=== PATIENT | female | born 1970 | race Two or more races ===

== ENCOUNTER 2024-10-16 11:49 | Outpatient (REF) | payer MEDICAID, SELFPAY ==
--- NOTE | ~2024-10-16 | XR_ITS ---
EXAMINATION: XR FOOT, LEFT CLINICAL INFORMATION: toe swelling and pain r/o osteomyelitis COMPARISON: None available. TECHNIQUE: AP, lateral, and oblique views of the left foot. FINDINGS: No acute cortical disruption or malalignment in the phalanges of the toes. The metatarsals are intact. The tarsal bones are intact. Small spur, calcaneus plantar surface. No gross joint effusion. No subcutaneous emphysema. No lytic or blastic lesions. No metallic or radiopaque foreign body. XR/XR foot LT min 3V IMPRESSION: No acute fracture or dislocation. No subcutaneous emphysema, toes of the left foot.. Electronically signed by: Isacc Landeros MD 10/16/2024 12:53 PM EDT
== END 2024-10-16 11:50 | disposition home or self-care (01) ==
LOC: HO.HHCX 11:49
PROVIDERS: Visit Provider Nurse Practitioner
DX: M79.675 Pain in left toe(s) (principal)
CPT/HCPCS: 73630

== ENCOUNTER → 2024-10-16 11:50 | Outpatient (BNV) | payer MEDICAID, SELFPAY | PROVIDERS: Visit Provider Radiology Diagnostic Radiology | DX: M79.675 Pain in left toe(s) (principal); R22.42 Localized swelling, mass and lump, left lower limb | CPT/HCPCS: 73630 ==

== ENCOUNTER 2024-10-21 08:40 | Outpatient (REF) | payer MEDICAID, SELFPAY ==
--- OUTSIDE RECORDS SUMMARY | 2024-10-21 08:58 | XMS_ITS | Clinical Summary ---
Author Organization [employer] Address [address] [place] [address] 7[address] [place] [address] Care Team Providers Care Lining Maker Hand Name Role Phone Gemma Osuna NP Primary Care Provider [phone] Allergies Active Allergy Reactions Criticality Noted Date Comments Penicillin G Medium 10/09/2024 Shrimp Flavor Agent (Non-Screening) Hives Medium 10/09/2024 un Medications insulin glargine (Lantus) 100 UNIT/ML injection Inject 20 Units under the skin at bedtime. 10 mL 12 10/10/19 25 Active pioglitazone (Actos) 15 MG tablet Take 1 tablet (15 mg) by mouth Once per day. 30 tablet 2 10/10/19 25 Active empagliflozin- metFORMIN ER (Synjardy XR) 10-1000 MG 24 hr tablet Take 1 tablet by mouth with breakfast. 30 tablet 3 10/10/19 25 Active aspirin 81 MG chewable tablet Chew 1 tablet (81 mg) Once per day. 30 tablet 11 10/10/19 25 026 Active montelukast (Singulair) 10 MG tablet Take 1 tablet (10 mg) by mouth Once per day. 30 tablet 2 10/10/19 25 025 Active alendronate (Fosamax) 70 MG tablet Take 1 tablet (70 mg) by mouth every 7 (seven) days. Take in the morning with a full glass of water, on an empty stomach, and do not take anything else by mouth or lie down for the next 30 min. 4 tablet 1 10/10/19 25 026 Active atorvastatin (Lipitor) 40 MG tablet Take 1 tablet (40 mg) by mouth Once per day. 30 tablet 2 10/10/19 Active famotidine (Pepcid) 20 MG tablet Take 1 tablet (20 mg) by mouth Once per day. 30 tablet 1 10/10/19 Active albuterol 108 (90 Base) MCG/ACT inhaler Inhale 2 puffs every 6 (six) hours if needed for wheezing. 18 g 10/10/19 Active DULoxetine (Cymbalta) [address] capsule Take 1 capsule (30 mg) by mouth 3 times daily. Do not crush or chew. 90 capsule 1 10/10/19 Active gabapentin (Neurontin) 300 MG capsule Take 1 capsule (300 mg) by mouth 3 times daily. 90 capsule 2 10/10/19 Active meloxicam (Mobic) 15 MG tablet Take 1 tablet (15 mg) by mouth if needed each day for moderate pain. 30 tablet 1 10/10/19 Active FREESTYLE LITE test strip Use to test blood sugar 3 times daily 100 each 10/10/19 Active Lancets misc Use to test blood sugar 3 times daily 100 each 10/10/19 Active Alcohol Swabs 70 % pads Use to test blood sugar 3 times daily 100 each 10/10/19 Active Blood Glucose Monitoring Suppl (FreeStyle Carrier Lite) w/Device kit Use to test blood sugar 3 times daily 1 kit 2 10/10/19 Active Continuous Glucose Library Technical Assistant (FreeStyle Sweetie 3 Lockney) device 1 each Once per day. Use as directed for CGM 1 each 10/10/19 Active Continuous Glucose Sensor (FreeStyle Sweetie 3 Plus Sensor) misc 1 each every 15 days. Apply 1 every 15 days as directed for CGM 2 each 10/10/19 Active glucose blood (FreeStyle Precision Kyle Test) test strip Use to test blood sugar 4 times daily in case of CGM failure or extremes of BG 100 each 10/10/19 026 Active amitriptyline (Elavil) 25 MG tablet Take 2 tablets (50 mg) by mouth at bedtime. 60 tablet 1 10/10/19 025 Active Insulin Syringe 31G X 10/09 1 ML misc 1 Syringe at bedtime. Use with lantus dose 30 each 3 10/10/19 25 Active Mometasone Furoate 110 MCG/ACT aerosol powder Inhale 1 Inhalation 2 times daily. 1 each 2 10/10/19 25 Active colchicine 0.6 MG tabletIndicati ons:Pain of toe of left foot Take 2 tablets today, then one tablet two times daily until pain resolves 20 tablet 10/17/19 Active DULoxetine (Cymbalta) [address] capsule Take 1 capsule (30 mg) by mouth Once per day. Do not crush or chew. 30 capsule 1 10/10/19 25 Discontinued gabapentin (Neurontin) 300 MG capsule Take 1 capsule (300 mg) by mouth if needed each day (nightly). 90 capsule 2 10/10/19 25 Discontinued fluticasone (Flovent) 110 MCG/ACT inhaler Inhale 1 puff in the morning and at bedtime. Rinse mouth with water after use to reduce aftertaste and incidence of candidiasis. Do not swallow. 12 g 11 10/10/19 25 025 Discontinued fluticasone (Flovent) 110 MCG/ACT inhaler Inhale 2 puffs in the morning and at bedtime. Rinse mouth with water after use to reduce aftertaste and incidence of candidiasis. Do not swallow. 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, with long-term current use of insulin 10/09/2024 Assessment & Plan (10/09/2024 10:15 AM EDT): Pt with type II DIABETES MELLITUS, A1c 5.9, glucose normal Medications renewed, Metabolic labs Fibromyalgia 10/09/2024 PTSD (post-traumatic stress disorder) 10/09/2024 Assessment & Plan (10/09/2024 10:31 AM EDT): Pt reports hx 0.5 clonezepam nightly, reviewed unable to prescribe this [facility] Referral to behavioral health Moderate persistent asthma without complication 10/09/2024 Diabetes mellitus, type II, insulin dependent Encounters Date Type Department Care Team Description 10/16/2024 10:40 AM EDT Office Visit [facility] [address] [place] [address] Pain of toe of left foot (Primary Dx) 10/16/2024 Telephone [facility] [address] [place] [address] [phone] Gemma Osuna NP Results 10/09/2024 9:40 AM EDT Office Visit [facility] [address] [place], [place] [phone] Gemma Osuna NP Type 2 diabetes mellitus with other diabetic arthropathy, with long-term current use of insulin (CMS/HCC) (Primary Dx); Fibromyalgia; PTSD (post-traumatic stress disorder); Moderate persistent asthma without complication 10/09/2024 Orders Only [facility] [address] [place] [address] [phone] Gemma Osuna NP Diabetes mellitus, type II, insulin dependent (CMS/HCC) (Primary Dx) 10/09/2024 Telephone [facility] [address] [place] [address] [phone] Keira Murphy RN from Last 3 Months Social History Tobacco Use Types Packs/Day Years Used Date Smoking Tobacco: Never Assessed Comments Unknown Sex and Gender Information Value Date Recorded Sex Assigned at Female 10/09/2024 9:13 AM EDT Legal Sex Female 1:51 PM EDT Gender Identity Female 10/09/2024 9:13 AM EDT Sexual Orientation Straight 10/09/2024 9: 13 AM EDT Last Filed Vital Signs Vital Sign Reading Time Taken Comments Blood Pressure 146/83 10/16/2024 11:21 AM EDT Pulse 87 10/16/2024 11:21 AM EDT Temperature 36.7 ??C (98 ??F) 10/16/2024 11:21 AM EDT Respiratory Rate 18 10/16/2024 11:21 AM EDT Oxygen Saturation 98% 10/16/2024 11:21 AM EDT Inhaled Oxygen Concentration - - Weight 96.2 kg (212 lb) 10/16/2024 11:21 AM EDT Height - - Body Mass Index - - Plan of Treatment Upcoming Encounters Date Type Department Care Team (Late st Contact Info) Description 11/13/2024 11:15 AM EDT Office Visit [facility] [address] [place] [address] Gemma Osuna NP [address] [place] [address] Health Maintenance Due Date Last Done Comments CT Colonography 1969 Colonoscopy 1969 Colorectal Cancer Screening 1969 Depression Screening 1969 FIT DNA/Cologuard 1969 FIT 1969 FOBT 1969 HIV Screening 1969 Lipid Panel 1969 SDOH Screening 1969 Sigmoidoscopy 1969 Disability Screening 1969 Diabetes: Foot Exam 1979 Eye Exam 1979 Alcohol/Substance Use Screening 1981 Tobacco Screening 1981 Hepatitis C Screening 1987 DTaP/Tdap/Td Vaccines (1 - Tdap) 1988 Diabetes: Urine Protein Screening 1988 Hepatitis B Vaccines (1 of 3 - 19+ 3-dose series) 1988 Pneumococcal Vaccine: 50+ Ye ars (1 of 2 - PCV) 1988 Pap Smear 1990 Cervical Cancer Screening 1999 HPV/Cotest 1999 Mammogram 2009 Zoster Vaccines (1 of 2) 2019 COVID-19 Vaccine ( - 2023-2 5 season) 2024 Influenza Vaccine (#1) 2024 Diabetes: Hemoglobin A1C 04/11/2025 10/09/2024 RSV Patients and Pa tients Aged 60 years or older (1 - 1-dose 75+ series) 2044 HIB Vaccines Aged Out No longer eligi ble based on patient's age to complete this topic HPV Vaccines Aged Out No longer eligi ble based on patient's age to complete this topic Hepatitis A Vaccines Aged Out No long er eligible based on patient's age to complete this topic IPV Vaccines Aged Out No longer eligi ble based on patient's age to complete this topic Meningococcal B Vaccine Aged Out No l onger eligible based on patient's age to complete this topic Meningococcal Vaccine Aged Out No peter rafa eligible based on patient's age to complete this topic RSV under 20 months Aged Out No longe r eligible based on patient's age to complete this topic Rotavirus Vaccines Aged Out No longer eligible based on patient's age to complete this topic Procedures Procedure Name Priority Date/Time Associated Diagnosis Comments XR FOOT 3+ VIEWS LEFT Routine 10/16/2024 11:50 AM EDT Pain of toe of left foot POCT GLYCATED HEMOGLOBIN, TOTAL Routine 10/09/2024 10:10 AM EDT Type 2 diabetes mellitus with other diabetic arthropathy, with long-term current use of insulin ([facility]) POCT GLUCOSE Routine 10/09/2024 10:10 AM EDT Type 2 diabetes mellitus with other diabetic arthropathy, with long-term current use of insulin ([facility]) from Last 3 Months Results * XR Foot 3+ Views Left (10/16/2024 11:50 AM EDT) Anatomical Region Laterality Modality Lower Extremities, Foot Left Radiogra phic Imaging 10/16/2024 11:5 0 AM EDT Narrative 10/16/2024 12:56 PM EDT ?[facility] ?[address] ?[place] [address] ?XRay Report ? Signed ? Patient: Callaway Rodas,Katie ?MR#: ?? [id number] ? : 1970 ?Acct:[id number] ? Age/Sex: 54 / F ?ADM Date: 05/23/25 ? Loc: HO.HHCX ? Attending Dr: Karina Appram ? Ordering Physician: Karina Kumar ?? Date of Service: 10/16/24 ?? Procedure(s): XR foot LT min 3V ?? Accession Number(s): [id number] ? cc: Karina Kumar ? EXAMINATION: ?? XR FOOT, LEFT ? CLINICAL INFORMATION: ?? toe swelling and pain r/o osteomyelitis ? COMPARISON: ?? None available. ? TECHNIQUE: ?? AP, lateral, and oblique views of the left foot. ? FINDINGS: ?? No acute cortical disruption or malalignment in the phalanges of the ?? toes. ?? The metatarsals are intact. ?? The tarsal bones are intact. ?? Small spur, calcaneus plantar surface. ?? No gross joint effusion. ?? No subcutaneous emphysema. ?? No lytic or blastic lesions. ?? No metallic or radiopaque foreign body. ? XR/XR foot LT min 3V ?? IMPRESSION: ?? No acute fracture or dislocation. ?? No subcutaneous emphysema, toes of the left foot.. ? Electronically signed by: ??Isacc Landeros MD ??10/16/2024 12:53 PM ?? EDT ? Dictated By: ?Isacc López MD ? Signed By: ?<Electronically signed by Isacc Gallardo MD in OV> ? 10/16/24 1253 ? DD/ 1150 ? TD/TT: 10/16/24 1200 ? Winchman/Crane Operator: ? Procedure Note Damon, Image - 10/16/[address] [address] XRay Report Signed Patient: Clotilde Andrews#: [id number] : 1970Acct:[id number] Age/Sex: 54 / FADM Date: 10/16/24 Loc: HO.HHCX Attending Dr: Karina Kumar Ordering Physician: Karina Kumar Date of Service: 10/16/24 Procedure(s): XR foot LT min 3V Accession Number(s): [id number] cc: Karina Kumar EXAMINATION: XR FOOT, LEFT CLINICAL INFORMATION: toe swelling and pain r/o osteomyelitis COMPARISON: None available. TECHNIQUE: AP, lateral, and oblique views of the left foot. FINDINGS: No acute cortical disruption or malalignment in the phalanges of the toes. The metatarsals are intact. The tarsal bones are intact. Small spur, calcaneus plantar surface. No gross joint effusion. No subcutaneous emphysema. No lytic or blastic lesions. No metallic or radiopaque foreign body. XR/XR foot LT min 3V IMPRESSION: No acute fracture or dislocation. No subcutaneous emphysema, toes of the left foot.. Electronically signed by: Isacc Landeros MD 10/16/2024 12:53 PM EDT RP Dictated By: Isacc López MD Signed By: <Electronically signed by Isacc Gallardo MDin OV> 10/16/24 1253 DD/ 1150 TD/TT: 10/16/24 1200 Winchman/Crane Operator: Karina Kumar ASSEMBLER FOR PULLER OVER MACHINE IMG XR PROCEDURES Final Result * POCT A1C (10/09/2024 10:10 AM EDT) Hemoglobin A1C 5.9 4.0 - 6.0 % Blood 10/09/2024 10:1 0 AM EDT Gemma Osuna ASSEMBLER FOR PULLER OVER MACHINE POINT OF CARE TEST ENTER/EDIT OR DERABLES Final Result * POCT glucose manually resulted (10/09/2024 10:10 AM EDT) Glucose Blood, POC 113 60 - 200 mg/dL Blood Capillary blood specimen / Unknown 10/09/2024 10:10 AM EDT Gemma Osuna ASSEMBLER FOR PULLER OVER MACHINE POINT OF CARE TEST ENTER/EDIT OR DERABLES Final Result from Last [address] [facility] C3 Care Teams Lining Maker Hand Relationship Specialty Start Date End Date Gemma Osuna NP [address] [place] [id number] PCP - General Family Medicine 10/09/24
[2024-10-21 11:38] LABS: Estimated Average Glucose 114 mg/dL; Hemoglobin A1c % 5.6 % (<6.0)
[2024-10-21 12:29] LABS: Alanine Aminotransferase 34 U/L (0-31); Albumin Level 3.7 g/dL (3.5-5.0); Alkaline Phosphatase 63 U/L (39-117); Anion Gap 11 (12-20); Aspartate Amino Transferase 46 U/L (5-31); Blood Urea Nitrogen 17 mg/dL (9-16); Carbon Dioxide 27 mmol/L (22-29); Chloride 109 mmol/L (96-108); Cholesterol 202 mg/dL (<200); Estimated Glomerular Filt Rate > 60; Glucose Random 85 mg/dL (60-115); HDL Cholesterol 63 mg/dL (>40); LDL Cholesterol Calculated 119 mg/dL (<100); Potassium 4.5 mmol/L (3.3-5.1); Sodium 142 mmol/L (135-145); Total Protein 6.6 g/dL (6.5-8.0); Triglycerides 101 mg/dL (<150)
[2024-10-21 12:34] LABS: TSH reflex Free T4 1.85 uIU/mL (0.32-4.0)
[2024-10-21 12:59] LABS: Bilirubin Total 0.6 mg/dL (0.0-1.0)
== END 2024-10-21 08:41 | disposition home or self-care (01) ==
LOC: HO.HHCL 08:40
PROVIDERS: Visit Provider Nurse Practitioner Family
DX: E11.618 Type 2 diabetes mellitus with other diabetic arthropathy (principal); Z79.4 Long term (current) use of insulin; M79.7 Fibromyalgia
CPT/HCPCS: 36415; 80053; 80061; 83036; 84443

== ENCOUNTER 2025-01-08 08:25 | Outpatient (REF) | payer MEDICAID, SELFPAY ==
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
--- OUTSIDE RECORDS SUMMARY | 2025-01-08 08:31 | XMS_ITS | Encounter Summary ---
Author Organization [employer] Address [address] [facility] [address] [place] [address] Care Team Providers Care Work Order Clerk Name Role Phone Gemma Osuna NP Primary Care Provider [phone] Reason for Visit * Reason Onset Date Comments Med Refill 11/03/2024 Encounter Details Date Type Department Care Team (Late st Contact Info) Description 11/03/2024 Refill [facility] [address] [place] [phone] Gemma Osuna NP [address] [place] [address] Social History Tobacco Use Types Packs/Day Years Used Date Smoking Tobacco: Never Smokeless Tobacco: Never Comments Unknown Sex and Gender Information Value Date Recorded Sex Assigned at Female 10/09/2024 9:13 AM EDT Legal Sex Female 1:51 PM EDT Gender Identity Female 10/09/2024 9:13 AM EDT Sexual Orientation Straight 10/09/2024 9: 13 AM EDT documented as of this encounter Plan of Treatment Upcoming Encounters Date Type Department Care Team (Late st Contact Info) Description 01/15/2025 1:30 PM EDT Office Visit [facility] [address] [place] [address] Gemma Osuna NP [address] [place], [place] [phone] 03/03/2025 2:00 PM EDT Office Visit [facility] [address] [place], [place] [phone] Fabby Hoffman, OD [address] [place], [place] [phone] documented as of this encounter Visit Diagnoses Not on filedocumented in this encounter Care Teams Work Order Clerk Relationship Specialty Start Date End Date Gemma Osuna NP [address] [place] [id number] PCP - General Family Medicine 10/09/24 documented as of this encounter
[2025-01-08 11:43] LABS: Alanine Aminotransferase 20 U/L (0-31); Albumin Level 4.2 g/dL (3.5-5.0); Alkaline Phosphatase 94 U/L (39-117); Anion Gap 11 (12-20); Aspartate Amino Transferase 22 U/L (5-31); Blood Urea Nitrogen 15 mg/dL (9-16); Calcium 9.1 mg/dL (8.4-10.2); Carbon Dioxide 26 mmol/L (22-29); Chloride 107 mmol/L (96-108); Estimated Glomerular Filt Rate > 60; Potassium 4.2 mmol/L (3.3-5.1); Sodium 140 mmol/L (135-145); Total Protein 7.0 g/dL (6.5-8.0)
== END 2025-01-08 08:26 | disposition home or self-care (01) ==
LOC: HO.HHCL 08:25
PROVIDERS: PCP Nurse Practitioner Family; Visit Provider Nurse Practitioner Family
DX: E11.618 Type 2 diabetes mellitus with other diabetic arthropathy (principal); Z79.4 Long term (current) use of insulin
CPT/HCPCS: 36415; 80053

== ENCOUNTER 2025-02-09 10:34 | Outpatient (REF) | payer MEDICAID, SELFPAY ==
--- OUTSIDE RECORDS SUMMARY | 2025-02-10 13:00 | XMS_ITS | Encounter Summary ---
Author Organization [employer] Address [address] [facility] 7[address] [place] [address] Care Team Providers Care Oracle Specialist Name Role Phone Gemma Osuna NP Primary Care Provider [phone] Reason for Visit * Reason Onset Date Comments Med Refill 11/03/2024 Encounter Details Date Type Department Care Team (Late Contact Info) Description 11/03/2024 Refill [facility] [address] [place] [address] Gemma Osuna NP [address] [place] [address] Social History Tobacco Use Types Packs/Day Years [...] Care Team (Late st Contact Info) Description 03/03/2025 2:00 PM EDT Office Visit [facility] [address] [place] [address] Fabby Hoffman OD [address] [place] [address] 03/22/2025 3:45 PM EDT Office Visit [facility] [address] [place] [address] Gemma Osuna NP [address] [place] [address] documented as of this encounter Visit Diagnoses Not on filedocumented in this encounter Care Teams Oracle Specialist Relationship Specialty Start Date End Date Gemma Osuna NP [address] [place] [address] PCP - General Family Medicine 10/09/24 documented as of this encounter
--- OUTSIDE RECORDS SUMMARY | 2025-02-10 13:00 | XMS_ITS | Encounter Summary ---
Author Organization [employer] Address [address] [facility] 7[address] [place] [address] Care Team Providers Care Double Backer Name Role Phone Gemma Osuna NP Primary Care Provider [phone] Reason for Visit * Reason Onset Date Comments Med Refill 11/03/2024 Encounter Details Date Type Department Care Team (Late st Contact Info) Description 11/03/2024 Refill [facility] [address] [place] [address] Gemma Osuna NP [address] [place] [address] Social History Tobacco Use Types Packs/Day Years [...] Description 03/03/2025 2:00 PM EDT Office Visit [facility] [address] [place] [address] Fabby Hoffman OD [address] [place] [address] 03/22/2025 3:45 PM EDT Office Visit [facility] [address] [place] [address] Gemma Osuna NP [address] [place] [address] documented as of this encounter Visit Diagnoses Not on filedocumented in this encounter Care Teams Double Backer Relationship Specialty Start Date End Date Gemma Osuna NP [address] [place] [address] PCP - General Family Medicine 10/09/24 documented as of this encounter
--- OUTSIDE RECORDS SUMMARY | 2025-02-10 13:01 | XMS_ITS | Encounter Summary ---
Author Organization [employer] Address [address] [facility] [address] [place] [address] Care Team Providers Care Mine Shifter Name Role Phone Gemma Osuna NP Primary Care Provider [phone] Reason for Visit * Reason Onset Date Comments Med Refill 12/07/2024 Encounter Details Date Type Department Care Team (Late st Contact Info) Description 12/07/2024 Refill [facility] [address] [place] [address] Gemma Osuna NP [address] [place] [address] Social History Tobacco Use Types Packs/Day Years Used Date Smoking Tobacco: Never Smokeless Tobacco: Never Depression Answer Date Recorded Patient Health Questionnaire-9 Score 14 11/13/2024 Patient Health Questionnaire-9 Score 14 11/13/2024 Last PHQ-9: Questionnaire Data Not on file 0 11/13/2024 Depression Answer Date Recorded Patient Health Questionnaire-2 Score 2 11/13/2024 Comments Unknown Sex and Gender Information Value [...] Description 03/03/2025 2:00 PM EDT Office Visit [facility] [address] [place], [place] [phone] Fabby Hoffman, OD [address] [place] [address] 03/22/2025 3:45 PM EDT Office Visit [facility] [address] [place] [address] Gemma Osuna NP [address] [place] [address] documented as of this encounter Visit Diagnoses Not on filedocumented in this encounter Additional Health Concerns Assessment Noted Time PHQ-9 Depression Total Score: 14 025 12:03 PM EDT documented as of this encounter Care Teams Mine Shifter Relationship Specialty Start Date End Date Gemma Osuna NP [address] [place] [address] PCP - General Family Medicine 10/09/24 documented as of this encounter
--- OUTSIDE RECORDS SUMMARY | 2025-02-10 13:01 | XMS_ITS | Encounter Summary ---
Author Organization [employer] Address [address] [facility] 7t [place] [address] Care Team Providers Care Angle Shearer Name Role Phone Gemma Osuna NP Primary Care Provider [phone] Reason for Visit * Reason Onset Date Comments Med Refill 12/11/2024 Encounter Details Date Type Department Care Team (Late st Contact Info) Description 12/11/2024 Refill [facility] [address] [place] [address] Gemma Osuna NP [address] [place] [address] Social History Tobacco Use Types Packs/Day Years [...] 03/03/2025 2:00 PM EDT Office Visit [facility] [address] [place], [place] [phone] Fabby Hoffman, OD [address] [place] [address] 03/22/2025 3:45 PM EDT Office Visit [facility] [address] [place] [address] Gemma Osuna NP [address] [place] [address] documented as of this encounter Visit Diagnoses Not on filedocumented in this encounter Additional Health Concerns Assessment Noted Time PHQ-9 Depression Total Score: 14 025 12:03 PM EDT documented as of this encounter Care Teams Angle Shearer Relationship Specialty Start Date End Date Gemma Osuna NP [address] [place] [address] PCP - General Family Medicine 10/09/24 documented as of this encounter
--- OUTSIDE RECORDS SUMMARY | 2025-02-10 13:01 | XMS_ITS | Encounter Summary ---
Author Organization [employer] Address [address] [facility] 7[address] [place] [address] Care Team Providers Care Lace Burn Out Tender Name Role Phone Gemma Osuna NP Primary Care Provider [phone] Reason for Visit * Reason Onset Date Comments Med Refill 12/07/2024 Encounter Details Date Type Department Care Team (Late st Contact Info) Description 12/07/2024 Refill [facility] [address] [place] [address] Gemma Osuna NP [address] [place] [address] Social History Tobacco Use Types Packs/Day Years [...] Description 03/03/2025 2:00 PM EDT Office Visit [facility] [address] [place], [place] [phone] Fabby Hoffman, OD [address] [place] [address] 03/22/2025 3:45 PM EDT Office Visit [facility] [address] [place] [address] Gemma Osuna NP [address] [place] [address] documented as of this encounter Visit Diagnoses Not on filedocumented in this encounter Additional Health Concerns Assessment Noted Time PHQ-9 Depression Total Score: 14 025 12:03 PM EDT documented as of this encounter Care Teams Lace Burn Out Tender Relationship Specialty Start Date End Date Gemma Osuna NP [address] [place] [address] PCP - General Family Medicine 10/09/24 documented as of this encounter
--- OUTSIDE RECORDS SUMMARY | 2025-02-10 13:01 | XMS_ITS | Clinical Summary ---
Author Organization [facility] Address [address] [place] [address] Care Team Providers Care Icing Coater Name Role Phone Unavailable Primary Care Provider Unavailabl e Source Comments PLEASE NOTE, if this patient is a minor, it may be UNLAWFUL to discuss sensitive information that is contained in these records (such as FAMILY PLANNING, MENTAL HEALTH or SUBSTANCE ABUSE) with the minor patient's parent or other person without the patient's specific authorization.[facility] Allergies Active Allergy Reactions Criticality Noted Date Comments Penicillamine 01/07/2025 Penicillin G Medium 10/09/2024 Medications blood-glucose meter monitoring kit Use 1 Each as directed 3 (three) times daily. 10/09/2024 Active meloxicam (MOBIC) 15 mg tablet Take 15 mg by mouth once daily. 11/30/2024 Active montelukast (SINGULAIR) 10 mg tablet Take 10 mg by mouth daily. 10/09/2024 Active amitriptyline (ELAVIL) 25 mg tablet Take 25 mg by mouth nightly at bedtime. 12/05/2023 Active aspirin 81 mg chewable tablet Chew and swallow 81 mg by mouth daily. 10/09/2024 10/10/19 Active atorvastatin (LIPITOR) 40 mg tablet Take 40 mg by mouth daily. 10/09/2024 10/10/19 Active FREESTYLE LITE STRIPS strips Use 1 Each as directed 3 (three) times daily. 10/09/2024 Active DULoxetine (CYMBALTA) [address] capsule Take 30 mg by mouth 2 (two) times daily. 11/30/2024 Active SYNJARDY XR 10-1,000 mg TBph Take 1 Tablet by mouth once daily with breakfast. Active famotidine (PEPCID) 20 mg tablet Take 20 mg by mouth daily. 11/30/2024 Active gabapentin (NEURONTIN) 300 mg capsule Take 300 mg by mouth 3 (three) times daily. Active ASMANEX HFA 100 mcg/actuation HFAA Inhale 1 Puff into the lungs 2 (two) times daily. 01/04/2025 Active DEEP SEA NASAL 0.65 % nasal spray Place 1 Elton into the nostril(s) once daily as needed. 11/02/2024 Active buPROPion XL (WELLBUTRIN XL) 150 mg 24 hr tablet Take 1 Tablet by mouth every morning for 30 days. 30 Tablet 01/07/2025 Active hydrOXYzine pamoate (VISTARIL) 25 mg capsule Take 1 Capsule by mouth 3 (three) times daily as needed for anxiety for up to 30 days. 90 Capsule 01/07/2025 Active Active Problems Problem Noted Date Diagnosed Date Major depressive disorder, r ecurrent episode, moderate degree ([facility]) 01/07/2025 Overview (01/07/2025): Adding Wellbutrin (bupropion) addresses residual depression without interfering with Cymbalta's benefits for fibromyalgia pain. This combination is safe and may provide synergistic antidepressant effects through different mechanisms (SNRI + NDRI). Hydroxyzine was chosen over prazosin after discussion with patient, prioritizing daytime anxiety management over nightmare suppression, though prazosin remains an option for future consideration if nightmares persist. Assessment & Plan (01/07/2025 12:45 PM EDT): Assessment: Patient reports symptoms consistent with depression, including poor concentration, forgetfulness, lack of motivation for self-care, and social isolation. She has a history of suicidal ideation with a plan, but no attempts, denies current SI/HI Plan: - Start Wellbutrin XL 150 mg - Continue Cymbalta 30 mg BID Chronic pain of left knee 11/15/2024 Elevated liver transaminase level 11/15/2024 Thyroid nodule 11/15/2024 Colon cancer screening 11/13/2024 Enlarged lymph node in neck 11/13/2024 Snoring 11/13/2024 Fibromyalgia 10/09/2024 Insulin dependent type 2 diabetes mellitus ([facility]) 10/09/2024 Moderate persistent asthma without complication ([facility]) 10/09/2024 PTSD (post-traumatic stress disorder) 10/09/2024 Overview (01/07/2025): Rationale for avoiding benzodiazepine continuation: While clonazepam would provide immediate anxiolytic relief, continuing this medication would be counterproductive given: 1) PTSD requires trauma-focused therapy as primary treatment, not anxiolytic dependence, 2) Patient has demonstrated ability to function with minimal benzodiazepine use, 3) Risk of tolerance and escalating doses over time, 4) Potential for masking symptoms rather than addressing underlying trauma. Critical need for psychotherapy: The 7-year duration of untreated PTSD with only medication management represents a significant treatment gap. Immediate referral for trauma-focused therapy is essential, as medications serve only as symptom management while therapy addresses core trauma processing. The patient's motivation (relocating for peaceful place ), stability (housing, employment), and daughter's support suggest good potential for therapeutic engagement. 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 She reports ongoing symptoms including panic attacks, anxiety, and difficulty being in crowded places. Her symptoms worsened two years ago following psychosocial stress and loss of family members. She is hypervigilant, has never been to therapy, currently taking two different serotonergic meds that help her pain, it will not be ideal to add an SSRI at this time, Patient needs to start Therapy [facility]. Plan: - Hydroxyzine for anxiety, up to 3 times daily - refer for therapy. ( Email with request sent to coordinator) 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, with long-term current use of insulin ([facility]) 10/09/2024 Encounters Date Type Department Care Team Description 01/07/2025 11:00 AM EDT Behavioral Health Visit [facility] [address] [place] [address] LAURA BANUELOS [id number] Fabiola Bah APRN from Last 3 Months Social History Tobacco Use Types Packs/Day Years Used Date Smoking Tobacco: Never Assessed Comments Unknown Sex and Gender Information Value Date Recorded Sex Assigned at Female 11/17/2024 6:40 AM PDT Legal Sex Female 6:40 AM PDT Gender Identity Female 11/17/2024 6:40 AM PDT Sexual Orientation Not on file Plan of Treatment Health Maintenance Due Date Last Done Comments Anxiety Screening 1969 Depression Monitoring 1969 Diabetes Foot Exam 1969 HPV Screening 1969 Hepatitis C Screening 1969 Pap + HPV 1969 Urine Albumin Creatinine Rat io Screening 1969 Retinopathy Screening 1982 HIV Screening 1984 Hypertension Screening (#1) 1987 Imm-DTaP/Tdap/Td (1 - Tdap) 1988 Imm-Hepatitis B (1 of 3 - 19 + 3-dose series) 1988 Imm-Pneumococcal 50+ (1 of 2 - PCV) 1988 Cervical Cancer Screening 1990 Pap Smear 1990 Breast Cancer Screening (Mammogram) 2009 CT Colonography 2014 Colonoscopy 2014 Colorectal Cancer Screening 2014 FIT/gFOBT 2014 Fecal DNA 2014 Flexible Sigmoidoscopy 2014 Imm-Zoster, Recombinant (1 of 2) 2019 Alcohol and Drug Screen 05/27/2024 [id number] ( season) 2025 Imm-Influenza (#1) 2025 Hemoglobin A1c 04/23/2025 10/21/2024, 0512/2024, 10/09/2024 Lipid Screening 10/21/2025 10/21/2024 Serum Creatinine 10/21/2025 10/21/2024 Tobacco Screening 01/07/2026 Cervical Ablation/Cold-Knife Conization Discontinued Cervical Cryotherapy Discontinued Colposcopy Discontinued Endometrial Biopsy Discontinued Excision/Leep Discontinued HPV Genotyping Discontinued Vaginal Pap Discontinued Vulvoscopy Discontinued [place] [facility] [place]
--- OUTSIDE RECORDS SUMMARY | 2025-02-10 13:01 | XMS_ITS | Clinical Summary ---
Author Organization [employer] Address [address] [place] [address] 7[address] [place] [address] Care Team Providers Care Computer Console Operator Name Role Phone ThaoGemma YENY Primary Care Provider [phone] Allergies Active Allergy Reactions Criticality Noted Date Comments Penicillin G Medium 10/09/2024 Shrimp Flavor Agent (Non-Screening) Hives Medium 10/09/2024 un Medications * This document contains information received from the source organization and may not represent a complete record from that organization. insulin glargine (Lantus) 100 UNIT/ML injection Inject 20 Units under the skin at bedtime. 10 mL 10/10/19 Active pioglitazone (Actos) 15 MG tablet Take 1 tablet (15 mg) by mouth Once per day. 30 tablet 2 10/10/19 Active empagliflozin- metFORMIN ER (Synjardy XR) 10-1000 MG 24 hr tablet Take 1 tablet by mouth with breakfast. 30 tablet 3 10/10/19 Active aspirin 81 MG chewable tablet Chew 1 tablet (81 mg) Once per day. 30 tablet 10/10/19 Active atorvastatin (Lipitor) 40 MG tablet Take 1 tablet (40 mg) by mouth Once per day. 30 tablet 2 10/10/19 Active albuterol 108 (90 Base) MCG/ACT inhaler Inhale 2 puffs every 6 (six) hours if needed for wheezing. 18 g 10/10/19 Active FREESTYLE LITE test strip Use to test blood sugar 3 times daily 100 each 12 05/16/20 25 05/16/2 026 Active Lancets misc Use to test blood sugar 3 times daily 100 each 10/10/19 Active Alcohol Swabs 70 % pads Use to test blood sugar 3 times daily 100 each 10/10/19 25 Active Blood Glucose Monitoring Suppl (FreeStyle [place] Lite) w/Device kit Use to test blood sugar 3 times daily 1 kit 2 10/10/19 Active Continuous Glucose Cnc Service Technician (FreeStyle Sweetie 3 [place]) device 1 each Once per day. Use as directed for CGM 1 each 10/10/19 25 Active glucose blood (FreeStyle Precision Kyle Test) test strip Use to test blood sugar 4 times daily in case of CGM failure or extremes of BG 100 each 10/10/19 25 026 Active sodium chloride (Bartholomew Nasal [place]) 0.65 % nasal sprayIndicatio ns:COVID-19 Administer 1 spray into each nostril if needed for congestion. 30 mL 1 11/03/19 25 Active meloxicam (Mobic) 15 MG tablet TAKE 1 TABLET BY MOUTH EVERY DAY NEEDED FOR PAIN MODERATE 30 tablet 1 12/01/19 25 Active amitriptyline (Elavil) 25 MG tablet TAKE 2 TABLETS BY MOUTH EVERY DAY AT BEDTIME 60 tablet 1 12/01/19 25 Active Asmanex HFA 100 MCG/ACT aerosol INHALE 1 PUFF BY MOUTH TWICE DAILY 13 g 2 01/05/20 25 Active tiZANidine (Zanaflex) 4 MG capsule Take 1 capsule (4 mg) by mouth if needed in the morning, at noon, and at bedtime for muscle spasms. 30 capsule 1 01/16/20 25 026 Active gabapentin (Neurontin) 300 MG capsule Take 2 capsules (600 mg) by mouth 2 times daily. 120 capsule 2 01/16/20 25 026 Active Continuous Glucose Sensor (FreeStyle Sweetie 3 Plus Sensor) mis 1 each every 15 days. Apply 1 every 15 days as directed for CGM 2 each 01/16/20 25 Active montelukast (Singulair) 10 MG tablet Take 1 tablet (10 mg) by mouth Once per day. 30 tablet 2 01/16/20 25 025 Active olmesartan (Benicar) 5 MG tablet Take 1 tablet (5 mg) by mouth Once per day. 30 tablet 01/16/20 026 Active alendronate (Fosamax) 70 MG tablet take 1 tablet by mouth once a week with 6 to 8 oz of water 30 min before first food of day. do not lie down for 30 minutes 12 tablet 01/27/20 25 Active famotidine (Pepcid) 20 MG tablet TAKE 1 TABLET BY MOUTH EVERY DAY 90 tablet 01/23/20 25 Active DULoxetine (Cymbalta) [address] capsule TAKE 1 CAPSULE BY MOUTH THREE TIMES DAILY DO NOT BREAK, CRUSH, DISSOLVE OR CHEW 90 capsule 02/04/20 Active montelukast (Singulair) 10 MG tablet Take 1 tablet (10 mg) by mouth Once per day. 30 tablet 2 10/10/19 025 Discontinued(Re order (will not trigger notification to Pharmacy)) gabapentin (Neurontin) 300 MG capsule Take 1 capsule (300 mg) by mouth 3 times daily. 90 capsule 2 10/10/19 025 Discontinued Continuous Glucose Sensor (FreeStyle Sweetie 3 Plus Sensor) misc 1 each every 15 days. Apply 1 every 15 days as directed for CGM 2 each 10/10/19 025 Discontinued(Re order (will not trigger notification to Pharmacy)) Nirmatrelvir&R itonavir 300/100 (Paxlovid, 300/100,) 20 x 150 MG & 10 x 100MG tablet therapy packIndication s:COVID-19 Take 300 mg by mouth 2 times daily. Take 3 tablets 2x/day for 5 days 30 each 11/03/19 025 Discontinued(Th erapy completed) lisinopril 2.5 MG tablet Take 1 tablet (2.5 mg) by mouth Once per day. 30 tablet 11/14/19 025 Discontinued(Si de effects) famotidine (Pepcid) 20 MG tablet TAKE 1 TABLET BY MOUTH EVERY DAY 30 tablet 12/01/19 25 025 Discontinued DULoxetine (Cymbalta) [address] capsule TAKE 1 CAPSULE BY MOUTH THREE TIMES DAILY. DO NOT BREAK, CRUSH, DISSOLVE OR CHEW. 90 capsule 12/01/19 25 025 Discontinued alendronate (Fosamax) 70 MG tablet Take 1 tablet (70 mg) by mouth every 7 (seven) days. Take in the morning with a full glass of water, on an empty stomach, and do not take anything else by mouth or lie down for the next 30 min. 4 tablet 1 12/01/19 25 025 Discontinued Active Problems Problem Noted Date Diagnosed Date Muscle spasm of left shoulder 01/15/2025 Assessment & Plan (01/15/2025 3:52 PM EDT): No injury, spasm last 3-4 days Exercise counseling 01/15/2025 Assessment & Plan (01/15/2025 2:08 PM EDT): Dietary Recommendations: Fruits, vegetables, whole grains, protein foods, and fat-free or low-fat dairy products are healthy choices. Eat different types of protein foods in your diet. This can include seafood, lean meats, poultry, beans, peas, lentils, nuts, seeds, soy products, and eggs. Limit foods and beverages higher in added sugars, saturated fat, and sodium. Exercise Recommendations: At least 150 minutes of moderate-intensity physical activity per week, or an equivalent combination of moderate- and vigorous-intensity activity Dietary counseling 01/15/2025 Thyroid nodule 11/15/2024 Assessment & Plan (01/15/2025 3:51 PM EDT): Upcoming ultrasound, in jan Assessment & Plan (11/15/2024 1:27 PM EDT): Ultrasound of thyroid ordered Chronic pain of left knee 11/15/2024 Assessment & Plan (11/15/2024 1:28 PM EDT): No instability noted, but chronic issue, referral to orthopedics Elevated liver transaminase level 11/15/2024 Assessment & Plan (11/15/2024 1:28 PM EDT): Repeat labs if elevated order ultrasound Snoring 11/13/2024 Assessment & Plan (11/15/2024 1:28 PM EDT): Referral to sleep medicine Enlarged lymph node in neck 11/13/2024 Colon cancer screening 11/13/2024 Overview (01/15/2025): Had in [place] (during pandemic) Assessment & Plan (01/15/2025 3:51 PM EDT): Referral to gI Assessment & Plan (11/15/2024 1:27 PM EDT): Referral to GI for colonscopy 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, with long-term current use of insulin 10/09/2024 Assessment & Plan (01/15/2025 2:12 PM EDT): Considering glp-1 awaiting thyroid nodule utrasound, will Assessment & Plan (11/15/2024 1:32 PM EDT): Continue to hold actos, last episode of hypoglycemia last week Initiate 2.5 mg lisinopril, reduce to 15 units lantus for 3 nights, increase to 20 units if fasting sugars above 200 bs Assessment & Plan (10/09/2024 10:15 AM EDT): Pt with type II DIABETES MELLITUS, A1c 5.9, glucose normal Medications renewed, Metabolic labs Fibromyalgia 10/09/2024 Assessment & Plan (01/15/2025 3:52 PM EDT): Reviewed supportive measures, gabapentin increased Acupuncture class recommended Referral to rheumatology PTSD (post-traumatic stress disorder) 10/09/2024 Assessment & Plan (11/15/2024 1:28 PM EDT): Referral to psychiatry Assessment & Plan (10/09/2024 10:31 AM EDT): Pt reports hx 0.5 clonezepam nightly, reviewed unable to prescribe this [facility] Referral to behavioral health Moderate persistent asthma without complication 10/09/2024 Diabetes mellitus, type II, insulin dependent Encounters * This document contains information received from the source organization and may not represent a complete record from that organization. Date Type Department Care Team Description 02/09/2025 Refill [facility] [address] [place] [address] [phone] Gemma Osuna NP 02/03/2025 Refill [facility] [address] [place] [address] [phone] Gemma Osuna NP 01/22/2025 Refill [facility] [address] [place] [address] [phone] Gemma Osuna NP 01/18/2025 Refill [facility] [address] [place] [address] [phone] Gemma Osuna NP 01/15/2025 1:30 PM EDT Office Visit [facility] [address] [place] [address] [phone] Gemma Osuna NP Thyroid nodule (Primary Dx); Dietary counseling; Exercise counseling; Type 2 diabetes mellitus with other diabetic arthropathy, with long-term current use of insulin ([facility]); Colon cancer screening; Muscle spasm of left shoulder; Fibromyalgia 01/15/2025 Travel 01/14/2025 Travel 01/14/2025 Telephone [facility] [address] [place] [address] [phone] Gemma Osuna NP Chart Prep 01/03/2025 Refill [facility] [address] [place] [address] [phone] Gemma Osuna NP 12/23/2024 4:00 PM EDT Office Visit [facility] [address] [place] [address] [phone] Viviana Lew MD Acute exacerbation of mild persistent extrinsic asthma (Primary Dx) 12/23/2024 Travel 12/22/2024 Refill [facility] [address] [place] [address] [phone] Gemma Osuna NP 12/11/2024 Refill [facility] [address] [place] [address] [phone] Gemma Osuna NP 12/07/2024 Refill [facility] [address] [place] [address] [phone] Gemma Osuna NP 12/07/2024 Refill [facility] [address] [place] [address] [phone] Gemma Osuna NP 11/29/2024 Refill [facility] [address] [place] [address] [phone] Gemma Osuna NP 11/27/2024 Refill [facility] [address] [place] [address] [phone] Gemma Osuna NP 11/16/2024 Telephone [facility] [address] [place] [address] [phone] Gemma Osuna NP 11/13/2024 11:15 AM EDT Office Visit [facility] [address] [place] [address] [phone] Gemma Osuna NP Type 2 diabetes mellitus with other diabetic arthropathy, with long-term current use of insulin (CMS/HCC) (Primary Dx); Snoring; PTSD (post-traumatic stress disorder); Fibromyalgia; Colon cancer screening; Thyroid nodule; Chronic pain of left knee; Elevated liver transaminase level 11/13/2024 Travel 11/12/2024 Travel 11/11/2024 Telephone [facility] [address] [place] [address] [phone] Jennifer Meehan MA Chart Prep from Last 3 Months Social History Tobacco Use Types Packs/Day Years Used Date Smoking Tobacco: Never Smokeless Tobacco: Never Tobacco Cessation:Counseling Given: Not Answered Depression Answer Date Recorded Patient Health Questionnaire-9 Score 14 11/13/2024 Patient Health Questionnaire-9 Score 14 11/13/2024 Last PHQ-9: Questionnaire Data Not on file 0 11/13/2024 Housing Stability Answer Date Recorded What is your housing situation today? I do not have housing (Staying with others, in a hotel, in a assisted, living outside on the street, on a beach, in a car, or in a park 01/15/[address] you li ve. Do you have problems with any of the following? None of the above;I am not sure 01/15/2025 Food Insecurity Answer Date Recorded Within the past 12 months, y ou worried that your food would run out before you got money to buy more: Sometimes True 2024 Within the past 12 months,th e food you bought just didn't last and you didn't have enough money to get more: Often true 01/15/2025 Transportation Answer Date Recorded In the past 12 months, has l ack of transportation kept you from medical appts, meetings, work or from getting things needed for daily living? Yes, it has kept me from medical appointments or getting medications.;Yes, it has kept me from non-medical meetings, work, or getting things that I need 01/15/2025 Utilities Answer Date Recorded In the past 12 months, has t he electric, gas, oil or water company threatened to shut off services in your home? No 01/15/2025 Depression Answer Date Recorded Patient Health Questionnaire-2 Score 2 11/13/2024 Internet Access Answer Date Recorded Internet Access Q1 Yes 01/15/2025 Internet Access Q2 Not on file 01/15/2025 Comments Unknown Sex and Gender Information Value Date Recorded Sex Assigned at Female 10/09/2024 9:13 AM EDT Legal Sex Female 1:51 PM EDT Gender Identity Female 10/09/2024 9:13 AM EDT Sexual Orientation Straight 10/09/2024 9: 13 AM EDT Last Filed Vital Signs Vital Sign Reading Time Taken Comments Blood Pressure 122/84 01/15/2025 1:33 PM EDT Pulse 92 01/15/2025 1:33 PM EDT Temperature 37.3 C (99.1 F) 01/15/2025 1:33 PM EDT Respiratory Rate 23 01/15/2025 1:33 PM EDT Oxygen Saturation 97% 01/15/2025 1:33 PM EDT Inhaled Oxygen Concentration - - Weight 93.5 kg (206 lb 3.2 oz) 01/15/2025 1:33 P M EDT Height 157.5 cm (5' 2 ) 01/15/2025 1:33 PM EDT Body Mass Index 37.71 01/15/2025 1:33 PM EDT Plan of Treatment Upcoming Encounters Date Type Department Care Team (Late st Contact Info) Description 03/03/2025 2:00 PM EDT Office Visit [facility] [address] [facility] [place], [place] [phone] Fabby Hoffman, OD [address] [place] [address] 03/22/2025 3:45 PM EDT Office Visit [facility] [address] [place] [address] Thao Gemma, COST ACCOUNTING CLERK [address] [place], [place] [phone] Health Maintenance Due Date Last Done Comments CT Colonography 1969 Colonoscopy 1969 Colorectal Cancer Screening 1969 FIT DNA/Cologuard 1969 FIT 1969 FOBT 1969 HIV Screening 1969 Sigmoidoscopy 1969 Eye Exam 1979 Hepatitis C Screening 1987 DTaP/Tdap/Td Vaccines (1 - Tdap) 1988 Diabetes: Urine Protein Screening 1988 Hepatitis B Vaccines (1 of 3 - 19+ 3-dose series) 1988 Pneumococcal Vaccine: 50+ Years (1 of 2 - PCV) 1988 Pap Smear 1990 Cervical Cancer Screening 1999 HPV/Cotest 1999 Mammogram 2009 Zoster Vaccines (1 of 2) 2019 COVID-19 Vaccine (1 - 2023-2 5 season) 2025 Influenza Vaccine (#1) 2025 Diabetes: Hemoglobin A1C 04/23/202510/21/2 025, 10/09/2024 Depression Monitoring 05/15/2025 11/13/2024 , 11/13/2024 Diabetes: Foot Exam 10/16/2025 10/16/2024 Lipid Panel 10/21/2025 10/21/2024 Alcohol/Substance Use Screening 11/13/2025 11/13/2024 Disability Screening 11/13/2025 11/13/2024 SDOH Screening 01/15/2026 01/15/2025 Tobacco Screening 01/15/2026 01/15/2025 RSV Patients and Patients Aged 60 years or older (1 - [...] Procedure Name Priority Date/Time Associated Diagnosis Comments POCT GLUCOSE Routine 01/15/2025 1:35 PM EDT Type 2 diabetes mellitus with other diabetic arthropathy, with long-term current use of insulin ([facility]) COMPREHENSIVE METABOLIC PANEL Routine 01/08/2025 8:31 AM EDT Elevated liver transaminase level POCT GLUCOSE Routine 11/13/2024 11:47 AM EDT Type 2 diabetes mellitus with other diabetic arthropathy, with long-term current use of insulin ([facility]) HEMOGLOBIN A1C Routine 10/21/2024 8:42 AM EDT Type 2 diabetes mellitus with other diabetic arthropathy, with long-term current use of insulin ([facility]) LIPID PANEL, STANDARD Routine 10/21/2024 8:42 AM EDT Type 2 diabetes mellitus with other diabetic arthropathy, with long-term current use of insulin ([facility]) from Last 3 Months or Most Recently Relevant to Health Maintenance Results * POCT Glucose (01/15/2025 1:35 PM EDT) Only the most recent of2 resultswithin the time period is included. Pathologist [facility] Glucose Blood, POC 150 60 - 200 mg/dL QC Media Lot # [id number] Lot# Expiration Date Blood Capillary blood specimen / Unknown 01/15/2025 1:35 PM EDT us Gemma Osuna COST ACCOUNTING CLERK POINT OF CARE TEST ENTER/EDIT OR DERABLES Final Result * (ABNORMAL) Comprehensive Metabolic Panel (01/08/2025 8:31 AM EDT) Sodium 140 135 - 145 mmol/L [facility] Potassium 4.2 3.3 - 5.1 mmol/L [facility] Chloride 107 96 - 108 mmol/L [facility] Carbon Dioxide 26 22 - 29 mmol/L [facility] Anion Gap 11(L) 12 - 20 [facility] Urea Nitrogen (BUN) 15 9 - 16 mg/dL [facility] Creatinine, Serum 0.62 0.5 - 1.4 mg/dL [facility] Estimated Glomerular Filt Rate >60 [facility] Comment:Chronic Kidney Disea se: Estimated GFR < 60 mL/min/1.53k2Hsleox Kidney Disease: Estimated GFR < 15 mL/min/1.73m2 Glucose 155(H) 60 - 115 mg/dL [facility] Calcium 9.1 8.4 - 10.2 mg/dL [facility] Bilirubin, Total 0.5 0.0 - 1.0 mg/dL [facility] Aspartate Amino Transferase 22 5 - 31 U/L [facility] Alanine Aminotransferase 20 0 - 31 U/L [facility] Total Protein 7.0 6.5 - 8.0 g/dL [facility] Albumin Level 4.2 3.5 - 5.0 g/dL [facility] Alkaline Phosphatase 94 39 - 117 U/L [facility] Blood Venous blood specimen / Unknown 01/08/2025 8:31 AM EDT 01/08/2025 11:10 AM EDT us Gemma Osuna NP LAB BLOOD ORDERABLES Final Resul t [facility] [address] [place] [phone] [phone] * Hemoglobin A1c (10/21/2024 8:42 AM EDT) Hemoglobin A1c 5.6 <6.0 % [facility] Comment:Hemoglobin A1C Refer ence Range Adults: 4.8 - 6.0 % Non diabetic: < 6.0 % Goal: < 7.0 %Additional Action Suggested: > 8.0 %Note: Hemoglobin A1c results are invalid for patients with abnormal amounts of HbF. Blood transfusions may impact the HbA1c concentration in the patient sample. Estimated Average Glucose 114 mg/dL [facility] Comment:eAG = Estimated ave rage glucose which is %A1C expressed asaverage glucose, using the formula of the T0O-NdlctrcYdobmpi Glucose study (ADAG), Diabetes Care, Vol.31,#8,2007 Blood Venous blood specimen / Unknown 10/21/2024 8:42 AM EDT 10/21/2024 11:06 AM EDT us Gemma Osuna NP LAB BLOOD ORDERABLES Final Resul t [facility] [address] [place] [phone] * (ABNORMAL) Lipid Panel, Standard (10/21/2024 8:42 AM EDT) Triglycerides 101 <150 mg/dL [facility] Comment:Desirable Triglyceri de: less than 150 mg/dLBorderline High Triglyceride 150-199 mg/dLHigh Triglyceride: 200-499 mg/dLVery High Triglyceride: greater than or equal to 5OO mg/dL Cholesterol 202(H) <200 mg/dL [facility] Comment:Desirable Cholestero l: less than 200 mg/dLBorderline High Cholesterol: 200-239 mg/dLHigh Cholesterol: greater than 239 mg/dL LDL Cholesterol Calculated 119(H) <100 mg/dL [facility] Comment:Desirable LDL: less than 100 mg/dLNear Optimal/Above Optimal LDL: 110- 129 mg/dLBorderline High LDL: 130-159 mg/dLHigh LDL: 160-189 mg/dLVery High LDL: greater than or equal to 190 mg/dL HDL Cholesterol 63 >40 mg/dL [facility] Comment:Desirable HDL: great er than 40 mg/dL Note: This HDL assay may give artificially low results in patients with liver disease. Blood Venous blood specimen / Unknown 10/21/2024 8:42 AM EDT 10/21/2024 11:10 AM EDT us Gemma Osuna COST ACCOUNTING CLERK LAB BLOOD ORDERABLES Final Resul t [facility] [address] [place] [address] [phone] from Last 3 Months or Most Recently Relevant to Health Maintenance Insurance [employer] Care Teams Computer Console Operator Relationship Specialty Start Date End Date Gemma Osuna NP [address] [place] [address] PCP - General Family Medicine 10/09/24
--- OUTSIDE RECORDS SUMMARY | 2025-02-10 13:01 | XMS_ITS | Encounter Summary ---
Author Organization [employer] Address [address] [facility] [address] [place] [address] Care Team Providers Care Bilingual Customer Service Name Role Phone Gemma Osuna NP Primary Care Provider [phone] Reason for Visit * Reason Onset Date Comments Med Refill 02/09/2025 Encounter Details Date Type Department Care Team ([facility] st Contact Info) Description 02/09/2025 Refill [facility] [address] [place] [address] Gemma Osuna NP [address] [place] [address] Social History Tobacco Use Types Packs/Day Years [...] with others, in a hotel, in a senior living, living outside on the street, on a [...] Description 03/03/2025 2:00 PM EDT Office Visit [facility] [address] [place] [address] Fabby Hoffman, OD [address] [place] [address] 03/22/2025 3:45 PM EDT Office Visit [facility] [address] [place] [address] Gemma Osuna NP [address] [place] [address] documented as of this encounter Visit Diagnoses Not on filedocumented in this encounter Additional Health Concerns Assessment Noted Time PHQ-9 Depression Total Score: 14 025 12:03 PM EDT documented as of this encounter Care Teams Bilingual Customer Service Relationship Specialty Start Date End Date Gemma Osuna NP [address] [place] [address] PCP - General Family Medicine 10/09/24 documented as of this encounter
--- OUTSIDE RECORDS SUMMARY | 2025-02-10 13:01 | XMS_ITS | Encounter Summary ---
Author Organization [employer] Address [address] [facility] [address] [place] [address] Care Team Providers Care Parts Designer Name Role Phone Gemma Osuna NP Primary Care Provider [phone] Reason for Visit * Reason Onset Date Comments Med Refill 12/22/2024 DTA Form 12/22/2024 I called the pat nathaniel, regarding a EAEDC form from the DTA. I asked why she was given a new form, because she had one completed on 10/21/24. She stated that the one from September is , and was told that she needs to provide a new one. Encounter Details Date Type Department Care Team (Late st Contact Info) Description 12/22/2024 Refill [facility] [address] [place], [place] [phone] Gemma Osuna NP [address] [place], [place] [phone] Social History Tobacco Use Types Packs/Day Years [...] AM EDT documented as of this encounter Miscellaneous Notes * Telephone Encounter - Alina Ramachandran [place] - 01/04/2025 11:28 AM EDT I called the patient, regarding a EAEDC form from the DTA. I asked why she was given a new form, because she had one completed on 10/21/24. She stated that the one from September is , and was told that she needs to provide a new one. documented in this encounter Plan of Treatment Upcoming Encounters Date Type Department Care Team (Late st Contact Info) Description 03/03/2025 2:00 PM EDT Office Visit [facility] [address] [place] [address] Fabby Hoffman, OD [address] [place] [address] 03/22/2025 3:45 PM EDT Office Visit [facility] [address] [place] [address] Gemma Osuna NP [address] [place] [address] documented as of this encounter Visit Diagnoses Not on filedocumented in this encounter Additional Health Concerns Assessment Noted Time PHQ-9 Depression Total Score: 14 025 12:03 PM EDT documented as of this encounter Care Teams Parts Designer Relationship Specialty Start Date End Date Gemma Osuna NP [address] [place] [address] PCP - General Family Medicine 10/09/24 documented as of this encounter
== END 2025-02-09 10:35 | disposition home or self-care (01) ==
LOC: HO.HOSX 10:34
PROVIDERS: Visit Provider Orthopaedic Surgery
DX: S83.242A Other tear of medial meniscus, current injury, left knee, initial encounter (principal); X58.XXXA Exposure to other specified factors, initial encounter
CPT/HCPCS: 99202

== ENCOUNTER 2025-02-09 13:30 | Outpatient (AMB) | payer MEDICAID, SELFPAY ==
--- NOTE | 2025-02-09 13:33 | A.OFFVIS_ITS ---
Intake Visit Reasons: Left knee pain and giving way Intake Note: Katie is a 54 year old female who presents with complaints of progressively worsening left knee pain and giving way. She describes her pain as sharp in nature. Her symptoms have gotten worse over the last 4 months in spite of continued non operative treatments. She has failed the last 6 weeks of conservative treatment which has included Tylenol, anti-inflammatory medicines, topical creams and physical therapy. She states it most of the pain is along the medial aspect of her knee. She states that her left knee will give out several times per day. She also feels a ?cracking sensation? in her left knee. Golf Player Assistant Required: Yes Golf Player Assistant Services: Golf Player Assistant Present Golf Player Assistant Name: Chelsey [id number] Allergies Penicillins Allergy (Mild, Verified 02/09/25 13:46) Unknown Medication List - Last Reconciled 02/09/25 by Joe Saleh MD alcohol swabs (Alcohol Prep Pads) pad topical TID alendronate 70 mg PO QWEEK aspirin 1 tab PO DAILY blood sugar diagnostic (FreeStyle Lite Strips) As directed blood-glucose meter (FreeStyle Duncan Lite kit) As directed famotidine 20 mg PO DAILY gabapentin 600 mg PO BID insulin glargine (Lantus U-100 Insulin) 20 units subcut BEDTIME lancets (TRUEplus Lancets) As directed meloxicam 15 mg PO DAILY PRN olmesartan 5 mg PO DAILY pioglitazone 15 mg PO DAILY Physical Exam Const Other: Well-nourished well-developed very friendly female awake alert and oriented x3 in no acute distress Extrem Other: Left knee examination shows a minimal effusion, mild crepitus with range of motion, tenderness along her medial joint line, positive Keshawn's test, no instability Assessment & Plan Assessment & Plan (1) Tear of medial meniscus of left knee: Code(s): S83.242A - Other tear of medial meniscus, current injury, left knee, initial encounter Category: Medical Plan Ms. Nilton Rodas presents with left knee pain and mechanical symptoms most likely due to a medial meniscus tear. Thus, I will send the patient for an MRI of her left knee for further evaluation. I will see her back once the MRI is completed to discuss the findings and treatment options. She will continue with her activity modifications in the meantime. Feel free to call me at any time should questions regarding her orthopedic management arise. Thank you very much for asking me to see this very friendly patient. I spent 20 minutes in reviewing the patient's records and imaging studies, seeing the patient and documenting in the medical record. Orders: Orders MR knee LT wo con 02/10/25 S83.242A - Other tear of medial meniscus, current injury, left knee, initial encounter Coding Level of Care Code New Pt Level 3 (07792) Complex EM visit Add On G2211 Diagnoses Tear of medial meniscus of left knee S83.242A
== END 2025-02-09 13:51 | disposition home or self-care (01) ==
LOC: HO.HOS 13:30
PROVIDERS: PCP Nurse Practitioner Family; Visit Provider Orthopaedic Surgery
DX: S83.242A Other tear of medial meniscus, current injury, left knee, initial encounter (principal)
CPT/HCPCS: 99203

== ENCOUNTER 2025-02-16 14:29 | Outpatient (REF) | payer MEDICAID, SELFPAY ==
--- NOTE | ~2025-02-16 | US_ITS ---
EXAMINATION: US THYROID CLINICAL INFORMATION: History of thyroid nodule. Tenderness. COMPARISON: None available. TECHNIQUE: Linear transducer grayscale and color Doppler examination with attention to the region of the thyroid. FINDINGS: SIZE: Measurements of the thyroid lobes and nodules are given in sagittal, anteroposterior and transverse dimensions respectively. Right Thyroid Lobe: 4.2 x 1.6 x 1.6 cm, volume 5.7 mL. Parenchyma: The gland echotexture is heterogeneous. Thyroid vascularity is normal. Left Thyroid Lobe: 4.2 x 1.2 x 1.5 cm, volume 3.9 mL. Parenchyma: The gland echotexture is heterogeneous. Thyroid vascularity is normal. Isthmus: 0.2 cm in maximum AP dimension. Estimated total number of nodules greater than or equal to 1 cm: 1. Laborer Pole Crew nodules are described as follows: 1. Location: Midportion right thyroid lobe. Size: 1.4 x 1.2 x 1.2 cm, volume 1.06 mL. Nodule characteristics: Composition: Solid/almost completely solid (2). Echogenicity: Hypoechoic (2). Shape: Not taller than wide (0). Margins: Smooth (0). Echogenic Foci: Punctate echogenic foci (3). ACR TI-RADS total points: 7 ACR TI-RADS category: 7 2. Location: Midportion right thyroid lobe. Size: 0.6 x 0.6 x 0.8 cm, volume 0.13 mL. Nodule characteristics: Composition: Solid (2). Echogenicity: Isoechoic (1). Shape: Not taller than wide (0). Margins: Smooth (0). Echogenic Foci: None (0). ACR TI-RADS total points: 3 ACR TI-RADS category: 3 3. Location: Lower pole right thyroid lobe. Size: 0.5 x 0.2 x 0.5 cm, volume 0.03 mL. Nodule characteristics: Composition: Solid (2). Echogenicity: Hypoechoic (2). Shape: Not taller than wide (0). Margins: Smooth (0). Echogenic Foci: None (0). ACR TI-RADS total points: 4 ACR TI-RADS category: 4 NODES: No lymphadenopathy is seen in the tissue surrounding the thyroid gland. US/US thyroid IMPRESSION: ACR TI-RADS category: 7. Nodule in the midportion right thyroid lobe. ACR TI-RADS category: 3 and 4, subcentimeter nodules, right thyroid lobe. ACR TI-RADS RECOMMENDATION REFERENCE: Ultrasound-guided fine-needle aspiration, followup ultrasound, no further follow up. * TR1 (0 point) and TR2 (2 points): No FNA or follow up. * TR3 (3 points): FNA if more than or equal to 2.5 cm in maximum dimension, followup ultrasound in 1, 3 and 5 years if 1.5 to 2.4 cm in maximum dimension. * TR4 (4-6 points): FNA if more than or equal to 1.5 cm in maximum dimension, followup ultrasound in 1, 2, 3 and 5 years if 1 to 1.4 cm in maximum dimension. * TR5 (more than or equal to 7 points): FNA if more than or equal to 1 cm in maximum dimension, followup ultrasound every year for 5 years if 0.5 to 0.9 cm in maximum dimension. * TR3, TR4 or TR5 nodules that are below the size threshold for followup receive no follow up. Electronically signed by: Isacc Landeros MD 02/16/2025 03:29 PM EDT
--- OUTSIDE RECORDS SUMMARY | 2025-02-16 17:41 | XMS_ITS | Encounter Summary ---
Author Organization [employer] Address [address] [facility] 7t [place] [address] Care Team Providers Care Telecommunications Facility Examiner Name Role Phone Gemma Osuna NP Primary Care Provider [phone] Reason for Visit * Reason Onset Date Comments Med Refill 11/03/2024 Encounter Details Date Type Department Care Team (Late Contact Info) Description 11/03/2024 Refill [facility] [address] [place] [address] Gemma Osuna NP [address] [place] [address] Social History Tobacco Use Types Packs/Day Years [...] 2:00 PM EDT Office Visit [facility] [address] [place] [address] Fabby Hoffman OD [address] [place] [address] 03/22/2025 3:45 PM EDT Office Visit [facility] [address] [place] [address] Gemma Osuna NP [address] [place] [address] documented as of this encounter Visit Diagnoses Not on filedocumented in this encounter Care Teams Telecommunications Facility Examiner Relationship Specialty Start Date End Date Gemma Osuna NP [address] [place] [address] PCP - General Family Medicine 10/09/24 documented as of this encounter
--- OUTSIDE RECORDS SUMMARY | 2025-02-16 17:41 | XMS_ITS | Encounter Summary ---
Author Organization [employer] Address 75 [facility] 7t [place] [address] Care Team Providers Care Public Works Manager Name Role Phone Gemma Osuna NP Primary Care Provider [phone] Reason for Visit * Reason Onset Date Comments Med Refill 11/03/2024 Encounter Details Date Type Department Care Team (Late st Contact Info) Description 11/03/2024 Refill [facility] [address] [place] [address] Gemma Osuna NP [address] [place] [address] Social History Tobacco Use Types Packs/Day Years [...] Description 03/03/2025 2:00 PM EDT Office Visit [facility] [address] [place] [address] Fabby Hoffman OD [address] [place] [address] 03/22/2025 3:45 PM EDT Office Visit [facility] [address] [place] [address] Gemma Osuna NP [address] [place] [address] documented as of this encounter Visit Diagnoses Not on filedocumented in this encounter Care Teams Public Works Manager Relationship Specialty Start Date End Date Gemma Osuna NP [address] [place] [address] PCP - General Family Medicine 10/09/24 documented as of this encounter
--- OUTSIDE RECORDS SUMMARY | 2025-02-16 17:42 | XMS_ITS | Encounter Summary ---
Author Organization [employer] Address [address] [facility] 7t [place] [address] Care Team Providers Care Letter Stamping Machine Operator Name Role Phone Gemma Osuna NP Primary Care Provider [phone] Reason for Visit * Reason Comments Med Refill Encounter Details Date Type Department Care Team ([facility] st Contact Info) Description 02/15/2025 Refill [facility] [address] [place] [address] Gemma Osuna NP [address] [place] [address] COVID-19 Social History Tobacco Use Types Packs/Day Years [...] Description 03/03/2025 2:00 PM EDT Office Visit [facility] [address] [place] [address] Fabby Hoffman, OD [address] [place] [address] 03/22/2025 3:45 PM EDT Office Visit [facility] [address] [place] [address] Gemam Osuna NP [address] [place] [address] documented as of this encounter Visit Diagnoses Diagnosis COVID-19 documented in this encounter Additional Health Concerns Assessment Noted Time PHQ-9 Depression Total Score: 14 025 12:03 PM EDT documented as of this encounter Care Teams Letter Stamping Machine Operator Relationship Specialty Start Date End Date Gemma Osuna NP [address] [place] [address] PCP - General Family Medicine 10/09/24 documented as of this encounter
--- OUTSIDE RECORDS SUMMARY | 2025-02-16 17:42 | XMS_ITS | Clinical Summary ---
Author Organization [facility] Address [address] [place] [address] Care Team Providers Care Plugman Name Role Phone Unavailable Primary Care Provider [...] NASAL 0.65 % nasal spray Place [address] [place] into the nostril(s) once daily as needed. [...] depressive disorder, r ecurrent episode, moderate degree ([facility]) 01/07/2025 Overview (01/07/2025): Adding Wellbutrin (bupropion) addresses [...] 10/09/2024 Insulin dependent type 2 diabetes mellitus ([facility]) 10/09/2024 Moderate persistent asthma without complication ([facility]) 10/09/2024 PTSD (post-traumatic stress disorder) 10/09/2024 Overview [...] arthropathy, with long-term current use of insulin ([facility]) 10/09/2024 Encounters Date Type Department Care Team Description 01/07/2025 11:00 AM EDT Behavioral Health Visit [facility] [address] [place] [address] LAURA BANUELOS [phone] Fabiola Bah APRN from [...] C Screening 1969 Pap + HPV 1969 Tobacco Screening 1969 Urine Albumin Creatinine Rat io Screening [...] 2) 2019 Alcohol and Drug Screen 05/27/2024 [id number] ( season) 2025 Imm-Influenza (#1) 2025 Hemoglobin A1c 04/23/2025 10/21/2024, 09/25, 10/09/2024 Lipid Screening 10/21/2025 10/21/2024 Serum Creatinine 10/21/2025 10/21/2024 Cervical Ablation/Cold-Knife Conization Discontinued Cervical Cryotherapy Discontinued Colposcopy Discontinued Endometrial Biopsy Discontinued Excision/Leep Discontinued HPV Genotyping Discontinued Vaginal Pap Discontinued Vulvoscopy Discontinued Insurance [facility] [place] MEDICAID
--- OUTSIDE RECORDS SUMMARY | 2025-02-16 17:42 | XMS_ITS | Encounter Summary ---
Author Organization [employer] Address 75 [facility] 7t [place] [address] Care Team Providers Care Supply Chain Vice President Name Role Phone Gemma Osuna NP Primary Care Provider [phone] Reason for Visit * Reason Onset Date Comments Med Refill 02/09/2025 Encounter Details Date Type Department Care Team ([facility] st Contact Info) Description 02/09/2025 Refill [facility] [address] [place] [address] Gemma Osuna NP [address] [place] [address] Social History Tobacco Use Types Packs/Day Years [...] with others, in a hotel, in a nursing home, living outside on the street, on a [...] Description 03/03/2025 2:00 PM EDT Office Visit [facility] [address] [place] [address] Fabby Hoffman, OD [address] [place] [address] 03/22/2025 3:45 PM EDT Office Visit [facility] [address] [place] [address] Gemma Osuna NP [address] [place] [address] documented as of this encounter Visit Diagnoses Not on filedocumented in this encounter Additional Health Concerns Assessment Noted Time PHQ-9 Depression Total Score: 14 025 12:03 PM EDT documented as of this encounter Care Teams Supply Chain Vice President Relationship Specialty Start Date End Date Gemma Osuna NP [address] [place] [address] PCP - General Family Medicine 10/09/24 documented as of this encounter
--- OUTSIDE RECORDS SUMMARY | 2025-02-16 17:42 | XMS_ITS | Encounter Summary ---
Author Organization [employer] Address 75 [facility] 7t [place] [address] Care Team Providers Care Numerical Control Tool Programmer Name Role Phone Gemma Osuna NP Primary Care Provider [phone] Reason for Visit * Reason Onset Date Comments Med Refill 12/07/2024 Encounter Details Date Type Department Care Team (Late st Contact Info) Description 12/07/2024 Refill [facility] [address] [place] [address] Gemma Osuna NP [address] [place] [address] Social History Tobacco Use Types Packs/Day Years [...] Description 03/03/2025 2:00 PM EDT Office Visit [facility] [address] [place], [place] [phone] Fabby Hoffman, OD [address] [place] [address] 03/22/2025 3:45 PM EDT Office Visit [facility] [address] [place] [address] Gemma Osuna NP [address] [place] [address] documented as of this encounter Visit Diagnoses Not on filedocumented in this encounter Additional Health Concerns Assessment Noted Time PHQ-9 Depression Total Score: 14 025 12:03 PM EDT documented as of this encounter Care Teams Numerical Control Tool Programmer Relationship Specialty Start Date End Date Gemma Osuna NP [address] [place] [address] PCP - General Family Medicine 10/09/24 documented as of this encounter
--- OUTSIDE RECORDS SUMMARY | 2025-02-16 17:42 | XMS_ITS | Encounter Summary ---
Author Organization [employer] Address [address] [facility] 7t [place] [address] Care Team Providers Care Industrial Arts Teacher Name Role Phone Gemma Osuna NP Primary Care Provider [phone] Reason for Visit * Reason Comments Med Refill Encounter Details Date Type Department Care Team ([facility] st Contact Info) Description 02/15/2025 Refill [facility] [address] [place] [address] Karina Kumar NP [address] [place] [address] COVID-19 Social History Tobacco Use Types Packs/Day [...] with others, in a hotel, in a detention, living outside on the street, on a [...] Description 03/03/2025 2:00 PM EDT Office Visit [facility] [address] [place] [address] Fabby Hoffman, OD [address] [place] [address] 03/22/2025 3:45 PM EDT Office Visit [facility] [address] [place] [address] Gemma Osuna NP [address] [place] [address] documented as of this encounter Visit Diagnoses Diagnosis COVID-19 documented in this encounter Additional Health Concerns Assessment Noted Time PHQ-9 Depression Total Score: 14 025 12:03 PM EDT documented as of this encounter Care Teams Industrial Arts Teacher Relationship Specialty Start Date End Date Gemma Osuna NP [address] [place] [address] PCP - General Family Medicine 10/09/24 documented as of this encounter
--- OUTSIDE RECORDS SUMMARY | 2025-02-16 17:42 | XMS_ITS | Encounter Summary ---
Author Organization [employer] Address 75 [facility] 7t [place] [address] Care Team Providers Care Industrial Gas Fitter Name Role Phone Gemma Osuna NP Primary Care Provider [phone] Reason for Visit * Reason Onset Date [...] (Late st Contact Info) Description 12/22/2024 Refill [facility] [address] [place], [place] [phone] Gemma Osuna NP [address] [place], [place] [phone] Social History Tobacco Use Types Packs/Day Years [...] Description 03/03/2025 2:00 PM EDT Office Visit [facility] [address] [place] [address] Fabby Hoffman, OD [address] [place] [address] 03/22/2025 3:45 PM EDT Office Visit [facility] [address] [place] [address] Gemma Osuna NP [address] [place] [address] documented as of this encounter Visit Diagnoses Not on filedocumented in this encounter Additional Health Concerns Assessment Noted Time PHQ-9 Depression Total Score: 14 025 12:03 PM EDT documented as of this encounter Care Teams Industrial Gas Fitter Relationship Specialty Start Date End Date Gemma Osuna NP [address] [place] [address] PCP - General Family Medicine 10/09/24 documented as of this encounter
--- OUTSIDE RECORDS SUMMARY | 2025-02-16 17:42 | XMS_ITS | Encounter Summary ---
Author Organization [employer] Address 75 [facility] 7t [place] [address] Care Team Providers Care Doctor Of Radiology Name Role Phone Gemma Osuna NP Primary Care Provider [phone] Reason for Visit * Reason Onset Date Comments Med Refill 12/07/2024 Encounter Details Date Type Department Care Team (Late st Contact Info) Description 12/07/2024 Refill [facility] [address] [place] [address] Gemma Osuna NP [address] [place] [address] Social History Tobacco Use Types Packs/Day Years [...] Description 03/03/2025 2:00 PM EDT Office Visit [facility] [address] [place], [place] [phone] Fabby Hoffman, OD [address] [place] [address] 03/22/2025 3:45 PM EDT Office Visit [facility] [address] [place] [address] Gemma Osuna NP [address] [place] [address] documented as of this encounter Visit Diagnoses Not on filedocumented in this encounter Additional Health Concerns Assessment Noted Time PHQ-9 Depression Total Score: 14 025 12:03 PM EDT documented as of this encounter Care Teams Doctor Of Radiology Relationship Specialty Start Date End Date Gemma Osuna NP [address] [place] [address] PCP - General Family Medicine 10/09/24 documented as of this encounter
--- OUTSIDE RECORDS SUMMARY | 2025-02-16 17:42 | XMS_ITS | Encounter Summary ---
Author Organization [employer] Address [address] [facility] 7t [place] [address] Care Team Providers Care Gas Check Pad Maker Name Role Phone Gemma Osuna NP Primary Care Provider [phone] Reason for Referral * Imaging (Urgent) - Pending Review Specialty Diagnoses / Procedures Referred By Karina levin Referred To Contact Radiology Diagnoses Thyroid nodule Procedures US BIOPSY THYROID (P) Gemma Osuna NP [address] [place] [address] Phone: tel: fax: Referral ID Status Reason Start Date Expiration Date V isits Requested Visits Authorized [id number] Pending Review 02/16/2025 02/16/2026 1 1 Encounter Details Date Type Department Care Team (Late st Contact Info) Description 02/16/2025 Results Follow-Up [facility] [address] [place] [address] Gemma Osuna NP [address] [place] [address] US Thyroid Social History Tobacco Use Types Packs/Day Years [...] others, in a hotel, in a senior care, living outside on the street, on a [...] as of this encounter Miscellaneous Notes * Result Encounter Note - Gemma Osuna NP - 02/16/2025 4:47 PM EDT Good afternoon, I attempted to call patient but no answer. One of the thyroid nodules requires further investigation with biopsy, I have ordered this. Can we please let pt know? I am happy to answer her questions thank you documented in this encounter Plan of Treatment Upcoming Encounters Date Type Department Care Team ([facility] st Contact Info) Description 03/03/2025 2:00 PM EDT Office Visit [facility] [address] [place] [address] [place] [phone] Fabby Hoffman, OD [address] [place] [address] 03/22/2025 3:45 PM EDT Office Visit [facility] [address] [place] [address] Gemma Osuna NP [address] [place] [address] Scheduled Orders Name Type Priority Associated Diagnoses Orde r Schedule US BIOPSY THYROID (P) Imaging Urgent Thyroid nodule Expected: 02/16/2025, Expires: 02/16/2026 documented as of this encounter Visit Diagnoses Diagnosis Thyroid nodule- Primary Nontoxic uninodular goiter documented in this encounter Additional Health Concerns Assessment Noted Time PHQ-9 Depression Total Score: 14 11/13/ 025 12:03 PM EDT documented as of this encounter Care Teams Gas Check Pad Maker Relationship Specialty Start Date End Date Gemma Osuna NP [address] [place] [address] PCP - General Family Medicine 10/09/24 documented as of this encounter
--- OUTSIDE RECORDS SUMMARY | 2025-02-16 17:42 | XMS_ITS | Clinical Summary ---
Author Organization [employer] Address [address] [place] [address] 7[address] [place] [address] Care Team Providers Care Field Research Assistant Name Role Phone FredyGemma saenz YENY Primary Care Provider [phone] Allergies Active Allergy Reactions Criticality Noted Date [...] per day. 30 tablet 2 10/10/19 Active aspirin 81 MG chewable tablet Chew 1 tablet (81 mg) Once per day. 30 tablet 10/10/19 Active albuterol 108 (90 Base) MCG/ACT inhaler Inhale 2 puffs every 6 (six) hours if needed for wheezing. 18 g 10/10/19 Active FREESTYLE LITE test strip Use to test blood sugar 3 times daily 100 each 12 10/10/19 25 Active Lancets misc Use to test blood sugar 3 times daily 100 each 10/10/19 Active Alcohol Swabs 70 % pads Use to test blood sugar 3 times daily 100 each 10/10/19 Active Blood Glucose Monitoring Suppl (FreeStyle [place] Lite) w/Device kit Use to test blood sugar 3 times daily 1 kit 2 05/16/20 25 Active Continuous Glucose Financial Service Professional (FreeStyle Sweetie 3 [place]) device 1 each Once per day. Use as directed for CGM 1 each 10/10/19 25 Active glucose blood (FreeStyle Precision Kyle Test) test strip Use to test blood sugar 4 times daily in case of CGM failure or extremes of BG 100 each 10/10/19 25 026 Active Asmanex HFA 100 MCG/ACT aerosol INHALE [...] as directed for CGM 2 each 01/16/20 Active montelukast (Singulair) 10 MG tablet Take 1 tablet (10 mg) by mouth Once per day. 30 tablet 2 01/16/20 25 025 Active olmesartan (Benicar) 5 MG tablet Take 1 tablet (5 mg) by mouth Once per day. 30 tablet 01/16/20 25 026 Active alendronate (Fosamax) 70 MG tablet take 1 tablet by mouth once a week with 6 to 8 oz of water 30 min before first food of day. do not lie down for 30 minutes 12 tablet 1 01/27/20 25 Active famotidine (Pepcid) 20 MG tablet TAKE 1 TABLET BY MOUTH EVERY DAY 90 tablet 1 01/23/20 25 Active DULoxetine (Cymbalta) [address] capsule TAKE 1 CAPSULE BY MOUTH THREE TIMES DAILY DO NOT BREAK, CRUSH, DISSOLVE OR CHEW 90 capsule 1 02/04/20 25 Active Synjardy XR 10-1000 MG 24 hr tablet TAKE 1 TABLET BY MOUTH EVERY DAY WITH BREAKFAST 30 tablet 3 02/17/20 25 Active amitriptyline (Elavil) 25 MG tablet TAKE 2 TABLETS BY MOUTH EVERY DAY AT BEDTIME 60 tablet 3 02/17/20 25 Active meloxicam (Mobic) 15 MG tablet TAKE 1 TABLET BY MOUTH EVERY DAY NEEDED FOR MODERATE PAIN 30 tablet 3 02/17/20 25 Active atorvastatin (Lipitor) 40 MG tablet TAKE 1 TABLET BY MOUTH EVERY DAY 90 tablet 02/17/20 25 Active sodium chloride (Vermillion Nasal [place]) 0.65 % nasal sprayIndicatio ns:COVID-19 INSTILL 1 SPRAY IN EACH NOSTRIL ONCE DAILY NEEDED 30 mL 1 02/17/20 25 Active empagliflozin- metFORMIN ER (Synjardy XR) 10-1000 MG 24 hr tablet Take 1 tablet by mouth with breakfast. 30 tablet 3 10/10/19 25 025 Discontinued atorvastatin (Lipitor) 40 MG tablet Take 1 tablet (40 mg) by mouth Once per day. 30 tablet 2 10/10/19 025 Discontinued sodium chloride (Vermillion Nasal [place]) 0.65 % nasal sprayIndicatio ns:COVID-19 Administer 1 spray into each nostril if needed for congestion. 30 mL 1 11/03/19 025 Discontinued(Re order (will not trigger notification to Pharmacy)) meloxicam (Mobic) 15 MG tablet TAKE 1 TABLET BY MOUTH EVERY DAY NEEDED FOR PAIN MODERATE 30 tablet 1 12/01/19 25 025 Discontinued famotidine (Pepcid) 20 MG tablet TAKE 1 TABLET BY MOUTH EVERY DAY 30 tablet 1 12/01/19 25 025 Discontinued DULoxetine (Cymbalta) [address] capsule TAKE 1 CAPSULE BY MOUTH THREE TIMES DAILY. DO NOT BREAK, CRUSH, DISSOLVE OR CHEW. 90 capsule 12/01/19 25 025 Discontinued amitriptyline (Elavil) 25 MG tablet TAKE 2 TABLETS BY MOUTH EVERY DAY AT BEDTIME 60 tablet 1 12/01/19 25 025 Discontinued alendronate (Fosamax) 70 [...] (01/15/2025 3:51 PM EDT): Upcoming ultrasound, in sept Assessment & Plan (11/15/2024 1:27 PM EDT): [...] cancer screening 11/13/2024 Overview (01/15/2025): Had in [place] (during pandemic) Assessment & Plan (01/15/2025 3:51 [...] organization. Date Type Department Care Team Description 02/16/2025 Results Follow-Up [facility] [address] [place] [address] Gemma Osuna, YENY US Thyroid 02/15/2025 Refill [facility] [address] [place], [place] [phone] Karina Kumar NP COVID-19 02/15/2025 Refill [facility] [address] [place] [phone] Gemma Osuna NP COVID-19 02/09/2025 Refill [facility] [address] [place] [phone] Gemma Osuna NP 02/03/2025 Refill [facility] [address] [place] [address], [place] [address] Gemma Osuna NP 01/22/2025 Refill [facility] [address] [place] [address], [place] [address] Gemma Osuna NP 01/18/2025 Refill [facility] [address] [place] [address], [place] [address] Gemma Osuna NP 01/15/2025 1:30 PM EDT Office Visit [facility] [address] [place] [phone] Gemma Osuna NP Thyroid nodule (Primary Dx); Dietary counseling; Exercise counseling; Type 2 diabetes mellitus with other diabetic arthropathy, with long-term current use of insulin ([facility]); Colon cancer screening; Muscle spasm of left shoulder; Fibromyalgia 01/15/2025 Travel 01/14/2025 Travel 01/14/2025 Telephone [facility] [address] [place] [phone] Gemma Osuna NP Chart Prep 01/03/2025 Refill [facility] [address] [place] [phone] Gemma Osuna NP 12/23/2024 4:00 PM EDT Office Visit [facility] [address] [place] [phone] Viviana Lew MD Acute exacerbation of mild persistent extrinsic asthma (Primary Dx) 12/23/2024 Travel 12/22/2024 Refill [facility] [address] [place] [phone] Gemma Osuna NP 12/11/2024 Refill [facility] [address] [place] [address] Gemma Osuna NP 12/07/2024 Refill [facility] [address] [place] [address] Gemma Osuna NP 12/07/2024 Refill [facility] [address] [place] [address], [place] [address] Gemma Osuna NP 11/29/2024 Refill [facility] [address] [place] [address], [place] [address] Gemma Osuna NP 11/27/2024 Refill [facility] [address] [place] [address] Gemma Osuna NP 11/16/2024 Telephone [facility] [address] [place] [address], [place] [address] Gemma Osuna NP from Last 3 Months Social History Tobacco [...] 2:00 PM EDT Office Visit [facility] [address] [place] [address] Fabby Hoffman, OD [address] [place] [address] 03/22/2025 3:45 PM EDT Office Visit [facility] [address] [place] [address] Gemma Osuna, YENY [address] [place] [address] Health Maintenance Due Date Last Done Comments [...] Influenza Vaccine (#1) 2025 Diabetes: Hemoglobin A1C 04/23/2025 025, 10/09/2024 Depression Monitoring 05/15/2025 11/13/2024 , [...] Procedure Name Priority Date/Time Associated Diagnosis Comments US THYROID Routine 02/16/2025 2:50 PM EDT Thyroid nodule POCT GLUCOSE Routine 01/15/2025 1:35 PM EDT Type 2 diabetes mellitus with other diabetic arthropathy, with long-term current use of insulin (CMS/HCC) COMPREHENSIVE METABOLIC PANEL Routine 01/08/2025 8:31 AM EDT Elevated liver transaminase level HEMOGLOBIN A1C Routine 10/21/2024 8:42 AM EDT Type 2 diabetes mellitus with other diabetic arthropathy, with long-term current use of insulin (CMS/HCC) LIPID PANEL, STANDARD Routine 10/21/2024 8:42 AM EDT Type 2 diabetes mellitus with other diabetic arthropathy, with long-term current use of insulin (CMS/HCC) from Last 3 Months or Most Recently Relevant to Health Maintenance Results * US Thyroid (02/16/2025 2:50 PM EDT) Anatomical Region Laterality Modality Head, Neck Ultrasound 02/16/2025 2:50 PM EDT Narrative 02/16/2025 3:32 PM EDT [place] [address] Ultrasound Report Signed Patient: Ktaie Andrews MR#: [id number] : 1970 Acct:[id number] Age/Sex: 54 / F ADM Date: 02/16/25 Loc: HO.US Attending Dr: Gemma Osuna NP Ordering Physician: Gemma Osuna NP Date of Service: 02/16/25 Procedure(s): US thyroid Accession Number(s): [id number] cc: Gemma Osuna NP Reason for Exam: hx of thyroid nodule, now tender EXAMINATION: US THYROID CLINICAL INFORMATION: History of thyroid nodule. Tenderness. COMPARISON: None available. TECHNIQUE: Linear transducer grayscale and color Doppler examination with attention to the region of the thyroid. FINDINGS: SIZE: Measurements of the thyroid lobes and nodules are given in sagittal, anteroposterior and transverse dimensions respectively. Right Thyroid Lobe: 4.2 x 1.6 x 1.6 cm, volume 5.7 mL. Parenchyma: The gland echotexture is heterogeneous. Thyroid vascularity is normal. Left Thyroid Lobe: 4.2 x 1.2 x 1.5 cm, volume 3.9 mL. Parenchyma: The gland echotexture is heterogeneous. Thyroid vascularity is normal. Isthmus: 0.2 cm in maximum AP dimension. Estimated total number of nodules greater than or equal to 1 cm: 1. Rd Manager nodules are described as follows: 1. Location: Midportion right thyroid lobe. Size: 1.4 x 1.2 x 1.2 cm, volume 1.06 mL. Nodule characteristics: Composition: Solid/almost completely solid (2). Echogenicity: Hypoechoic (2). Shape: Not taller than wide (0). Margins: Smooth (0). Echogenic Foci: Punctate echogenic foci (3). ACR TI-RADS total points: 7 ACR TI-RADS category: 7 2. Location: Midportion right thyroid lobe. Size: 0.6 x 0.6 x 0.8 cm, volume 0.13 mL. Nodule characteristics: Composition: Solid (2). Echogenicity: Isoechoic (1). Shape: Not taller than wide (0). Margins: Smooth (0). Echogenic Foci: None (0). ACR TI-RADS total points: 3 ACR TI-RADS category: 3 3. Location: Lower pole right thyroid lobe. Size: 0.5 x 0.2 x 0.5 cm, volume 0.03 mL. Nodule characteristics: Composition: Solid (2). Echogenicity: Hypoechoic (2). Shape: Not taller than wide (0). Margins: Smooth (0). Echogenic Foci: None (0). ACR TI-RADS total points: 4 ACR TI-RADS category: 4 NODES: No lymphadenopathy is seen in the tissue surrounding the thyroid gland. US/US thyroid IMPRESSION: ACR TI-RADS category: 7. Nodule in the midportion right thyroid lobe. ACR TI-RADS category: 3 and 4, subcentimeter nodules, right thyroid lobe. ACR TI-RADS RECOMMENDATION REFERENCE: Ultrasound-guided fine-needle aspiration, followup ultrasound, no further follow up. * TR1 (0 point) and TR2 (2 points): No FNA or follow up. * TR3 (3 points): FNA if more than or equal to 2.5 cm in maximum dimension, followup ultrasound in 1, 3 and 5 years if 1.5 to 2.4 cm in maximum dimension. * TR4 (4-6 points): FNA if more than or equal to 1.5 cm in maximum dimension, followup ultrasound in 1, 2, 3 and 5 years if 1 to 1.4 cm in maximum dimension. * TR5 (more than or equal to 7 points): FNA if more than or equal to 1 cm in maximum dimension, followup ultrasound every year for 5 years if 0.5 to 0.9 cm in maximum dimension. * TR3, TR4 or TR5 nodules that are below the size threshold for followup receive no follow up. Electronically signed by: Isacc Landeros MD 02/16/2025 03:29 PM EDT Dictated By: Isacc López MD Signed By: <Electronically signed by Isacc Gallardo MD in [place]> 02/16/25 1529 DD/ 1450 TD/TT: 02/16/25 1456 Steam Hammer Operator: Procedure Note Donotuseinterpreter, Image - 02/16/2025 [place] [address] Ultrasound Report Signed Patient: Clotilde Andrews#: [id number] : 1970Acct:[id number] Age/Sex: 54 / FADM Date: 02/16/25 Loc: HO.US Attending Dr: Gemma Osuna NP Ordering Physician: Gemma Osuna NP Date of Service: 02/16/25 Procedure(s): US thyroid Accession Number(s): [id number] cc: Gemma Osuna NP Reason for Exam: hx of thyroid nodule, now tender EXAMINATION: US THYROID CLINICAL INFORMATION: History of thyroid nodule. Tenderness. COMPARISON: None available. TECHNIQUE: Linear transducer grayscale and color Doppler examination with attention to the region of the thyroid. FINDINGS: SIZE: Measurements of the thyroid lobes and nodules are given in sagittal, anteroposterior and transverse dimensions respectively. Right Thyroid Lobe: 4.2 x 1.6 x 1.6 cm, volume 5.7 mL. Parenchyma: The gland echotexture is heterogeneous. Thyroid vascularity is normal. Left Thyroid Lobe: 4.2 x 1.2 x 1.5 cm, volume 3.9 mL. Parenchyma: The gland echotexture is heterogeneous. Thyroid vascularity is normal. Isthmus: 0.2 cm in maximum AP dimension. Estimated total number of nodules greater than or equal to 1 cm: 1. Rd Manager nodules are described as follows: 1. Location: Midportion right thyroid lobe. Size: 1.4 x 1.2 x 1.2 cm, volume 1.06 mL. Nodule characteristics: Composition: Solid/almost completely solid (2). Echogenicity: Hypoechoic (2). Shape: Not taller than wide (0). Margins: Smooth (0). Echogenic Foci: Punctate echogenic foci (3). ACR TI-RADS total points: 7 ACR TI-RADS category: 7 2. Location: Midportion right thyroid lobe. Size: 0.6 x 0.6 x 0.8 cm, volume 0.13 mL. Nodule characteristics: Composition: Solid (2). Echogenicity: Isoechoic (1). Shape: Not taller than wide (0). Margins: Smooth (0). Echogenic Foci: None (0). ACR TI-RADS total points: 3 ACR TI-RADS category: 3 3. Location: Lower pole right thyroid lobe. Size: 0.5 x 0.2 x 0.5 cm, volume 0.03 mL. Nodule characteristics: Composition: Solid (2). Echogenicity: Hypoechoic (2). Shape: Not taller than wide (0). Margins: Smooth (0). Echogenic Foci: None (0). ACR TI-RADS total points: 4 ACR TI-RADS category: 4 NODES: No lymphadenopathy is seen in the tissue surrounding the thyroid gland. US/US thyroid IMPRESSION: ACR TI-RADS category: 7. Nodule in the midportion right thyroid lobe. ACR TI-RADS category: 3 and 4, subcentimeter nodules, right thyroid lobe. ACR TI-RADS RECOMMENDATION REFERENCE: Ultrasound-guided fine-needle aspiration, followup ultrasound, no further follow up. * TR1 (0 point) and TR2 (2 points): No FNA or follow up. * TR3 (3 points): FNA if more than or equal to 2.5 cm in maximum dimension, followup ultrasound in 1, 3 and 5 years if 1.5 to 2.4 cm in maximum dimension. * TR4 (4-6 points): FNA if more than or equal to 1.5 cm in maximum dimension, followup ultrasound in 1, 2, 3 and 5 years if 1 to 1.4 cm in maximum dimension. * TR5 (more than or equal to 7 points): FNA if more than or equal to 1 cm in maximum dimension, followup ultrasound every year for 5 years if 0.5 to 0.9 cm in maximum dimension. * TR3, TR4 or TR5 nodules that are below the size threshold for followup receive no follow up. Electronically signed by: Isacc Landeros MD 02/16/2025 03:29 PM EDT Dictated By: Isacc López MD Signed By: <Electronically signed by Isacc Gallardo MDin [place]> 02/16/25 1529 DD/ 1450 TD/TT: 02/16/25 1456 Steam Hammer Operator: Gemma Osuna NP IMG US PROCEDURES Final Result * POCT Glucose (01/15/2025 1:35 PM EDT) Glucose Blood, POC 150 60 - 200 mg/dL QC Media Lot # [id number] Lot# Expiration Date Blood Capillary blood specimen / Unknown 01/15/2025 1:35 PM EDT Gemma Osuna NP POINT OF CARE TEST ENTER/EDIT OR DERABLES Final Result * (ABNORMAL) Comprehensive Metabolic Panel (01/08/2025 8:31 AM EDT) Sodium 140 135 - 145 mmol/L [facility] Potassium 4.2 3.3 - 5.1 mmol/L [facility] Chloride 107 96 - 108 mmol/L [facility] Carbon Dioxide 26 22 - 29 mmol/L [facility] Anion Gap 11(L) 12 - 20 [facility] Urea Nitrogen (BUN) 15 9 - 16 mg/dL [facility] Creatinine, Serum 0.62 0.5 - 1.4 mg/dL [facility] Estimated Glomerular Filt Rate >60 [facility] Comment:Chronic Kidney Disea se: Estimated GFR < 60 mL/min/[id number] Kidney Disease: Estimated GFR < 15 mL/min/1.73m2 Glucose 155(H) 60 - 115 mg/dL [facility] Calcium 9.1 8.4 - 10.2 mg/dL [facility] Bilirubin, Total 0.5 0.0 - 1.0 mg/dL [facility] Aspartate Amino Transferase 22 5 - 31 U/L [facility] Alanine Aminotransferase 20 0 - 31 U/L [facility] Total Protein 7.0 6.5 - 8.0 g/dL [facility] Albumin Level 4.2 3.5 - 5.0 g/dL [facility] Alkaline Phosphatase 94 39 - 117 U/L [facility] Blood Venous blood specimen / Unknown 01/08/2025 8:31 AM EDT 01/08/2025 11:10 AM EDT us Gemma Osuna ACID CONDITIONING WORKER LAB BLOOD ORDERABLES Final Resul t [facility] [address] [place], [place] [phone] * Hemoglobin A1c (10/21/2024 8:42 AM EDT) Hemoglobin A1c 5.6 <6.0 % [facility] Comment:Hemoglobin A1C Refer ence Range Adults: 4.8 - 6.0 % Non diabetic: < 6.0 % Goal: < 7.0 %Additional Action Suggested: > 8.0 %Note: Hemoglobin A1c results are invalid for patients with abnormal amounts of HbF. Blood transfusions may impact the HbA1c concentration in the patient sample. Estimated Average Glucose 114 mg/dL [facility] Comment:eAG = Estimated ave rage glucose which is %A1C expressed asaverage glucose, using the formula of the [id number] Glucose study (ADAG), Diabetes Care, Vol.31,#8,2007 Blood Venous blood specimen / Unknown 10/21/2024 8:42 AM EDT 10/21/2024 11:06 AM EDT us Gemma Osuna NP LAB BLOOD ORDERABLES Final Resul t [facility] [address] [place] [address] [phone] * (ABNORMAL) Lipid Panel, Standard (10/21/2024 8:42 AM EDT) Triglycerides 101 <150 mg/dL [facility] Comment:Desirable Triglyceri de: less than 150 mg/dLBorderline High Triglyceride 150-199 mg/dLHigh Triglyceride: 200-499 mg/dLVery High Triglyceride: greater than or equal to 5OO mg/dL Cholesterol 202(H) <200 mg/dL [facility] Comment:Desirable Cholestero l: less than 200 mg/dLBorderline High Cholesterol: 200-239 mg/dLHigh Cholesterol: greater than 239 mg/dL LDL Cholesterol Calculated 119(H) <100 mg/dL [facility] Comment:Desirable LDL: less than 100 mg/dLNear Optimal/Above Optimal LDL: 110- 129 mg/dLBorderline High LDL: 130-159 mg/dLHigh LDL: 160-189 mg/dLVery High LDL: greater than or equal to 190 mg/dL HDL Cholesterol 63 >40 mg/dL [facility] Comment:Desirable HDL: great er than 40 mg/dL Note: This HDL assay may give artificially low results in patients with liver disease. Blood Venous blood specimen / Unknown 10/21/2024 8:42 AM EDT 10/21/2024 11:10 AM EDT us Gemma Osuna AC[employer] CONDITIONING WORKER LAB BLOOD ORDERABLES Final Resul t [facility] [address] [place] [address] [phone] from Last 3 Months or Most Recently Relevant to Health Maintenance Insurance [employer] Care Teams Field Research Assistant Relationship Specialty Start Date End Date Gemma Osuna NP [address] [place] [address] PCP - General Family Medicine 10/09/24
--- OUTSIDE RECORDS SUMMARY | 2025-02-16 17:42 | XMS_ITS | Encounter Summary ---
Author Organization [employer] Address [address] [facility] [address] [place] [address] Care Team Providers Care Researcher Name Role Phone Gemma Osuna NP Primary Care Provider [phone] Reason for Visit * Reason Onset Date Comments Med Refill 12/11/2024 Encounter Details Date Type Department Care Team (Late st Contact Info) Description 12/11/2024 Refill [facility] [address] [place] [address] Gemma Osuna NP [address] [place] [address] Social History Tobacco Use Types Packs/Day Years [...] Description 03/03/2025 2:00 PM EDT Office Visit [facility] [address] [place], [place] [phone] Fabby Hoffman, OD [address] [place] [address] 03/22/2025 3:45 PM EDT Office Visit [facility] [address] [place] [address] Gemma Osuna NP [address] [place] [address] documented as of this encounter Visit Diagnoses Not on filedocumented in this encounter Additional Health Concerns Assessment Noted Time PHQ-9 Depression Total Score: 14 025 12:03 PM EDT documented as of this encounter Care Teams Researcher Relationship Specialty Start Date End Date Gemma Osuna NP [address] [place] [address] PCP - General Family Medicine 10/09/24 documented as of this encounter
== END 2025-02-16 14:30 | disposition home or self-care (01) ==
LOC: HO.US 14:29
PROVIDERS: PCP Nurse Practitioner Family; Visit Provider Nurse Practitioner Family
DX: E04.1 Nontoxic single thyroid nodule (principal)
CPT/HCPCS: 76536

== ENCOUNTER → 2025-02-16 14:32 | Outpatient (BNV) | payer MEDICAID, SELFPAY | PROVIDERS: PCP Nurse Practitioner Family; Visit Provider Radiology Diagnostic Radiology | DX: E04.2 Nontoxic multinodular goiter (principal) | CPT/HCPCS: 76536 ==

== ENCOUNTER 2025-03-02 11:20 | Outpatient (AMB) | payer MEDICAID, SELFPAY ==
--- NOTE | 2025-03-02 11:21 | MHC.OFFVIS ---
Vital Signs 03/02/25 11:25 Height 5 ft 2 in Weight 201 lb 15.095 oz BMI 36.9 BP 115/63 Blood Pressure Location Lt brachial Position Sitting Pulse Oximetry (%) 92 Oxygen Delivery Method Room Air Intake Visit Reasons: hx of colon screening Intake Note: Pt c/o; hemorrhoids, rectal bleeding, Hx IBS, first colonoscopy done at the age of 40 fam Hx, acid reflux, reports lower abdominal pain. Letterset Press Set Up Operator Required: Yes Letterset Press Set Up Operator Language: Oil Processing Technician Services: Letterset Press Set Up Operator Present Accompanied by: Self / Same As Patient Allergies seafood Allergy (Severe, Verified 03/02/25 11:26) Hives Penicillins Allergy (Mild, Verified 03/02/25 11:26) Unknown HPI HPI hx of colon screening: Details: 54-year-old female here for preprocedural meeting to discuss a screening colonoscopy. She is referred by [facility]. PMX Asthma Diabetes High cholesterol-on Lipitor Fibromyalgia syndrome Transaminitis Snoring PTSD Chronic left knee pain ? Osteoporosis-on Fosamax * SURGICAL HISTORY tubal ligation T & A C sections * ALLERGIES PCN Seafood * [employer] Restaurant Reservations LABS: Laboratory Tests 01/08/25 08:31 Estimated GFR > 60 Total Bilirubin 0.5 AST 22 ALT 20 Alkaline Phosphatase 94 TODAY'S VISI New Ze[place]ander #[employer] ? First colonoscopy no, her last was about 5 years ago in [place]. She also had and EGD and she was told she had a Schatzki's ring but she does not know any more. She currently does not have any dysphagia, upper abdominal pain or dyspepsia. Bowel or upper GI problems: She suffers intermittent diarrhea she feels is stress related. Recently this has improved and she is not currently desiring any additional treatment. I think in the past she has been treated with Carafate and dicyclomine per her report. She has asthma and is being worked up for PIERCE and no cardiac problems Infectious disease problems: NO There are no prior problems with anesthesia or sedation Family history:Her father has polyps. [facility] Surgical History Sterilization History of tonsillectomy and adenoidectomy H/O section Family History Father Prostate cancer Leukemia Mother Diabetes Cirrhosis Social History Alcohol intake: never Patient Tobacco Use Status: Never used Tobacco Review of Systems Const Denies fatigue, Denies fever(s), Denies night sweats, Denies poor appetite and Denies weight loss ENT Reports Normal hearing present, Denies dental pain, Denies dysphagia, Denies hearing loss, Denies mouth pain, Denies odynophagia, Denies throat swelling, Denies tongue swelling and Reports other (Dentition adequate) Card Reports no additional complaints Resp Reports no additional complaints GI Details: Denies abdominal pain, Denies melena, Denies bloating, Denies hematochezia, Denies constipation, Denies GI cramping, Denies dysphagia, Denies excessive flatus, Denies early satiety, Reports heartburn, Denies diarrhea, Denies nausea, Denies odynophagia, Denies vomiting and Denies hematemesis Skin/Breast Denies pruritus, Denies lesions, Denies rash and Denies jaundice Neuro Reports Normal hearing present and Denies Abnormal speech present Endo Denies fatigue Aller/Immun Denies throat swelling and Denies tongue swelling Physical Exam Vital Signs: Last Vital Signs BP 115/63 03/02/25 11:25 Pulse Ox 92 03/02/25 11:25 Oxygen Delivery Method Room Air 03/02/25 11:25 BMI result Body Mass Index 36.9 Const General: cooperative, no acute distress, well developed and well groomed Nutritional Appearance: well nourished and obese Orientation/consciousness: oriented to person, oriented to place and oriented to time Limitations: No language barrier HEENT Head: Yes normocephalic and Yes atraumatic Eyes General: appearance normal, both eyes and all related structures Pupils: Equal, round and reactive pupils present Neck Neck: Yes normal visual inspection and Yes no lymphadenopathy Thyroid: Thyroid normal Resp Effort & Inspection: normal respiratory effort and able to speak in complete sentences Auscultation: clear to auscultation bilaterally Cardio Rate: regular rate Rhythm: regular rhythm Heart sounds: Normal, physiologic split S2 sound present Peripheral pulses: radial pulses present and posterior tibial pulses present GI Inspection: No distended, Yes Abdominal panniculus present, Yes obesity, Yes scar and Yes striae Palpation (GI): Soft to palpation, nontender, no guarding, not rigid and No hepatosplenomegaly present Percussion: Yes normal to percussion Auscultation: normal bowel sounds Rectal Exam - Female: deferred Abdomen image:  1. surgical scar Skin General skin exam: no rashes or lesions noted, turgor normal, skin not dry, no jaundice, No spider nevi and no striae Rashes: no rashes Nails: normal Neuro General: oriented to person, oriented to place and oriented to time Cranial nerves: Yes Equal, round and reactive pupils present and Yes Normal hearing present Speech: No Abnormal speech present Extrem General: Yes normal to inspection, No clubbing, No cyanosis and No edema Psych Appearance: grossly normal and well kempt Mental Status: mental status grossly normal Speech and movement: Normal speech and movement present Affect: normal affect Attitude: cooperative Thought process: Circumstantial thought process present and not confabulating Thought content: Normal thought content present Insight: Fair insight present (Psych) Judgement: Fair judgement present (Psych) Assessment & Plan Assessment & Plan (1) Pre-op examination: Code(s): Z01.818 - Encounter for other preprocedural examination Category: Medical (2) Family history of polyps in the colon: Comment: Father Code(s): Z83.719 - Family history of colon polyps, unspecified Category: Medical (3) Asthma: Code(s): J45.909 - Unspecified asthma, uncomplicated Category: Medical (4) Obesity (BMI 30-39.9): Code(s): E66.9 - Obesity, unspecified Category: Medical Plan [place] #[employer] ? First colonoscopy no, [place] was about 5 years ago [place]. She also had and EGD and she was told she had a Schatzki's ring but she does not know any more. She currently does not have any dysphagia, upper abdominal pain or dyspepsia. Bowel or upper GI problems: She suffers intermittent diarrhea she feels is stress related. Recently this has improved and she is not currently desiring any additional treatment. I think in the past she has been treated with Carafate and dicyclomine per her report. She has asthma and is being worked up for PIERCE and no cardiac problems Infectious disease problems: NO There are no prior problems with anesthesia or sedation Family history:Her father has polyps. Orders: Referrals GI Procedure Notification Z01.818 - Encounter for other preprocedural examination Medications: New peg 3350-electrolytes 236-22.74-6.74 -5.86 gram (Golytely) until fecal effluent is clear; do not exceed a total volume of 2,000 mL 240 mL PO Q10M 4,000 mL 0RF 1 day Z12.11 - Encounter for screening for malignant neoplasm of colon bisacodyl (Dulcolax (bisacodyl)) 10 mg (2 x 5 mg) PO BEDTIME 4 tabs 0RF 2 days Coding Level of Care Code New Pt Level 3 (93434) Diagnoses Pre-op examination Z01.818 Family history of polyps in the colon Z83.719 Asthma J45.909 Obesity (BMI 30-39.9) E66.9
[2025-03-02 11:25] VITALS: BP 115/63; O2SAT 92; BMI 36.9
--- OUTSIDE RECORDS SUMMARY | 2025-03-02 14:16 | XMS_ITS | Encounter Summary ---
Author Organization [employer] Address [address] [facility] [address] [place] [address] Care Team Providers Care Stereoplotter Operator Name Role Phone Gemma Osuna NP Primary Care Provider [phone] Reason for Visit * Reason Onset Date Comments Med Refill 02/09/2025 Encounter Details Date Type Department Care Team ([facility] st Contact Info) Description 02/09/2025 Refill [facility] [address] [place] [address] Gemma Osuna NP [address] [place] [address] Social History Tobacco Use Types Packs/Day Years [...] Description 03/03/2025 2:00 PM EDT Office Visit [facility] [address] [place] [address] Fabby Hoffman, OD [address] [place] [address] 03/22/2025 3:45 PM EDT Office Visit [facility] [address] [place] [address] Gemma Osuna NP [address] [place] [address] documented as of this encounter Visit Diagnoses Not on filedocumented in this encounter Additional Health Concerns Assessment Noted Time PHQ-9 Depression Total Score: 14 025 12:03 PM EDT documented as of this encounter Care Teams Stereoplotter Operator Relationship Specialty Start Date End Date Gemma Osuna NP [address] [place] [address] PCP - General Family Medicine 10/09/24 documented as of this encounter
--- OUTSIDE RECORDS SUMMARY | 2025-03-02 14:16 | XMS_ITS | Clinical Summary ---
Author Organization [email or web address] Address [address] [place] [address] 7[address] [place] [address] Care Team Providers Care Dough Molder Hand Name Role Phone Gemma Osuna NP Primary Care Provider [phone] Allergies Active Allergy Reactions Criticality Noted Date [...] if needed for wheezing. 18 g 10/10/19 25 026 Active FREESTYLE LITE test strip Use to test blood sugar 3 times daily 100 each 12 10/10/19 25 Active Lancets misc Use to test blood sugar 3 times daily 100 each 10/10/19 25 Active Alcohol Swabs 70 % pads Use to test blood sugar 3 times daily 100 each 10/10/19 25 Active Blood Glucose Monitoring Suppl (FreeStyle [place] Lite) w/Device kit Use to test blood sugar 3 times daily 1 kit 2 10/10/19 25 Active Continuous Glucose Fine Grade Bulldozer Operator (FreeStyle Sweetie 3 [place]) device 1 each Once per day. Use as directed for CGM 1 each 10/10/19 25 Active glucose blood (FreeStyle Precision Kyle Test) test strip Use to test blood sugar 4 times daily in case of CGM failure or extremes of BG 100 each 10/10/19 25 026 Active gabapentin (Neurontin) 300 MG [...] 90 tablet 02/17/20 25 Active sodium chloride ([place] Nasal [place]) 0.65 % nasal sprayIndicatio ns:COVID-19 INSTILL 1 SPRAY IN EACH NOSTRIL ONCE DAILY NEEDED 30 mL 1 02/17/20 25 Active Arnuity Ellipta 100 MCG/ACT inhaler INHALE 1 PUFF EVERY DAY 30 each 2 02/19/20 25 Active tiZANidine (Zanaflex) 4 MG tablet TAKE 1 TABLET BY MOUTH THREE TIMES DAILY IN THE MORNING, AT NOON, AND AT BEDTIME NEEDED FOR MUSCLE SPASMS 30 tablet 1 02/19/20 25 Active empagliflozin- metFORMIN ER (Synjardy XR) 10-1000 MG 24 hr tablet Take 1 tablet by mouth with breakfast. 30 tablet 3 10/10/19 25 025 Discontinued atorvastatin (Lipitor) 40 MG tablet Take 1 tablet (40 mg) by mouth Once per day. 30 tablet 2 10/10/19 025 Discontinued sodium chloride ([place] Nasal [place]) 0.65 % nasal sprayIndicatio ns:COVID-19 Administer 1 spray into each nostril if needed for congestion. 30 mL 1 11/03/19 025 Discontinued(Re order (will not trigger notification to Pharmacy)) meloxicam (Mobic) 15 MG tablet TAKE 1 TABLET BY MOUTH EVERY DAY NEEDED FOR PAIN MODERATE 30 tablet 1 12/01/19 025 Discontinued DULoxetine (Cymbalta) [address] capsule TAKE 1 CAPSULE BY MOUTH THREE TIMES DAILY. DO NOT BREAK, CRUSH, DISSOLVE OR CHEW. 90 capsule 1 12/01/19 025 Discontinued amitriptyline (Elavil) 25 MG tablet TAKE 2 TABLETS BY MOUTH EVERY DAY AT BEDTIME 60 tablet 1 12/01/19 25 025 Discontinued Asmanex HFA 100 MCG/ACT aerosol INHALE 1 PUFF BY MOUTH TWICE DAILY 13 g 2 01/05/20 025 Discontinued tiZANidine (Zanaflex) 4 MG capsule Take 1 capsule (4 mg) by mouth if needed in the morning, at noon, and at bedtime for muscle spasms. 30 capsule 1 01/16/20 25 025 Discontinued Active Problems Problem Noted [...] cancer screening 11/13/2024 Overview (01/15/2025): Had in [place] (during pandemic) Assessment & Plan (01/15/2025 3:51 [...] organization. Date Type Department Care Team Description 02/24/2025 Travel 02/18/2025 Refill [facility] [address] [place] [address] Gemma Osuna NP 02/17/2025 Refill [facility] [address] [place] [address] Gemma Osuna NP 02/16/2025 Results Follow-Up [facility] [address] [place] [phone] Gemma Osuna NP US Thyroid 02/15/2025 Refill [facility] [address] [place] [phone] Karina Kumar NP COVID-19 02/15/2025 Refill [facility] [address] [place] [phone] Gemma Osnua NP COVID-19 02/09/2025 Refill [facility] [address] [place] [phone] Gemma Osuna NP 02/03/2025 Refill [facility] [address] [place] [phone] Gemma Osuna NP 01/22/2025 Refill [facility] [address] [place] [phone] Gemma Osuna NP 01/18/2025 Refill [facility] [address] [place] [phone] Gemma Osuna NP 01/15/2025 1:30 PM EDT Office Visit [facility] [address] [place] [phone] Gemma Osuna NP Thyroid nodule (Primary Dx); Dietary counseling; Exercise counseling; Type 2 diabetes mellitus with other diabetic arthropathy, with long-term current use of insulin ([facility]); Colon cancer screening; Muscle spasm of left shoulder; Fibromyalgia 01/15/2025 Travel 01/14/2025 Travel 01/14/2025 Telephone [facility] [address] [place] [phone] Gemma Osuna NP Chart Prep 01/03/2025 Refill [facility] [address] [place] [phone] Gemma Osuna NP 12/23/2024 4:00 PM EDT Office Visit [facility] [address] [place] [phone] Viviana Lew MD Acute exacerbation of mild persistent extrinsic asthma (Primary Dx) 12/23/2024 Travel 12/22/2024 Refill [facility] [address] [place] [address] Gemma Osuna NP 12/11/2024 Refill [facility] [address] [place] [address] Gemma Osuna NP 12/07/2024 Refill [facility] [address] [place] [address] Gemma Osuna NP 12/07/2024 Refill [facility] [address] [place] [address] Gemma Osuna NP from Last 3 Months [...] with others, in a hotel, in a prison, living outside on the street, on a [...] Description 03/03/2025 2:00 PM EDT Office Visit [facility] [address] [place] [address] TarFabby hansen, OD [address] [place] [address] 03/22/2025 3:45 PM EDT Office Visit [facility] [address] [place] [address] Gemma Osuna, YENY [address] [place] [address] Health Maintenance Due Date Last Done Comments [...] PM EDT Narrative 02/16/2025 3:32 PM EDT [place] [address] Ultrasound Report Signed Patient: Katie Andrews MR#: [id number] : 1970 Acct:[id number] Age/Sex: 54 / F ADM Date: 02/16/25 Loc: .US Attending Dr: Gemma Osuna NP Ordering Physician: Gemma Osuna NP Date of Service: 02/16/25 Procedure(s): US thyroid Accession Number(s): [id number] cc: Gemma Osuna NP Reason for Exam: [...] than or equal to 1 cm: 1. Referral Specialist nodules are described as follows: 1. Location: [...] 02/16/25 1529 DD/ 1450 TD/TT: 02/16/25 1456 Cash Person: Procedure Note Donotuseinterpreter, Image - 02/16/2025 [place] [address] Ultrasound Report Signed Patient: Clotilde Andrews#: [id number] : 1970Acct:[id number] Age/Sex: 54 / FADM Date: 02/16/25 Loc: HO.US Attending Dr: Gemma Osuna NP Ordering Physician: Gemma Osuna NP Date of Service: 02/16/25 Procedure(s): US thyroid Accession Number(s): [id number] cc: Gemma Osuna NP Reason for Exam: [...] than or equal to 1 cm: 1. Referral Specialist nodules are described as follows: 1. Location: [...] Isacc Landeros MD 02/16/2025 03:29 PM EDT RP Dictated By: Isacc López MD Signed By: <Electronically signed by Isacc Gallardo MDin OV> 02/16/25 1529 DD/ 1450 TD/TT: 02/16/25 1456 Cash Person: us Gemma Osuna NP IMG US PROCEDURES Final Result * POCT Glucose (01/15/2025 1:35 PM EDT) [facility] Glucose Blood, POC 150 60 - 200 mg/dL QC Media Lot # [id number] Lot# Expiration Date Blood Capillary blood specimen / Unknown 01/15/2025 1:35 PM EDT us Gemma Osuna NP POINT OF CARE TEST ENTER/EDIT OR DERABLES Final Result * (ABNORMAL) Comprehensive Metabolic Panel (01/08/2025 8:31 AM EDT) [facility] Sodium 140 135 - 145 mmol/L [facility] Potassium 4.2 3.3 - 5.1 mmol/L [facility] Chloride 107 96 - 108 mmol/L [facility] Carbon Dioxide 26 22 - 29 mmol/L [facility] Anion Gap 11(L) 12 - 20 [facility] Urea Nitrogen (BUN) 15 9 - 16 mg/dL [facility] Creatinine, Serum 0.62 0.5 - 1.4 mg/dL [facility] Estimated Glomerular Filt Rate >60 [facility] Comment:Chronic Kidney Disea se: Estimated GFR < 60 mL/min/[id number] Kidney Disease: Estimated GFR < 15 mL/min/1.73m2 Glucose 155(H) 60 - 115 mg/dL [facility] Calcium 9.1 8.4 - 10.2 mg/dL [facility] Bilirubin, Total 0.5 0.0 - 1.0 mg/dL [facility] Aspartate Amino Transferase 22 5 - 31 U/L [facility] Alanine Aminotransferase 20 0 - 31 U/L [facility] Total Protein 7.0 6.5 - 8.0 g/dL [facility] Albumin Level 4.2 3.5 - 5.0 g/dL [facility] Alkaline Phosphatase 94 39 - 117 U/L [facility] Blood Venous blood specimen / Unknown 01/08/2025 8:31 AM EDT 01/08/2025 11:10 AM EDT us Gemma Osuna NP LAB BLOOD ORDERABLES Final Resul t [facility] [address] [place] [phone] * Hemoglobin A1c (10/21/2024 8:42 AM EDT) Hemoglobin A1c 5.6 <6.0 % [facility] Comment:Hemoglobin A1C Refer ence Range Adults: 4.8 - 6.0 % Non diabetic: < 6.0 % Goal: < 7.0 %Additional Action Suggested: > 8.0 %Note: Hemoglobin A1c results are invalid for patients with abnormal amounts of HbF. Blood transfusions may impact the HbA1c concentration in the patient sample. Estimated Average Glucose 114 mg/dL [facility] Comment:eAG = Estimated ave rage glucose which is %A1C expressed asaverage glucose, using the formula of the Y0K-YfrwgefWvnxciz Glucose study (ADAG), Diabetes Care, Vol.31,#8,Dec. 2007 Blood Venous blood specimen / Unknown 10/21/2024 8:42 AM EDT 10/21/2024 11:06 AM EDT us Gemma Osuna CVIR TECH LAB BLOOD ORDERABLES Final Resul t Performing Organization Address [facility] de Phone Number [facility] [address] [place] [phone] * (ABNORMAL) Lipid Panel, Standard (10/21/2024 8:42 AM EDT) Triglycerides 101 <150 mg/dL [facility] Comment:Desirable Triglyceri de: less than 150 mg/dLBorderline High Triglyceride 150-199 mg/dLHigh Triglyceride: 200-499 mg/dLVery High Triglyceride: greater than or equal to 5OO mg/dL Cholesterol 202(H) <200 mg/dL [facility] Comment:Desirable Cholestero l: less than 200 mg/dLBorderline High Cholesterol: 200-239 mg/dLHigh Cholesterol: greater than 239 mg/dL LDL Cholesterol Calculated 119(H) <100 mg/dL [facility] Comment:Desirable LDL: less than 100 mg/dLNear Optimal/Above Optimal LDL: 110- 129 mg/dLBorderline High LDL: 130-159 mg/dLHigh LDL: 160-189 mg/dLVery High LDL: greater than or equal to 190 mg/dL HDL Cholesterol 63 >40 mg/dL [facility] Comment:Desirable HDL: great er than 40 mg/dL Note: This HDL assay may give artificially low results in patients with liver disease. Blood Venous blood specimen / Unknown 10/21/2024 8:42 AM EDT 10/21/2024 11:10 AM EDT us Gemma Osuna CVIR TECH LAB BLOOD ORDERABLES Final Resul t Performing Organization Address [facility]/ZIP Co de Phone Number [facility] [address] [place] [phone] from Last 3 Months or Most Recently Relevant to Health Maintenance Insurance [facility] C3 Care Teams Dough Molder Hand Relationship Specialty Start Date End Date Gemma Osuna NP [address] [place] [address] PCP - General Family Medicine 10/09/24
--- OUTSIDE RECORDS SUMMARY | 2025-03-02 14:16 | XMS_ITS | Clinical Summary ---
Author Organization [facility] Address [address] [place] [address] Care Team Providers Care Mounter Clarinets Name Role Phone Unavailable Primary Care Provider [...] Each as directed 3 (three) times daily. 5 Active meloxicam (MOBIC) 15 mg tablet Take 15 mg by mouth once daily. 5 Active montelukast (SINGULAIR) 10 mg tablet Take 10 mg by mouth daily. 5 Active amitriptyline (ELAVIL) 25 mg tablet Take 25 mg by mouth nightly at bedtime. 4 Active aspirin 81 mg chewable tablet Chew and swallow 81 mg by mouth daily. 5 026 Active atorvastatin (LIPITOR) 40 mg tablet Take 40 mg by mouth daily. 5 026 Active FREESTYLE LITE STRIPS strips Use 1 Each as directed 3 (three) times daily. 5 Active DULoxetine (CYMBALTA) [address] capsule Take 30 mg by mouth 2 (two) times daily. 5 Active SYNJARDY XR 10-1,000 mg TBph Take 1 Tablet by mouth once daily with breakfast. Active famotidine (PEPCID) 20 mg tablet Take 20 mg by mouth daily. 5 Active gabapentin (NEURONTIN) 300 mg capsule Take 300 mg by mouth 3 (three) times daily. Active ASMANEX HFA 100 mcg/actuation HFAA Inhale 1 Puff into the lungs 2 (two) times daily. Active DEEP SEA NASAL 0.65 % nasal spray Place 1 [place] into the nostril(s) once daily as needed. Active hydrOXYzine pamoate (VISTARIL) 25 mg capsule Take 1 Capsule by mouth 3 (three) times daily as needed for anxiety for up to 30 days. 90 Capsule Active buPROPion XL (WELLBUTRIN XL) 150 mg 24 hr tablet TAKE 1 TABLET BY MOUTH EVERY MORNING 30 Tablet Active buPROPion XL (WELLBUTRIN XL) 150 mg 24 hr tablet Take 1 Tablet by mouth every morning for 30 days. 30 Tablet 025 Discontinued Active Problems Problem Noted Date Diagnosed Date Major depressive disorder, r ecurrent episode, moderate degree 01/07/2025 Overview (01/07/2025): Adding Wellbutrin (bupropion) addresses [...] 10/09/2024 Insulin dependent type 2 diabetes mellitus 10/09 Moderate persistent asthma without complication 10/09/2024 PTSD (post-traumatic stress disorder) 10/09/2024 Overview [...] with long-term current use of insulin 10/09/2024 Encounters Date Type Department Care Team Description 01/07/2025 11:00 AM EDT Behavioral Health Visit [facility] [address] [place] [address] LAURA BANUELOS [phone] Fabiola Bah APRN from Last 3 Months [...] 2) 2019 Alcohol and Drug Screen 05/27/2024 [id number]-24 ( - season) 2025 Imm-Influenza (#1) 2025 Hemoglobin A1c 04/23/2025 10/21/2024, 09/25, 10/09/2024 Lipid Screening 10/21/2025 10/21/2024 Serum Creatinine 10/21/2025 10/21/2024 Tobacco Screening 02/24/2026 02/24/2025 Cervical Ablation/Cold-Knife Conization Discontinued Cervical Cryotherapy Discontinued Colposcopy Discontinued Endometrial Biopsy Discontinued Excision/Leep Discontinued HPV Genotyping Discontinued Vaginal Pap Discontinued Vulvoscopy Discontinued Insurance [place] [facility] [place]
--- OUTSIDE RECORDS SUMMARY | 2025-03-02 14:16 | XMS_ITS | Encounter Summary ---
Author Organization [employer] Address [address] [place] [address] 7t [place] [address] Care Team Providers Care Payroll Secretary Name Role Phone Gemma Osuna NP Primary Care Provider [phone] Reason for Visit * Reason Onset Date Comments Med Refill 12/11/2024 Encounter Details Date Type Department Care Team (Late st Contact Info) Description 12/11/2024 Refill [facility] [address] [place] [address] Gemma Osuna NP [address] [place] [address] Social History Tobacco Use Types Packs/Day Years [...] Description 03/03/2025 2:00 PM EDT Office Visit [facility] OPTOMETRY [address] [place], [place] [phone] Fabby Hoffman, OD [address] [place] [address] 03/22/2025 3:45 PM EDT Office Visit [facility] [address] [place] [address] eGmma Osuna NP [address] [place] [address] documented as of this encounter Visit Diagnoses Not on filedocumented in this encounter Additional Health Concerns Assessment Noted Time PHQ-9 Depression Total Score: 14 025 12:03 PM EDT documented as of this encounter Care Teams Payroll Secretary Relationship Specialty Start Date End Date Gemma Osuna NP [address] [place] [address] PCP - General Family Medicine 10/09/24 documented as of this encounter
--- OUTSIDE RECORDS SUMMARY | 2025-03-02 14:16 | XMS_ITS | Encounter Summary ---
Author Organization [employer] Address [address] [facility] 7t [place] [address] Care Team Providers Care Chief Crna Name Role Phone Gemma Osuna NP Primary Care Provider [phone] Reason for Visit * Reason Onset Date [...] (Late st Contact Info) Description 12/22/2024 Refill [facility] [address] [place], [place] [phone] Gemma Osuna NP 230 [place], [place] [phone] Social History Tobacco Use Types Packs/Day Years [...] Miscellaneous Notes * Telephone Encounter - Alina Duarte, [place] - 01/04/2025 11:28 AM EDT I [...] 03/03/2025 2:00 PM EDT Office Visit [facility] OPT[facility] [address] [place] [address] Fabby Hoffman, OD [address] [place] [address] 03/22/2025 3:45 PM EDT Office Visit [facility] [address] [place] [address] Gemma Osuna NP 230 [place] [address] documented as of this encounter Visit Diagnoses Not on filedocumented in this encounter Additional Health Concerns Assessment Noted Time PHQ-9 Depression Total Score: 14 025 12:03 PM EDT documented as of this encounter Care Teams Chief Crna Relationship Specialty Start Date End Date Gemma Osuna NP 230 [place] [address] PCP - General Family Medicine 10/09/24 documented as of this encounter
--- OUTSIDE RECORDS SUMMARY | 2025-03-02 14:16 | XMS_ITS | Encounter Summary ---
Author Organization [employer] Address [address] [place] [address] 7t [place] [address] Care Team Providers Care Boss Dyer Name Role Phone Gemma Osuna NP Primary Care Provider [phone] Reason for Visit * Reason Onset Date Comments Med Refill 11/03/2024 Encounter Details Date Type Department Care Team (Late st Contact Info) Description 11/03/2024 Refill [facility] [address] [place] [address] Gemma Osuna NP [address] [place] [address] Social History Tobacco Use Types Packs/Day Years [...] 2:00 PM EDT Office Visit [facility] OPTOMETRY [address] [place] [address] Fabby Hoffman OD [address] [place] [address] 03/22/2025 3:45 PM EDT Office Visit [facility] [address] [place] [address] Gemma Osuna NP [address] [place] [address] documented as of this encounter Visit Diagnoses Not on filedocumented in this encounter Care Teams Boss Dyer Relationship Specialty Start Date End Date Gemma Osuna NP [address] [place] [address] PCP - General Family Medicine 10/09/24 documented as of this encounter
--- OUTSIDE RECORDS SUMMARY | 2025-03-02 14:16 | XMS_ITS | Encounter Summary ---
Author Organization [employer] Address [address] [facility] 7t [place] [address] Care Team Providers Care Narcotics Investigator Name Role Phone Gemma Osuna NP Primary Care Provider [phone] Reason for Visit * Reason Onset Date Comments Med Refill 11/03/2024 Encounter Details Date Type Department Care Team ([facility] Contact Info) Description 11/03/2024 Refill [facility] 230 [place] [address] Gemma Osuna NP [address] [place] [address] Social History Tobacco Use Types Packs/Day Years [...] Encounters Date Type Department Care Team (Late Contact Info) Description 03/03/2025 2:00 PM EDT Office Visit [facility] OPTOMETRY [address] [place] [address] Fabby Hoffman OD [address] [place] [address] 03/22/2025 3:45 PM EDT Office Visit [facility] [address] [place] [address] Gemma Osuna NP [address] [place] [address] documented as of this encounter Visit Diagnoses Not on filedocumented in this encounter Care Teams Narcotics Investigator Relationship Specialty Start Date End Date Gemma Osuna NP 230 [place] [address] PCP - General Family Medicine 10/09/24 documented as of this encounter
--- OUTSIDE RECORDS SUMMARY | 2025-03-02 14:16 | XMS_ITS | Encounter Summary ---
Author Organization [employer] Address [address] [place] [address] 7t [place] [address] Care Team Providers Care Production Foreman Name Role Phone Gemma Osuna NP Primary Care Provider [phone] Reason for Visit * Reason Onset Date Comments Med Refill 12/07/2024 Encounter Details Date Type Department Care Team (Late st Contact Info) Description 12/07/2024 Refill [facility] [address] [place] [address] Gemma Osuna NP [address] [place] [address] Social History Tobacco Use Types Packs/Day Years [...] Description 03/03/2025 2:00 PM EDT Office Visit [facility] OPTOMETRY [address] [place], [place] [phone] Fabby Hoffman, OD [address] [place] [address] 03/22/2025 3:45 PM EDT Office Visit [facility] [address] [place] [address] Gemma Osuna NP [address] [place] [address] documented as of this encounter Visit Diagnoses Not on filedocumented in this encounter Additional Health Concerns Assessment Noted Time PHQ-9 Depression Total Score: 14 025 12:03 PM EDT documented as of this encounter Care Teams Production Foreman Relationship Specialty Start Date End Date Gemma Osuna NP [address] [place] [address] PCP - General Family Medicine 10/09/24 documented as of this encounter
--- OUTSIDE RECORDS SUMMARY | 2025-03-02 14:16 | XMS_ITS | Encounter Summary ---
Author Organization [employer] Address [address] [facility] 7t [place] [address] Care Team Providers Care Tenter Feeder Name Role Phone Gemma Osuna NP Primary Care Provider [phone] Reason for Visit * Reason Onset Date Comments Med Refill 12/07/2024 Encounter Details Date Type Department Care Team (Late st Contact Info) Description 12/07/2024 Refill [facility] [address] [place] [address] Gemma Osuna NP [address] [place] [address] Social History Tobacco Use Types Packs/Day Years [...] 2:00 PM EDT Office Visit [facility] OPTOMETRY [address] [place], [place] [phone] Fabby Hoffman, OD [address] [place] [address] 03/22/2025 3:45 PM EDT Office Visit [facility] MED[facility] [address] [place] [address] Gemma Osuna NP [address] [place] [address] documented as of this encounter Visit Diagnoses Not on filedocumented in this encounter Additional Health Concerns Assessment Noted Time PHQ-9 Depression Total Score: 14 025 12:03 PM EDT documented as of this encounter Care Teams Tenter Feeder Relationship Specialty Start Date End Date Gemma Osuna NP [address] [place] [address] PCP - General Family Medicine 10/09/24 documented as of this encounter
== END 2025-03-02 12:15 | disposition home or self-care (01) ==
LOC: HO.HGI 11:20
PROVIDERS: PCP Nurse Practitioner Family; Visit Provider Nurse Practitioner
DX: Z01.818 Encounter for other preprocedural examination (principal); Z12.11 Encounter for screening for malignant neoplasm of colon; Z83.719 Family history of colon polyps, unspecified; J45.909 Unspecified asthma, uncomplicated; E66.9 Obesity, unspecified
CPT/HCPCS: 99203

== ENCOUNTER → 2025-03-02 11:20 | Outpatient (BNVA) | payer MEDICAID, SELFPAY | PROVIDERS: PCP Nurse Practitioner Family; Visit Provider Nurse Practitioner | DX: Z01.818 Encounter for other preprocedural examination (principal); Z83.719 Family history of colon polyps, unspecified; J45.909 Unspecified asthma, uncomplicated; E66.9 Obesity, unspecified; R19.7 Diarrhea, unspecified | CPT/HCPCS: 99212 ==

== ENCOUNTER 2025-03-03 15:24 | Outpatient (REF) | payer MEDICAID, SELFPAY ==
[2025-03-03 16:51] LABS: Alanine Aminotransferase 18 U/L (0-31); Albumin Level 4.2 g/dL (3.5-5.0); Alkaline Phosphatase 93 U/L (39-117); Anion Gap 9 (12-20); Aspartate Amino Transferase 20 U/L (5-31); Blood Urea Nitrogen 10 mg/dL (9-16); Calcium 9.3 mg/dL (8.4-10.2); Carbon Dioxide 32 mmol/L (22-29); Chloride 107 mmol/L (96-108); Estimated Glomerular Filt Rate > 60; Potassium 4.0 mmol/L (3.3-5.1); Sodium 144 mmol/L (135-145); Total Protein 6.9 g/dL (6.5-8.0)
== END 2025-03-03 15:25 | disposition home or self-care (01) ==
LOC: HO.HHCL 15:24
PROVIDERS: PCP Nurse Practitioner Family; Visit Provider Emergency Medicine
DX: Z11.3 Encounter for screening for infections with a predominantly sexual mode of transmission (principal); R74.01 Elevation of levels of liver transaminase levels; R21 Rash and other nonspecific skin eruption
CPT/HCPCS: 36415; 80053; 86592

== ENCOUNTER 2025-03-04 18:28 | Outpatient (REF) | payer MEDICAID, SELFPAY ==
--- OUTSIDE RECORDS SUMMARY | 2025-03-03 14:00 | XMS_ITS | Encounter Summary ---
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 female. Chief Complaint Diabetic Eye Exam HPI Patient presents for diabetic eye exam. Type 2 diabetes mellitus (DM) x 3 years. Patient often checks BSL at home but did not check today. Patient reports blurry vision both eyes (OU) at distance and near. Patient had glasses but lost them. NOHEMI: Jun 2024 in [place] Last edited by Fabby Hoffman, JAKE on 03/03/2025 1:55 PM. Current Medications[1] Medical History[2] Surgical History[3] Family History[4] Tobacco Use: Low Risk (03/03/2025) Tobacco Smoking Tobacco Use: Never Smokeless Tobacco Use: Never Passive Exposure: Not on file Allergies[5] ROS Positive for: Endocrine, Eyes Negative for: Constitutional, Gastrointestinal, Neurological, Skin, Genitourinary, Musculoskeletal,HENT, Cardiovascular, Respiratory, Psychiatric, Allergic/Imm, Heme/Lymph Last edited by Fabby Hoffman, OD on 03/03/2025 1:55 PM. Base Eye Exam Visual Acuity (Snellen - Linear) Right Left Dist sc 20/70 20/25-2 Tonometry (iCare , 2:03 PM) Right Left Pressure 20 21 Pupils Pupils APD Right PERRL None Left PERRL None Visual Sharma (Counting fingers) Left Right Full Full Extraocular Movement Right Left Full Full Neuro/Psych Oriented x3: Yes Mood/Affect: Normal Dilation Both eyes: 1.0% tropicamide @ 2:03 PM Slit Lamp and Fundus Exam External Exam Right Left External Normal Normal Slit Lamp Exam Right Left Lids/Lashes Dermatochalasis UL Dermatochalasis UL Conjunctiva/Sclera White and quiet White and quiet Cornea Clear Clear Anterior Chamber Deep and quiet, angles open Deep and quiet, angles open Iris Round and reactive, (-) NVI Round and reactive, (-) NVI Lens Clear Clear Fundus Exam Right Left Vitreous Clear Clear Disc Wayside and healthy, (-) NVD Wayside and healthy, (-) NVD C/D Ratio Vertical 0.20 0.20 C/D Ratio Horizontal 0.2 0.20 Macula Flat with even pigmentation, (-) DME Flat with even pigmentation, (-) DME Vessels Normal course and caliber, (-) NVE Normal course and caliber, (-) NVE Periphery No holes/tears/detachments 360 No holes/tears/detachments 360 Refraction Manifest Refraction Sphere Cylinder [place] Dist [place] Add Right +0.50 -2.25 091 20/20 +2.25 Left +0.50 -1.00 088 20/20 +2.25 Manifest Refraction #2 Sphere Cylinder [place] Dist VA Add Right [place] -1.25 092 +2.25 Left +0.25 -0.50 088 +2.25 Comments: Trial frame demo'd Rx - patient unable to tolerate full cylinder (cyl), reduced cylinder (cyl) and adjusted spherical equivalent until patient reported clear, comfortable vision Final Rx Sphere Cylinder [place] Add Right [place] -1.25 092 +2.25 Left +0.25 -0.50 088 +2.25 Expiration Date: 03/03/2026 Assessment and Plan Diagnoses and all orders for this visit: Type 2 diabetes mellitus without ophthalmic manifestations (HCC) - No diabetic retinopathy or diabetic macular edema both eyes (OU) - Discussed importance of tight blood glucose control, medication compliance and regular follow up with PCP. Today's exam notes will be made available for PCP to review. Presbyopia - Dispensed updated spec Rx RTC in 1 year for comprehensive eye exam or soon as needed Fabby Hoffman, OD 03/03/2025, 4:06 PM Care Asst Source: __ None _x_ Bilingual Staff __ Qualified Staff Varnish Maker Helper __ Telephone Care Asst; ID# __ Care Asst brought by patient (family member, friend, 911 EMERGENCY DISPATCHER, etc) __ In person web content producer __ Ipad Care Asst; ID#: Language Spoken During Exam: Greenlandic [1] Current Outpatient Medications Medication Sig Dispense Refill albuterol 108 (90 Base) MCG/ACT inhaler Inhale 2 puffs every 6 (six) hours if needed for wheezing. 18 g 11 Alcohol Swabs 70 % pads Use to test blood sugar 3 times daily 100 each 0 alendronate (Fosamax) 70 MG tablet take 1 tablet by mouth once a week with 6 to 8 oz of water 30 min before first food of day. do not lie down for 30 minutes 12 tablet 1 amitriptyline (Elavil) 25 MG tablet TAKE 2 TABLETS BY MOUTH EVERY DAY AT BEDTIME 60 tablet 3 Arnuity Ellipta 100 MCG/ACT inhaler INHALE 1 PUFF EVERY DAY 30 each 2 aspirin 81 MG chewable tablet Chew 1 tablet (81 mg) Once per day. 30 tablet 11 atorvastatin (Lipitor) 40 MG tablet TAKE 1 TABLET BY MOUTH EVERY DAY 90 tablet 0 Blood Glucose Monitoring Suppl (CivicScienceStyle [place] Lite) w/Device kit Use to test blood sugar 3 times daily 1 kit 2 Blood Pressure kit 1 each 2 times daily. 1 kit 0 cetirizine (ZyrTEC) 10 MG tablet Take 1 tablet (10 mg) by mouth Once per day. Prn. 30 tablet 0 Continuous Glucose Mirror Painter (FreeStyle Sweetie 3 [place]) device 1 each Once per day. Use as directed for CGM 1 each 0 Continuous Glucose Sensor (FreeStyle Sweetie 3 Plus Sensor) misc 1 each every 15 days. Apply 1 every 15 days as directed for CGM 2 each 11 DULoxetine (Cymbalta) [address] capsule TAKE 1 CAPSULE BY MOUTH THREE TIMES DAILY DO NOT BREAK, CRUSH, DISSOLVE OR CHEW 90 capsule 1 famotidine (Pepcid) 20 MG tablet TAKE 1 TABLET BY MOUTH EVERY DAY 90 tablet 1 FREESTYLE LITE test strip Use to test blood sugar 3 times daily 100 each 12 gabapentin (Neurontin) 300 MG capsule Take 2 capsules (600 mg) by mouth 2 times daily. 120 capsule 2 glucose blood (FreeStyle Precision Kyle Test) test strip Use to test blood sugar 4 times daily in case of CGM failure or extremes of BG 100 each 11 insulin glargine (Lantus) 100 UNIT/ML injection Inject 20 Units under the skin at bedtime. 10 mL 12 Lancets misc Use to test blood sugar 3 times daily 100 each 0 meloxicam (Mobic) 15 MG tablet TAKE 1 TABLET BY MOUTH EVERY DAY NEEDED FOR MODERATE PAIN 30 tablet 3 montelukast (Singulair) 10 MG tablet Take 1 tablet (10 mg) by mouth Once per day. 30 tablet 2 olmesartan (Benicar) 5 MG tablet Take 1 tablet (5 mg) by mouth Once per day. 30 tablet 11 permethrin (Elimite) 5 % cream apply to skin from hairline to toes and wash off 8-10 hours later 60g 1 pioglitazone (Actos) 15 MG tablet Take 1 tablet (15 mg) by mouth Once per day. 30 tablet 2 sodium chloride (Canyon Nasal [place]) 0.65 % nasal spray INSTILL 1 SPRAY IN EACH NOSTRIL ONCE DAILY NEEDED 30 mL 1 Synjardy XR 10-1000 MG 24 hr tablet TAKE 1 TABLET BY MOUTH EVERY DAY WITH BREAKFAST 30 tablet 3 tiZANidine (Zanaflex) 4 MG tablet TAKE 1 TABLET BY MOUTH THREE TIMES DAILY IN THE MORNING, AT NOON,AND AT BEDTIME NEEDED FOR MUSCLE SPASMS 30 tablet 1 No current facility-administered medications for this visit. [2] Past Medical History: Diagnosis Date Anxiety Asthma Diabetes mellitus (HCC) GERD (gastroesophageal reflux disease) Obesity Osteoporosis [3] History reviewed. No pertinent surgical history. 

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
--- NOTE | ~2025-03-04 | MR_ITS ---
EXAMINATION: MR KNEE WITHOUT CONTRAST, LEFT CLINICAL INFORMATION: Injury, pain COMPARISON: None available. TECHNIQUE: MRI of the knee without contrast was performed using routine sequences on a high-field scanner. FINDINGS: MENISCI: Medial Meniscus: Free edge fraying/tear in the body. Horizontal signal in the posterior horn contacting the free edge, from possible subtle tear. Lateral Meniscus: Mild degenerative fraying of the central posterior horn. LIGAMENTS: Cruciate: Intact Collateral: Intact EXTENSOR MECHANISM: Intact ARTICULAR CARTILAGE/BONE: Patellofemoral Compartment: Mild-moderate arthritis. Area of high-grade chondral loss in the central/medial trochlea, subchondral cyst/edema. Medial Compartment: Moderate arthritis. Foci of chondral thinning. Medial tibial plateau subchondral cyst/edema. Lateral Compartment: Mild arthritis. JOINT FLUID AND BURSAE: [Small joint fluid. No significant Adams's cyst. Mild soleus muscle edema, perhaps strain. Subcutaneous edema. MR/MR knee LT wo con IMPRESSION: * Medial meniscus free edge tear in the body. Possible subtle horizontal tear in the posterior horn. * Degenerative fraying of the lateral meniscal posterior horn. * Tricompartment arthritis. * Mild soleus muscle edema, perhaps strain. Electronically signed by: Prince Mcmahan MD 03/05/2025 08:33 AM EDT
--- OUTSIDE RECORDS SUMMARY | 2025-03-04 18:31 | XMS_ITS | Encounter Summary ---
Author Organization [employer] Address [address] [place] [address] 7t [place] [address] Care Team Providers Care Journeyman Pipefitter Name Role Phone Christi Osunaily YENY Primary Care Provider [phone] Encounter Details Date Type Department Care Team (Latest Contact Info) Description 03/03/2025 Travel Social History Tobacco Use Types Packs/Day Years [...] with others, in a hotel, in a [place], living outside on the street, on a [...] 3:45 PM EDT Office Visit [facility] [address] [place] [address] Gemma Osuna NP 230 [place] [address] documented as of this encounter Visit Diagnoses Not on filedocumented in this encounter Additional Health Concerns Assessment Noted Time PHQ-9 Depression Total Score: 14 025 12:03 PM EDT documented as of this encounter Care Teams Journeyman Pipefitter Relationship Specialty Start Date End Date Gemma Osuna NP 230 [place] [address] PCP - General Family Medicine 10/09/24 documented as of this encounter
--- OUTSIDE RECORDS SUMMARY | 2025-03-04 18:31 | XMS_ITS | Encounter Summary ---
Author Organization [employer] Address [address] [facility] 7t [place] [address] Care Team Providers Care Crusher Loader Operator Name Role Phone Gemma Osuna NP Primary Care Provider Reason for Visit * Reason Onset Date Comments Med Refill 12/07/2024 Encounter Details Date Type Department Care Team (Late st Contact Info) Description 12/07/2024 Refill [facility] [address] [place] [address] Gemma Osuna NP [address] [place] [address] Social History Tobacco Use Types Packs/Day Years [...] Description 03/22/2025 3:45 PM EDT Office Visit [facility] [address] [place] [address] Gemma Osuna NP [address] [place] [address] documented as of this encounter Visit Diagnoses Not on filedocumented in this encounter Additional Health Concerns Assessment Noted Time PHQ-9 Depression Total Score: 14 025 12:03 PM EDT documented as of this encounter Care Teams Crusher Loader Operator Relationship Specialty Start Date End Date Gemma Osuna NP [address] [place] [address] PCP - General Family Medicine 10/09/24 documented as of this encounter
--- OUTSIDE RECORDS SUMMARY | 2025-03-04 18:31 | XMS_ITS | Encounter Summary ---
Author Organization [employer] Address [address] [facility] 7t [place] [address] Care Team Providers Care Knockdown Worker Name Role Phone Gemma Osuna NP Primary Care Provider [phone] Reason for Visit * Reason Onset Date Comments Med Refill 02/09/2025 Encounter Details Date Type Department Care Team ([facility] st Contact Info) Description 02/09/2025 Refill [facility] [address] [place] [address] Gemma Osuna NP [address] [place] [address] Social History Tobacco Use Types Packs/Day Years [...] with others, in a hotel, in a penitentiary, living outside on the street, on a [...] Description 03/22/2025 3:45 PM EDT Office Visit [facility] [address] [place] [address] Gemma Osuna NP [address] [place] [address] documented as of this encounter Visit Diagnoses Not on filedocumented in this encounter Additional Health Concerns Assessment Noted Time PHQ-9 Depression Total Score: 14 025 12:03 PM EDT documented as of this encounter Care Teams Knockdown Worker Relationship Specialty Start Date End Date Gemma Osuna NP [address] [place] [address] PCP - General Family Medicine 10/09/24 documented as of this encounter
--- OUTSIDE RECORDS SUMMARY | 2025-03-04 18:31 | XMS_ITS | Clinical Summary ---
Author Organization [employer] Address [address] [place] [address] 7t [place] [address] Care Team Providers Care Barrel Line Operator Name Role Phone Gemma Osuna NP Primary Care Provider [phone] Allergies Active Allergy Reactions Criticality Noted Date [...] if needed for wheezing. 18 g 11 10/10/19 25 026 Active FREESTYLE LITE test strip Use to test blood sugar 3 times daily 100 each 12 10/10/19 25 Active Lancets misc Use to test blood sugar 3 times daily 100 each 10/10/19 25 Active Alcohol Swabs 70 % pads Use to test blood sugar 3 times daily 100 each 10/10/19 25 Active Blood Glucose Monitoring Suppl (FreeStyle [place] Lite) w/Device kit Use to test blood sugar 3 times daily 1 kit 2 10/10/19 25 Active Continuous Glucose Kindergarten Instructional Assistant (FreeStyle Sweetie 3 [place]) device 1 each Once per day. Use [...] 90 tablet 02/17/20 25 Active sodium chloride ([place] Nasal [place]) 0.65 % nasal sprayIndicatio ns:COVID-19 INSTILL 1 [...] SPASMS 30 tablet 1 02/19/20 25 Active permethrin (Elimite) 5 % cream apply to skin from hairline to toes and wash off 8-10 hours later 60 g 1 03/03/20 25 Active cetirizine (ZyrTEC) 10 MG tablet Take 1 tablet (10 mg) by mouth Once per day. Prn. 30 tablet 03/03/20 25 025 Active Blood Pressure kit 1 each 2 times daily. 1 kit 03/03/20 25 026 Active empagliflozin- metFORMIN ER (Synjardy XR) 10-1000 MG 24 hr tablet Take 1 tablet by mouth with breakfast. 30 tablet 3 10/10/19 25 025 Discontinued atorvastatin (Lipitor) 40 MG tablet Take 1 tablet (40 mg) by mouth Once per day. 30 tablet 2 10/10/19 25 025 Discontinued sodium chloride ([place] Nasal [place]) 0.65 % nasal sprayIndicatio ns:COVID-19 Administer 1 spray into each nostril if needed for congestion. 30 mL 1 11/03/19 25 025 Discontinued(Re order (will not trigger notification to Pharmacy)) meloxicam (Mobic) 15 MG tablet TAKE 1 TABLET BY MOUTH EVERY DAY NEEDED FOR PAIN MODERATE 30 tablet 1 12/01/19 25 025 Discontinued DULoxetine (Cymbalta) [address] capsule TAKE 1 CAPSULE BY MOUTH THREE TIMES DAILY. DO NOT BREAK, CRUSH, DISSOLVE OR CHEW. 90 capsule 1 12/01/19 25 025 Discontinued amitriptyline (Elavil) 25 [...] for muscle spasms. 30 capsule 1 01/16/20 025 Discontinued Active Problems Problem Noted Date [...] cancer screening 11/13/2024 Overview (01/15/2025): [place] in [place] (during pandemic) Assessment & Plan (01/15/2025 3:51 [...] organization. 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) (Primary Dx); Presbyopia 03/03/2025 Travel 02/24/2025 Travel 02/18/2025 Refill [facility] [address] [place] [address] Gemma Osuna NP 02/17/2025 Refill [facility] [address] [place] [address] Gemma Osuna NP 02/16/2025 Results Follow-Up [facility] [address] [place] [address] Gemma Osuna NP US Thyroid 02/15/2025 Refill [facility] [address] [place] [address] Karina Kumar NP COVID-19 02/15/2025 Refill [facility] [address] [place] [address] Gemma Osuna NP COVID-19 02/09/2025 Refill [facility] [address] [place] [address] Gemma Osuna NP 02/03/2025 Refill [facility] [address] [place] [address] Gemma Osuna NP 01/22/2025 Refill [facility] [address] [place] [address] Gemma Osuna NP 01/18/2025 Refill [facility] [address] [place] [address] Gemma Osuna NP 01/15/2025 1:30 PM EDT Office Visit [facility] [address] [place] [address] Gemma Osuna NP Thyroid nodule (Primary Dx); Dietary counseling; Exercise counseling; Type 2 diabetes mellitus with other diabetic arthropathy, with long-term current use of insulin ([facility]); Colon cancer screening; Muscle spasm of left shoulder; Fibromyalgia 01/15/2025 Travel 01/14/2025 Travel 01/14/2025 Telephone [facility] [address] [place] [address] Gemma Osuna NP Chart Prep 01/03/2025 Refill [facility] [address] [place] [address] Gemma Osuna NP 12/23/2024 4:00 PM EDT Office Visit [facility] [address] [place] [address] Viviana Lew MD Acute exacerbation of mild persistent extrinsic asthma (Primary Dx) 12/23/2024 Travel 12/22/2024 Refill [facility] [address] [place] [address] Gemma Osuna NP 12/11/2024 Refill [facility] [address] [place] [address] Gemma Osuna NP 12/07/2024 Refill [facility] [address] [place] [address] Gemma Osuna NP 12/07/2024 Refill [facility] [address] [place] [address] Gemma Osuna NP from Last 3 Months Family History Medical History Relation Name Comments Glaucoma Maternal Grandmother Relation Name Status Comments Maternal Grandmother Social History Tobacco Use Types Packs/Day Years [...] with others, in a hotel, in a chcf, living outside on the street, on a [...] 9:13 AM EDT Sexual Orientation Straight 10/09/2024 9 :13 AM EDT Last Filed Vital Signs Vital [...] oz) 03/03/2025 2:55 P M EDT Height 157.5 cm (5' 2 ) 01/15/2025 1:33 PM EDT Body Mass Index 37.2 01/15/2025 1:33 PM EDT Plan of Treatment Upcoming Encounters Date Type Department Care Team (Late st Contact Info) Description 03/22/2025 3:45 PM EDT Office Visit [facility] [address] [place] [address] Gemma Osuna NP [address] [place], [place] [phone] Health Maintenance Due Date Last Done Comments CT Colonography 1969 Colonoscopy 1969 Colorectal Cancer Screening 1969 FIT DNA/Cologuard 1969 FIT 1969 FOBT 1969 HIV Screening 1969 Sigmoidoscopy 1969 Hepatitis C Screening 1987 DTaP/Tdap/Td Vaccines (1 - Tdap) 1988 Diabetes: Urine Protein Screening 1988 Hepatitis B Vaccines (1 of 3 - 19+ 3-dose series) 1988 Pneumococcal Vaccine: 50+ Years (1 of 2 - PCV) 1988 Pap Smear 1990 Cervical Cancer Screening 1999 HPV/Cotest 1999 Mammogram 2009 Zoster Vaccines (1 of 2) 2019 COVID-19 Vaccine (1 - season) 2025 Influenza Vaccine (#1) 2025 Diabetes: Hemoglobin A1C 04/23/2025 10/21/2024, 05/1 10/2024 Depression Monitoring 05/15/2025 11/13/2024, 025 Diabetes: Foot Exam 10/16/2025 10/16/2024 Lipid Panel 10/21/2025 10/21/2024 Alcohol/Substance Use Screening 11/13/2025 11/13/2024 Disability Screening 11/13/2025 11/13/2024 SDOH Screening 01/15/2026 01/15/2025 Tobacco Screening 03/03/2026 03/03/2025 Eye Exam 03/03/2027 03/03/2025, 10/12/2024, 03/03/2025, Additional history exists RSV Patients and Patients Aged 60 years [...] Procedure Name Priority Date/Time Associated Diagnosis Comments COMPREHENSIVE METABOLIC PANEL Routine 03/03/2025 3:37 PM EDT Type 2 diabetes mellitus with other diabetic arthropathy, with long-term current use of insulin ([facility]) US THYROID Routine 02/16/2025 2:50 PM EDT Thyroid nodule POCT GLUCOSE Routine 01/15/2025 1:35 PM EDT Type 2 diabetes mellitus with other diabetic arthropathy, with long-term current use of insulin ([facility]) COMPREHENSIVE METABOLIC PANEL Routine 01/08/2025 8:31 AM EDT Elevated liver transaminase level HEMOGLOBIN A1C Routine 10/21/2024 8:42 AM EDT Type 2 diabetes mellitus with other diabetic arthropathy, with long-term current use of insulin ([facility]) LIPID PANEL, STANDARD Routine 10/21/2024 8:42 AM EDT Type 2 diabetes mellitus with other diabetic arthropathy, with long-term current use of insulin ([facility]) from Last 3 Months or Most Recently Relevant to Health Maintenance Results * (ABNORMAL) Comprehensive Metabolic Panel (03/03/2025 3:37 PM EDT) Only the most recent of2 resultswithin the time period is included. Sodium 144 135 - 145 mmol/L [facility] Potassium 4.0 3.3 - 5.1 mmol/L [facility] Chloride 107 96 - 108 mmol/L [facility] Carbon Dioxide 32(H) 22 - 29 mmol/L [facility] Anion Gap 9(L) 12 - 20 [facility] Urea Nitrogen (BUN) 10 9 - 16 mg/dL [facility] Creatinine, Serum 0.60 0.5 - 1.4 mg/dL [facility] Estimated Glomerular Filt Rate >60 [facility] Comment:Chronic Kidney Disea se: Estimated GFR < 60 mL/min/[id number] Kidney Disease: Estimated GFR < 15 mL/min/1.73m2 Glucose 111 60 - 115 mg/dL [facility] Calcium 9.3 8.4 - 10.2 mg/dL [facility] Bilirubin, Total 0.5 0.0 - 1.0 mg/dL [facility] Aspartate Amino Transferase 20 5 - 31 U/L [facility] Alanine Aminotransferase 18 0 - 31 U/L [facility] Total Protein 6.9 6.5 - 8.0 g/dL [facility] Albumin Level 4.2 3.5 - 5.0 g/dL [facility] Alkaline Phosphatase 93 39 - 117 U/L [facility] Blood Venous blood specimen / Unknown 03/03/2025 3:37 PM EDT 03/03/2025 4:09 PM EDT us Gemma Osuna EARTH SCIENCES PROFESSOR LAB BLOOD ORDERABLES Final Resul t [facility] [address] [place] [address] [phone] * US Thyroid (02/16/2025 2:50 PM EDT) Anatomical Region Laterality Modality Head, Neck Ultrasound 02/16/2025 2:50 PM EDT Narrative 02/16/2025 3:32 PM EDT [address] [address] Ultrasound Report Signed Patient: Katie Andrews MR#: [id number] : 1970 Acct:[id number] Age/Sex: 54 / F ADM Date: 02/16/25 Loc: HO.US Attending Dr: Gemma Osuna NP Ordering Physician: Gemma Osuna NP Date of Service: 02/16/25 Procedure(s): US thyroid Accession Number(s): [id number] cc: Gemma Osuna NP Reason for Exam: [...] than or equal to 1 cm: 1. Estate Agent nodules are described as follows: 1. Location: [...] 02/16/25 1529 DD/ 1450 TD/TT: 02/16/25 1456 Signal And Communications Maintainer: Procedure Note Donotuseinterpreter, Image - 02/16/[address] [address] Ultrasound Report Signed Patient: Clotilde Andrews#: [id number] : 1970Acct:[id number] Age/Sex: 54 / FADM Date: 02/16/25 Loc: HO.US Attending Dr: Gemma Osuna NP Ordering Physician: Gemma Osuna NP Date of Service: 02/16/25 Procedure(s): US thyroid Accession Number(s): [id number] cc: Gemma Osuna NP Reason for Exam: [...] than or equal to 1 cm: 1. Estate Agent nodules are described as follows: 1. Location: [...] 02/16/25 1529 DD/ 1450 TD/TT: 02/16/25 1456 Signal And Communications Maintainer: us Gemma Graef EARTH SCIENCES PROFESSOR IMG US PROCEDURES Final Result * POCT Glucose (01/15/2025 1:35 PM EDT) Glucose Blood, POC 150 60 - 200 mg/dL QC Media Lot # [id number] Lot# Expiration Date Blood Capillary blood specimen / Unknown 01/15/2025 1:35 PM EDT us Gemma Osuna NP POINT OF CARE TEST ENTER/EDIT OR DERABLES Final Result * Hemoglobin A1c (10/21/2024 8:42 AM EDT) Hemoglobin A1c 5.6 <6.0 % [facility] Comment:Hemoglobin A1C Refer ence Range Adults: 4.8 - 6.0 % Non diabetic: < 6.0 % Goal: < 7.0 %Additional Action Suggested: > 8.0 %Note: Hemoglobin A1c results are invalid for patients with abnormal amounts of HbF. Blood transfusions may impact the HbA1c concentration in the patient sample. Estimated Average Glucose 114 mg/dL [facility] Comment:eAG = Estimated ave rage glucose which is %A1C expressed asaverage glucose, using the formula of the [id number] Glucose study (ADAG), Diabetes Care, Vol.31,#8,Dec. 2007 Blood Venous blood specimen / Unknown 10/21/2024 8:42 AM EDT 10/21/2024 11:06 AM EDT Gemma Osuna NP LAB BLOOD ORDERABLES Final Resul t [facility] [address] [place] [phone] * (ABNORMAL) Lipid Panel, Standard (10/21/2024 8:42 AM EDT) Triglycerides 101 <150 mg/dL [facility] Comment:Desirable Triglyceri de: less than 150 mg/dLBorderline High Triglyceride 150-199 mg/dLHigh Triglyceride: 200-499 mg/dLVery High Triglyceride: greater than or equal to 5OO mg/dL Cholesterol 202(H) <200 mg/dL [facility] Comment:Desirable Cholestero l: less than 200 mg/dLBorderline High Cholesterol: 200-239 mg/dLHigh Cholesterol: greater than 239 mg/dL LDL Cholesterol Calculated 119(H) <100 mg/dL [facility] Comment:Desirable LDL: less than 100 mg/dLNear Optimal/Above Optimal LDL: 110- 129 mg/dLBorderline High LDL: 130-159 mg/dLHigh LDL: 160-189 mg/dLVery High LDL: greater than or equal to 190 mg/dL HDL Cholesterol 63 >40 mg/dL [facility] Comment:Desirable HDL: great er than 40 mg/dL Note: This HDL assay may give artificially low results in patients with liver disease. Blood Venous blood specimen / Unknown 10/21/2024 8:42 AM EDT 10/21/2024 11:10 AM EDT Gemma Osuna NP LAB BLOOD ORDERABLES Final Resul t [facility] [address] [place] [phone] [phone] from Last 3 Months or Most Recently Relevant to Health Maintenance Insurance [facility] C3 Care Teams Barrel Line Operator Relationship Specialty Start Date End Date Gemma Osuna NP [address] [place] [address] PCP - General Family Medicine 10/09/24
--- OUTSIDE RECORDS SUMMARY | 2025-03-04 18:31 | XMS_ITS | Clinical Summary ---
Author Organization [facility] Address [address] [place] [address] Care Team Providers Care Spiral Winder Name Role Phone Unavailable Primary Care Provider [...] NASAL 0.65 % nasal spray Place 1 [place] into the nostril(s) once daily as needed. [...] AM EDT Behavioral Health Visit [facility] [address] [place] [address] LAURA BANUELOS [phone] Fabiola Bah APRN from Last 3 Months [...] 2) 2019 Alcohol and Drug Screen 05/27/2024 [id number] ( - season) 2025 Imm-Influenza (#1) 2025 Hemoglobin A1c 04/23/2025 10/21/2024, 09/25, 10/09/2024 Lipid Screening 10/21/2025 10/21/2024 Serum Creatinine 10/21/2025 10/21/2024 Tobacco Screening 02/24/2026 02/24/2025 Cervical Ablation/Cold-Knife Conization Discontinued Cervical Cryotherapy Discontinued Colposcopy Discontinued Endometrial Biopsy Discontinued Excision/Leep Discontinued HPV Genotyping Discontinued Vaginal Pap Discontinued Vulvoscopy Discontinued Insurance [place] [facility] [place] MEDICAID
--- OUTSIDE RECORDS SUMMARY | 2025-03-04 18:31 | XMS_ITS | Encounter Summary ---
Author Organization [employer] Address [address] [place] [address] 7 [place] [address] Care Team Providers Care Boom Stick Worker Name Role Phone Gemma Osuna NP Primary Care Provider [phone] Reason for Visit * Reason Onset Date Comments Med Refill 12/07/2024 Encounter Details Date Type Department Care Team (Late st Contact Info) Description 12/07/2024 Refill [facility] [address] [place] [address] [phone] Gemma Osuna NP [address] [place] [address] Social History Tobacco Use Types Packs/Day Years [...] Department Care Team (Late Contact Info) Description 03/22/2025 3:45 PM EDT Office Visit [facility] [address] [place] [address] Gemma Osuna NP [address] [place] [address] documented as of this encounter Visit Diagnoses Not on filedocumented in this encounter Additional Health Concerns Assessment Noted Time PHQ-9 Depression Total Score: 14 025 12:03 PM EDT documented as of this encounter Care Teams Boom Stick Worker Relationship Specialty Start Date End Date Gemma Osuna NP [address] [place] [address] PCP - General Family Medicine 10/09/24 documented as of this encounter
--- OUTSIDE RECORDS SUMMARY | 2025-03-04 18:31 | XMS_ITS | Encounter Summary ---
Author Organization [facility] Address [address] [place] [address] 7 [place] [address] Care Team Providers Care Retail Wireless Sales Representative Name Role Phone Gemma Osuna NP Primary Care Provider [phone] Reason for Visit * Reason Onset Date Comments Med Refill 11/03/2024 Encounter Details Date Type Department Care Team ([facility] Contact Info) Description 11/03/2024 Refill [facility] [address] [place] [address] Gemma Osuna NP [address] [place] [address] Social History Tobacco Use Types Packs/Day Years [...] Upcoming Encounters Date Type Department Care Team ([facility] Contact Info) Description 03/22/2025 3:45 PM EDT Office Visit [facility] [address] [place] [address] Gemma Osuna NP [address] [place] [address] documented as of this encounter Visit Diagnoses Not on filedocumented in this encounter Care Teams Retail Wireless Sales Representative Relationship Specialty Start Date End Date Gemma Osuna NP [address] [place] [address] PCP - General Family Medicine 10/09/24 documented as of this encounter
--- OUTSIDE RECORDS SUMMARY | 2025-03-04 18:31 | XMS_ITS | Encounter Summary ---
Author Organization [employer] Address [address] [place] [address] 7 [place] [address] Care Team Providers Care Modeling Manager Name Role Phone Gemma Osuna NP Primary Care Provider [phone] Reason for Visit * Reason Onset Date Comments Med Refill 12/11/2024 Encounter Details Date Type Department Care Team (Late st Contact Info) Description 12/11/2024 Refill [facility] [address] [place] [address] [phone] Gemma Osuna NP [address] [place] [address] Social History Tobacco Use Types Packs/Day Years [...] 3:45 PM EDT Office Visit [facility] [address] [place] [address] Gemma Osuna NP [address] [place] [address] documented as of this encounter Visit Diagnoses Not on filedocumented in this encounter Additional Health Concerns Assessment Noted Time PHQ-9 Depression Total Score: 14 025 12:03 PM EDT documented as of this encounter Care Teams Modeling Manager Relationship Specialty Start Date End Date Gemma Osuna NP [address] [place] [address] PCP - General Family Medicine 10/09/24 documented as of this encounter
--- OUTSIDE RECORDS SUMMARY | 2025-03-04 18:31 | XMS_ITS | Encounter Summary ---
Author Organization [facility] Address [address] [place] [address] 7 [place] [address] Care Team Providers Care Tower Dragline Operator Name Role Phone Gemma Osuna NP Primary Care Provider [phone] Reason for Visit * Reason Onset Date Comments Med Refill 11/03/2024 Encounter Details Date Type Department Care Team ([facility] Contact Info) Description 11/03/2024 Refill [facility] [address] [place] [phone] Gemma Osuna NP [address] [place] [address] Social History Tobacco Use Types Packs/Day Years [...] Description 03/22/2025 3:45 PM EDT Office Visit [facility] [address] [place] [phone] Gemma Osuna NP [address] [place] [address] documented as of this encounter Visit Diagnoses Not on filedocumented in this encounter Care Teams Tower Dragline Operator Relationship Specialty Start Date End Date Gemma Osuna NP [address] [place] [address] PCP - General Family Medicine 10/09/24 documented as of this encounter
--- OUTSIDE RECORDS SUMMARY | 2025-03-04 18:31 | XMS_ITS | Encounter Summary ---
Author Organization [employer] Address [address] [facility] 7t [place] [address] Care Team Providers Care Surgery Teacher Name Role Phone Gemma Osuna NP Primary Care Provider [phone] Reason for Visit * Reason Onset Date [...] (Late st Contact Info) Description 12/22/2024 Refill [facility] [address] [place], [place] [phone] Gemma Osuna NP [address] [place], [place] [phone] Social History Tobacco Use Types Packs/Day Years [...] Description 03/22/2025 3:45 PM EDT Office Visit [facility] [address] [place] [address] Gemma Osuna NP [address] [place] [address] documented as of this encounter Visit Diagnoses Not on filedocumented in this encounter Additional Health Concerns Assessment Noted Time PHQ-9 Depression Total Score: 14 025 12:03 PM EDT documented as of this encounter Care Teams Surgery Teacher Relationship Specialty Start Date End Date Gemma Osuna NP [address] [place] [address] PCP - General Family Medicine 10/09/24 documented as of this encounter
== END 2025-03-04 18:29 | disposition home or self-care (01) ==
LOC: HO.MRI 18:28
PROVIDERS: PCP Nurse Practitioner Family; Visit Provider Orthopaedic Surgery
DX: S83.242A Other tear of medial meniscus, current injury, left knee, initial encounter (principal)
CPT/HCPCS: 73721

== ENCOUNTER → 2025-03-04 18:36 | Outpatient (BNV) | payer MEDICAID, SELFPAY | PROVIDERS: PCP Nurse Practitioner Family; Visit Provider Radiology Diagnostic Ultrasound | DX: M23.322 Other meniscus derangements, posterior horn of medial meniscus, left knee (principal); M17.12 Unilateral primary osteoarthritis, left knee | CPT/HCPCS: 73721 ==

== ENCOUNTER 2025-03-22 16:53 | Outpatient (REF) | payer MEDICAID, SELFPAY ==
--- OUTSIDE RECORDS SUMMARY | 2025-03-22 15:45 | XMS_ITS | Encounter Summary ---
Author Organization [employer] Address [address] [place] [address] [address] [place] [address] Care Team Providers Care Agile Developer Name Role Phone Gemma Osuna NP Primary Care Provider [phone] Reason for Referral * Consultation (Routine) - Closed Specialty Diagnoses / Procedures Referred By Karina levin Referred To Contact Rheumatology Diagnoses Psoriasis (a type of skin inflammation) Gemma Osuna NP [address] [place] [address] Phone: tel: fax: [facility] Rheumatology [address] Phone: tel: fax: Referral ID Status Reason Start Date Expiration Date V isits Requested Visits Authorized [id number] Closed Specialty Services Required 03/23/2025 03/23/2026 6 6 * Consultation (Routine) - Pending Review Specialty Diagnoses / Procedures Referred By Karina levin Referred To Contact Psychiatry Diagnoses PTSD (post-traumatic stress disorder) Procedures Referral to Psychiatry Gemma Osuna NP [address] [place] [address] Phone: tel: fax: Referral ID Status Reason Start Date Expiration Date Visits Requested Visits Authorized [id number] Pending Review Specialty Services Required 09/20/2026 1 1 * Imaging (Routine) - Authorized Specialty Diagnoses / Procedures Referred By Contac t Referred To Contact Radiology Diagnoses Thyroid nodule Procedures US Guided Thyroid Biopsy Gemma Osuna NP [address] [place] [address] Phone: tel: fax: [address] Phone: tel: fax: Referral ID Status Reason Start Date Expiration Date V isits Requested Visits Authorized [id number] Authorized 03/22/2025 03/22/2026 1 1 * Imaging (Urgent) - Authorized Specialty Diagnoses / Procedures Referred By Karina t Referred To Contact Radiology Diagnoses Diarrhea of infectious origin Left lower quadrant abdominal pain Procedures CT Abdomen Pelvis w/ and w/o Contrast Gemma Osuna NP [address] [place] [address] Phone: tel: fax: [address] Phone: tel: fax: Referral ID Status Reason Start Date Expiration Date V isits Requested Visits Authorized [id number] Authorized 03/22/2025 03/22/2026 1 1 * Consultation (Routine) - Authorized Specialty Diagnoses / Procedures Referred By Karina t Referred To Contact Family Medicine Diagnoses Psoriasis (a type of skin inflammation) Gemma Osuna NP [address] [place] [address] Phone: tel: fax: Referral ID Status Reason Start Date Expiration Date Visits Requested Visits Authorized [id number] Authorized Specialty Services Required 03/22/2026 1 1 * Consultation (Urgent) - Authorized Specialty Diagnoses / Procedures Referred By Karina t Referred To Contact Gastroenterology Diagnoses Diarrhea of infectious origin Gemma Osuna NP [address] [place] [address] Phone: tel: fax: [facility] [address] [place] [address] Phone: tel: fax: Referral ID Status Reason Start Date Expiration Date Visits Requested Visits Authorized [id number] Authorized Specialty Services Required 03/23/2026 6 6 Encounter Details Date Type Department Care Team (Late st Contact Info) Description 03/22/2025 3:45 PM EDT Office Visit [facility] [address] [place] [address] Gemma Osuna NP [address] [place] [address] Type 2 diabetes mellitus with other diabetic arthropathy, with long-term current use of insulin (HCC) (Primary Dx); Diarrhea of infectious origin; Psoriasis (a type of skin inflammation); Left lower quadrant abdominal pain; Thyroid nodule; Pap smear for cervical cancer screening; PTSD (post-traumatic stress disorder) Social History Tobacco Use Types Packs/Day Years Used Date Smoking Tobacco: Former Cigarettes Passive Smoke Exposure: Past Smokeless Tobacco: Former Tobacco Cessation:Counseling Given: Not Answered Depression Answer Date Recorded Patient Health Questionnaire-9 Score 14 11/13/2024 Patient Health Questionnaire-9 Score 14 11/13/2024 Last PHQ-9: Questionnaire Data Not on file 0 11/13/2024 Housing Stability Answer Date Recorded What is your housing situation today? I do not have housing (Staying with others, in a hotel, in a half-way, living outside on the street, on a [...] Sign Reading Time Taken Comments Blood Pressure 122/68 03/22/2025 3:55 PM EDT Pulse 94 03/22/2025 3:55 PM EDT Temperature 36.8 C (98.3 F) 03/22/2025 3:55 PM EDT Respiratory Rate 14 03/22/2025 3:55 PM EDT Oxygen Saturation 97% 03/22/2025 3:55 PM EDT Inhaled Oxygen Concentration - - Weight 90.7 kg (200 lb) 03/22/2025 3:55 PM EDT Height 157.5 cm (5' 2 ) 03/22/2025 3:55 PM EDT Body Mass Index 36.58 03/22/2025 3:55 PM EDT documented in this encounter Progress Notes * Gemma Osuna NP - 03/22/2025 3:45 PM EDT Katie Rodas is a 54 y.o. female who presents to the office for No chief complaint on file. Problem List[1] Medical History[2] Allergies[3] Katie Nilton Rodas, 54-year-old female - Diarrhea for 1 month, unable to tolerate anything in the stomach - Weight loss of 9 lbs over recent period - Avoiding eating and bowel movements to prevent symptoms - Reports rectal pressure and sensation of a bulge in the colon pushing into the vaginal wall, described as similar to a hernia - History of thyroid problems, previously recommended for thyroid biopsy but unable to attend due to feeling unwell - History of insulin use last year, reports blood sugar levels between 130 and 150, with occasionalelevations up to 400 when not using insulin - No recent changes in medications or diet - Six children, last childbirth not specified - Denies current pain Review of Systems BP 122/68 (BP Location: Right arm, Patient Position: Sitting, BP Cuff Size: Large adult) Pulse 94 Temp 98.3 ??F (36.8 ??C) (Oral) Resp 14 Ht 5' 2 (1.575 m) Wt 200 lb (90.7 kg) SpO2 97% BMI 36.58 kg/m?? Physical Exam Constitutional: Appearance: Normal appearance. She is obese. HENT: Head: Normocephalic. Nose: Nose normal. Eyes: Conjunctiva/sclera: Conjunctivae normal. Cardiovascular: Rate and Rhythm: Regular rhythm. Heart sounds: Normal heart sounds. Pulmonary: Breath sounds: Normal breath sounds. Abdominal: Palpations: Abdomen is soft. Genitourinary: General: Normal vulva. Exam position: Lithotomy position. Pubic Area: No rash. Labia: Right: No rash or lesion. Left: No rash or lesion. Cervix: Normal. No friability. Rectum: External hemorrhoid present. Comments: Rectal prolapse mild Musculoskeletal: Cervical back: Neck supple. - ABDOMEN: Examination revealed a rectocele. - GENITOURINARY: Examination noted a rectocele. - RECTAL: Examination noted a rectocele. Results: Office Visit on 03/22/2025 Component Date Value Ref Range Status ??? Glucose Blood, POC 03/22/2025 152 60 - 200 mg/dL Final ??? QC Media Lot # 03/22/2025 [id number] Final ??? Lot# Expiration Date 03/22/2025 [id number] Final ??? Hemoglobin A1C 03/22/2025 7.5 (A) 4.0 - 5.7 % Final ??? QC Media Lot # 03/22/2025 [id number] Final ??? Lot# Expiration Date 03/22/2025 [id number] Final Office Visit on 03/12/2025 Component Date Value Ref Range Status ??? Rapid COVID Ag 03/12/2025 Negative Final Office Visit on 03/03/2025 Component Date Value Ref Range Status ??? RPR (Monitor) w/Refl Titer 03/03/2025 NON-REACTIVE NON-REACTIVE Final THIS TEST WAS PERFORMED AT:[facility] [place] [id number] MC MD ??? Rapid Plasma Reagin Ab Titer 03/03/2025 TNP Final Assessment & Plan Type 2 diabetes mellitus with other diabetic arthropathy, with long-term current use of insulin (HCC) Orders: ??? POCT Glucose ??? POCT Hgb A1c Diarrhea of infectious origin Orders: ??? CBC auto differential; Future ??? Comprehensive Metabolic Panel; Future ??? Sed Rate by Modified Westergren; Future ??? C-reactive Protein; Future ??? Referral to Gastroenterology; Future ??? CT Abdomen Pelvis w/ and w/o Contrast; Future Psoriasis (a type of skin inflammation) Orders: ??? Referral to [facility] Derm Skin Adult; Future ??? Referral to Rheumatology; Future Left lower quadrant abdominal pain Orders: ??? CT Abdomen Pelvis w/ and w/o Contrast; Future Thyroid nodule Orders: ??? US Guided Thyroid Biopsy; Future Pap smear for cervical cancer screening Orders: ??? Pap Smear ??? HPV High Risk with Reflex to Subtypes PTSD (post-traumatic stress disorder) Orders: ??? Referral to Psychiatry; Future Assessment & Plan Type 2 diabetes mellitus with other diabetic arthropathy, with long-term current use of insulin (HCC): - Diabetes managed with insulin. Not currently on metformin. Blood glucose reported as 150-130 mg/dL, with occasional elevations up to 400 mg/dL when insulin not administered. - Changed insulin prescription. Monitor blood glucose levels. Adjust insulin regimen as needed. Diarrhea of infectious origin: - Diarrhea present for one month. Infectious etiology suspected. - Ordered stool culture and Clostridioides difficile (C. diff) testing. Ordered blood tests. Referred to gastroenterology for further evaluation. Colonoscopy recommended for diagnostic confirmation. Psoriasis (a type of skin inflammation): - Referred to dermatology. Left lower quadrant abdominal pain: - Left lower quadrant abdominal pain. Differential includes diverticulitis and inflammatory bowel disease. - Ordered urgent CT scan of abdomen to evaluate for diverticulitis and other causes. Colonoscopy recommended. Referred to gastroenterology. Thyroid nodule: - Thyroid nodule previously identified. No history of thyroid cancer. - Ordered thyroid biopsy. Discussed possible change in thyroid medication, but deferred until further evaluation. Pap smear for cervical cancer screening: - No history of abnormal Pap smears or hysterectomy. - Performed Pap smear. Ordered HPV testing. Results to be communicated in 1-2 weeks. PTSD (post-traumatic stress disorder): - PTSD requiring ongoing behavioral health support. - Referred to behavioral health/psychiatry. Re-sent referral due to previous referral not received. Rectocele: - Rectocele identified on pelvic examination, described as a bulge in the colon pushing into the vaginal wall. Appointments - Referral to gastroenterology for evaluation of chronic diarrhea and suspected Crohn???s disease - Referral to behavioral health/psychiatry for mental health assessment Current Medications[4] Based on our discussion, I have outlined the following instructions for you: - Your insulin prescription has been changed. Please check your blood sugar regularly and follow the new instructions for your insulin. Adjust your insulin as directed. - You will need to provide a stool sample for lab tests to check for infections, including Clostridioides difficile. - You will need to have blood tests done. - A colonoscopy is recommended to help find the cause of your symptoms. - You have been referred to a laboratory technical specialist for your psoriasis. - You need to have a CT scan of your abdomen to check for possible causes of your pain, such as diverticulitis. - You have been referred to a stomach and intestine specialist for further evaluation. - You need to have a biopsy of your thyroid nodule. - Your Pap smear has been done, and a test for human papillomavirus (HPV) has been ordered. You will get the results in 1-2 weeks. - A referral to a mental health specialist has been sent for support with post- traumatic stress disorder. Next appointment(s): - Referral to gastroenterology for evaluation of chronic diarrhea and suspected Crohn???s disease - Referral to behavioral health/psychiatry for mental health assessment Thank you again for your visit, and we look forward to supporting you in your journey to better health. This note was drafted using Ambient (AI) technology. The patient/patient's guardian has been informed and has consented to the use of this technology: Yes Visit Conducted in: [place] Translation by: Provided by [facility] staff member Jeanette , [1] Patient Active Problem List Diagnosis ??? 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 Fibromyalgia ??? PTSD (post-traumatic stress disorder) ??? Moderate persistent asthma without complication ??? Diabetes mellitus, type II, insulin dependent (HCC) ??? Snoring ??? Enlarged lymph node in neck ??? Colon cancer screening ??? Thyroid nodule ??? Chronic pain of left knee ??? Elevated liver transaminase level ??? Muscle spasm of left shoulder ??? Exercise counseling ??? Dietary counseling ??? Diarrhea of infectious origin ??? Psoriasis (a type of skin inflammation) [2] Past Medical History: Diagnosis Date ??? Anxiety ??? Asthma ??? Diabetes mellitus (HCC) ??? GERD (gastroesophageal reflux disease) ??? Obesity ??? Osteoporosis [3] Allergies Allergen Reactions ??? Penicillin G ??? Shrimp Flavor Agent (Non-Screening) Hives un [4] Current Outpatient Medications: ??? albuterol 108 (90 Base) MCG/ACT inhaler, Inhale 2 puffs every 6 (six) hours if needed for wheezing., Disp: 18 g, Rfl: 11 ??? Alcohol Swabs 70 % pads, Use to test blood sugar 3 times daily, Disp: 100 each, Rfl: 0 ??? alendronate (Fosamax) 70 MG tablet, take 1 tablet by mouth once a week with 6 to 8 oz of water 30 min before first food of day. do not lie down for 30 minutes, Disp: 12 tablet, Rfl: 1 ??? amitriptyline (Elavil) 25 MG tablet, TAKE 2 TABLETS BY MOUTH EVERY DAY AT BEDTIME, Disp: 60 tablet, Rfl: 3 ??? Arnuity Ellipta 100 MCG/ACT inhaler, INHALE 1 PUFF EVERY DAY, Disp: 30 each, Rfl: 2 ??? aspirin 81 MG chewable tablet, Chew 1 tablet (81 mg) Once per day., Disp: 30 tablet, Rfl: 11 ??? atorvastatin (Lipitor) 40 MG tablet, TAKE 1 TABLET BY MOUTH EVERY DAY, Disp: 90 tablet, Rfl: 0 ??? azithromycin (Zithromax) 250 MG tablet, Take 2 tabs day and then 1 tab daily, Disp: 6 tablet, Rfl: 0 ??? Blood Glucose Monitoring Suppl (FreeStyle [place] Lite) w/Device kit, Use to test blood sugar 3times daily, Disp: 1 kit, Rfl: 2 ??? Blood Pressure kit, 1 each 2 times daily., Disp: 1 kit, Rfl: 0 ??? cetirizine (ZyrTEC) 10 MG tablet, Take 1 tablet (10 mg) by mouth Once per day. Prn., Disp: 30 tablet, Rfl: 0 ??? Continuous Glucose Last Code Striper (FreeStyle Sweetie 3 Briggs) device, 1 each Once per day. Use as directed for CGM, Disp: 1 each, Rfl: 0 ??? Continuous Glucose Sensor (FreeStyle Sweetie 3 Plus Sensor) misc, 1 each every 15 days. Apply 1 every 15 days as directed for CGM, Disp: 2 each, Rfl: 11 ??? DULoxetine (Cymbalta) [address] capsule, TAKE 1 CAPSULE BY MOUTH THREE TIMES DAILY DO NOT BREAK,CRUSH, DISSOLVE OR CHEW, Disp: 90 capsule, Rfl: 1 ??? famotidine (Pepcid) 20 MG tablet, TAKE 1 TABLET BY MOUTH EVERY DAY, Disp: 90 tablet, Rfl: 1 ??? FREESTYLE LITE test strip, Use to test blood sugar 3 times daily, Disp: 100 each, Rfl: 12 ??? gabapentin (Neurontin) 300 MG capsule, Take 2 capsules (600 mg) by mouth 2 times daily., Disp: 120 capsule, Rfl: 2 ??? glucose blood (FreeStyle Precision Kyle Test) test strip, Use to test blood sugar 4 times daily in case of CGM failure or extremes of BG, Disp: 100 each, Rfl: 11 ??? insulin glargine (Lantus) 100 UNIT/ML injection, Inject 20 Units under the skin at bedtime., Disp: 10 mL, Rfl: 12 ??? Lancets misc, Use to test blood sugar 3 times daily, Disp: 100 each, Rfl: 0 ??? meloxicam (Mobic) 15 MG tablet, TAKE 1 TABLET BY MOUTH EVERY DAY NEEDED FOR MODERATE PAIN, Disp: 30 tablet, Rfl: 3 ??? montelukast (Singulair) 10 MG tablet, Take 1 tablet (10 mg) by mouth Once per day., Disp: 30 tablet, Rfl: 2 ??? olmesartan (Benicar) 5 MG tablet, Take 1 tablet (5 mg) by mouth Once per day., Disp: 30 tablet,Rfl: 11 ??? permethrin (Elimite) 5 % cream, apply to skin from hairline to toes and wash off 8-10 hours later, Disp: 60 g, Rfl: 1 ??? pioglitazone (Actos) 15 MG tablet, Take 1 tablet (15 mg) by mouth Once per day., Disp: 30 tablet, Rfl: 2 ??? sodium chloride ([place] Nasal Squire) 0.65 % nasal spray, INSTILL 1 SPRAY IN EACH NOSTRIL ONCE DAILY NEEDED, Disp: 30 mL, Rfl: 1 ??? Synjardy XR 10-1000 MG 24 hr tablet, TAKE 1 TABLET BY MOUTH EVERY DAY WITH BREAKFAST, Disp: 30 tablet, Rfl: 3 ??? tiZANidine (Zanaflex) 4 MG tablet, TAKE 1 TABLET BY MOUTH THREE TIMES DAILY IN THE MORNING, AT NOON, AND AT BEDTIME NEEDED FOR MUSCLE SPASMS, Disp: 30 tablet, Rfl: 1 ??? 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, with long-term current use of insulin (HCC) Orders: POCT Glucose POCT Hgb A1c * Assessment & Plan Note - Gemma Osuna NP - 03/22/2025 3:45 PM EDTAssociated Problem(s): Diarrhea of infectious origin Orders: CBC auto differential; Future Comprehensive Metabolic Panel; Future Sed Rate by Modified Westergren; Future C-reactive Protein; Future Referral to Gastroenterology; Future CT Abdomen Pelvis w/ and w/o Contrast; Future * Assessment & Plan Note - Gemma Osuna NP - 03/22/2025 3:45 PM EDTAssociated Problem(s): Psoriasis (a type of skin inflammation) Orders: Referral to [facility] Derm Skin Adult; Future Referral to Rheumatology; Future * Assessment & Plan Note - Gemma Osuna NP - 03/22/2025 3:45 PM EDTAssociated Problem(s): Thyroid nodule Orders: US Guided Thyroid Biopsy; Future * Assessment & Plan Note - Gemma Osuna NP - 03/22/2025 3:45 PM EDTAssociated Problem(s): PTSD (post-traumatic stress disorder) Orders: Referral to Psychiatry; Future documented in this encounter Plan of Treatment Scheduled Orders Name Type Priority Associated Diagnoses Order Schedule CBC auto differential Lab Routine Diarrhea of infectious origin Expected: 03/22/2025 (Approximate), Expires: 03/22/2026 Comprehensive Metabolic Panel Lab Routine Diarrhea of infectious origin Expected: 03/22/2025 (Approximate), Expires: 03/22/2026 Sed Rate by Modified Westergren Lab Routine Diarrhea of infectious origin Expected: 03/22/2025, Expires: 03/22/2026 C-reactive Protein Lab Routine Diarrhea of infectious origin Expected: 03/22/2025 (Approximate), Expires: 03/22/2026 CT Abdomen Pelvis w/ and w/o Contrast Imaging Urgent Diarrhea of infectious origin Left lower quadrant abdominal pain Expected: 03/22/2025, Expires: 03/22/2026 US Guided Thyroid Biopsy Imaging Routine Thyroid nodule Expected: 03/22/2025, Expires: 03/22/2026 Pap Smear Pathology and Cytology Routine Pap smear for cervical cancer screening Ordered: 03/22/2025 HPV High Risk with Reflex to Subtypes Lab Routine Pap smear for cervical cancer screening Ordered: 03/22/2025 Scheduled Referrals Name Type Priority Associated Diagnoses Order Schedule Referral to Gastroenterology Outpatient Referral Urgent Diarrhea of infectious origin Expected: 03/22/2025 (Approximate), Expires: 03/22/2026 Referral to [facility] Derm Skin Adult Outpatient Referral Routine Psoriasis (a type of skin inflammation) Expected: 03/22/2025 (Approximate), Expires: 03/22/2026 Referral to Rheumatology Outpatient Referral Routine Psoriasis (a type of skin inflammation) Expected: 03/22/2025 (Approximate), Expires: 03/22/2026 documented as of this encounter Procedures Procedure Name Priority Date/Time Associated Diagnosis Comments POCT GLYCATED HEMOGLOBIN, TOTAL Routine 03/22/2025 4:00 PM EDT Type 2 diabetes mellitus with other diabetic arthropathy, with long-term current use of insulin (HCC) POCT GLUCOSE Routine 03/22/2025 3:59 PM EDT Type 2 diabetes mellitus with other diabetic arthropathy, with long-term current use of insulin (HCC) documented in this encounter Results * (ABNORMAL) POCT Hgb A1c (03/22/2025 4:00 PM EDT) Hemoglobin A1C 7.5(A) 4.0 - 5.7 % QC Media Lot # [id number] Lot# Expiration Date 4162,027 Blood 03/22/2025 4:00 PM EDT us Gemma Osuna NP POINT OF CARE TEST ENTER/EDIT OR DERABLES Final Result * POCT Glucose (03/22/2025 3:59 PM EDT) Glucose Blood, POC 152 60 - 200 mg/dL QC Media Lot # [id number] Lot# Expiration Date 3,026 Blood Capillary blood specimen / Unknown 03/22/2025 3:59 PM EDT Gemma Osuna NP POINT OF CARE TEST ENTER/EDIT OR DERABLES Final Result documented in this encounter Visit Diagnoses Diagnosis Type 2 diabetes mellitus with other diabetic arthropathy, with long-term current use of insulin (HCC)- Primary Diarrhea of infectious origin Diarrhea of presumed infectious origin Psoriasis (a type of skin inflammation) Other psoriasis Left lower quadrant abdominal pain Thyroid nodule Nontoxic uninodular goiter Pap smear for cervical cancer screening Screening for malignant neoplasm of the cervix PTSD (post-traumatic stress disorder) Posttraumatic stress disorder documented in this encounter Additional Health Concerns Assessment Noted Time PHQ-9 Depression Total Score: 14 11/13/ 025 12:03 PM EDT documented as of this encounter Care Teams Agile Developer Relationship Specialty Start Date End Date Gemma Osuna NP [address] [place] [id number] PCP - General Family Medicine 10/09/24 documented as of this encounter
--- OUTSIDE RECORDS SUMMARY | 2025-03-23 17:28 | XMS_ITS | Encounter Summary ---
Author Organization [employer] Address [address] [facility] [address] [address] Care Team Providers Care Technical Services Assistant Name Role Phone Gemma Osuna NP Primary Care Provider [phone] Reason for Visit * Reason Onset Date Comments Med Refill 12/07/2024 Encounter Details Date Type Department Care Team ([facility] st Contact Info) Description 12/07/2024 Refill [facility] [address] [place] [address] Gemma Osuna NP [address] [place] [address] Social History Tobacco Use Types Packs/Day Years [...] as of this encounter Plan of Treatment Not on file documented as of this encounter Visit Diagnoses Not on filedocumented in this encounter Additional Health Concerns Assessment Noted Time PHQ-9 Depression Total Score: 14 025 12:03 PM EDT documented as of this encounter Care Teams Technical Services Assistant Relationship Specialty Start Date End Date Gemma Osuna NP [address] [place] [address] PCP - General Family Medicine 10/09/24 documented as of this encounter
--- OUTSIDE RECORDS SUMMARY | 2025-03-23 17:28 | XMS_ITS | Encounter Summary ---
Author Organization [email or web address] Address [address] [facility] 7t [place] [address] Care Team Providers Care Educational Director Name Role Phone Gemma Osuna NP Primary Care Provider [phone] Reason for Visit * Reason Onset Date [...] (Late st Contact Info) Description 12/22/2024 Refill [facility] MEDICINE [address] [place], [place] [phone] Gemma Osuna NP [address] [place], [place] [phone] Social History Tobacco Use Types Packs/Day Years [...] documented as of this encounter Care Teams Educational Director Relationship Specialty Start Date End Date Gemma Osuna NP [address] [place] [address] PCP - General Family Medicine 10/09/24 documented as of this encounter
--- OUTSIDE RECORDS SUMMARY | 2025-03-23 17:28 | XMS_ITS | Encounter Summary ---
Author Organization [employer] Address [address] [facility] 7t [place] [address] Care Team Providers Care Agricultural Sales Representative Name Role Phone Gemma Osuna NP Primary Care Provider [phone] Reason for Visit * Reason Onset Date Comments Med Refill 11/03/2024 Encounter Details Date Type Department Care Team (Late st Contact Info) Description 11/03/2024 Refill [facility] [address] [place] [address] Gemma Osuna NP [address] [place] [address] Social History Tobacco Use Types Packs/Day Years [...] on filedocumented in this encounter Care Teams Agricultural Sales Representative Relationship Specialty Start Date End Date Gemma Osuna NP [address] [place] [address] PCP - General Family Medicine 10/09/24 documented as of this encounter
--- OUTSIDE RECORDS SUMMARY | 2025-03-23 17:28 | XMS_ITS | Encounter Summary ---
Author Organization [employer] Address [address] [facility] 7t [place] [address] Care Team Providers Care Technician Biological Health Name Role Phone Gemma Osuna NP Primary Care Provider [phone] Reason for Visit * Reason Onset Date Comments Med Refill 12/11/2024 Encounter Details Date Type Department Care Team ([facility] st Contact Info) Description 12/11/2024 Refill [facility] MEDICINE [address] [place] [address] Gemma Osuna NP [address] [place] [address] Social History Tobacco Use Types Packs/Day Years [...] documented as of this encounter Care Teams Technician Biological Health Relationship Specialty Start Date End Date Gemma Osuna NP [address] [place] [address] PCP - General Family Medicine 10/09/24 documented as of this encounter
--- OUTSIDE RECORDS SUMMARY | 2025-03-23 17:28 | XMS_ITS | Encounter Summary ---
Author Organization [employer] Address [address] [facility] 7t [place] [address] Care Team Providers Care Oyster Culler Name Role Phone Gemma Osuna NP Primary Care Provider [phone] Encounter Details Date Type Department Care Team ([facility] st Contact Info) Description 03/08/2025 Telephone [facility] MED[facility]INE [address] [place] [address] Gemma Osuna NP [address] [place] [address] Social History Tobacco Use Types Packs/Day Years [...] encounter Miscellaneous Notes * Telephone Encounter - Gemma Osuna NP - 03/08/2025 1:20 PM EDT Please call pt to check status of thyroid biopsy referral. Has she heard from radiology at [facility]? Thank you documented in this encounter Plan of Treatment Not on file documented as of this encounter Visit Diagnoses Diagnosis Thyroid nodule- Primary Nontoxic uninodular goiter documented in this encounter Additional Health Concerns Assessment Noted Time PHQ-9 Depression Total Score: 14 025 12:03 PM EDT documented as of this encounter Care Teams Oyster Culler Relationship Specialty Start Date End Date Gemma Osuna NP [address] [place] [address] PCP - General Family Medicine 10/09/24 documented as of this encounter
--- OUTSIDE RECORDS SUMMARY | 2025-03-23 17:28 | XMS_ITS | Encounter Summary ---
Author Organization [employer] Address [address] [place] [address] [address]t [place] [address] Care Team Providers Care Plumber Helper Name Role Phone Gemma Osuna NP Primary Care Provider [phone] Reason for Visit * Reason Onset Date Comments Med Refill 11/03/2024 Encounter Details Date Type Department Care Team (Late st Contact Info) Description 11/03/2024 Refill [facility] MEDICINE [address] [place] [address] Gemma Osuna NP [address] [place] [address] Social History Tobacco Use Types Packs/Day Years [...] on filedocumented in this encounter Care Teams Plumber Helper Relationship Specialty Start Date End Date Gemma Osuna NP [address] [place] [address] PCP - General Family Medicine 10/09/24 documented as of this encounter
--- OUTSIDE RECORDS SUMMARY | 2025-03-23 17:28 | XMS_ITS | Encounter Summary ---
Author Organization [employer] Address [address] [facility] 7t [place] [address] Care Team Providers Care Web Master Name Role Phone Gemma Osuna NP Primary Care Provider [phone] Reason for Visit * Reason Onset Date Comments Med Refill 12/07/2024 Encounter Details Date Type Department Care Team ([facility] st Contact Info) Description 12/07/2024 Refill [facility] MEDICINE [address] [place] [address] Gemma Osuna NP [address] [place] [address] Social History Tobacco Use Types Packs/Day Years [...] documented as of this encounter Care Teams Web Master Relationship Specialty Start Date End Date Gemma Osuna NP [address] [place] [address] PCP - General Family Medicine 10/09/24 documented as of this encounter
--- OUTSIDE RECORDS SUMMARY | 2025-03-23 17:28 | XMS_ITS | Clinical Summary ---
Author Organization [employer] Address [address] [place] [address] 7t [place] [address] Care Team Providers Care Lacrosse Player Name Role Phone Gemma Osuna NP Primary Care Provider [phone] Allergies Active Allergy Reactions Criticality Noted Date [...] 25 Active Blood Glucose Monitoring Suppl (FreeStyle [place] Lite) w/Device kit Use to test blood sugar 3 times daily 1 kit 2 05/16/20 25 Active Continuous Glucose Scrum Project Manager (FreeStyle Sweetie 3 [place]) device 1 each Once per day. Use [...] 90 tablet 02/17/20 25 Active sodium chloride ([place] Nasal [place]) 0.65 % nasal sprayIndicatio ns:COVID-19 INSTILL 1 [...] daily. 1 kit 03/03/20 25 026 Active UltiCare Insulin Syringe 31G X 5/16 1 ML misc USE 1 PER DAY TO INJECT Lantus 30 each 3 03/10/20 25 Active azithromycin (Zithromax) 250 MG tablet Take 2 tabs day and then 1 tab daily 6 tablet 03/12/20 Active Insulin Syringe 31G X 5/16 1 ML misc 1 Syringe at bedtime. Use with lantus dose 30 each 3 10/10/19 25 025 Discontinued predniSONE (Deltasone) 20 MG tablet Take 2 tablets (40 mg) by mouth Once per day for 5 days. 10 tablet 03/12/20 25 025 benzonatate (Tessalon Perles) 100 MG capsule Take 1 capsule (100 mg) by mouth if needed in the morning, at noon, and at bedtime for cough for up to 7 days. Do not crush or chew. 20 capsule 03/12/20 25 025 Active Problems Problem Noted Date Diagnosed Date Tear of medial meniscus of knee, current 025 Diarrhea of infectious origin 03/22/2025 Assessment & Plan (03/22/2025 4:44 PM EDT): Orders: CBC auto differential; Future Comprehensive Metabolic Panel; Future Sed Rate by Modified Westergren; Future C-reactive Protein; Future Referral to Gastroenterology; Future CT Abdomen Pelvis w/ and w/o Contrast; Future Psoriasis (a type of skin inflammation) 03/22/20 Assessment & Plan (03/22/2025 4:44 PM EDT): Orders: Referral to [facility] Derm Skin Adult; Future Referral to Rheumatology; Future Muscle spasm of left shoulder 01/15/2025 Assessment [...] 01/15/2025 Thyroid nodule 11/15/2024 Assessment & Plan (03/22/2025 4:44 PM EDT): Orders: US Guided Thyroid Biopsy; Future Assessment & Plan (01/15/2025 3:51 PM EDT): [...] cancer screening 11/13/2024 Overview (01/15/2025): Had in [place] (during pandemic) Assessment & Plan (01/15/2025 3:51 PM EDT): Referral to gI Assessment & Plan (11/15/2024 1:27 PM EDT): Referral to GI for colonscopy 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 Date Type Department Care Team Description 03/22/2025 3:45 PM EDT Office Visit [facility] MEDICINE [address] [place] [address] [phone] Gemma Osuna NP Type 2 diabetes mellitus with other diabetic arthropathy, with long-term current use of insulin (HCC) (Primary Dx); Diarrhea of infectious origin; Psoriasis (a type of skin inflammation); Left lower quadrant abdominal pain; Thyroid nodule; Pap smear for cervical cancer screening; PTSD (post-traumatic stress disorder) 03/22/2025 Travel 03/19/2025 Telephone [facility] MEDICINE [address] [place] [address] [phone] Carolee Lopez MA chart prep 03/15/2025 Travel 03/12/2025 1:40 PM EDT Office Visit [facility] WALK-IN [address] [address] Sariah Thompson MD Acute bronchitis, unspecified organism (Primary Dx) 03/12/2025 Travel 03/10/2025 Refill [facility] MED[facility]INE [address] [place] [address] 196[address] Gemma Osuna NP 03/08/2025 Telephone [facility]INE [address] [place] [address] [phone] Gemma Osuna NP 03/05/2025 Results Follow-Up [facility] [address] [place] [address] [phone] Luke Styles MD RPR (Monitor) with Reflex to Titer 03/04/2025 Orders Only [facility] External Provider, [facility] 03/03/2025 3:00 PM EDT Office Visit [facility] WALK-IN C[facility] [address] [place] [address] Luke Styles MD Rash (Primary Dx); Elevated blood pressure reading in office without diagnosis of hypertension 03/03/2025 2:00 PM EDT Office Visit [facility] OPTOMETRY [address] [place] [address] Yasmin Fabby, OD Type 2 diabetes mellitus without ophthalmic manifestations (HCC) (Primary Dx); Presbyopia 03/03/2025 Travel 02/24/2025 Travel 02/18/2025 Refill [facility] MEDICINE [address] [place] [address] Gemma Osuna NP 02/17/2025 Refill [facility] [address] [place] [address] 126[address] Gemma Osuna NP 02/16/2025 Results Follow-Up [facility] [address] [place] [address] 127[address] Gemma Osuna NP US Thyroid 02/15/2025 Refill [facility] [address] [place] [address] 12448 Karina Kumar NP COVID-19 02/15/2025 Refill [facility] [address] [place] [address] 14087 Gemma Osuna NP COVID-19 02/09/2025 Refill [facility] MED[facility] [address] [place] [address] Gemma Osuna NP 02/03/2025 Refill [facility] [address] [place] [address] Gemma Osuna NP 01/22/2025 Refill [facility] [address] [place] [address] Gemma Osuna NP 01/18/2025 Refill [facility] [address] [place] [address] Gemma Osuna NP 01/15/2025 1:30 PM EDT Office Visit [facility] MED[facility]INE [address] [place] [address] Gemma Osuna NP Thyroid nodule (Primary Dx); Dietary counseling; Exercise counseling; Type 2 diabetes mellitus with other diabetic arthropathy, with long-term current use of insulin ([facility]/HCC); Colon cancer screening; Muscle spasm of left shoulder; Fibromyalgia 01/15/2025 Travel 01/14/2025 Travel 01/14/2025 Telephone [facility] MEDICINE [address] [place] [address] Gemma Osuna NP Chart Prep 01/03/2025 Refill [facility] MED[facility]INE [address] [place] [address] Gemma Osuna NP 12/23/2024 4:00 PM EDT Office Visit [facility] WALK[facility]IN [facility] [address] [place], [place] [phone] Viviana Lew MD Acute exacerbation of mild persistent extrinsic asthma (Primary Dx) 12/23/2024 Travel 12/22/2024 Refill [facility] MED[facility]INE [address] [place] [address] Gemma Osuna NP from Last 3 Months [...] with others, in a hotel, in a alf, living outside on the street, on a [...] Mass Index 36.58 03/22/2025 3:55 PM EDT Plan of Treatment Health Maintenance Due Date [...] of 2) 2019 COVID-19 Vaccine ( - season) 2025 Influenza Vaccine (#1) 2025 Depression Monitoring 05/15/2025 11/13/2024, 025 Diabetes: Hemoglobin A1C 06/22/2025 025, 10/21/2024, 10/09/2024 Diabetes: Foot Exam 10/16/2025 10/16/2024 Lipid Panel 10/21/2025 10/21/2024 Alcohol/Substance Use Screening 11/13/2025 11/13/2024 Disability Screening 11/13/2025 11/13/2024 SDOH Screening 01/15/2026 01/15/2025 Tobacco Screening 03/22/2026 03/22/2025 Eye Exam 03/03/2027 03/03/2025, 1012/2024, 03/03/2025, Additional history exists RSV Patients and [...] long-term current use of insulin (HCC) POCT RAPID COVID ANTIGEN Routine 03/12/2025 1:24 PM EDT Acute bronchitis, unspecified organism MR KNEE WO CONTRAST LEFT Routine 03/04/2025 6:44 PM EDT RPR (MONITOR) W/REFL TITER Routine 03/03/2025 3:37 PM EDT Rash COMPREHENSIVE METABOLIC PANEL Routine 03/03/2025 3:37 PM EDT Type 2 diabetes mellitus with other diabetic arthropathy, with long-term current use of insulin (HCC) US THYROID Routine 02/16/2025 2:50 PM EDT Thyroid nodule POCT GLUCOSE Routine 01/15/2025 1:35 PM EDT Type 2 diabetes mellitus with other diabetic arthropathy, with long-term current use of insulin (CMS/HCC) COMPREHENSIVE METABOLIC PANEL Routine 01/08/2025 8:31 AM EDT Elevated liver transaminase level LIPID PANEL, STANDARD Routine 10/21/2024 8:42 AM EDT Type 2 diabetes mellitus with other diabetic arthropathy, with long-term current use of insulin (CMS/HCC) from Last 3 Months or Most Recently Relevant to Health Maintenance Results * (ABNORMAL) POCT Hgb A1c (03/22/2025 4:00 PM EDT) Hemoglobin A1C 7.5(A) 4.0 - 5.7 % QC Media Lot # [id number] Lot# Expiration Date ,125,175 Blood 03/22/2025 4:00 PM EDT Gemma Osuna NP POINT OF CARE TEST ENTER/EDIT OR DERABLES Final Result * POCT Glucose (03/22/2025 3:59 PM EDT) Only the most recent of2 resultswithin the time period is included. Glucose Blood, POC 152 60 - 200 mg/dL QC Media Lot # [id number] Lot# Expiration Date Blood Capillary blood specimen / Unknown 03/22/2025 3:59 PM EDT Gemma Osuna MEDICAID COLLECTION SPECIALIST POINT OF CARE TEST ENTER/EDIT OR DERABLES Final Result * POCT Rapid COVID Ag (03/12/2025 1:24 PM EDT) Pathologist [facility] Rapid COVID Ag Negative Swab 03/12/2025 1:24 PM EDT Sariah Thompson MD POINT OF CARE TEST ENTER/EDIT OR DERABLES Final Result * MR Knee w/o Contrast Left (03/04/2025 6:44 PM EDT) Anatomical Region Laterality Modality Magnetic Resonan ce 03/04/2025 6:44 PM EDT Narrative 03/05/2025 8:36 AM EDT [place] [address] Magnetic Resonance Report Signed Patient: Katie Andrews MR#: [id number] : 1970 Acct:[id number] Age/Sex: 54 / F ADM Date: 03/04/25 Loc: HO.MRI Attending Dr: Joe Saleh MD Ordering Physician: Joe Saleh MD Date of Service: 03/04/25 Procedure(s): MR knee LT wo con Accession Number(s): [id number] cc: Gemma Osuna MEDICAID COLLECTION SPECIALIST; Joe Saleh MD Reason for Exam: S83.242A - Other tear of medial meniscus, current injury, left knee, ini... EXAMINATION: MR KNEE WITHOUT CONTRAST, LEFT CLINICAL INFORMATION: Injury, pain COMPARISON: None available. TECHNIQUE: MRI of the knee without contrast was performed using routine sequences on a high-field scanner. FINDINGS: MENISCI: Medial Meniscus: Free edge fraying/tear in the body. Horizontal signal in the posterior horn contacting the free edge, from possible subtle tear. Lateral Meniscus: Mild degenerative fraying of the central posterior horn. LIGAMENTS: Cruciate: Intact Collateral: Intact EXTENSOR MECHANISM: Intact ARTICULAR CARTILAGE/BONE: Patellofemoral Compartment: Mild-moderate arthritis. Area of high-grade chondral loss in the central/medial trochlea, subchondral cyst/edema. Medial Compartment: Moderate arthritis. Foci of chondral thinning. Medial tibial plateau subchondral cyst/edema. Lateral Compartment: Mild arthritis. JOINT FLUID AND BURSAE: [Small joint fluid. No significant Adams's cyst. Mild soleus muscle edema, perhaps strain. Subcutaneous edema. MR/MR knee LT wo con IMPRESSION: * Medial meniscus free edge tear in the body. Possible subtle horizontal tear in the posterior horn. * Degenerative fraying of the lateral meniscal posterior horn. * Tricompartment arthritis. * Mild soleus muscle edema, perhaps strain. Electronically signed by: Prince Mcmahan MD 03/05/2025 08:33 AM EDT Dictated By: Prince Mcmahan MD Signed By: <Electronically signed by Prince Mcmahan MD in [place]> 03/05/25 0833 DD/ 1844 TD/TT: 03/04/25 1910 Sap Basis: Procedure Note Donotuseinterpreter, Image - 03/05/[address] [address] Magnetic Resonance Report Signed Patient: Clotilde Andrews#: [id number] : 1970Acct:[id number] Age/Sex: 54 / FADM Date: 03/04/25 Loc: HO.MRI Attending Dr: Joe Saleh MD Ordering Physician: Joe Saleh MD Date of Service: 03/04/25 Procedure(s): MR knee LT wo con Accession Number(s): [id number] cc: Gemma Osuna MEDICAID COLLECTION SPECIALIST; Joe Saleh MD Reason for Exam: S83.242A - Other tear of medial meniscus, currentinjury, left knee, ini... EXAMINATION: MR KNEE WITHOUT CONTRAST, LEFT CLINICAL INFORMATION: Injury, pain COMPARISON: None available. TECHNIQUE: MRI of the knee without contrast was performed using routine sequences on a high-field scanner. FINDINGS: MENISCI: Medial Meniscus: Free edge fraying/tear in the body. Horizontal signal in the posterior horn contacting the free edge, from possible subtle tear. Lateral Meniscus: Mild degenerative fraying of the central posterior horn. LIGAMENTS: Cruciate: Intact Collateral: Intact EXTENSOR MECHANISM: Intact ARTICULAR CARTILAGE/BONE: Patellofemoral Compartment: Mild-moderate arthritis. Area of high-grade chondral loss in the central/medial trochlea, subchondral cyst/edema. Medial Compartment: Moderate arthritis. Foci of chondral thinning. Medial tibial plateau subchondral cyst/edema. Lateral Compartment: Mild arthritis. JOINT FLUID AND BURSAE: [Small joint fluid. No significant Adams's cyst. Mild soleus muscle edema, perhaps strain. Subcutaneous edema. MR/MR knee LT wo con IMPRESSION: * Medial meniscus free edge tear in the body. Possible subtle horizontal tear in the posterior horn. * Degenerative fraying of the lateral meniscal posterior horn. * Tricompartment arthritis. * Mild soleus muscle edema, perhaps strain. Electronically signed by: Prince Mcmahan MD 03/05/2025 08:33 AM EDT RP Dictated By: Prince Mcmahan MD Signed By: <Electronically signed by Prince Mcmahan MD in [place]> 03/05/25 0833 DD/ 1844 TD/TT: 03/04/25 1910 Sap Basis: [facility] External Provider IMG MRI PROCEDURES Final Result * RPR (Monitor) with Reflex to??Titer (03/03/2025 3:37 PM EDT) RPR (Monitor) w/Refl Titer NON-REACTI VE NON-REACT LEYDA [facility] Comment:THIS TEST WAS PERFOR MED AT:[employer] [place] [phone] MC MD Rapid Plasma Reagin Ab Titer TNP [facility] Blood Venous blood specimen / Unknown 03/03/2025 3:37 PM EDT 03/03/2025 4:09 PM EDT us Luke Styles MD LAB BLOOD ORDERABLES Final Resul t [facility] [address] [place] [phone] [phone] * (ABNORMAL) Comprehensive Metabolic Panel (03/03/2025 3:37 PM EDT) Only the most recent of2 resultswithin the time period is included. Sodium 144 135 - 145 mmol/L [facility] Potassium 4.0 3.3 - 5.1 mmol/L [facility] Chloride 107 96 - 108 mmol/L [facility] Carbon Dioxide 32(H) 22 - 29 mmol/L [facility] Anion Gap 9(L) 12 - 20 [facility] Urea Nitrogen (BUN) 10 9 - 16 mg/dL [facility] Creatinine, Serum 0.60 0.5 - 1.4 mg/dL [facility] Estimated Glomerular Filt Rate >60 [facility] Comment:Chronic Kidney Disea se: Estimated GFR < 60 mL/min/[id number] Kidney Disease: Estimated GFR < 15 mL/min/1.73m2 Glucose 111 60 - 115 mg/dL [facility] Calcium 9.3 8.4 - 10.2 mg/dL [facility] Bilirubin, Total 0.5 0.0 - 1.0 mg/dL [facility] Aspartate Amino Transferase 20 5 - 31 U/L [facility] Alanine Aminotransferase 18 0 - 31 U/L [facility] Total Protein 6.9 6.5 - 8.0 g/dL [facility] Albumin Level 4.2 3.5 - 5.0 g/dL [facility] Alkaline Phosphatase 93 39 - 117 U/L [facility] Blood Venous blood specimen / Unknown 03/03/2025 3:37 PM EDT 03/03/2025 4:09 PM EDT us Gemma Osuna NP LAB BLOOD ORDERABLES Final Resul t [facility] [address] [place] [phone] * US Thyroid (02/16/2025 2:50 PM EDT) Anatomical Region Laterality Modality Head, Neck Ultrasound 02/16/2025 2:50 PM EDT Narrative 02/16/2025 3:32 PM EDT [address] [address] Ultrasound Report Signed Patient: Katie Andrews MR#: [id number] : 1970 Acct:[id number] Age/Sex: 54 / F ADM Date: 02/16/25 Loc: HO.US Attending Dr: Gemma Osuna NP Ordering Physician: Gemma Osuna NP Date of Service: 02/16/25 Procedure(s): US thyroid Accession Number(s): [id number] cc: Gemma Osuna NP Reason for Exam: [...] than or equal to 1 cm: 1. Hearth Feeder nodules are described as follows: 1. Location: [...] 02/16/25 1529 DD/ 1450 TD/TT: 02/16/25 1456 Sap Basis: Procedure Note Donotuseinterpreter, Image - 02/16/2025 [place] [address] Ultrasound Report Signed Patient: Clotilde Andrews#: [id number] : 1970Acct:[id number] Age/Sex: 54 / FADM Date: 02/16/25 Loc: HO.US Attending Dr: Gemma Osuna NP Ordering Physician: Gemma Osuna NP Date of Service: 02/16/25 Procedure(s): US thyroid Accession Number(s): [id number] cc: Gemma Osuna NP Reason for Exam: [...] than or equal to 1 cm: 1. Hearth Feeder nodules are described as follows: 1. Location: [...] 02/16/25 1529 DD/ 1450 TD/TT: 02/16/25 1456 Sap Basis: us Gemma Osuna NP IMG US PROCEDURES Final Result * (ABNORMAL) Lipid Panel, Standard (10/21/2024 8:42 AM EDT) Triglycerides 101 <150 mg/dL [facility] Comment:Desirable Triglyceri de: less than 150 mg/dLBorderline High Triglyceride 150-199 mg/dLHigh Triglyceride: 200-499 mg/dLVery High Triglyceride: greater than or equal to 5OO mg/dL Cholesterol 202(H) <200 mg/dL [facility] Comment:Desirable Cholestero l: less than 200 mg/dLBorderline High Cholesterol: 200-239 mg/dLHigh Cholesterol: greater than 239 mg/dL LDL Cholesterol Calculated 119(H) <100 mg/dL [facility] Comment:Desirable LDL: less than 100 mg/dLNear Optimal/Above Optimal LDL: 110- 129 mg/dLBorderline High LDL: 130-159 mg/dLHigh LDL: 160-189 mg/dLVery High LDL: greater than or equal to 190 mg/dL HDL Cholesterol 63 >40 mg/dL [facility] Comment:Desirable HDL: great er than 40 mg/dL Note: This HDL assay may give artificially low results in patients with liver disease. Blood Venous blood specimen / Unknown 10/21/2024 8:42 AM EDT 10/21/2024 11:10 AM EDT us Gemma Osuna MEDICAID COLLECTION SPECIALIST LAB BLOOD ORDERABLES Final Resul t [facility] [address] [place] [phone] [phone] from Last 3 Months or Most Recently Relevant to Health Maintenance Insurance [employer] Care Teams Lacrosse Player Relationship Specialty Start Date End Date Gemma Osuna NP [address] [place] [address] PCP - General Family Medicine 10/09/24
--- OUTSIDE RECORDS SUMMARY | 2025-03-23 17:28 | XMS_ITS | Encounter Summary ---
Author Organization [email or web address] Address [address] [facility] 7t [place] [address] Care Team Providers Care Oracle Agile Pl[employer] Consultant Name Role Phone Gemma Osuna NP Primary Care Provider [phone] Reason for Visit * Reason Onset Date Comments Med Refill 02/09/2025 Encounter Details Date Type Department Care Team ([facility] st Contact Info) Description 02/09/2025 Refill [facility] [address] [place] [address] Gemma Osuna NP [address] [place] [address] Social History Tobacco Use Types Packs/Day Years [...] with others, in a hotel, in a group home, living outside on the street, on [...] documented as of this encounter Care Teams [employer] Consultant Relationship Specialty Start Date End Date Gemma Osuna NP [address] [place] [address] PCP - General Family Medicine 10/09/24 documented as of this encounter
--- OUTSIDE RECORDS SUMMARY | 2025-03-23 17:28 | XMS_ITS | Clinical Summary ---
Author Organization [facility] Address [address] [place] [address] Care Team Providers Care Power Shovel Engineer Name Role Phone Unavailable Primary Care Provider [...] NASAL 0.65 % nasal spray Place 1 [place] into the nostril(s) once daily as needed. [...] AM EDT Behavioral Health Visit [facility] [address] [place] [address] LAURA BANUELOS [phone] Fabiola Bah APRN from Last 3 Months [...] 1970 Diabetes Foot Exam 1970 HPV Screening (self-collect) 1970 HPV Screening 1970 Hepatitis C Screening [...] 2) 2019 Alcohol and Drug Screen 05/27/2024 [id number] (1 - season) 2025 Imm-Influenza (#1) 2025 Hemoglobin A1c 04/23/2025 10/21/2024, 05/2 12/2024, 10/09/2024 Lipid Screening 10/21/2025 10/21/2024 Serum Creatinine 10/21/2025 10/21/2024 Tobacco Screening 02/24/2026 02/24/2025 Cervical Ablation/Cold-Knife Conization Discontinued Cervical Cryotherapy Discontinued Colposcopy Discontinued Excision/Leep Discontinued HPV Genotyping Discontinued Vaginal Pap Discontinued Vulvoscopy Discontinued Insurance [place] [facility] MEDICAID
--- OUTSIDE RECORDS SUMMARY | 2025-03-23 17:28 | XMS_ITS | Encounter Summary ---
Author Organization [employer] Address [address] [facility] [address] [place] [address] Care Team Providers Care Configurator Name Role Phone Gemma Osuna NP Primary Care Provider [phone] Reason for Visit * Reason Onset Date Comments chart prep 03/19/2025 Encounter Details Date Type Department Care Team ([facility] st Contact Info) Description 03/19/2025 Telephone [facility] [address] [place], [place] [phone] Carolee Lopez MA chart prep Social History Tobacco Use Types Packs/Day Years [...] with others, in a hotel, in a long term, living outside on the street, on a [...] encounter Miscellaneous Notes * Telephone Encounter - Carolee Lopez MA - 03/19/2025 1:32 PM EDT Chart Prep Labs: done Images: done Referrals: complete-US BIOPSY THYROID 03/05/25 10:30 AM [facility] Vaccines due: Covid, Flu, PCV20, Tdap, Hep B, Td, Zoster, and DTAP Screenings: colonoscopy, mammogram, pap smear, and LMP Overdue care gaps: A1c and Glucose documented in this encounter Plan of Treatment Not on file documented as of this encounter Visit Diagnoses Not on filedocumented in this encounter Additional Health Concerns Assessment Noted Time PHQ-9 Depression Total Score: 14 025 12:03 PM EDT documented as of this encounter Care Teams Configurator Relationship Specialty Start Date End Date Gemma Osuna NP [address] [place] [address] PCP - General Family Medicine 10/09/24 documented as of this encounter
--- OUTSIDE RECORDS SUMMARY | 2025-03-23 17:29 | XMS_ITS | Encounter Summary ---
Author Organization [employer] Address [address] [facility] 7[address] [place] [address] Care Team Providers Care Social Media Marketing Manager Name Role Phone Christi Osunaily YENY Primary Care Provider [phone] Encounter Details Date Type Department Care Team (Latest Contact Info) Description 03/22/2025 Travel Social History Tobacco Use Types Packs/Day Years Used Date Smoking Tobacco: Former Cigarettes Passive Smoke Exposure: Past Smokeless Tobacco: Former Depression Answer Date Recorded Patient Health Questionnaire-9 Score 14 11/13/2024 Patient Health Questionnaire-9 Score 14 11/13/2024 Last PHQ-9: Questionnaire Data Not on file 0 11/13/2024 Housing Stability Answer Date Recorded What is your housing situation today? I do not have housing (Staying with others, in a hotel, in a snf, living outside on the street, on a [...] documented as of this encounter Care Teams Social Media Marketing Manager Relationship Specialty Start Date End Date Gemma Osuna NP [address] [place] [phone] PCP - General Family Medicine 10/09/24 documented as of this encounter
== END 2025-03-22 16:54 | disposition home or self-care (01) ==
LOC: HO.HHCLNP 16:53
PROVIDERS: Visit Provider Nurse Practitioner Family
DX: Z12.4 Encounter for screening for malignant neoplasm of cervix (principal); Z11.51 Encounter for screening for human papillomavirus (HPV)
CPT/HCPCS: 87626; 88175

== ENCOUNTER 2025-03-24 11:21 | Outpatient (REF) | payer MEDICAID, SELFPAY ==
--- OUTSIDE RECORDS SUMMARY | 2025-03-22 15:45 | XMS_ITS | Encounter Summary ---
Author Organization [employer] Address [address] [place] [address] 7t [place] [address] Care Team Providers Care Sociology Professor Name Role Phone Gemma Osuna NP Primary Care Provider [phone] Reason for Referral * Consultation (Routine) - Closed Specialty Diagnoses / Procedures Referred By Karina levin Referred To Contact Rheumatology Diagnoses Psoriasis (a type of skin inflammation) Gemma Osuna NP [address] [place] [address] Phone: tel: fax: [facility] Rheumatology [address] Phone: tel: fax: Referral ID Status Reason Start Date Expiration Date V isits Requested Visits Authorized [id number] Closed Specialty Services Required 03/23/2025 03/23/2026 6 6 * Consultation (Routine) - Pending Review Specialty Diagnoses / Procedures Referred By Karina levin Referred To Contact Psychiatry Diagnoses PTSD (post-traumatic stress disorder) Procedures Referral to Psychiatry Gemma Osuna NP [address] [place] [address] Phone: tel: fax: Referral ID Status Reason Start Date Expiration Date Visits Requested Visits Authorized [id number] Pending Review Specialty Services Required 09/20/2026 1 1 * Imaging (Routine) - Authorized Specialty Diagnoses / Procedures Referred By Contac t Referred To Contact Radiology Diagnoses Thyroid nodule Procedures US Guided Thyroid Biopsy Gemma Osuna NP [address] [place] [address] Phone: tel: fax: [address] Phone: tel: fax: Referral ID Status Reason Start Date Expiration Date V isits Requested Visits Authorized [id number] Authorized 03/22/2025 03/22/2026 1 1 * Imaging (Urgent) - Authorized Specialty Diagnoses / Procedures Referred By Karina t Referred To Contact Radiology Diagnoses Diarrhea of infectious origin Left lower quadrant abdominal pain Procedures CT Abdomen Pelvis w/ and w/o Contrast Gemma Osuna NP [address] [place] [address] Phone: tel: fax: [address] Phone: tel: fax: Referral ID Status Reason Start Date Expiration Date V isits Requested Visits Authorized [id number] Authorized 03/22/2025 03/22/2026 1 1 * Consultation (Routine) - Authorized Specialty Diagnoses / Procedures Referred By Karina t Referred To Contact Family Medicine Diagnoses Psoriasis (a type of skin inflammation) Gemma Osuna NP [address] [place] [address] Phone: tel: fax: Referral ID Status Reason Start Date Expiration Date Visits Requested Visits Authorized [id number] Authorized Specialty Services Required 03/22/2026 1 1 * Consultation (Urgent) - Authorized Specialty Diagnoses / Procedures Referred By Karina t Referred To Contact Gastroenterology Diagnoses Diarrhea of infectious origin Gemma Osuna NP [address] [place] [address] Phone: tel: fax: [facility]ology [address] [place] [address] Phone: tel: fax: Referral ID Status Reason Start Date Expiration Date Visits Requested Visits Authorized [id number] Authorized Specialty Services Required 03/23/2026 6 6 Encounter Details Date Type Department Care Team (Late st Contact Info) Description 03/22/2025 3:45 PM EDT Office Visit [facility] MEDICINE [address] [place] [address] Gemma Osuna NP [address] [place] [address] Type 2 diabetes mellitus with other diabetic [...] with others, in a hotel, in a mcfp, living outside on the street, on a [...] NON-REACTIVE NON-REACTIVE Final THIS TEST WAS PERFORMED AT:[employer] [place] [id number] [facility] MD ??? Rapid Plasma Reagin Ab [...] of skin inflammation) Orders: ??? Referral to [facility] Derm Skin Adult; Future ??? Referral to [...] - You have been referred to a chemical operations specialist for your psoriasis. - You need [...] of this technology: Yes Visit Conducted in: Barbadian Translation by: Provided by [facility] staff member Jeanette , [1] Patient Active [...] 0 ??? Blood Glucose Monitoring Suppl (FreeStyle [place] Lite) w/Device kit, Use to test blood sugar 3times daily, Disp: 1 kit, Rfl: 2 ??? Blood Pressure kit, 1 each 2 times daily., Disp: 1 kit, Rfl: 0 ??? cetirizine (ZyrTEC) 10 MG tablet, Take 1 tablet (10 mg) by mouth Once per day. Prn., Disp: 30 tablet, Rfl: 0 ??? Continuous Glucose Eligibility Supervisor (FreeStyle Sweetie 3 [place]) device, 1 each Once per day. Use [...] 30 tablet, Rfl: 2 ??? sodium chloride (Lewis Nasal [place]) 0.65 % nasal spray, INSTILL 1 SPRAY [...] type of skin inflammation) Orders: Referral to [facility] Derm Skin Adult; Future Referral to Rheumatology; [...] Care Team (Late st Contact Info) Description 04/14/2025 10:45 AM EST Office Visit [facility] MEDICINE [address] [place] [address] Gemma Osuna NP [address] [place] [address] Scheduled Orders Name Type Priority Associated Diagnoses Orde r Schedule Sed Rate by Modified [facility] Routine Diarrhea of infectious origin Expected: 03/22/2025, Expires: 03/22/2026 CT Abdomen Pelvis w/ and [...] Expected: 03/22/2025 (Approximate), Expires: 03/22/2026 Referral to [facility] Derm Skin Adult Outpatient Referral Routine Psoriasis (a type of skin inflammation) Expected: 03/22/2025 (Approximate), Expires: 03/22/2026 Referral to Rheumatology Outpatient Referral Routine Psoriasis (a type of skin inflammation) Expected: 03/22/2025 (Approximate), Expires: 03/22/2026 documented as of this encounter Procedures Procedure Name Priority Date/Time Associated Diagnosis Comments CBC WITH AUTO DIFFERENTIAL Routine 03/24/2025 11:28 AM EDT Diarrhea of infectious origin C-REACTIVE PROTEIN Routine 03/24/2025 11 :28 AM EDT Diarrhea of infectious origin COMPREHENSIVE METABOLIC PANEL Routine 03/24/2025 11:28 AM EDT Diarrhea of infectious origin POCT GLYCATED HEMOGLOBIN, TOTAL Routine 03/22/2025 4:00 PM EDT Type 2 diabetes mellitus with other diabetic arthropathy, with long-term current use of insulin (HCC) POCT GLUCOSE Routine 03/22/2025 3:59 PM EDT Type 2 diabetes mellitus with other diabetic arthropathy, with long-term current use of insulin (HCC) documented in this encounter Results * C-reactive Protein (03/24/2025 11:28 AM EDT) C Reactive Protein 0.26 < or = 0.50 mg/dL [facility] Blood Venous blood specimen / Unknown 03/24/2025 11:28 AM EDT 03/24/2025 1:13 PM EDT Gemma Graef DRESS MARKER LAB BLOOD ORDERABLES Final Resul t Performing Organization Address [facility]/ZIP Co de Phone Number [facility] [address] [place] [address] [phone] * (ABNORMAL) Comprehensive Metabolic Panel (03/24/2025 11:28 AM EDT) Sodium 141 135 - 145 mmol/L [facility] Potassium 3.9 3.3 - 5.1 mmol/L [facility] Chloride 107 96 - 108 mmol/L [facility] Carbon Dioxide 27 22 - 29 mmol/L [facility] Anion Gap 11(L) 12 - 20 [facility] Urea Nitrogen (BUN) 10 9 - 16 mg/dL [facility] Creatinine, Serum 0.56 0.5 - 1.4 mg/dL [facility] Estimated Glomerular Filt Rate >60 [facility] Comment:Chronic Kidney Disea se: Estimated GFR < 60 mL/min/1.67p7Khbytf Kidney Disease: Estimated GFR < 15 mL/min/1.73m2 Glucose 169(H) 60 - 115 mg/dL [facility] Calcium 8.8 8.4 - 10.2 mg/dL [facility] Bilirubin, Total 0.7 0.0 - 1.0 mg/dL [facility] Aspartate Amino Transferase 22 5 - 31 U/L [facility] Alanine Aminotransferase 19 0 - 31 U/L [facility] Total Protein 6.4(L) 6.5 - 8.0 g/dL [facility] Albumin Level 4.0 3.5 - 5.0 g/dL [facility] Alkaline Phosphatase 77 39 - 117 U/L [facility] Blood Venous blood specimen / Unknown 03/24/2025 11:28 AM EDT 03/24/2025 1:13 PM EDT us Gemma Osuna DRESS MARKER LAB BLOOD ORDERABLES Final Resul t Performing Organization Address City/[facility]/ZIP Co de Phone Number [facility] [address] [place] [address] [phone] * (ABNORMAL) CBC auto differential (03/24/2025 11:28 AM EDT) White Blood Count 7.7 4.8 - 10.8 X10*3/uL [facility] Red Blood Count 4.67 4.20 - 5.50 X10*6/uL [facility] Hemoglobin 14.2 12.0 - 16.0 g/dl [facility] Hematocrit 44.5 37.0 - 47.0 % [facility] Mean Corpuscular Volume 95.3 80.0 - 98.0 fL [facility] Mean Corpuscular Hemoglobin 30.4 27.0 - 33.0 pg [facility] Mean Corpuscular HGB Conc 31.9 31.0 - 35.0 g/dl [facility] Red Cell Distribution Width 12.5 11.0 - 16.0 % [facility] Platelet Count 288 160 - 400 X10*3/uL [facility] Mean Platelet Volume 8.9(L) 9.4 - 12.3 fL [facility] Neutrophils Percent Auto 47.2 45 - 73 % [facility] Imm Gran Pct Auto 0.3 0.0 - 0.4 % [facility] Lymphocytes Percent Auto 38.3 20 - 40 % [facility] Monocytes Percent Auto 5.1 2 - 11 % [facility] Eosinophils Percent Auto 8.1(H) 0 - 4 % [facility] Basophils Percent Auto 1.0 0 - 2 % [facility] NRBC Pct Auto 0.0 0.0 - 0.2 /100WBC [facility] Neutrophils Absolute Auto 3.6 2.0 - 8.3 x10*3/uL [facility] Imm Gran Abs Auto 0.02 0.00 - 0.03 X10*3/uL [facility] Lymphocytes Absolute Auto 2.9 1.2 - 4.9 X10*3/uL [facility] Monocytes Absolute Auto 0.4 0.1 - 1.2 X10*3/uL [facility] Eosinophils Absolute Auto 0.6(H) 0.0 - 0.4 X10*3/uL [facility] Basophils Absolute Auto 0.1 0.0 - 0.2 X10*3/uL [facility] NRBC Abs Auto 0.000 0.0 - 0.012 X10*3/uL [facility] Blood Venous blood specimen / Unknown 03/24/2025 11:28 AM EDT 03/24/2025 1:13 PM EDT Gemma Osuna NP LAB BLOOD ORDERABLES Final Resul t [facility] [address] [place] [phone] * (ABNORMAL) POCT Hgb A1c (03/22/2025 4:00 PM EDT) Hemoglobin A1C 7.5(A) 4.0 - 5.7 % QC Media Lot # [id number] Lot# Expiration Date [id number] Blood 03/22/2025 4:00 PM EDT Gemma Osuna NP POINT OF [...] documented as of this encounter Care Teams Sociology Professor Relationship Specialty Start Date End Date Gemma Osuna NP [address] [place] [address] PCP - General Family Medicine 10/09/24 documented as of this encounter
[2025-03-24 13:17] LABS: MANUAL DIFF FLAG NO
[2025-03-24 13:32] LABS: Hematocrit 44.5 % (37.0-47.0); Hemoglobin 14.2 g/dl (12.0-16.0); Imm Gran Abs Auto 0.02 X10*3/uL (0.00-0.03); Imm Gran Pct Auto 0.3 % (0.0-0.4); Lymphocytes Absolute Auto 2.9 X10*3/uL (1.2-4.9); Mean Corpuscular HGB Conc 31.9 g/dl (31.0-35.0); Mean Corpuscular Hemoglobin 30.4 pg (27.0-33.0); Mean Corpuscular Volume 95.3 fL (80.0-98.0); NRBC Abs Auto 0.000 X10*3/uL (0.0-0.012); NRBC Pct Auto 0.0 /100WBC (0.0-0.2); Platelet Count 288 X10*3/uL (160-400); Red Blood Count 4.67 X10*6/uL (4.20-5.50); White Blood Count 7.7 X10*3/uL (4.8-10.8)
[2025-03-24 14:03] LABS: Alanine Aminotransferase 19 U/L (0-31); Albumin Level 4.0 g/dL (3.5-5.0); Alkaline Phosphatase 77 U/L (39-117); Anion Gap 11 (12-20); Aspartate Amino Transferase 22 U/L (5-31); Blood Urea Nitrogen 10 mg/dL (9-16); Calcium 8.8 mg/dL (8.4-10.2); Carbon Dioxide 27 mmol/L (22-29); Chloride 107 mmol/L (96-108); Estimated Glomerular Filt Rate > 60; Potassium 3.9 mmol/L (3.3-5.1); Sodium 141 mmol/L (135-145); Total Protein 6.4 g/dL (6.5-8.0)
--- OUTSIDE RECORDS SUMMARY | 2025-03-24 14:30 | XMS_ITS | Encounter Summary ---
Author Organization [facility] Address [address] [place] [address] 7 [place] [address] Care Team Providers Care Music Supervisor Name Role Phone Gemma Osuna NP Primary Care Provider [phone] Reason for Visit * Reason Onset Date Comments Med Refill 11/03/2024 Encounter Details Date Type Department Care Team (Late Contact Info) Description 11/03/2024 Refill [facility] [address] [place] [address] Gemma Osuna NP [address] [place] [address] Social History Tobacco Use Types Packs/Day Years [...] Department Care Team (Late Contact Info) Description 04/14/2025 10:45 AM EST Office Visit [facility] [address] [place] [address] Gemma Osuna NP [address] [place] [address] documented as of this encounter Visit Diagnoses Not on filedocumented in this encounter Care Teams Music Supervisor Relationship Specialty Start Date End Date Gemma Osuna NP [address] [place] [address] PCP - General Family Medicine 10/09/24 documented as of this encounter
--- OUTSIDE RECORDS SUMMARY | 2025-03-24 14:30 | XMS_ITS | Encounter Summary ---
Author Organization [employer] Address [address] [facility] 7t [place] [address] Care Team Providers Care Elevated Motorman Name Role Phone Gemma Osuna NP Primary Care Provider [phone] Encounter Details Date Type Department Care Team ([facility] st Contact Info) Description 03/08/2025 Telephone [facility] MEDICINE [address] [place] [address] Gemma Osuna NP [address] [place] [address] Social History Tobacco Use Types Packs/Day Years [...] with others, in a hotel, in a fpc, living outside on the street, on a [...] referral. Has she heard from radiology at [facility]? Thank you documented in this encounter Plan of Treatment Upcoming Encounters Date Type Department Care Team (Late st Contact Info) Description 04/14/2025 10:45 AM EST Office Visit [facility] MEDICINE [address] [place] [address] Gemma Osuna NP [address] [place] [address] documented as of this encounter Visit Diagnoses Diagnosis Thyroid nodule- Primary Nontoxic uninodular goiter documented in this encounter Additional Health Concerns Assessment Noted Time PHQ-9 Depression Total Score: 14 025 12:03 PM EDT documented as of this encounter Care Teams Elevated Motorman Relationship Specialty Start Date End Date Gemma Osuna NP [address] [place] [address] PCP - General Family Medicine 5/16/25 documented as of this encounter
--- OUTSIDE RECORDS SUMMARY | 2025-03-24 14:30 | XMS_ITS | Encounter Summary ---
Author Organization [employer] Address [address] [facility] 7t [place] [address] Care Team Providers Care Matching Machine Operator Name Role Phone Christi Osunaily YENY Primary Care Provider [phone] Encounter Details Date Type Department Care Team [...] Description 04/14/2025 10:45 AM EST Office Visit [facility] MEDICINE [address] [place] [address] Gemma Osuna NP [address] [place] [address] documented as of this encounter Visit Diagnoses Not on filedocumented in this encounter Additional Health Concerns Assessment Noted Time PHQ-9 Depression Total Score: 14 025 12:03 PM EDT documented as of this encounter Care Teams Matching Machine Operator Relationship Specialty Start Date End Date Gemma Osuna NP [address] [place] [address] PCP - General Family Medicine 10/09/24 documented as of this encounter
--- OUTSIDE RECORDS SUMMARY | 2025-03-24 14:30 | XMS_ITS | Encounter Summary ---
Author Organization [employer] Address [address] [place] [address] 7 [place] [address] Care Team Providers Care Assistant Professor Of Anthropology Name Role Phone Gemma Osuna NP Primary Care Provider [phone] Reason for Visit * Reason Onset Date Comments Med Refill 12/07/2024 Encounter Details Date Type Department Care Team (Late st Contact Info) Description 12/07/2024 Refill [facility] MEDICINE [address] [place] [address] Gemma Osuna NP [address] [place] [address] Social History Tobacco Use Types Packs/Day Years [...] Description 04/14/2025 10:45 AM EST Office Visit [facility] MED[facility]INE [address] [place] [address] Gemma Osuna NP [address] [place] [address] documented as of this encounter Visit Diagnoses Not on filedocumented in this encounter Additional Health Concerns Assessment Noted Time PHQ-9 Depression Total Score: 14 025 12:03 PM EDT documented as of this encounter Care Teams Assistant Professor Of Anthropology Relationship Specialty Start Date End Date Gemma Osuna NP [address] [place] [address] PCP - General Family Medicine 10/09/24 documented as of this encounter
--- OUTSIDE RECORDS SUMMARY | 2025-03-24 14:30 | XMS_ITS | Encounter Summary ---
Author Organization [employer] Address [address] [place] [address] 7 [place] [address] Care Team Providers Care Adjunct Faculty Mathematics Department Name Role Phone Gemma Osuna NP Primary Care Provider [phone] Reason for Visit * Reason Onset Date Comments Med Refill 12/11/2024 Encounter Details Date Type Department Care Team (Late st Contact Info) Description 12/11/2024 Refill [facility] MEDICINE [address] [place] [address] Gemma Osuna NP [address] [place] [address] Social History Tobacco Use Types Packs/Day Years [...] Description 04/14/2025 10:45 AM EST Office Visit [facility] MEDICINE [address] [place] [address] Gemma Osuna NP [address] [place] [address] documented as of this encounter Visit Diagnoses Not on filedocumented in this encounter Additional Health Concerns Assessment Noted Time PHQ-9 Depression Total Score: 14 025 12:03 PM EDT documented as of this encounter Care Teams Adjunct Faculty Mathematics Department Relationship Specialty Start Date End Date Gemma Osuna NP [address] [place] [address] PCP - General Family Medicine 10/09/24 documented as of this encounter
--- OUTSIDE RECORDS SUMMARY | 2025-03-24 14:30 | XMS_ITS | Encounter Summary ---
Author Organization [facility] Address [address] [place] [address] 7 [place] [address] Care Team Providers Care Aircraft Navigator Name Role Phone Gemma Osuna NP Primary Care Provider [phone] Reason for Visit * Reason Onset Date Comments Med Refill 11/03/2024 Encounter Details Date Type Department Care Team ([facility] Contact Info) Description 11/03/2024 Refill [facility] [address] [place] [address] Gemma Osuna NP [address] [place] [address] Social History Tobacco Use Types Packs/Day Years [...] Upcoming Encounters Date Type Department Care Team ([facility] Contact Info) Description 04/14/2025 10:45 AM EST Office Visit [facility]INE [address] [place] [address] Gemma Osuna NP [address] [place] [address] documented as of this encounter Visit Diagnoses Not on filedocumented in this encounter Care Teams Aircraft Navigator Relationship Specialty Start Date End Date Gemma Osuna NP [address] [place] [address] PCP - General Family Medicine 10/09/24 documented as of this encounter
--- OUTSIDE RECORDS SUMMARY | 2025-03-24 14:30 | XMS_ITS | Encounter Summary ---
Author Organization [employer] Address [address] [facility] 7t [place] [address] Care Team Providers Care Citrus Peeler Name Role Phone Gemma Osuna NP Primary Care Provider [phone] Reason for Visit * Reason Onset Date [...] st Contact Info) Description 12/22/2024 Refill [facility] MEDICINE [address] [place], [place] [phone] Gemma Osuna NP [address] [place], [place] [phone] Social History Tobacco Use Types Packs/Day Years [...] 10:45 AM EST Office Visit [facility] MEDICINE [address] [place] [address] Gemma Osuna NP [address] [place] [address] documented as of this encounter Visit Diagnoses Not on filedocumented in this encounter Additional Health Concerns Assessment Noted Time PHQ-9 Depression Total Score: 14 025 12:03 PM EDT documented as of this encounter Care Teams Citrus Peeler Relationship Specialty Start Date End Date Gemma Osuna NP [address] [place] [address] PCP - General Family Medicine 10/09/24 documented as of this encounter
--- OUTSIDE RECORDS SUMMARY | 2025-03-24 14:30 | XMS_ITS | Encounter Summary ---
Author Organization [employer] Address [address] [facility] 7t [place] [address] Care Team Providers Care Billet Assembler Name Role Phone Gemma Osuna NP Primary Care Provider [phone] Reason for Visit * Reason Onset Date Comments Med Refill 12/07/2024 Encounter Details Date Type Department Care Team (Late st Contact Info) Description 12/07/2024 Refill [facility] [address] [place] [address] Gemma Osuna NP [address] [place] [address] Social History Tobacco Use Types Packs/Day Years [...] Description 04/14/2025 10:45 AM EST Office Visit [facility] MED[facility]INE [address] [place] [address] Gemma Osuna NP [address] [place] [address] documented as of this encounter Visit Diagnoses Not on filedocumented in this encounter Additional Health Concerns Assessment Noted Time PHQ-9 Depression Total Score: 14 025 12:03 PM EDT documented as of this encounter Care Teams Billet Assembler Relationship Specialty Start Date End Date Gemma Osuna NP [address] [place] [address] PCP - General Family Medicine 10/09/24 documented as of this encounter
--- OUTSIDE RECORDS SUMMARY | 2025-03-24 14:30 | XMS_ITS | Encounter Summary ---
Author Organization [employer] Address [address] [facility] 7t [place] [address] Care Team Providers Care Dredge Worker Name Role Phone Gemma Osuna NP Primary Care Provider [phone] Reason for Visit * Reason Onset Date Comments chart prep 03/19/2025 Encounter Details Date Type Department Care Team ([facility] st Contact Info) Description 03/19/2025 Telephone [facility] MEDICINE [address] [place], [place] [phone] Carolee Lopez MA chart prep Social History [...] with others, in a hotel, in a care home, living outside on the street, on [...] complete-US BIOPSY THYROID 03/05/25 10:30 AM [facility] Vaccines due: Covid, Flu, PCV20, Tdap, Hep B, Td, Zoster, and DTAP Screenings: colonoscopy, mammogram, pap smear, and LMP Overdue care gaps: A1c and Glucose documented in this encounter Plan of Treatment Upcoming Encounters Date Type Department Care Team (Late st Contact Info) Description 04/14/2025 10:45 AM EST Office Visit [facility] MEDICINE [address] [place] [address] Gemma Osuna NP [address] [place] [address] documented as of this encounter Visit Diagnoses Not on filedocumented in this encounter Additional Health Concerns Assessment Noted Time PHQ-9 Depression Total Score: 14 025 12:03 PM EDT documented as of this encounter Care Teams Dredge Worker Relationship Specialty Start Date End Date Gemma Osuna NP [address] [place] [address] PCP - General Family Medicine 10/09/24 documented as of this encounter
--- OUTSIDE RECORDS SUMMARY | 2025-03-24 14:30 | XMS_ITS | Clinical Summary ---
Author Organization [employer] Address [address] [place] [address] 7[address] [place] [address] Care Team Providers Care Bridge Expert Name Role Phone Gemma Osuna NP Primary Care Provider [phone] Allergies Active Allergy Reactions Criticality Noted Date [...] 25 Active Blood Glucose Monitoring Suppl (FreeStyle [place] Lite) w/Device kit Use to test blood sugar 3 times daily 1 kit 2 10/10/19 25 Active Continuous Glucose Faith Doctor (FreeStyle Sweetie 3 [place]) device 1 each Once per day. Use [...] 90 tablet 02/17/20 25 Active sodium chloride ([place] Nasal Marble) 0.65 % nasal sprayIndicatio ns:COVID-19 INSTILL 1 [...] (03/22/2025 4:44 PM EDT): Orders: Referral to [facility] Derm Skin Adult; Future Referral to [...] Description 03/22/2025 3:45 PM EDT Office Visit [facility] [address] [place] [address] [phone] Gemma Osuna NP Type 2 diabetes mellitus with other diabetic arthropathy, with long-term current use of insulin (HCC) (Primary Dx); Diarrhea of infectious origin; Psoriasis (a type of skin inflammation); Left lower quadrant abdominal pain; Thyroid nodule; Pap smear for cervical cancer screening; PTSD (post-traumatic stress disorder) 03/22/2025 Travel 03/19/[address] [facility] [address] [place] [phone] Carolee Lopez MA chart prep 03/15/2025 Travel 03/12/2025 1:40 PM EDT Office Visit [facility] [address] [address] Sariah Thompson MD Acute bronchitis, unspecified organism (Primary Dx) 03/12/2025 Travel 03/10/[address] [facility] [address] [place] [address] [phone] eGmma Osuna NP 03/08/[address] [facility] [address] [place] [address] [phone] Gemma Osuna NP 03/05/2025 Results Follow-Up [facility] [address] [place] [address] [phone] Luke Styles MD RPR (Monitor) with Reflex to Titer 03/04/2025 Orders Only [facility] External Provider, [facility] 03/03/2025 3:00 PM EDT Office Visit [facility] [address] [place] [address] Luke Styles MD Rash (Primary Dx); Elevated blood pressure reading in office without diagnosis of hypertension 03/03/2025 2:00 PM EDT Office Visit [facility] OPTOMET[facility] [address] [place] [address] Yasmin Fabby, OD Type 2 diabetes mellitus without ophthalmic manifestations (HCC) (Primary Dx); Presbyopia 03/03/2025 Travel 02/24/2025 Travel 02/18/[address] [facility] [address] [place] [address] Gemma Osuna NP 02/17/[address] [facility] [address] [place] [address] [phone] Gemma Osuna NP 02/16/2025 Results Follow-Up [facility] [address] [place] [phone] Gemma Osuna NP US Thyroid 02/15/[address] [facility] [address] [place] [address] [phone] Karina Kumar NP COVID-19 02/15/[address] [facility] [address] [place] [phone] Gemma Osuna NP COVID-19 02/09/[address] [facility] [address] [place] [address] [phone] Gemma Osuna NP 02/03/[address] [facility] [address] [place] [address] [phone] Gemma Osuna NP 01/22/[address] [facility] [address] [place] [address] [phone] Gemma Osuna NP 01/18/[address] [facility] [address] [place] [address] [phone] Gemma Osuna NP 01/15/2025 1:30 PM EDT Office Visit [facility] [address] [place] [address] [phone] Gemma Osuna NP Thyroid nodule (Primary Dx); Dietary counseling; Exercise counseling; Type 2 diabetes mellitus with other diabetic arthropathy, with long-term current use of insulin ([facility]/HCC); Colon cancer screening; Muscle spasm of left shoulder; Fibromyalgia 01/15/2025 Travel 01/14/2025 Travel 01/14/[address] [facility] [address] [place] [address] Gemma Osuna NP Chart Prep 01/03/[address] [facility] [address] [place] [address] Gemma Osuna NP 12/23/2024 4:00 PM EDT Office Visit [facility] [address] [place], [place] [phone] Viviana Lew MD Acute exacerbation of mild persistent extrinsic asthma (Primary Dx) 12/23/2024 Travel 12/22/[address] [facility] [address] [place] [address] Gemma Osuna NP from Last 3 Months [...] 03/22/2025 3:55 PM EDT Plan of Treatment Upcoming Encounters Date Type Department Care Team (Late st Contact Info) Description 04/14/2025 10:45 AM EST Office Visit [facility] [address] [place] [address] Gemma Osuna NP [address] [place] [address] Health Maintenance Due Date Last Done Comments [...] Screening 03/22/2026 03/22/2025 Eye Exam 03/03/2027 03/03/2025, 12/2024, 03/03/2025, Additional history exists RSV Patients and [...] Procedure Name Priority Date/Time Associated Diagnosis Comments C-REACTIVE PROTEIN Routine 03/24/2025 11 :28 AM EDT Diarrhea of infectious origin COMPREHENSIVE METABOLIC PANEL Routine 03/24/2025 11:28 AM EDT Diarrhea of infectious origin CBC WITH AUTO DIFFERENTIAL Routine 03/24/2025 11:28 AM EDT Diarrhea of infectious origin POCT GLYCATED HEMOGLOBIN, TOTAL Routine 03/22/2025 4:00 PM EDT Type 2 diabetes mellitus with other diabetic arthropathy, with long-term current use of insulin ([facility]) POCT GLUCOSE Routine 03/22/2025 3:59 PM EDT Type 2 diabetes mellitus with other diabetic arthropathy, with long-term current use of insulin ([facility]) POCT RAPID COVID ANTIGEN Routine 03/12/2025 1:24 PM EDT Acute bronchitis, unspecified organism MR KNEE WO CONTRAST LEFT Routine 03/04/2025 6:44 PM EDT RPR (MONITOR) W/REFL TITER Routine 03/03/2025 3:37 PM EDT Rash COMPREHENSIVE METABOLIC PANEL Routine 03/03/2025 3:37 PM EDT Type 2 diabetes mellitus with other diabetic arthropathy, with long-term current use of insulin ([facility]) US THYROID Routine 02/16/2025 2:50 PM EDT Thyroid nodule POCT GLUCOSE Routine 01/15/2025 1:35 PM EDT Type 2 diabetes mellitus with other diabetic arthropathy, with long-term current use of insulin ([facility]/HCC) COMPREHENSIVE METABOLIC PANEL Routine 01/08/2025 8:31 AM EDT Elevated liver transaminase level LIPID PANEL, STANDARD Routine 10/21/2024 8:42 AM EDT Type 2 diabetes mellitus with other diabetic arthropathy, with long-term current use of insulin ([facility]) from Last 3 Months or Most Recently Relevant to Health Maintenance Results * (ABNORMAL) CBC auto differential (03/24/2025 11:28 AM EDT) White Blood Count 7.7 4.8 - 10.8 X10*3/uL [facility] Red Blood Count 4.67 4.20 - 5.50 X10*6/uL [facility] Hemoglobin 14.2 12.0 - 16.0 g/dl [facility] Hematocrit 44.5 37.0 - 47.0 % [facility] Mean Corpuscular Volume 95.3 80.0 - 98.0 fL [facility] Mean Corpuscular Hemoglobin 30.4 27.0 - 33.0 pg [facility] Mean Corpuscular HGB Conc 31.9 31.0 - 35.0 g/dl [facility] Red Cell Distribution Width 12.5 11.0 - 16.0 % [facility] Platelet Count 288 160 - 400 X10*3/uL [facility] Mean Platelet Volume 8.9(L) 9.4 - 12.3 fL [facility] Neutrophils Percent Auto 47.2 45 - 73 % [facility] Imm Gran Pct Auto 0.3 0.0 - 0.4 % [facility] Lymphocytes Percent Auto 38.3 20 - 40 % [facility] Monocytes Percent Auto 5.1 2 - 11 % [facility] Eosinophils Percent Auto 8.1(H) 0 - 4 % [facility] Basophils Percent Auto 1.0 0 - 2 % [facility] NRBC Pct Auto 0.0 0.0 - 0.2 /100WBC [facility] Neutrophils Absolute Auto 3.6 2.0 - 8.3 x10*3/uL [facility] Imm Gran Abs Auto 0.02 0.00 - 0.03 X10*3/uL [facility] Lymphocytes Absolute Auto 2.9 1.2 - 4.9 X10*3/uL [facility] Monocytes Absolute Auto 0.4 0.1 - 1.2 X10*3/uL [facility] Eosinophils Absolute Auto 0.6(H) 0.0 - 0.4 X10*3/uL [facility] Basophils Absolute Auto 0.1 0.0 - 0.2 X10*3/uL [facility] NRBC Abs Auto 0.000 0.0 - 0.012 X10*3/uL [facility] Blood Venous blood specimen / Unknown 03/24/2025 11:28 AM EDT 03/24/2025 1:13 PM EDT Gemma Osuna PHARMACEUTICAL SALESPERSON LAB BLOOD ORDERABLES Final Resul t Performing Organization Address [facility] Co de Phone Number [facility] [address] [place] [phone] * C-reactive Protein (03/24/2025 11:28 AM EDT) Pathologist [facility] C Reactive Protein 0.26 < or = 0.50 mg/dL [facility] Blood Venous blood specimen / Unknown 03/24/2025 11:28 AM EDT 03/24/2025 1:13 PM EDT Gemma Osuna PHARMACEUTICAL SALESPERSON LAB BLOOD ORDERABLES Final Resul t Performing Organization Address [facility] Co de Phone Number [facility] [address] [place] [address] [phone] * (ABNORMAL) Comprehensive Metabolic Panel (03/24/2025 11:28 AM EDT) Only the most recent of3 resultswithin the time period is included. Sodium 141 135 - 145 mmol/L [facility] Potassium 3.9 3.3 - 5.1 mmol/L [facility] Chloride 107 96 - 108 mmol/L [facility] Carbon Dioxide 27 22 - 29 mmol/L [facility] Anion Gap 11(L) 12 - 20 [facility] Urea Nitrogen (BUN) 10 9 - 16 mg/dL [facility] Creatinine, Serum 0.56 0.5 - 1.4 mg/dL [facility] Estimated Glomerular Filt Rate >60 [facility] Comment:Chronic Kidney Disea se: Estimated GFR < 60 mL/min/1.95q4Gcvbre Kidney Disease: Estimated GFR < 15 mL/min/1.73m2 Glucose 169(H) 60 - 115 mg/dL [facility] Calcium 8.8 8.4 - 10.2 mg/dL [facility] Bilirubin, Total 0.7 0.0 - 1.0 mg/dL [facility] Aspartate Amino Transferase 22 5 - 31 U/L [facility] Alanine Aminotransferase 19 0 - 31 U/L [facility] Total Protein 6.4(L) 6.5 - 8.0 g/dL [facility] Albumin Level 4.0 3.5 - 5.0 g/dL [facility] Alkaline Phosphatase 77 39 - 117 U/L [facility] Blood Venous blood specimen / Unknown 03/24/2025 11:28 AM EDT 03/24/2025 1:13 PM EDT us Gemma Osuna NP LAB BLOOD ORDERABLES Final Resul t [facility] [address] [place] [phone] * (ABNORMAL) POCT Hgb A1c (03/22/2025 4:00 PM EDT) Hemoglobin A1C 7.5(A) 4.0 - 5.7 % [employer] Media Lot # [id number] Lot# Expiration Date ,402,273 Blood 03/22/2025 4:00 PM EDT us Gemma Osuna NP POINT OF CARE TEST ENTER/EDIT OR DERABLES Final Result * POCT Glucose (03/22/2025 3:59 PM EDT) Only the most recent of2 resultswithin the time period is included. Glucose Blood, POC 152 60 - 200 mg/dL [employer] Lot # [id number] Lot# Expiration Date 3107 Blood Capillary blood specimen / Unknown 03/22/2025 3:59 PM EDT Gemma Osuna NP POINT OF CARE TEST ENTER/EDIT OR DERABLES Final Result * POCT Rapid COVID Ag (03/12/2025 1:24 PM EDT) Pathologist [facility] Rapid COVID Ag Negative Swab 03/12/2025 1:24 PM EDT Result [facility] Sariah Thompson MD POINT OF CARE TEST ENTER/EDIT OR DERABLES Final Result * MR Knee w/o Contrast Left (03/04/2025 6:44 PM EDT) Anatomical Region Laterality Modality Magnetic Resonan ce 03/04/2025 6:44 PM EDT Narrative 03/05/2025 8:36 AM EDT [place] [address] Magnetic Resonance Report Signed Patient: Katie Andrews MR#: [id number] : 1970 Acct:[id number] Age/Sex: 54 / F ADM Date: 03/04/25 Loc: HO.MRI Attending Dr: Joe Saleh MD Ordering Physician: Joe Saleh MD Date of Service: 03/04/25 Procedure(s): MR knee LT wo con Accession Number(s): [id number] cc: Gemma Osuna PHARMACEUTICAL SALESPERSON; Joe Saleh MD Reason for Exam: S83.242A [...] 03/05/25 0833 DD/ 1844 TD/TT: 03/04/25 1910 Accounting Analyst: Procedure Note Donotuseinterpreter, Image - 03/05/[address] [address] Magnetic Resonance Report Signed Patient: Clotilde Andrews#: [id number] : 1970Acct:[id number] Age/Sex: 54 / FADM Date: 03/04/25 Loc: HO.MRI Attending Dr: Joe Saleh MD Ordering Physician: Joe Saleh MD Date of Service: 03/04/25 Procedure(s): MR knee LT wo con Accession Number(s): [id number] cc: Gemma Osuna PHARMACEUTICAL SALESPERSON; Joe Saleh MD Reason for Exam: [id number] [...] 03/05/25 0833 DD/ 1844 TD/TT: 03/04/25 1910 Accounting Analyst: EDUARDO [facility] External Provider IMG MRI PROCEDURES Final Result * RPR (Monitor) with Reflex to??Titer (03/03/2025 3:37 PM EDT) RPR (Monitor) w/Refl Titer NON-REACTI VE NON-REACT LEYDA [facility] Comment:THIS TEST WAS PERFOR MED AT:[employer] [place] [phone] MC MD Rapid Plasma Reagin Ab Titer TNP [facility] Blood Venous blood specimen / Unknown 03/03/2025 3:37 PM EDT 03/03/2025 4:09 PM EDT us Luke Styles MD LAB BLOOD ORDERABLES Final Resul t [facility] [address] [place] [phone] * US Thyroid (02/16/2025 2:50 PM EDT) Anatomical Region Laterality Modality Head, Neck Ultrasound 02/16/2025 2:50 PM EDT Narrative 02/16/2025 3:32 PM EDT [address] [address] Ultrasound Report Signed Patient: Katie Andrews MR#: [id number] : 1970 Acct:[id number] Age/Sex: 54 / F ADM Date: 02/16/25 Loc: HO.US Attending Dr: Gemma Osuna NP Ordering Physician: Gemma Osuna NP Date of Service: 02/16/25 Procedure(s): US thyroid Accession Number(s): [id number] cc: Gemma Osuna NP Reason for Exam: [...] than or equal to 1 cm: 1. Motor Coach Operator nodules are described as follows: 1. Location: [...] 02/16/25 1529 DD/ 1450 TD/TT: 02/16/25 1456 Accounting Analyst: Procedure Note Donotuseinterpreter, Image - 02/16/2025 [place] [address] Ultrasound Report Signed Patient: Clotilde Andrews#: [id number] : 1970Acct:[id number] Age/Sex: 54 / FADM Date: 02/16/25 Loc: HO.US Attending Dr: Gemma Osuna NP Ordering Physician: Gemma Osuna NP Date of Service: 02/16/25 Procedure(s): US thyroid Accession Number(s): [id number] cc: Gemma Osuna NP Reason for Exam: [...] than or equal to 1 cm: 1. Motor Coach Operator nodules are described as follows: 1. Location: [...] 02/16/25 1529 DD/ 1450 TD/TT: 02/16/25 1456 Accounting Analyst: us Gemma Osuna NP IMG US PROCEDURES Final Result * (ABNORMAL) Lipid Panel, Standard (10/21/2024 8:42 AM EDT) Triglycerides 101 <150 mg/dL [facility] Comment:Desirable Triglyceri de: less than 150 mg/dLBorderline High Triglyceride 150-199 mg/dLHigh Triglyceride: 200-499 mg/dLVery High Triglyceride: greater than or equal to 5OO mg/dL Cholesterol 202(H) <200 mg/dL [facility] Comment:Desirable Cholestero l: less than 200 mg/dLBorderline High Cholesterol: 200-239 mg/dLHigh Cholesterol: greater than 239 mg/dL LDL Cholesterol Calculated 119(H) <100 mg/dL [facility] Comment:Desirable LDL: less than 100 mg/dLNear Optimal/Above Optimal LDL: 110- 129 mg/dLBorderline High LDL: 130-159 mg/dLHigh LDL: 160-189 mg/dLVery High LDL: greater than or equal to 190 mg/dL HDL Cholesterol 63 >40 mg/dL [facility] Comment:Desirable HDL: great er than 40 mg/dL Note: This HDL assay may give artificially low results in patients with liver disease. Blood Venous blood specimen / Unknown 10/21/2024 8:42 AM EDT 10/21/2024 11:10 AM EDT us Gemma Osuna PHARMACEUTICAL SALESPERSON LAB BLOOD ORDERABLES Final Resul t [facility] [address] [place] [phone] from Last 3 Months or Most Recently Relevant to Health Maintenance Insurance [employer] Care Teams Bridge Expert Relationship Specialty Start Date End Date Gemma Osuna NP [address] [place] [address] PCP - General Family Medicine 10/09/24
--- OUTSIDE RECORDS SUMMARY | 2025-03-24 14:30 | XMS_ITS | Encounter Summary ---
Author Organization [employer] Address [address] [place] [address] Care Team Providers Care Billet Heater Operator Name Role Phone Gemma Osuna NP Primary Care Provider [phone] Reason for Visit * Reason Onset Date Comments Med Refill 02/09/2025 Encounter Details Date Type Department Care Team ([facility] st Contact Info) Description 02/09/2025 Refill [facility] [address] [place] [address] Gemma Osuna NP [address] [place] [address] Social History Tobacco Use Types Packs/Day Years [...] Description 04/14/2025 10:45 AM EST Office Visit [facility] [address] [place] [address] Gemma Osuna NP [address] [place] [address] documented as of this encounter Visit Diagnoses Not on filedocumented in this encounter Additional Health Concerns Assessment Noted Time PHQ-9 Depression Total Score: 14 025 12:03 PM EDT documented as of this encounter Care Teams Billet Heater Operator Relationship Specialty Start Date End Date Gemma Osuna NP [address] [place] [address] PCP - General Family Medicine 10/09/24 documented as of this encounter
--- OUTSIDE RECORDS SUMMARY | 2025-03-24 14:30 | XMS_ITS | Clinical Summary ---
Author Organization [facility] Address [address] [place] [address] Care Team Providers Care Tow Car Driver Name Role Phone Unavailable Primary Care Provider [...] NASAL 0.65 % nasal spray Place 1 Hobbs into the nostril(s) once daily as needed. [...] AM EDT Behavioral Health Visit [facility] [address] [place] [address] [place]A BANUEL[place] [phone] Fabiola Bah APRN from Last 3 Months [...] 2) 2019 Alcohol and Drug Screen 05/27/2024 [id number] (1 - season) 2025 Imm-Influenza (#1) 2025 Hemoglobin A1c 04/23/2025 10/21/2024, 05/2 12/2024, 10/09/2024 Lipid Screening 10/21/2025 10/21/2024 Serum Creatinine 10/21/2025 10/21/2024 Tobacco Screening 02/24/2026 02/24/2025 Cervical Ablation/Cold-Knife Conization Discontinued Cervical Cryotherapy Discontinued Colposcopy Discontinued Excision/Leep Discontinued HPV Genotyping Discontinued Vaginal Pap Discontinued Vulvoscopy Discontinued Insurance [place] [facility] [place]
== END 2025-03-24 11:22 | disposition home or self-care (01) ==
LOC: HO.HHCL 11:21
PROVIDERS: PCP Nurse Practitioner Family; Visit Provider Nurse Practitioner Family
DX: A09 Infectious gastroenteritis and colitis, unspecified (principal)
CPT/HCPCS: 36415; 80053; 85025; 85652; 86140

== ENCOUNTER 2025-04-10 10:19 | Emergency (ER) | payer MEDICAID, SELFPAY ==
--- NOTE | ~2025-04-10 | XR_ITS ---
CLINICAL HISTORY: SOB productive cough 2 view chest x-ray Comparison: None provided Findings: Low lung volumes with mild bibasilar atelectasis/pneumonitis. No lobar consolidation, pneumothorax, or pleural effusion. Cardiac silhouette and mediastinal contours are within limits of normal. Mild rib deformities appear old/chronic. Minimal vertebral height losses are likely old/chronic with multifocal Schmorl's nodes noted. Degenerative changes include imaged AC joints. Superficial metal is nonspecific including dorsally. IMPRESSION: Mild bibasilar atelectasis/pneumonitis This document has been electronically signed by: Sahil Martino MD on 04/10/2025 12:30:34
[2025-04-10 10:26] VITALS: BP 149/76; PULSE 95; RESP 20; TEMP 36.4; O2SAT 97; BMI 36.0
--- NOTE | 2025-04-10 10:30 | ECG_ITS ---
Test Reason : DSYPNEA Blood Pressure : */* mmHG Vent. Rate : 82 BPM Atrial Rate : 82 BPM P-R Int : 126 ms QRS Dur : 88 ms QT Int : 366 ms P-R-T Axes : 30 23 10 degrees QTcB Int : 427 ms Normal sinus rhythm Normal ECG No previous ECGs available Referred By: Generic ED Physician Electronically Signed By: DASH VALDEZ MD
[2025-04-10 10:41] LABS: MANUAL DIFF FLAG NO
[2025-04-10 10:48] LABS: Hematocrit 47.5 % (37.0-47.0); Hemoglobin 15.5 g/dl (12.0-16.0); Imm Gran Abs Auto 0.01 X10*3/uL (0.00-0.03); Imm Gran Pct Auto 0.2 % (0.0-0.4); Lymphocytes Absolute Auto 2.0 X10*3/uL (1.2-4.9); Mean Corpuscular HGB Conc 32.6 g/dl (31.0-35.0); Mean Corpuscular Hemoglobin 30.5 pg (27.0-33.0); Mean Corpuscular Volume 93.5 fL (80.0-98.0); NRBC Abs Auto 0.000 X10*3/uL (0.0-0.012); NRBC Pct Auto 0.0 /100WBC (0.0-0.2); Platelet Count 324 X10*3/uL (160-400); Red Blood Count 5.08 X10*6/uL (4.20-5.50); White Blood Count 6.5 X10*3/uL (4.8-10.8)
--- NOTE | 2025-04-10 10:55 | ED_ITS ---
HPI - General Adult General Chief complaint: Dyspnea Stated complaint: asthma, SOB Time Seen by Provider: 04/10/25 10:45 Source: patient Mode of arrival: ambulatory Limitations: no limitations History of Present Illness ED Provider: JUDY Vasquez HPI narrative: Chief Complaint: Shortness of breath with wheezing, cough, and left ear pain. History of Present Illness: The patient is a 54-year-old female with a past medical history of asthma, diabetes mellitus, hyperlipidemia, fibromyalgia, and PTSD who presents with three days of worsening shortness of breath accompanied by wheezing and cough. She notes that her breathing typically worsens whenever the seasons change. She also reports left ear pain that radiates to her neck; the pain is tender to external touch. The patient has experienced general malaise over the past few days. She lives with her cousin and denies any known sick contacts at home. Related Data Home Medications ?Medication ?Instructions ?Recorded ?Confirmed alcohol swabs (Alcohol Prep Pads) pad topical TID diab etes mellitus 02/09/25 02/09/25 alendronate 70 mg tablet 70 mg PO QWEEK 02/09/2501/25 aspirin 81 mg chewable tablet 1 tab PO DAILY 02/09/25 02/09/25 blood sugar diagnostic (FreeStyle #10 ea 02/09/2501/25 Lite Strips) blood-glucose meter (FreeStyle #1 ea 02/09/25 02/09/25 [place] Lite kit) famotidine 20 mg tablet 20 mg PO DAILY 02/09/2501/25 gabapentin 300 mg capsule 600 mg PO BID 02/09/2502/09 insulin glargine 100 unit/mL 20 unit subcut BEDTIME 02/09/25 subcutaneous solution (Lantus U-100 Insulin) lancets 33 gauge (TRUEplus Lancets) #100 ea 02/09/25 0 02/09/25 meloxicam 15 mg tablet 15 mg PO DAILY PRN moderate pain 02/09/25 02/09/25 olmesartan 5 mg tablet 5 mg PO DAILY 02/09/2502/09 pioglitazone 15 mg tablet 15 mg PO DAILY 02/09/2501/25 albuterol sulfate 90 mcg/actuation 2 puff inhalation Q 6H PRN 03/02/25 aerosol inhaler (Ventolin HFA) amitriptyline 25 mg tablet 50 mg PO BEDTIME 03/02/25 duloxetine 30 mg capsule,delayed 30 mg PO TID 03/02/25 release empagliflozin 10 mg-metformin ER 1 tab PO QAM 03/02/25 1,000 mg tablet,extended release 24hr (Synjardy XR) mometasone 100 mcg/actuation HFA 1 puff inhalation BID 03/02/25 aerosol inhaler (Asmanex HFA) montelukast 10 mg tablet 10 mg PO DAILY 03/02/25 Previous Rx's ?Medication ?Instructions ?Recorded bisacodyl 5 mg tablet,delayed 10 mg (2 x 5 mg) PO BEDT JORDAN 2 days 03/02/25 release (Dulcolax (bisacodyl)) #4 tabs peg 3350-electrolytes 236 240 ml PO Q10M 1 day #4,000 mL 03/02/25 gram-22.74 gram-6.74 gram-5.86 gram solution (Golytely) albuterol sulfate 90 mcg/actuation 2 inh inhalation Q4 -6H PRN 04/10/25 breath activated powder inhaler shortness of breath or wheezing #1 ea ofloxacin 0.3 % ear drops 10 drp otic (ears) DAILY 7 d ays #5 04/10/25 mL prednisone 20 mg tablet 20 mg PO DAILY 5 days #5 tab s 04/10/25 Allergies Allergy/AdvReac Type Severity Reaction Status Date / Time seafood Allergy Severe Hives Verified 04/10/25 10:30 Penicillins Allergy Mild Unknown Verified 04/10/25 10:30 Review of Systems 2 Review of Systems: Yes all other systems are reviewed and are negative PMFSH Past Medical History Attestation statement: The following information was validated with the patient. Source: old records reviewed and nursing notes reviewed Surgical History Sterilization History of tonsillectomy and adenoidectomy H/O section Family History Family History Father Prostate cancer Leukemia Mother Diabetes Cirrhosis Social History Social History Alcohol intake: never Patient Tobacco Use Status: Never used Tobacco Advance Directives: No Advance Directives Information Provided: No Physical Exam ED Exam Exam: Appearance: Alert.? Oriented X3.? No acute distress.? Head: Normocephalic, atraumatic, no step-offs or deformities Eyes: Pupils equal, round and reactive to light.? ENT: Pharynx normal.? Bilateral tympanic membrane pearly white no erythema or bulging. Left ear does have pain with external manipulation. Right ear no pain with external manipulation Neck: Normal inspection.? Neck supple.? CVS: Normal heart rate and rhythm.? Pulses normal.? Respiratory: mild expiratory wheezing on exam b/l Abdomen: Soft and nontender.? Skin: Skin warm and dry.? Normal skin color.? Normal skin turgor.? Extremities: No lower extremity edema.? No calf ttp. 5/5 strength to bilateral upper and lower extremities Back: No midline tenderness, no C-spine tenderness, full range of motion, no CVA tenderness bilaterally Neuro: Oriented X 3.? No motor deficit.? No sensory deficit. CN 2-12 intact Vital Signs: Vital Signs - 24 hr 04/10/25 10:26 04/10/25 11:41 Temperature 97.6 F Pulse Rate 95 79 Respiratory Rate 20 18 Blood Pressure 149/76 H Pulse Oximetry 97 Oxygen Delivery Method Room Air BMI result Body Mass Index 36.0 vss Course Reevaluation(s) Reevaluation #1: CBC unremarkable. Chemistry with no acute findings needing intervention. COVID, influenza negative. Troponin NT pro BNP pending. Time: 11:09 Reevaluation #2: Troponin negative, NT pro BNP negative. Chest x-ray results pending. Time: 11:30 Reevaluation #3: There is mild by basilar atelectasis/pneumonitis noted. No signs of consolidation. No indication for antibiotics Will discharge patient on prednisone p.o. for pneumonitis/asthma. No indication for antibiotics. Will also give albuterol inhaler. Will give ofloxacin drops for left-sided otitis externa. No indication for oral antibiotic as I do not suspect otitis media. Time: 12:48 Additional Reevaluation(s): Educated patient on diagnosis and treatment plan, answered all question, patient verbalizes understanding. At this time patient will be discharged home, advised to return with new or worsening symptoms. Educated on worrisome signs and symptoms and when to return. At this time I feel comfortable discharge home. Medications Administered Discontinued Medications Generic Name Dose Route Start Last Admin Trade Name Freq PRN Reason Stop Dose Admin Albuterol Sulfate 2.5 mg/ 0 mg 04/10/25 11:35 04/10/25 11:39 Albuterol/Ipratropium 3 ml INHALE 04/10/25 11:36 1 dose ONCE ONE Administration Medical Decision Making Medical Decision Making [facility] Narrative: 1058 54-year-old female presents with shortness of breath wheezing ongoing for the past 3 days reports this happens with season changes. Also reporting left ear pain for the past 3 days. On exam there is discomfort with palpation of external ear on the left. Mild expiratory wheezing on exam Assessment & Plan * Suspected viral illness / asthma exacerbation ? low concern for myocardial infarction or pulmonary embolism. * Left otitis externa (no signs of otitis media or necrotizing infection). Plan: * Obtain ECG to further evaluate cardiac status. * Order basic laboratory tests: CBC to assess for anemia or infection. * Order comprehensive metabolic panel (CMP) to evaluate electrolytes. * Review results with patient; anticipate discharge home if results are satisfactory and patient remains stable. Differential Diagnosis Differential Diagnoses: The differential diagnosis associated with the presentation includes Asthma exacerbation: History of asthma with current symptoms of shortness of breath, wheezing, and cough, which worsen with seasonal changes. * Viral upper respiratory infection: Acute onset of cough, malaise, and respiratory symptoms without evidence of bacterial infection. * Otitis externa: Left ear pain radiating to the neck, tenderness to external ear manipulation, and absence of otitis media or necrotizing infection on exam. * Acute otitis media: Considered due to ear pain, but no clinical or exam findings to support diagnosis. * Bacterial sinusitis: Possible given cough and malaise, but no specific sinus tenderness or purulent nasal discharge reported. * Myocardial infarction (low suspicion): Shortness of breath could be cardiac in origin, but no chest pain or other classic symptoms; low suspicion based on history and exam. * Pulmonary embolism (low suspicion): Shortness of breath present, but no risk factors or clinical findings to suggest PE; low suspicion. * Anemia: General malaise and shortness of breath could be related to anemia; laboratory evaluation pending. * Arrhythmia: No arrhythmia appreciated on auscultation, but cardiac evaluation with ECG is planned. Lab Data 04/10/25 10:36 04/10/25 10:37 Labs: Lab Results 04/10/25 04/10/25 Range/Units 10:36 10:37 WBC 6.5 (4.8-10.8) X10*3/uL RBC 5.08 (4.20-5.50) X10*6/uL Hgb 15.5 (12.0-16.0) g/dl Hct 47.5 H (37.0-47.0) % MCV 93.5 (80.0-98.0) fL MCH 30.5 (27.0-33.0) pg MCHC 32.6 (31.0-35.0) g/dl RDW 12.3 (11.0-16.0) % Plt Count 324 (160-400) X10*3/uL MPV 8.6 L (9.4-12.3) fL Immature Gran % (Auto) 0.2 (0.0-0.4) % Neut % (Auto) 48.9 (45-73) % Lymph % (Auto) 31.0 (20-40) % [place] % (Auto) 7.2 (2-11) % Eos % (Auto) 11.5 H (0-4) % Baso % (Auto) 1.2 (0-2) % Lymph # (Auto) 2.0 (1.2-4.9) X10*3/uL [place] # (Auto) 0.5 (0.1-1.2) X10*3/uL Eos # (Auto) 0.8 H (0.0-0.4) X10*3/uL Baso # (Auto) 0.1 (0.0-0.2) X10*3/uL Abs Immat Gran (auto) 0.01 (0.00-0.03) X10*3/uL Absolute Neuts (auto) 3.2 (2.0-8.3) x10*3/uL Absolute Nucleated RBC 0.000 (0.0-0.012) X10*3/uL Nucleated RBC % (auto) 0.0 (0.0-0.2) /100WBC Sodium 147 H (135-145) mmol/L Potassium 4.4 (3.3-5.1) mmol/L Chloride 110 H (96-108) mmol/L Carbon Dioxide 25 (22-29) mmol/L Anion Gap 16 (12-20) BUN 14 (9-16) mg/dL Creatinine 0.68 (0.5-1.4) mg/dL Estim Creat Clear Calc 97.0 Estimated GFR > 60 Random Glucose 136 H (60-115) mg/dL Calcium 9.8 D (8.4-10.2) mg/dL Troponin I High Sens < 2.7 (<3.5-17.0) ng/L NT-Pro-B Natriuret Pep < 15.8 (<300) pg/mL COVID-19 (VAIBHAV) Negative (Negative) COVID-19 Clin Com See Note Influenza Type A (INA) Negative (Negative) Influenza Type B (INA) Negative (Negative) Influenza A & B Note See Note Critical Care Time Critical Care Time Critical Care Time: No Discharge Plan Discharge Clinical Impression: Upper respiratory infection, Otitis externa, Pneumonitis Patient Disposition: Home, Self-Care Instructions: [facility] (ED) Additional Instructions: Take your medications as prescribed. If you were prescribed antibiotics today, it is important that you take your medication to their entirety, do not skip any doses, do not finish them early. Follow-up with your primary care provider this week. Return to the emergency department with new or worsening symptoms. Such as fevers, chills, chest pain, shortness of breath, nausea, vomiting, dizziness, headache, vision changes, lethargy In case of emergency call 911 Findings: Low lung volumes with mild bibasilar atelectasis/pneumonitis. No lobar consolidation, pneumothorax, or pleural effusion. Cardiac silhouette and mediastinal contours are within limits of normal. Mild rib deformities appear old/chronic. Minimal vertebral height losses are likely old/chronic with multifocal Schmorl's nodes noted. Degenerative changes include imaged AC joints. Superficial metal is nonspecific including dorsally. IMPRESSION: Mild bibasilar atelectasis/pneumonitis Prescriptions: New prednisone 20 mg tablet 20 mg PO DAILY 5 Days Qty: 5 0RF ofloxacin 0.3 % drops 10 drp otic (ears) DAILY 7 Days Qty: 5 0RF albuterol sulfate 90 mcg/actuation aerosol powdr breath activated 2 inh inhalation Q4-6H PRN (Reason: shortness of breath or wheezing) Qty: 1 0RF No Action pioglitazone 15 mg tablet 15 mg PO DAILY insulin glargine [Lantus U-100 Insulin] 100 unit/mL solution 20 unit subcut BEDTIME meloxicam 15 mg tablet 15 mg PO DAILY PRN (Reason: moderate pain) alendronate 70 mg tablet 70 mg PO QWEEK (DME) FreeStyle Lite Strips Strip See Rx Instructions .ROUTE TID Qty: 10 Rx Instructions: As directed famotidine 20 mg tablet 20 mg PO DAILY (DME) blood-glucose meter [FreeStyle [place] Lite] Kit See Rx Instructions .ROUTE TID Qty: 1 Rx Instructions: As directed gabapentin 300 mg capsule 600 mg PO BID aspirin 81 mg tablet,chewable 1 tab PO DAILY alcohol swabs [Alcohol Prep Pads] Pads, Medicated topical TID olmesartan 5 mg tablet 5 mg PO DAILY (DME) lancets [TRUEplus Lancets] 33 gauge misc See Rx Instructions .ROUTE TID Qty: 100 Rx Instructions: As directed amitriptyline 25 mg tablet 50 mg PO BEDTIME montelukast 10 mg tablet 10 mg PO DAILY albuterol sulfate [Ventolin HFA] 90 mcg/actuation HFA aerosol inhaler 2 puff inhalation Q6H PRN duloxetine 30 mg capsule,delayed release(DR/EC) 30 mg PO TID Asmanex HFA 100 mcg/actuation HFA aerosol inhaler 1 puff inhalation BID Synjardy XR 10-1,000 mg tablet, IR - ER, biphasic 24hr 1 tab PO QAM bisacodyl [Dulcolax (bisacodyl)] 5 mg tablet,delayed release (DR/EC) 10 mg PO BEDTIME 2 Days Qty: 4 0RF peg 3350-electrolytes [Golytely] 236-22.74-6.74 -5.86 gram recon soln 240 ml PO Q10M 1 Days Qty: 4000 0RF Rx Instructions: until fecal effluent is clear; do not exceed a total volume of 2,000 mL Referrals: Gemma Osuna, [employer] [Primary Care Provider, Family Practice] Print Language: Salvadorean
[2025-04-10 11:04] LABS: Anion Gap 16 (12-20); Blood Urea Nitrogen 14 mg/dL (9-16); Calcium 9.8 mg/dL (8.4-10.2); Carbon Dioxide 25 mmol/L (22-29); Chloride 110 mmol/L (96-108); Creatinine Clr Calc Pharmacy 97.0; Estimated Glomerular Filt Rate > 60; Potassium 4.4 mmol/L (3.3-5.1); Sodium 147 mmol/L (135-145)
[2025-04-10 11:06] LABS: COVID-19 Test Negative (Negative); IDNOW Serial# 55D5AD1C; IDNOW Serial# 58CA691E
[2025-04-10 11:07] LABS: Influenza B2 Negative (Negative)
[2025-04-10 11:15] LABS: NT Pro B Type Natriuretic Pept < 15.8 pg/mL (<300); Troponin-I High Sensitivity < 2.7 ng/L (<3.5-17.0)
[2025-04-10] MEDS: Albuterol Sulfate 2.5 MG, Albuterol/Iprat 2.5/0.5MG 3 ML 3 ML INHALE (11:39)
[2025-04-10 11:41] VITALS: PULSE 79; RESP 18; O2SAT 95
[2025-04-10 13:14] VITALS: BP 137/86; PULSE 79; RESP 18; TEMP 36.7
[2025-04-10 13:26] VITALS: BP 137/86; PULSE 79; RESP 18; TEMP 36.7
== END 2025-04-10 13:27 | disposition home or self-care (01) ==
PROVIDERS: Emergency Provider Emergency Medicine; PCP Nurse Practitioner Family
DX: J06.9 Acute upper respiratory infection, unspecified (principal); J98.4 Other disorders of lung; H60.92 Unspecified otitis externa, left ear; E11.9 Type 2 diabetes mellitus without complications; Z88.0 Allergy status to penicillin
CPT/HCPCS: 71046; 80048; 83880; 84484; 85025; 87502; 87635; 93005; 94640; 99284

== ENCOUNTER → 2025-04-10 10:30 | Outpatient (BNV) | payer MEDICAID, SELFPAY | PROVIDERS: Emergency Provider Emergency Medicine; PCP Nurse Practitioner Family; Visit Provider Internal Medicine Cardiovascular Disease | DX: R06.00 Dyspnea, unspecified (principal) | CPT/HCPCS: 93010 ==

== ENCOUNTER → 2025-04-10 10:30 | Outpatient (BNV) | payer MEDICAID, SELFPAY | PROVIDERS: Emergency Provider Emergency Medicine; PCP Nurse Practitioner Family; Visit Provider Radiology Neuroradiology | DX: R05.9 Cough, unspecified (principal); R06.02 Shortness of breath | CPT/HCPCS: 71046 ==

== ENCOUNTER 2025-04-16 10:50 | Outpatient (AMB) | payer MEDICAID, SELFPAY ==
--- OUTSIDE RECORDS SUMMARY | 2025-04-14 10:45 | XMS_ITS | Encounter Summary ---
Author Organization [employer] Address [address] [place] [address] Care Team Providers Care Estimator Project Manager Name Role Phone Gemma Osuna NP Primary Care Provider [phone] Bryan Davis RN Unavailable [phone] Marleen Whitlock Unavailable Reason for Visit * Reason Comments Follow-up Encounter Details Date Type Department Care Team ([facility] st Contact Info) Description 04/14/2025 10:45 AM EST Office Visit [facility] [address] [place] [address] Gemma Osuna NP [address] [place] [address] Acute exacerbation of mild persistent extrinsic asthma (Primary Dx); Type 2 diabetes mellitus with other diabetic arthropathy, with long-term current use of insulin (HCC); Sleep apnea, unspecified type Social History Tobacco Use Types Packs/Day Years Used Date Smoking Tobacco: Former Cigarettes Passive Smoke Exposure: Past Smokeless Tobacco: Former Alcohol Answer Date Recorded How often do you have a drink containing alcohol ? 0 04/14/2025 How many drinks containing a lcohol do you have on a typical day when you are drinking? 0 04/14/2025 How often do you have six or more drinks on one occasion? 0 04/14/2025 Depression Answer Date Recorded Patient Health Questionnaire-9 [...] Sign Reading Time Taken Comments Blood Pressure 118/70 04/14/2025 10:50 AM EST Pulse 95 04/14/2025 10:50 AM EST Temperature 36.8 C (98.2 F) 04/14/2025 10:50 AM EST Respiratory Rate 16 04/14/2025 10:50 AM EST Oxygen Saturation 98% 04/14/2025 10:50 AM EST Inhaled Oxygen Concentration - - Weight 89.4 kg (197 lb) 04/14/2025 10:50 AM EST Height 157.5 cm (5' 2 ) 04/14/2025 10:50 AM EST Body Mass Index 36.03 04/14/2025 10:50 AM EST documented in this encounter Miscellaneous Notes * Assessment & Plan Note - Gemma Osuna NP - 04/14/2025 10:45 AM ESTAssociated Problem(s): 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, with long-term current use of insulin (HCC) Orders: POCT Glucose * Assessment & Plan Note - Gemma Osuna NP - 04/14/2025 10:45 AM ESTAssociated Problem(s): Acute exacerbation of mild persistent extrinsic asthma * Assessment & Plan Note - Gemma Osuna NP - 04/14/2025 10:45 AM ESTAssociated Problem(s): Sleep apnea documented in this encounter Plan of Treatment Upcoming Encounters Date Type Department Care Team (Late st Contact Info) Description 06/09/2025 10:30 AM EST Office Visit [facility] [address] [place] [address] Gemma Osuna NP [address] [place] [address] documented as of this encounter Goals Goal Patient Goal Type Associated Problems Recent Progress Patient-Stated? Author Help patients manage their type 2 diabetes Care Plan Help patients manage their type 2 diabetes No Gemma Osuna NP Weekly blood pressure task Care Plan Weekly blood pressure task No Gemma Osuna NP Help patients manage their type 2 diabetes Care Plan Help patients manage their type 2 diabetes No Gemma Osuna NP Patient has chronic kidney disease Care Plan Patient has chronic kidney disease No Gemma Osuna NP Weekly blood pressure task Care Plan Weekly blood pressure task No Gemma Osuna NP Patient has chronic kidney disease Care Plan Patient has chronic kidney disease No Gemma Osuna NP Weekly blood pressure task Care Plan Weekly blood pressure task No Ella Arrieta RN Weekly blood pressure task Care Plan Weekly blood pressure task No Ella Arrieta RN Patient has chronic kidney disease Care Plan Patient has chronic kidney disease No Ella Arrieta RN Patient has chronic kidney disease Care Plan Patient has chronic kidney disease No Ella Arrieta RN Weekly blood pressure task Care Plan Weekly blood pressure task No Bryan Davis RN Weekly blood pressure task Care Plan Weekly blood pressure task No Bryan Davis RN Patient has chronic kidney disease Care Plan Patient has chronic kidney disease No Bryan Davis RN Patient has chronic kidney disease Care Plan Patient has chronic kidney disease No Bryan Davis RN Weekly blood pressure task Care Plan Weekly blood pressure task No Marleen Whitlock Weekly blood pressure task Care Plan Weekly blood pressure task No Marleen Whitlock Patient has chronic kidney disease Care Plan Patient has chronic kidney disease No Marleen Whitlock Patient has chronic kidney disease Care Plan Patient has chronic kidney disease No Marleen Whitlock Weekly blood pressure task Care Plan Weekly blood pressure task No Marisa Gallardo Weekly blood pressure task Care Plan Weekly blood pressure task No Marisa Gallardo Patient has chronic kidney disease Care Plan Patient has chronic kidney disease No Marisa Gallardo Patient has chronic kidney disease Care Plan Patient has chronic kidney disease No Marisa Gallardo Weekly blood pressure task Care Plan Weekly blood pressure task No Marleen Whitlock Weekly blood pressure task Care Plan Weekly blood pressure task No Marleen Whitlock Patient has chronic kidney disease Care Plan Patient has chronic kidney disease No Marleen Whitlock Patient has chronic kidney disease Care Plan Patient has chronic kidney disease No Marleen Whitlock Weekly blood pressure task Care Plan Weekly blood pressure task No Cammy Gonzalez MA Weekly blood pressure task Care Plan Weekly blood pressure task No Cammy Gonzalez [place] Patient has chronic kidney disease Care Plan Patient has chronic kidney disease No Cammy Gonzalez [place] Patient has chronic kidney disease Care Plan Patient has chronic kidney disease No Cammy Gonzalez MA Weekly blood pressure task Care Plan Weekly blood pressure task No Gemma Osuna NP Weekly blood pressure task Care Plan Weekly blood pressure task No Gemma Osuna NP Patient has chronic kidney disease Care Plan Patient has chronic kidney disease No Gemma Osuna NP Patient has chronic kidney disease Care Plan Patient has chronic kidney disease No Gemma Osuna NP documented as of this encounter Procedures Procedure Name Priority Date/Time Associated Diagnosis Comments POCT GLUCOSE Routine 04/14/2025 10:53 AM EST Type 2 diabetes mellitus with other diabetic arthropathy, with long-term current use of insulin ([facility]) documented in this encounter Results * POCT Glucose (04/14/2025 10:53 AM EST) Glucose Blood, POC 148 60 - 200 mg/dL QC Media Lot # [id number] Lot# Expiration Date Blood Capillary blood specimen / Unknown 04/14/2025 10:53 AM EST us Gemma Osuna NP POINT OF CARE TEST ENTER/EDIT OR DERABLES Final Result documented in this encounter Visit Diagnoses Diagnosis Acute exacerbation of mild persistent extrinsic asthma- Primary Type 2 diabetes mellitus with other diabetic arthropathy, with long-term current use of insulin ([facility]) Sleep apnea, unspecified type documented in this encounter Additional Health Concerns Active Problems Noted Date Diagnosed Date Help patients manage their type 2 diabetes 04/09 Weekly blood pressure task 04/09/2025 Help patients manage their type 2 diabetes 04/09 Patient has chronic kidney disease 04/09/2025 Weekly blood pressure task 04/09/2025 Patient has chronic kidney disease 04/09/2025 Weekly blood pressure task 04/12/2025 Weekly blood pressure task 04/12/2025 Patient has chronic kidney disease 04/12/2025 Patient has chronic kidney disease 04/12/2025 Weekly blood pressure task 04/12/2025 Weekly blood pressure task 04/12/2025 Patient has chronic kidney disease 04/12/2025 Patient has chronic kidney disease 04/12/2025 Weekly blood pressure task 04/12/2025 Weekly blood pressure task 04/12/2025 Patient has chronic kidney disease 04/12/2025 Patient has chronic kidney disease 04/12/2025 Weekly blood pressure task 04/12/2025 Weekly blood pressure task 04/12/2025 Patient has chronic kidney disease 04/12/2025 Patient has chronic kidney disease 04/12/2025 Weekly blood pressure task 04/13/2025 Weekly blood pressure task 04/13/2025 Patient has chronic kidney disease 04/13/2025 Patient has chronic kidney disease 04/13/2025 Weekly blood pressure task 04/13/2025 Weekly blood pressure task 04/13/2025 Patient has chronic kidney disease 04/13/2025 Patient has chronic kidney disease 04/13/2025 Weekly blood pressure task 04/14/2025 Weekly blood pressure task 04/14/2025 Patient has chronic kidney disease 04/14/2025 Patient has chronic kidney disease 04/14/2025 Assessment Noted Time PHQ-9 Depression Total Score: 14 025 12:03 PM EDT documented as of this encounter Care Teams Estimator Project Manager Relationship Specialty Start Date End Date Gemma Osuna NP [address] [place] [id number] PCP - General Family Medicine 10/09/24 Bryan Davis RN [address] [place] [id number] Registered Nurse Family Medicine 04/12/25 Marleen Whitlock 04/12/25 documented as of this encounter
[2025-04-16 10:51] VITALS: BP 140/82; PULSE 86; BMI 35.5
--- NOTE | 2025-04-16 10:51 | MHC.OFFVIS ---
Vital Signs 04/16/25 10:51 Height 5 ft 2 in Weight 194 lb BMI 35.5 BP 140/82 H Blood Pressure Location Rt brachial Position Sitting Pulse 86 Intake Visit Reasons: diarrhea Intake Note: Katie presents to in office follow up of diarrhea. CC: She reports that she went to her PCP for diarrhea and sent her back to GI. Pt states that she was also having a lot of nausea. She states that she now has been constipated for a week. She states that she has been taking abx and Prednisone for pneumonia. She c/o epigastric pain, burning sensation, and acid reflux. Ross Furnace Operator Required: Yes Ross Furnace Operator Language: Polish Accompanied by: Self / Same As Patient Allergies seafood Allergy (Severe, Verified 04/16/25 11:12) Hives Penicillins Allergy (Mild, Verified 04/16/25 11:12) Unknown Medication List - Last Reconciled 04/16/25 by N[facility]IA Hampton albuterol sulfate 90 mcg/actuation 2 inhalations inhalation Q4-6H PRN alcohol swabs (Alcohol Prep Pads) pad topical TID alendronate 70 mg PO QWEEK amitriptyline 50 mg PO BEDTIME aspirin 1 tab PO DAILY bisacodyl (Dulcolax (bisacodyl)) 10 mg (2 x 5 mg) PO BEDTIME 2 days blood sugar diagnostic (FreeStyle Lite Strips) As directed blood-glucose meter (FreeStyle [place] Lite kit) As directed doxycycline hyclate 100 mg PO BID duloxetine 30 mg PO TID empagliflozin-metformin 10-1,000 mg ER (Synjardy XR) 1 tab PO QAM famotidine 20 mg PO DAILY gabapentin 600 mg PO BID insulin glargine (Lantus U-100 Insulin) 20 units subcut BEDTIME lancets (TRUEplus Lancets) As directed meloxicam 15 mg PO DAILY PRN mometasone 100 mcg/actuation (Asmanex HFA) 1 puff inhalation BID montelukast 10 mg PO DAILY ofloxacin 0.3% 10 drps otic (ears) DAILY 7 days olmesartan 5 mg PO DAILY peg 3350-electrolytes 236-22.74-6.74 -5.86 gram (Golytely) 240 mL PO Q10M 1 day pioglitazone 15 mg PO DAILY prednisone 20 mg PO DAILY 5 days HPI HPI diarrhea: Details: Assessment & Plan (1) Pre-op examination: Code(s): Z01.818 - Encounter for other preprocedural examination Category: Medical (2) Family history of polyps in the colon: Comment: Father Code(s): Z83.719 - Family history of colon polyps, unspecified Category: Medical (3) Asthma: Code(s): J45.909 - Unspecified asthma, uncomplicated Category: Medical (4) Obesity (BMI 30-39.9): Code(s): E66.9 - Obesity, unspecified Category: Medical Plan Polish #Becca Live ? First colonoscopy no, her last was about 5 years ago in [place]. She also had and EGD and she was told she had a Schatzki's ring but she does not know any more. She currently does not have any dysphagia, upper abdominal pain or dyspepsia. Bowel or upper GI problems: She suffers intermittent diarrhea she feels is stress related. Recently this has improved and she is not currently desiring any additional treatment. I think in the past she has been treated with Carafate and dicyclomine per her report. She has asthma and is being worked up for PIERCE and no cardiac problems Infectious disease problems: NO There are no prior problems with anesthesia or sedation Family history:Her father has polyps. Orders: Referrals GI Procedure Notification Z01.818 - Encounter for other preprocedural examination Medications: New peg 3350-electrolytes 236-22.74-6.74 -5.86 gram (Golytely)GOTent is clear; do not exceed a total volume of 2,000 mL 240 mL PO Q10M 4,000 mL 0RF 1 day Z12.11 - Encounter for screening for malignant neoplasm of colon bisacodyl (Dulcolax (bisacodyl)) 10 mg (2 x 5 mg) PO BEDTIME 4 tabs 0RF 2 days COLONOSCOPY BIOPSY TODAY'S VISIT Polish #Allen lIVE Apparently she developed worsening diarrhea and presented to her primary care office, but they declined to treat her and sent her back to us even though the only consult we had was for a screening colonoscopy. In the interim she presented to the emergency department for shortness of breath and was treated with antibiotics and steroids for possible pneumonitis/asthma exacerbation. Since then she has not had diarrhea and is having trouble moving her bowels. [facility] Surgical History Sterilization History of tonsillectomy and adenoidectomy H/O section Family History Father Prostate cancer Leukemia Mother Diabetes Cirrhosis Social History Alcohol intake: never Patient Tobacco Use Status: Never used Tobacco Review of Systems Const Denies fatigue, Denies fever(s), Denies night sweats, Denies poor appetite and Reports weight loss ENT Reports Normal hearing present, Denies dental pain, Denies dysphagia, Denies hearing loss, Denies mouth pain, Denies odynophagia, Denies throat swelling, Denies tongue swelling and Reports other (Dentition adequate) Card Reports no additional complaints Resp Reports no additional complaints GI Details: Reports abdominal pain, Denies melena, Denies bloating, Denies hematochezia, Reports constipation, Denies GI cramping, Denies dysphagia, Denies excessive flatus, Denies early satiety, Reports heartburn, Reports diarrhea, Denies nausea, Denies odynophagia, Denies vomiting and Denies hematemesis Skin/Breast Denies pruritus, Denies lesions, Denies rash and Denies jaundice Neuro Reports Normal hearing present and Denies Abnormal speech present Endo Denies fatigue Aller/Immun Denies throat swelling and Denies tongue swelling Physical Exam Vital Signs: Last Vital Signs Pulse 86 04/16/25 10:51 BP 140/82 H 04/16/25 10:51 BMI result Body Mass Index 35.5 Const General: cooperative, no acute distress, well developed and well groomed Nutritional Appearance: well nourished and obese Orientation/consciousness: oriented to person, oriented to place and oriented to time Limitations: language barrier HEENT Head: Yes normocephalic and Yes atraumatic Eyes General: appearance normal, both eyes and all related structures Pupils: Equal, round and reactive pupils present Neck Neck: Yes normal visual inspection and Yes no lymphadenopathy Thyroid: Thyroid normal Resp Effort & Inspection: normal respiratory effort and able to speak in complete sentences Auscultation: clear to auscultation bilaterally Cardio Rate: regular rate Rhythm: regular rhythm Heart sounds: Normal, physiologic split S2 sound present Peripheral pulses: radial pulses present and posterior tibial pulses present GI Inspection: No distended, Yes Abdominal panniculus present and Yes obesity Palpation (GI): Soft to palpation, nontender, no guarding, not rigid and No hepatosplenomegaly present Percussion: Yes normal to percussion Auscultation: normal bowel sounds Rectal Exam - Female: deferred Skin General skin exam: no rashes or lesions noted, turgor normal, skin not dry, no jaundice, No spider nevi and no striae Rashes: no rashes Nails: normal Neuro General: oriented to person, oriented to place and oriented to time Cranial nerves: Yes Equal, round and reactive pupils present and Yes Normal hearing present Speech: No Abnormal speech present Extrem General: Yes normal to inspection, No clubbing, No cyanosis and No edema Psych Appearance: grossly normal and well kempt Mental Status: mental status grossly normal Speech and movement: Normal speech and movement present Affect: normal affect Attitude: cooperative Thought process: Normal thought process present and not confabulating Thought content: Normal thought content present Insight: Limited insight present (Psych) Judgement: Limited judgement present (Psych) Results Reviewed Results Reviewed: Review from ER visit 04/10/2025 Reevaluation(s) Reevaluation #1: CBC unremarkable. Chemistry with no acute findings needing intervention. COVID, influenza negative. Troponin NT pro BNP pending. Time: 11:09 Reevaluation #2: Troponin negative, NT pro BNP negative. Chest x-ray results pending. Time: 11:30 Reevaluation #3: There is mild by basilar atelectasis/pneumonitis noted. No signs of consolidation. No indication for antibiotics Will discharge patient on prednisone p.o. for pneumonitis/asthma. No indication for antibiotics. Will also give albuterol inhaler. Will give ofloxacin drops for left-sided otitis externa. No indication for oral antibiotic as I do not suspect otitis media. Laboratory Tests 04/10/25 04/10/25 10:36 10:37 WBC 6.5 Hgb 15.5 Hct 47.5 H Plt Count 324 Estimated GFR > 60 Chest x-ray Findings: Low lung volumes with mild bibasilar atelectasis/pneumonitis. No lobar consolidation, pneumothorax, or pleural effusion. Cardiac silhouette and mediastinal contours are within limits of normal. Mild rib deformities appear old/chronic. Minimal vertebral height losses are likely old/chronic with multifocal Schmorl's nodes noted. Degenerative changes include imaged AC joints. Superficial metal is nonspecific including dorsally. IMPRESSION: Mild bibasilar atelectasis/pneumonitis Assessment & Plan Assessment & Plan (1) Irritable bowel syndrome with both constipation and diarrhea: Code(s): K58.2 - Mixed irritable bowel syndrome Category: Medical (2) Left lower quadrant abdominal pain: Code(s): R10.32 - Left lower quadrant pain Category: Medical (3) Diarrhea: Code(s): R19.7 - Diarrhea, unspecified Category: Medical Plan Polish #[id number] lIVE Subjective Patient presents for evaluation of altered bowel habits following recent colon screening discussion. Reports a month of daily watery diarrhea, then a period of about one week without bowel movement; took a laxative and had a bowel movement, followed by recurrence of watery stools, and currently again no stool for about one week. Describes rectal pressure. States similar symptoms have come and gone over the years, but not previously for this long. Notes persistent left lower abdominal pain. Denies kidney disease and prior contrast allergy; has previously tolerated MRI contrast. Diabetic. Medication history notable for Synjardy (empagliflozin/metformin) for ~2 years; stopped during severe diarrhea with associated weight loss and recently restarted on Saturday. Started prednisone on Saturday without improvement. On doxycycline since Saturday for sinusitis/dry cough; also has antibiotic ear drops. Family history significant for father with recurrent colon polyps, diverticular disease, multiple allergies (yeast, rice, sun), and leukemia at age 79. Objective Assessment & Plan Chronic intermittent diarrhea with alternating constipation; left lower quadrant abdominal pain: Prolonged episode of watery diarrhea followed by constipation and rectal pressure. Differential discussed includes inflammatory bowel disease (e.g., Crohn?s), food allergy/intolerance, infection, pancreatic insufficiency, and medication effects (metformin component of Synjardy; also noted potential contributions from other agents such as gabapentin, meloxicam in microscopic colitis, and duloxetine). Diabetes present. No evidence of contrast allergy or renal disease. CT abdomen has been scheduled by primary care for May 05; I will be copied on results. - Order blood work, including a blood-based allergy panel with requisition form for the lab - Order three stool tests: - Infectious stool testing to be completed only if stool becomes watery at time of collection - Stool test to help rule out inflammatory bowel disease - Stool test to assess pancreatic function - Coordinate to receive CT abdomen results scheduled for May 05 and review when available - Patient to moss picker stool collection containers at the lab, complete at home, and return to the lab; if using an alternate lab, ensure printed orders are hand-carried - Follow up after CT and laboratory/stool results to review findings and ongoing symptoms - Instructed patient to notify me promptly if symptoms change significantly or worsen Orders: Orders Transglutaminase Ab IgG Today R10.32 - Left lower quadrant pain Calprotectin, Fecal Today R10.32 - Left lower quadrant pain Hemoglobin A1c Today K58.2 - Mixed irritable bowel syndrome, R10.32 - Left lower quadrant pain GI Panel Today R19.7 - Diarrhea, unspecified Pancreatic Elastase-1 Today R19.7 - Diarrhea, unspecified Rast Allergen Today R10.32 - Left lower quadrant pain Transglutaminase IgA Today R10.32 - Left lower quadrant pain C Reactive Protein Today R10.32 - Left lower quadrant pain CT abdomen pelvis w IV con Today R10.32 - Left lower quadrant pain Coding Level of Care Code Est Pt Level 4 (49412) Diagnoses Irritable bowel syndrome with both constipation and diarrhea K58.2 Left lower quadrant abdominal pain R10.32 Diarrhea R19.7 Time Spent (min) 36
--- OUTSIDE RECORDS SUMMARY | 2025-04-16 11:40 | XMS_ITS ---
Author Organization [employer] Address [address] [facility] [address]t [place] [address] Care Team Providers Care Violin Teacher Name Role Phone Gemma Osuna NP Primary Care Provider [phone] Bryan Davis RN Unavailable [phone] Marleen Whitlock Unavailable CM Complex Status:Outreach In Progress (Enrolling) Start date:04/12/2025 Enrollment reason:ADT Feed Overview ED- Pt went [facility] on 04/10/25. Case Team Name Relationship Phone Bryan Davis RN(Responsible Staff) Registered Nurse [phone] Continued Care and Services Coordination
--- OUTSIDE RECORDS SUMMARY | 2025-04-16 11:40 | XMS_ITS | Encounter Summary ---
Author Organization [employer] Address [address] [facility] [address]t [place] [address] Care Team Providers Care Audio Visual Aids Director Name Role Phone Gemma Osuna NP Primary Care Provider [phone] Bryan Davis RN Unavailable [phone] Marleen Whitlock Unavailable Reason for Visit * Reason Onset Date [...] (Late st Contact Info) Description 12/22/2024 Refill [facility] [address] [place], [place] [phone] Gemma Osuna NP [address] [place], [place] [phone] Social History Tobacco Use Types Packs/Day Years [...] Description 06/09/2025 10:30 AM EST Office Visit [facility] [address] [place] [address] Gemma Osuna NP [address] [place] [address] documented as of this encounter Visit Diagnoses Not on filedocumented in this encounter Additional Health Concerns Assessment Noted Time PHQ-9 Depression Total Score: 14 025 12:03 PM EDT documented as of this encounter Care Teams Audio Visual Aids Director Relationship Specialty Start Date End Date Gemma Osuna NP [address] [place] [address] PCP - General Family Medicine 10/09/24 Bryan Davis, DANIEL [address] [place] [address] Registered Nurse Family Medicine 04/12/25 Marleen Whitlock 04/12/25 documented as of this encounter
--- OUTSIDE RECORDS SUMMARY | 2025-04-16 11:40 | XMS_ITS ---
Author Organization [employer] Address [address] [place] [address] [address] [place] [address] Care Team Providers Care Case Therapist Name Role Phone Gemma Osuna NP Primary Care Provider [phone] Bryan Davis RN Unavailable [phone] Marleen Whitlock Unavailable CHW Complex Status:Outreach In Progress (Enrolling) Start date:04/12/2025 Enrollment reason:ADT Feed Overview ED- Pt went [facility] on 04/10/25. Please outreach for enrollment. Case Team Name Relationship Phone Marleen Whitlock(Responsible Staff) [phone] Continued Care and Services Coordination
--- OUTSIDE RECORDS SUMMARY | 2025-04-16 11:40 | XMS_ITS | Encounter Summary ---
Author Organization [employer] Address [address] [facility] 7t [place] [address] Care Team Providers Care Wafer Machine Operator Name Role Phone Gemma Osuna NP Primary Care Provider Bryan Davis RN Unavailable [phone] Marleen Whitlock Unavailable Reason for Visit * Reason Onset Date Comments Med Refill 12/11/2024 Encounter Details Date Type Department Care Team (Late st Contact Info) Description 12/11/2024 Refill [facility] [address] [place] [address] Gemma Osuna NP [address] [place], [place] [phone] Social History Tobacco Use Types Packs/Day Years [...] Description 06/09/2025 10:30 AM EST Office Visit [facility] [address] [place] [address] Gemma Osuna NP [address] [place] [address] documented as of this encounter Visit Diagnoses Not on filedocumented in this encounter Additional Health Concerns Assessment Noted Time PHQ-9 Depression Total Score: 14 11/13/ 025 12:03 PM EDT documented as of this encounter Care Teams Wafer Machine Operator Relationship Specialty Start Date End Date Gemma Osuna NP [address] [place] [address] PCP - General Family Medicine 10/09/24 Bryan Davis RN [address] [place] [address] Registered Nurse Family Medicine 04/12/25 Marleen Whitlock 04/12/25 documented as of this encounter
--- OUTSIDE RECORDS SUMMARY | 2025-04-16 11:40 | XMS_ITS | Encounter Summary ---
Author Organization [facility] Address [address] [facility] [address]t [place] [address] Care Team Providers Care Event Staff Member Name Role Phone Gemma Osuna NP Primary Care Provider [phone] Bryan Davis RN Unavailable [phone] Marleen Whitlock Unavailable Reason for Visit * Reason Onset Date Comments Med Refill 11/03/2024 Encounter Details Date Type Department Care Team (Late st Contact Info) Description 11/03/2024 Refill [facility] [address] [place] [phone] Gemma Osuna NP [address] [place], [place] [phone] Social History Tobacco Use Types Packs/Day Years [...] Description 06/09/2025 10:30 AM EST Office Visit [facility] [address] [place], [place] [phone] Gemma Osuna NP [address] [place], [place] [phone] documented as of this encounter Visit Diagnoses Not on filedocumented in this encounter Care Teams Event Staff Member Relationship Specialty Start Date End Date Gemma Osuna NP [address] [place] [address] PCP - General Family Medicine 10/09/24 Bryan Davis, DANIEL [address] [place] [address] Registered Nurse Family Medicine 04/12/25 Marleen Whitlock 04/12/25 documented as of this encounter
--- OUTSIDE RECORDS SUMMARY | 2025-04-16 11:40 | XMS_ITS | Encounter Summary ---
Author Organization [employer] Address [address] [facility] 7t [place] [address] Care Team Providers Care Photo Technician Name Role Phone Gemma Osuna NP Primary Care Provider [phone] Bryan Davis RN Unavailable [phone] Marleen Whitlock Unavailable Reason for Visit * Reason Comments Med Refill Encounter Details Date Type Department Care Team ([facility] st Contact Info) Description 04/14/2025 Refill [facility] [address] [place] [address] Luke Styles MD [address] [place] [address] Social History Tobacco Use Types Packs/Day Years [...] with others, in a hotel, in a fci, living outside on the street, on a [...] Description 06/09/2025 10:30 AM EST Office Visit [facility] [address] [place] [address] Gemma Osuna NP [address] [place] [address] documented as of this encounter Goals Goal [...] Patient has chronic kidney disease No Gemma sOuna NP Weekly blood pressure task Care Plan Weekly blood pressure task No Gemma Osuna NP Patient has chronic kidney disease Care Plan Patient has chronic kidney disease No Gemma Osuna NP Weekly blood pressure task Care Plan Weekly blood pressure task No Ella Arrieta RN Weekly blood pressure task Care Plan Weekly blood pressure task No Ella Arrieta, RN Patient has chronic kidney disease Care [...] Osuna NP documented as of this encounter Visit Diagnoses Not on filedocumented in this encounter Additional Health Concerns Active [...] Noted Time PHQ-9 Depression Total Score: 14 11/13/2 025 12:03 PM EDT documented as of this encounter Care Teams Photo Technician Relationship Specialty Start Date End Date Gemma Osuna NP [address] [place] [address] PCP - General Family Medicine 10/09/24 Bryan Davis RN [address] [place] [address] Registered Nurse Family Medicine 04/12/25 Marleen Whitlock 04/12/25 documented as of this encounter
--- OUTSIDE RECORDS SUMMARY | 2025-04-16 11:40 | XMS_ITS | Encounter Summary ---
Author Organization [employer] Address [address] [facility] 7t [place] [address] Care Team Providers Care Mobile Ui Developer Name Role Phone Gemma Osuna NP Primary Care Provider [phone] Bryan Davis RN Unavailable [phone] Marleen Whitlock Unavailable Encounter Details Date Type Department Care Team ([facility] st Contact Info) Description 03/08/2025 Telephone [facility] [address] [place] [address] Gemma Osuna NP [address] [place] [address] Social History Tobacco Use Types Packs/Day Years [...] encounter Miscellaneous Notes * Telephone Encounter - Avril Augustine RN - 03/30/2025 2:07 PM EST Noted. * Telephone Encounter - Gemma Osuna NP - 03/08/2025 1:20 PM EDT Please call pt to check status of thyroid biopsy referral. Has she heard from radiology at [facility]? Thank you documented in this encounter Plan of Treatment Upcoming Encounters Date Type Department Care Team (Late st Contact Info) Description 06/09/2025 10:30 AM EST Office Visit [facility] [address] [place] [address] Gemma Osuna NP [address] [place] [address] documented as of this encounter Visit Diagnoses Diagnosis Thyroid nodule- Primary Nontoxic uninodular goiter documented in this encounter Additional Health Concerns Assessment Noted Time PHQ-9 Depression Total Score: 14 11/13/ 025 12:03 PM EDT documented as of this encounter Care Teams Mobile Ui Developer Relationship Specialty Start Date End Date Gemma Osuna NP [address] [place] [address] PCP - General Family Medicine 10/09/24 Bryan Davis RN [address] [place] [address] Registered Nurse Family Medicine 04/12/25 aMrleen Whitlock 04/12/25 documented as of this encounter
--- OUTSIDE RECORDS SUMMARY | 2025-04-16 11:40 | XMS_ITS | Encounter Summary ---
Author Organization [employer] Address [address] [facility] 7t [place] [address] Care Team Providers Care Beater Head Name Role Phone Gemma Osuna NP Primary Care Provider [phone] Bryan Davis RN Unavailable [phone] Marleen Whitlock Unavailable Reason for Visit * Reason Onset Date Comments Med Refill 02/09/2025 Encounter Details Date Type Department Care Team (Late st Contact Info) Description 02/09/2025 Refill [facility] [address] [place] [address] Gemma Osuna NP [address] [place] [address] Social History Tobacco Use Types Packs/Day Years [...] the past 12 months, has t he [employer], gas, oil or water [employer] threatened to shut off services in your [...] Description 06/09/2025 10:30 AM EST Office Visit [facility] [address] [place] [address] Gemma Osuna NP [address] [place] [address] documented as of this encounter Visit Diagnoses Not on filedocumented in this encounter Additional Health Concerns Assessment Noted Time PHQ-9 Depression Total Score: 14 025 12:03 PM EDT documented as of this encounter Care Teams Beater Head Relationship Specialty Start Date End Date Gemma Osuna NP [address] [place] [address] PCP - General Family Medicine 10/09/24 Bryan Davis RN [address] [place] [address] Registered Nurse Family Medicine 04/12/25 Marleen Whitlock 04/12/25 documented as of this encounter
--- OUTSIDE RECORDS SUMMARY | 2025-04-16 11:40 | XMS_ITS | Encounter Summary ---
Author Organization [employer] Address [address] [facility] [address] [place] [address] Care Team Providers Care Stone Rigger Name Role Phone Gemma Osuna NP Primary Care Provider [phone] Bryan Davis RN Unavailable [phone] Marleen Whitlock Unavailable Encounter Details Date Type Department Care Team ([facility] st Contact Info) Description 04/12/2025 Patient Outreach [facility] [address] [place] [address] Gemma Osuna NP [address] [place] [address] Social History Tobacco Use Types Packs/Day Years [...] with others, in a hotel, in a longterm, living outside on the street, on a [...] the past 12 months, has t he [employer] gas, oil or water company threatened to [...] Description 06/09/2025 10:30 AM EST Office Visit [facility] [address] [place] [address] Gemma Osuna NP [address] [place] [address] documented as of this encounter Goals Goal [...] Weekly blood pressure task No Ella Arrieta, DANIEL Patient has chronic kidney disease Care Plan Patient has chronic kidney disease No Ella Arrieta, RN Patient has chronic kidney disease Care Plan Patient has chronic kidney disease No Ella Arrieta RN Weekly blood pressure task Care Plan Weekly blood pressure task No Bryan Davis RN Weekly blood pressure task Care Plan Weekly blood pressure task No Bryan Davis, RN Patient has chronic kidney disease Care [...] has chronic kidney disease No Marisa Gallardo documented as of this encounter Visit Diagnoses [...] 04/12/2025 Patient has chronic kidney disease 04/12/2025 Assessment Noted Time PHQ-9 Depression Total Score: 14 025 12:03 PM EDT documented as of this encounter Care Teams Stone Rigger Relationship Specialty Start Date End Date Gemma Osuna NP [address] [place] [address] PCP - General Family Medicine 10/09/24 Bryan Davis RN [address] [place] [phone] Registered Nurse Family Medicine 04/12/25 Marleen Whitlock 04/12/25 documented as of this encounter
--- OUTSIDE RECORDS SUMMARY | 2025-04-16 11:40 | XMS_ITS | Encounter Summary ---
Author Organization [employer] [facility] Address [address] [facility] [address] [place] [address] Care Team Providers Care Flame Hardener Name Role Phone Gemma Osuna NP Primary Care Provider [phone] Bryan Davis RN Unavailable [phone] Marleen Whitlock Unavailable Reason for Visit * Reason Onset Date Comments Med Refill 11/03/2024 Encounter Details Date Type Department Care Team (Late st Contact Info) Description 11/03/2024 Refill [facility] [address] [place] [address] Gemma Osuna NP [address] [place], [place] [phone] Social History Tobacco Use Types Packs/Day Years [...] Description 06/09/2025 10:30 AM EST Office Visit [facility] [address] [place], [place] [phone] Gemma Osuna NP [address] [place], [place] [phone] documented as of this encounter Visit Diagnoses Not on filedocumented in this encounter Care Teams Flame Hardener Relationship Specialty Start Date End Date Gemma Osuna NP [address] [place] [address] PCP - General Family Medicine 10/09/24 Bryan Davis, DANIEL [address] [place] [address] Registered Nurse Family Medicine 04/12/25 Marleen Whitlock 04/12/25 documented as of this encounter
--- OUTSIDE RECORDS SUMMARY | 2025-04-16 11:40 | XMS_ITS | Encounter Summary ---
Author Organization [employer] Address [address] [facility] 7t [place] [address] Care Team Providers Care Snowmobile Mechanic Name Role Phone Gemma Osuna NP Primary Care Provider Bryan Davis RN Unavailable [phone] Marleen Whitlock Unavailable Reason for Visit * Reason Onset Date Comments Med Refill 12/07/2024 Encounter Details Date Type Department Care Team (Late st Contact Info) Description 12/07/2024 Refill [facility] [address] [place] [phone] Gemma Osuna NP [address] [place], [place] [phone] Social History Tobacco Use Types Packs/Day Years [...] Description 06/09/2025 10:30 AM EST Office Visit [facility] [address] [place] [phone] Gemma Osuna NP [address] [place] [address] documented as of this encounter Visit Diagnoses Not on filedocumented in this encounter Additional Health Concerns Assessment Noted Time PHQ-9 Depression Total Score: 14 11/13/ 025 12:03 PM EDT documented as of this encounter Care Teams Snowmobile Mechanic Relationship Specialty Start Date End Date Gemma Osuna NP [address] [place] [address] PCP - General Family Medicine 10/09/24 Bryan Davis RN [address] [place] [phone] Registered Nurse Family Medicine 04/12/25 Marleen Whitlock 04/12/25 documented as of this encounter
--- OUTSIDE RECORDS SUMMARY | 2025-04-16 11:40 | XMS_ITS | Encounter Summary ---
Author Organization [employer] Address [address] [facility] 7t [place] [address] Care Team Providers Care Offset Pressman Name Role Phone Gemma Osuna NP Primary Care Provider Bryan Davis RN Unavailable [phone] Marleen Whitlock Unavailable Reason for Visit * Reason Onset Date Comments Med Refill 12/07/2024 Encounter Details Date Type Department Care Team (Late st Contact Info) Description 12/07/2024 Refill [facility] [address] [place] [address] Gemma Osuna NP [address] [place], [place] [phone] Social History Tobacco Use Types Packs/Day Years [...] Description 06/09/2025 10:30 AM EST Office Visit [facility] [address] [place] [address] Gemma Osuna NP [address] [place] [address] documented as of this encounter Visit Diagnoses Not on filedocumented in this encounter Additional Health Concerns Assessment Noted Time PHQ-9 Depression Total Score: 14 11/13/ 025 12:03 PM EDT documented as of this encounter Care Teams Offset Pressman Relationship Specialty Start Date End Date Gemma Osuna NP [address] [place] [address] PCP - General Family Medicine 10/09/24 Bryan Davis RN [address] [place] [phone] Registered Nurse Family Medicine 04/12/25 Marleen Whitlock 04/12/25 documented as of this encounter
--- OUTSIDE RECORDS SUMMARY | 2025-04-16 11:40 | XMS_ITS | Clinical Summary ---
Author Organization [employer] Address [address] [place] [address] [address] [place] [address] Care Team Providers Care Top Coater Name Role Phone Gemma Osuna NP Primary Care Provider [phone] Bryan Davis RN Unavailable Marleen Whitlock Unavailable Allergies Active Allergy Reactions Criticality Noted Date Comments Penicillin G Medium 10/09/2024 Protective Adhesive Powder Rash Low 5 Bandadge adhesive rash Shrimp Flavor Agent (Non-Screening) Hives Medium 10/09/2024 un Medications * This document contains information received from the source organization and may not represent a complete record from that organization. insulin glargine (Lantus) 100 UNIT/ML injection Inject 20 Units under the skin at bedtime. 10 mL 12 5 3:05 PM EST 10/10/19 25 026 Active pioglitazone (Actos) 15 MG tablet Take 1 tablet (15 mg) by mouth Once per day. 30 tablet 2 5 3:05 PM EST 10/10/19 Active aspirin 81 MG chewable tablet Chew 1 tablet (81 mg) Once per day. 30 tablet 11 5 3:05 PM EST 10/10/19 25 026 Active albuterol 108 (90 Base) MCG/ACT inhaler Inhale 2 puffs every 6 (six) hours if needed for wheezing. 18 g 11 10/10/19 25 026 Active FREESTYLE LITE test strip Use to test blood sugar 3 times daily 100 each 12 10/10/19 25 026 Active Lancets [facility] Use to test blood sugar 3 times daily 100 each 10/10/19 Active Alcohol Swabs 70 % pads Use to test blood sugar 3 times daily 100 each 10/10/19 25 Active Blood Glucose Monitoring Suppl (FreeStyle Ponce Lite) w/Device kit Use to test blood sugar 3 times daily 1 kit 2 10/10/19 Active Continuous Glucose Machine Washer (FreeStyle Sweetie 3 Ball Ground) device 1 each Once per day. Use as directed for CGM 1 each 10/10/19 Active glucose blood (FreeStyle Precision Kyle Test) test strip Use to test blood sugar 4 times daily in case of CGM failure or extremes of BG 100 each 10/10/19 25 Active gabapentin (Neurontin) 300 MG capsule Take 2 capsules (600 mg) by mouth 2 times daily. 120 capsule 2 3:05 PM EST 01/16/20 25 Active Continuous Glucose Sensor (FreeStyle Sweetie 3 Plus Sensor) [facility] 1 each every 15 days. Apply 1 every 15 days as directed for CGM 2 each 5 3:05 PM EST 01/16/20 Active olmesartan (Benicar) 5 MG tablet Take 1 tablet (5 mg) by mouth Once per day. 30 tablet 5 3:05 PM EST 01/16/20 25 026 Active alendronate (Fosamax) 70 MG tablet take 1 tablet by mouth once a week with 6 to 8 oz of water 30 min before first food of day. do not lie down for 30 minutes 12 tablet 1 01/27/20 25 Active famotidine (Pepcid) 20 MG tablet TAKE 1 TABLET BY MOUTH EVERY DAY 90 tablet 1 01/23/20 25 Active Synjardy XR 10-1000 MG 24 hr tablet TAKE 1 TABLET BY MOUTH EVERY DAY WITH BREAKFAST 30 tablet 3 5 1:24 PM EST 02/17/20 25 Active amitriptyline (Elavil) 25 MG tablet TAKE 2 TABLETS BY MOUTH EVERY DAY AT BEDTIME 60 tablet 3 5 1:24 PM EST 02/17/20 25 Active meloxicam (Mobic) 15 MG tablet TAKE 1 TABLET BY MOUTH EVERY DAY NEEDED FOR MODERATE PAIN 30 tablet 3 5 1:24 PM EST 02/17/20 25 Active atorvastatin (Lipitor) 40 MG tablet TAKE 1 TABLET BY MOUTH EVERY DAY 90 tablet 02/17/20 25 Active sodium chloride ([place] Nasal [place]) 0.65 % nasal sprayIndicatio ns:COVID-19 INSTILL 1 SPRAY IN EACH NOSTRIL ONCE DAILY NEEDED 30 mL 1 02/17/20 25 Active Arnuity Ellipta 100 MCG/ACT inhaler INHALE 1 PUFF EVERY DAY 30 each 2 5 1:24 PM EST 02/19/20 25 Active tiZANidine (Zanaflex) 4 MG tablet TAKE 1 TABLET BY MOUTH THREE TIMES DAILY IN THE MORNING, AT NOON, AND AT BEDTIME NEEDED FOR MUSCLE SPASMS 30 tablet 1 5 3:05 PM EST 02/19/20 25 Active permethrin (Elimite) 5 % cream apply to skin from hairline to toes and wash off 8-10 hours later 60 g 1 5 3:05 PM EST 03/03/20 25 Active cetirizine (ZyrTEC) 10 MG tablet Take 1 tablet (10 mg) by mouth Once per day. Prn. 30 tablet 03/03/20 25 Active Blood Pressure kit 1 each 2 times daily. 1 kit 03/03/20 25 026 Active UltiCare Insulin Syringe 31G X 5/16 1 ML misc USE 1 PER DAY TO INJECT Lantus 30 each 3 5 3:05 PM EST 03/10/20 25 Active azithromycin (Zithromax) 250 MG tablet Take 2 tabs day and then 1 tab daily 6 tablet 03/12/20 25 Active DULoxetine (Cymbalta) [address] capsule TAKE 1 CAPSULE BY MOUTH THREE TIMES DAILY DO NOT BREAK, CRUSH, DISSOLVE OR CHEW 90 capsule 1 5 1:24 PM EST 04/02/20 25 Active montelukast (Singulair) 10 MG tablet TAKE 1 TABLET BY MOUTH EVERY DAY 90 tablet 1 5 1:24 PM EST 04/08/20 25 Active doxycycline (Vibra-Tabs) 100 MG tablet Take 1 tablet (100 mg) by mouth 2 times daily for 7 days. Take with a full glass of water and do not lie down for at least 30 minutes after. 14 tablet 5 3:05 PM EST 04/14/20 25 025 Active benzonatate (Tessalon) 200 MG capsule Take 1 capsule (200 mg) by mouth if needed in the morning, at noon, and at bedtime for cough for up to 7 days. Do not crush or chew. 20 capsule 5 3:05 PM EST 04/14/20 25 025 Active ipratropium-al buterol (Duo-Neb) 0.5-2.5 mg/3 mL nebulizer solution Take 3 mL by nebulization every 6 (six) hours. 180 mL 11 5 3:05 PM EST 04/14/20 026 Active montelukast (Singulair) 10 MG tablet Take 1 tablet (10 mg) by mouth Once per day. 30 tablet 2 01/16/20 25 025 Discontinued DULoxetine (Cymbalta) [address] capsule TAKE 1 CAPSULE BY MOUTH THREE TIMES DAILY DO NOT BREAK, CRUSH, DISSOLVE OR CHEW 90 capsule 1 02/04/20 25 025 Discontinued predniSONE (Deltasone) 20 MG [...] Active Problems Problem Noted Date Diagnosed Date Acute exacerbation of mild persistent extrinsic asthma 04/14/2025 Assessment & Plan (04/14/2025 11:14 AM EST): Sleep apnea 04/14/2025 Assessment & Plan (04/14/2025 11:14 AM EST): Tear of medial meniscus of knee, current Diarrhea of infectious origin 03/22/2025 Assessment & Plan (03/22/2025 4:44 PM EDT): Orders: CBC auto differential; Future Comprehensive Metabolic Panel; Future Sed Rate by Modified Westergren; Future C-reactive Protein; Future Referral to Gastroenterology; Future CT Abdomen Pelvis w/ and w/o Contrast; Future Psoriasis (a type of skin inflammation) 03/22/20 Assessment & Plan (03/22/2025 4:44 PM EDT): Orders: Referral to [facility] Skin Adult; Future Referral to Rheumatology; [...] cancer screening 11/13/2024 Overview (01/15/2025): Had in [place] (during pandemic) Assessment & Plan (01/15/2025 3:51 PM EDT): Referral to gI Assessment & Plan (11/15/2024 1:27 PM EDT): Referral to GI for colonscopy 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 Date Type Department Care Team Description 04/14/2025 10:45 AM EST Office Visit [facility] [address] [place] [phone] Gemma Osuna NP Acute exacerbation of mild persistent extrinsic asthma (Primary Dx); Type 2 diabetes mellitus with other diabetic arthropathy, with long-term current use of insulin (HCC); Sleep apnea, unspecified type 04/14/2025 Refill [facility] [address] [place] [phone] Luke Styles MD 04/14/2025 Travel 04/13/2025 Telephone [facility] [address] [place] [phone] Gemma Osuna NP CHARTPREP 04/13/2025 Patient Outreach [address] [phone] Gemma Osuna NP Care Coordination (CM/CHW outreach) 04/12/2025 Patient Outreach [address] [address] Gemma Osuna NP Care Coordination (CHW chart review) 04/12/2025 Patient Outreach [address] [address] Gemma Osuna NP Care Management (C3CM- chart review) 04/12/2025 Patient Outreach [facility] [address] [place] [phone] Gemma Osuna NP 04/10/2025 Orders Only GENERIC EXTERNAL DATA DEPARTMENT Provider, Generic External Data 04/09/2025 Orders Only [facility] [address] [address] Gemma Osuna NP Rash, skin (Primary Dx) 04/08/2025 Refill [facility] [address] [place] [phone] Gemma Osuna NP 04/07/2025 Travel 04/01/2025 Refill [facility] [address] [address] Luke Styles MD 03/24/2025 Telephone [facility] [address] [place] [phone] Gemma Osuna NP 03/22/2025 3:45 PM EDT Office Visit [address] [phone] Gemma Osuna NP Type 2 diabetes mellitus with other diabetic arthropathy, with long-term current use of insulin (HCC) (Primary Dx); Diarrhea of infectious origin; Psoriasis (a type of skin inflammation); Left lower quadrant abdominal pain; Thyroid nodule; Pap smear for cervical cancer screening; PTSD (post-traumatic stress disorder) 03/22/2025 Travel 03/19/[address] [address] Carolee Lopez MA chart prep 03/15/2025 Travel 03/12/2025 1:40 PM EDT Office Visit [facility] [address] [address] Sariah Thompson MD Acute bronchitis, unspecified organism (Primary Dx) 03/12/2025 Travel 03/10/[address] [address] Gemma Osuna NP 03/08/[address] [address] Gemma Osuna NP 03/05/2025 Results Follow-Up [facility] [address] [place] [address] Luke Styles MD RPR (Monitor) with Reflex to Titer 03/04/2025 Orders Only [facility] External Provider, [facility] 03/03/2025 3:00 PM EDT Office Visit [facility] [address] [place] [address] Luke Styles MD Rash (Primary Dx); Elevated blood pressure reading in office without diagnosis of hypertension 03/03/2025 2:00 PM EDT Office Visit [facility] [address] [place] [address] Fabby Hoffman, JAKE Type 2 diabetes mellitus without ophthalmic manifestations (HCC) (Primary Dx); Presbyopia 03/03/2025 Travel 02/24/2025 Travel 02/18/2025 Refill [facility] [address] [place] [address] Gemma Osuna NP 02/17/2025 Refill [facility] [address] [place] [phone] Gemma Osuna NP 02/16/2025 Results Follow-Up [facility] [address] [place] [phone] Gemma Osuna NP US Thyroid 02/15/2025 Refill [facility] [address] [place] [address] Karina Kumar NP COVID-19 02/15/2025 Refill [facility] [address] [place] [phone] Gemma Osuna NP COVID-19 02/09/2025 Refill [facility] [address] [place] [phone] Gemma Osuna NP 02/03/2025 Refill [facility] [address] [place] [phone] Gemma Ousna NP 01/22/2025 Refill [facility] [address] [place] [phone] Gemma Osuna NP 01/18/2025 Refill [facility] [address] [place] [address] Gemma Osuna NP 01/15/2025 1:30 PM EDT Office Visit [facility] [address] [place] [address] Gemma Osuna NP Thyroid nodule (Primary Dx); Dietary counseling; Exercise counseling; Type 2 diabetes mellitus with other diabetic arthropathy, with long-term current use of insulin (CMS/HCC); Colon cancer screening; Muscle spasm of left shoulder; Fibromyalgia 01/15/2025 Travel 01/14/2025 Travel 01/14/2025 Telephone [facility] [address] [place] [phone] Gemma Osuna NP Chart Prep from Last 3 Months Family History Medical History Relation Name Comments Glaucoma Maternal Grandmother Relation Name Status Comments Maternal Grandmother Social History Tobacco Use Types Packs/Day Years Used Date Smoking Tobacco: Former Cigarettes Passive Smoke Exposure: Past Smokeless Tobacco: Former Tobacco Cessation:Counseling Given: Not Answered Alcohol Answer Date Recorded How often do [...] with others, in a hotel, in a jail, living outside on the street, on a [...] the past 12 months, has t he [employer], gas, oil or water company threatened to [...] Mass Index 36.03 04/14/2025 10:50 AM EST Plan of Treatment Upcoming Encounters Date Type Department Care Team (Late st Contact Info) Description 06/09/2025 10:30 AM EST Office Visit [facility] [address] [place] [address] Gemma Osuna NP [address] [place] [address] Health Maintenance Due Date Last Done Comments [...] Years (1 of 2 - PCV) 1988 Mammogram 2009 RSV Patients and Patients Aged 60 years or older (1 - Risk 50-74 years 1-dose series) 2019 Zoster Vaccines (1 of 2) 2019 COVID-19 Vaccine (1 - season) 2025 Influenza Vaccine (#1) 2025 Depression Monitoring 05/15/2025 11/13/2024, 025 Diabetes: Hemoglobin A1C 06/22/2025 025, 10/21/2024, 10/09/2024 Diabetes: Foot Exam 10/16/2025 10/16/2024 Lipid Panel 10/21/2025 10/21/2024 Alcohol/Substance Use Screening 11/13/2025 11/13/2024 Disability Screening 11/13/2025 11/13/2024 SDOH Screening 01/15/2026 01/15/2025 Tobacco Screening 04/14/2026 04/14/2025 Eye Exam 03/03/2027 03/03/2025, 1012/2024, 03/03/2025, Additional history exists Pap Smear 03/22/2028 03/22/2025 Cervical Cancer Screening 03/22/2030 HPV/Cotest 03/22/2030 03/22/2025 HIB Vaccines Aged Out No longer eligi [...] on patient's age to complete this topic Goals Goal Patient Goal Type Associated Problems [...] Patient has chronic kidney disease No Bryan Davis, DANIEL Patient has chronic kidney disease Care [...] chronic kidney disease No Gemma Osuna NP Procedures Procedure Name Priority Date/Time Associated Diagnosis Comments POCT GLUCOSE Routine 04/14/2025 10:53 AM EST Type 2 diabetes mellitus with other diabetic arthropathy, with long-term current use of insulin ([facility]) XR CHEST 2 VIEWS Routine 04/10/2025 12:3 0 PM EST COVID-19 ID NOW (HERRERA) Routine 04/10/2025 10:37 AM EST BASIC METABOLIC PANEL Routine 04/10/2025 10:37 AM EST INFLUENZA A B2 ID NOW (HERRERA) Routine 04/10/2025 10:37 AM EST NT-PROBNP Routine 04/10/2025 10:36 AM EST HIGH SENSITIVITY TROPONIN I Routine 04/10/2025 10:36 AM EST CBC WITH AUTO DIFFERENTIAL Routine 04/10/2025 10:36 AM EST C-REACTIVE PROTEIN Routine 03/24/2025 11 :28 AM EDT Diarrhea of infectious origin SED RATE BY MODIFIED WESTERGREN Routine 03/24/2025 11:28 AM EDT Diarrhea of infectious origin COMPREHENSIVE METABOLIC PANEL Routine 03/24/2025 11:28 AM EDT Diarrhea of infectious origin CBC WITH AUTO DIFFERENTIAL Routine 03/24/2025 11:28 AM EDT Diarrhea of infectious origin PAP SMEAR Routine 03/22/2025 4:52 PM EDT Pap smear for cervical cancer screening HPV DNA, LOW/HIGH RISK Routine 4:52 PM EDT Pap smear for cervical cancer screening POCT GLYCATED HEMOGLOBIN, TOTAL Routine 03/22/2025 4:00 PM EDT Type 2 diabetes mellitus with other diabetic arthropathy, with long-term current use of insulin ([facility]) POCT GLUCOSE Routine 03/22/2025 3:59 PM EDT Type 2 diabetes mellitus with other diabetic arthropathy, with long-term current use of insulin ([facility]) POCT RAPID COVID ANTIGEN Routine 03/12/2025 1:24 PM EDT Acute bronchitis, unspecified organism MR KNEE WO CONTRAST LEFT Routine 03/04/2025 6:44 PM EDT RPR (MONITOR) W/REFL TITER Routine 03/03/2025 3:37 PM EDT Rash COMPREHENSIVE METABOLIC PANEL Routine 03/03/2025 3:37 PM EDT Type 2 diabetes mellitus with other diabetic arthropathy, with long-term current use of insulin ([facility]) US THYROID Routine 02/16/2025 2:50 PM EDT Thyroid nodule POCT GLUCOSE Routine 01/15/2025 1:35 PM EDT Type 2 diabetes mellitus with other diabetic arthropathy, with long-term current use of insulin ([facility]/HCC) LIPID PANEL, STANDARD Routine 10/21/2024 8:42 AM EDT Type 2 diabetes mellitus with other diabetic arthropathy, with long-term current use of insulin ([facility]) from Last 3 Months or Most Recently Relevant to Health Maintenance Results * POCT Glucose (04/14/2025 10:53 AM EST) Only the most recent of3 resultswithin the time period is included. Pathologist [facility] Glucose Blood, POC 148 60 - 200 mg/dL QC Media Lot # [id number] Lot# Expiration Date Blood Capillary blood specimen / Unknown 04/14/2025 10:53 AM EST us Gemma Osuna NP POINT OF CARE TEST ENTER/EDIT OR DERABLES Final Result * XR Chest 2 Views (04/10/2025 12:30 PM EST) Anatomical Region Laterality Modality Chest Radiographic Mallika ging 04/10/2025 12:3 0 PM EST Narrative 04/10/2025 12:32 PM EST [place] [address] XRay Report Signed Patient: Katie Andrews MR#: [id number] : 1970 Acct:[id number] Age/Sex: 54 / F ADM Date: 04/10/25 Loc: .ED Attending Dr: Ordering Physician: Ramon Vidal MD Date of Service: 04/10/25 Procedure(s): XR chest 2V Accession Number(s): [id number] cc: Ramon Vidal MD; Gemma Osuna NP Reason for Exam: SOB/productive cough CLINICAL HISTORY: SOB productive cough 2 view chest x-ray Comparison: None provided Findings: Low lung volumes with mild bibasilar atelectasis/pneumonitis. No lobar consolidation, pneumothorax, or pleural effusion. Cardiac silhouette and mediastinal contours are within limits of normal. Mild rib deformities appear old/chronic. Minimal vertebral height losses are likely old/chronic with multifocal Schmorl's nodes noted. Degenerative changes include imaged AC joints. Superficial metal is nonspecific including dorsally. IMPRESSION: Mild bibasilar atelectasis/pneumonitis This document has been electronically signed by: Sahil Martino MD on 04/10/2025 12:30:34 Dictated By: Sahil Martino MD Signed By: <Electronically signed by Sahil Martino MD in OV> 04/10/25 1231 DD/ 1230 TD/TT: 04/10/25 1230 Real Estate Transaction Coordinator: Procedure Note Donotuseinterpreter, Image - 04/10/[address] [address] XRay Report Signed Patient: Clotilde Andrews#: [id number] : 1970Acct:[id number] Age/Sex: 54 / FADM Date: 04/10/25 Loc: HO.ED Attending Dr: Ordering Physician: Ramon Vidal MD Date of Service: 04/10/25 Procedure(s): XR chest 2V Accession Number(s): [id number] cc: Ramon iVdal MD; Gemma Osuna NP Reason for Exam: SOB/productive cough CLINICAL HISTORY: SOB productive cough 2 view chest x-ray Comparison: None provided Findings: Low lung volumes with mild bibasilar atelectasis/pneumonitis. No lobar consolidation, pneumothorax, or pleural effusion. Cardiac silhouette and mediastinal contours are within limits of normal. Mild rib deformities appear old/chronic. Minimal vertebral height losses are likely old/chronic with multifocal Schmorl's nodes noted. Degenerative changes include imaged AC joints. Superficial metal is nonspecific including dorsally. IMPRESSION: Mild bibasilar atelectasis/pneumonitis This document has been electronically signed by: Sahil Martino MD on 04/10/2025 12:30:34 Dictated By: Sahil Martino MD Signed By: <Electronically signed by Sahil Maritno MD in OV> 04/10/25 1231 DD/ 1230 TD/TT: 04/10/25 1230 Real Estate Transaction Coordinator: us [facility] External Provider IMG XR PROCEDURES Edited Result - Final * Influenza A B2 ID NOW (Herrera) (04/10/2025 10:37 AM EST) IDNOW SERIAL# [id number] [facility] Influenza A Negative Negative [facility] Influenza B2 Negative Negative [facility] Influenza A B2 Note See Note [facility] Comment:The Herrera ID NOW In fluenza A B2 test is used for thequalitative detection of influenza A and B from patientswith signs and symptoms of respiratory infection.Negative results do not preclude influenza virus infectionand should not be used as the sole basis for diagnosis,treatment or other patient management decisions.There is a risk of false negative results due to thepresence of variants in the viral targets of the assay, lowlevels of virus in the specimen and co- infection withRespiratory Syncytial Virus. 04/10/2025 10:3 7 AM EST 04/10/2025 10:40 AM EST Generic External Data Provider LAB MICROBIOLOGY - GENERAL ORDERABLES Final Result [facility] [address] [place] [phone] * COVID-19 ID NOW (HERRERA) (04/10/2025 10:37 AM EST) IDNOW SERIAL# [id number] [facility] COVID-19 TEST Negative Negative [facility] COVID-19 NOTE See Note [facility] Comment: Results are for the identification of SARS-CoV2 RNA. TheSARS-CoV2 RNA is generally detectable in respiratory samplesduring the acute phase of infection. Positive results areindicative of the presence of SARS-CoV-2 RNA; clinicalcorrelation with patient history and other diagnosticinformation is necessary to determine patient infectionstatus. Positive results do not rule out bacterial infectionor co- infection with other viruses.Testing facilities within the [facility] and itsterritories are required to report all positive results tothe appropriate public health authorities.Negative results should be treated as presumptive and, ifinconsistent with clinical signs and symptoms or necessaryfor patient management, should be tested with differentauthorized or cleared molecular tests. Negative results donot preclude SARS-CoV2 RNA infection and should not be usedas the sole basis for patient management decisions. Negativeresults should be considered in the context of a patient'srecent exposures, history and the presence of clinical signsand symptoms consistent with COVID-19.This test has been authorized by the FDA under an EmergencyUse Authorization (EUA) for use by authorized laboratories.Testing performed on the [employer] NOW utilizing NAAT. 04/10/2025 10:3 7 AM EST 04/10/2025 10:40 AM EST us Generic External Data Provider LAB MOLECULAR SHEA GNOSTICS ORDERABLES Final Result [facility] [address] [place] [phone] * (ABNORMAL) Basic Metabolic Panel (04/10/2025 10:37 AM EST) Sodium 147(H) 135 - 145 mmol/L [facility] Potassium 4.4 3.3 - 5.1 mmol/L [facility] Chloride 110(H) 96 - 108 mmol/L [facility] Carbon Dioxide 25 22 - 29 mmol/L [facility] Anion Gap 16 12 - 20 [facility] Urea Nitrogen (BUN) 14 9 - 16 mg/dL [facility] Creatinine, Serum 0.68 0.5 - 1.4 mg/dL [facility] Creatinine Clr Calc Pharmacy 97.0 [facility] Comment:Provided height and weight: 157.48 cm,89.2 kg.eGFR (calculated from the MDRD study equation) and eCrCl(calculated from the Cockcroft-Gault equation) are based ondifferent parameters and may not yield comparable results.If eCrCl result is absurd, please check patient'sheight/weight. Estimated Glomerular Filt Rate >60 [facility] Comment:Chronic Kidney Disea se: Estimated GFR < 60 mL/min/1.82a4Qithtl Kidney Disease: Estimated GFR < 15 mL/min/1.73m2 Glucose 136(H) 60 - 115 mg/dL [facility] Calcium 9.8 8.4 - 10.2 mg/dL [facility] 04/10/2025 10:3 7 AM EST 04/10/2025 10:40 AM EST Generic External Data Provider LAB BLOOD ORDERAB LES Final Result Performing Organization Address [facility] Phone Number [facility] [address] [place] [phone] * High Sensitivity Troponin I (04/10/2025 10:36 AM EST) Pathologist [facility] TROPONIN I HIGH SENSITIVITY <2.7 <3.5 - 17.0 ng/L [facility] Comment:The Herrera high sens itivity Troponin-I results should beused in conjunction with other diagnostic information suchas ECG, clinical observations and information, and patientsymptoms to aid in the diagnosis of [place]. 04/10/2025 10:3 6 AM EST 04/10/2025 10:40 AM EST Generic External Data Provider LAB BLOOD ORDERAB LES Final Result Performing Organization Address [facility] Phone Number [facility] [address] [place] [phone] * NT-proBNP (04/10/2025 10:36 AM EST) NT-proBNP <15.8 <300 pg/mL [facility] Comment:Reference Range:Age Group (years) NT-proBNP (pg/ml) InterpretationAll <300 Negative: HF unlikelyFor patients presenting to the ED with clinical suspicion ofnew onset or worsening HF, see below:18 to <50 >299.9 to <450.0 Grayzone: [id number] to 75 >299.9 to <900.0 other causes of>75 >299.9 to <1800.0 NT-proBNP vsiejhehr13 to <50 >449.9 Positive: HF gztibo19-74 >899.9>75 >1799.9Note: Elevated NT-proBNP levels should be interpreted inthe context of other clinical information. 04/10/2025 10:3 6 AM EST 04/10/2025 10:40 AM EST us Generic External Data Provider LAB BLOOD ORDERAB LES Final Result [facility] [address] [place] [phone] * (ABNORMAL) CBC auto differential (04/10/2025 10:36 AM EST) Only the most recent of2 resultswithin the time period is included. White Blood Count 6.5 4.8 - 10.8 X10*3/uL [facility] Red Blood Count 5.08 4.20 - 5.50 X10*6/uL [facility] Hemoglobin 15.5 12.0 - 16.0 g/dl [facility] Hematocrit 47.5(H) 37.0 - 47.0 % [facility] Mean Corpuscular Volume 93.5 80.0 - 98.0 fL [facility] Mean Corpuscular Hemoglobin 30.5 27.0 - 33.0 pg [facility] Mean Corpuscular HGB Conc 32.6 31.0 - 35.0 g/dl [facility] Red Cell Distribution Width 12.3 11.0 - 16.0 % [facility] Platelet Count 324 160 - 400 X10*3/uL [facility] Mean Platelet Volume 8.6(L) 9.4 - 12.3 fL [facility] Neutrophils Percent Auto 48.9 45 - 73 % [facility] Imm Gran Pct Auto 0.2 0.0 - 0.4 % [facility] Lymphocytes Percent Auto 31.0 20 - 40 % [facility] Monocytes Percent Auto 7.2 2 - 11 % [facility] Eosinophils Percent Auto 11.5(H) 0 - 4 % [facility] Basophils Percent Auto 1.2 0 - 2 % [facility] NRBC Pct Auto 0.0 0.0 - 0.2 /100WBC [facility] Neutrophils Absolute Auto 3.2 2.0 - 8.3 x10*3/uL [facility] Imm Gran Abs Auto 0.01 0.00 - 0.03 X10*3/uL [facility] Lymphocytes Absolute Auto 2.0 1.2 - 4.9 X10*3/uL [facility] Monocytes Absolute Auto 0.5 0.1 - 1.2 X10*3/uL [facility] Eosinophils Absolute Auto 0.8(H) 0.0 - 0.4 X10*3/uL [facility] Basophils Absolute Auto 0.1 0.0 - 0.2 X10*3/uL [facility] NRBC Abs Auto 0.000 0.0 - 0.012 X10*3/uL [facility] 04/10/2025 10:3 6 AM EST 04/10/2025 10:40 AM EST us Generic External Data Provider LAB BLOOD ORDERAB LES Final Result Performing Organization Address [facility]/ZIP Co de Phone Number [facility] [address] [place] [phone] * Sed Rate by Modified Kojo (03/24/2025 11:28 AM EDT) Erythrocyte Sedimentation Rate 8 0 - 20 MM/HR [facility] Comment:Patients with polycy themia and many hemoglobin abnormalitiesmay have depressed sed rates whereas patients with anemiamay have elevated sed rates. Blood Venous blood specimen / Unknown 03/24/2025 11:28 AM EDT 03/24/2025 1:13 PM EDT us Gemma Osuna ARTIFICIAL STONE APPLICATOR LAB BLOOD ORDERABLES Final Resul t Performing Organization Address City/[facility]/ZIP Co de Phone Number [facility] [address] [place] [phone] * C-reactive Protein (03/24/2025 11:28 AM EDT) C Reactive Protein 0.26 < or = 0.50 mg/dL [facility] Blood Venous blood specimen / Unknown 03/24/2025 11:28 AM EDT 03/24/2025 1:13 PM EDT us Gemma Osuna ARTIFICIAL STONE APPLICATOR LAB BLOOD ORDERABLES Final Resul t [facility] [address] [place] [phone] * (ABNORMAL) Comprehensive Metabolic Panel (03/24/2025 11:28 AM EDT) Only the most recent of2 resultswithin the time period is included. Sodium 141 135 - 145 mmol/L [facility] Potassium 3.9 3.3 - 5.1 mmol/L [facility] Chloride 107 96 - 108 mmol/L [facility] Carbon Dioxide 27 22 - 29 mmol/L [facility] Anion Gap 11(L) 12 - 20 [facility] Urea Nitrogen (BUN) 10 9 - 16 mg/dL [facility] Creatinine, Serum 0.56 0.5 - 1.4 mg/dL [facility] Estimated Glomerular Filt Rate >60 [facility] Comment:Chronic Kidney Disea se: Estimated GFR < 60 mL/min/1.03u3Uskhcj Kidney Disease: Estimated GFR < 15 mL/min/1.73m2 Glucose 169(H) 60 - 115 mg/dL [facility] Calcium 8.8 8.4 - 10.2 mg/dL [facility] Bilirubin, Total 0.7 0.0 - 1.0 mg/dL [facility] Aspartate Amino Transferase 22 5 - 31 U/L [facility] Alanine Aminotransferase 19 0 - 31 U/L [facility] Total Protein 6.4(L) 6.5 - 8.0 g/dL [facility] Albumin Level 4.0 3.5 - 5.0 g/dL [facility] Alkaline Phosphatase 77 39 - 117 U/L [facility] Blood Venous blood specimen / Unknown 03/24/2025 11:28 AM EDT 03/24/2025 1:13 PM EDT Gemma Osuna NP LAB BLOOD ORDERABLES Final Resul t Performing Organization Address [facility] Co de Phone Number [facility] [address] [place] [phone] * HPV High Risk with Reflex to Subtypes (03/22/2025 4:52 PM EDT) HPV High Risk Negative Negative [facility] HPV Genotype 16 Negative Negative [facility] HPV Genotype 18 Negative Negative [facility] Comment:HPV testing performe d at [facility] (CLIA#[id number]), [address] [place] [address].Testing for HPV was performed using the Glenda AMBER 6800system. The presence of HPV in the female genital tract isassociated with a number of diseases, including cervicalcarcinoma. The HPV DNA high risk pool tests for HPV 31, 33,35, 39, 45, 51, 52, 56, 58, 59, 66 and 68. The testing forHPV 16 and 18 genotypes has also been performed. A positiveresult indicates detection of nucleic acid sequences fromone or more subtypes, whereas a negative result indicatessuch sequences were not detected. Pap Vial 03/22/2025 4:52 PM EDT 03/24/2025 2:00 PM EDT us Gemma Osuna NP LAB BLOOD ORDERABLES Final Resul t Performing Organization Address [facility] Co de Phone Number [facility] [address] [place] [phone] * Pap Smear (03/22/2025 4:52 PM EDT) Swab Cervical swab / Unknown 03/22/2025 4:52 PM EDT 03/24/2025 2:00 PM EDT [facility] - 03/31/2025 1:07 PM EST ----- ------- Name: Katie Andrews Age/Sex: 54/F : 1970 Unit#: [id number] Attend Dr: Gemma Osuna NP Re03/22/25 Status: [facility] Disch[facility] ----- ------- SPEC : [id number] RECD: 03/24/25 STATUS: TOM CAROLE NUM: [id number] JAIR: 03/22/[address] [facility] [address]: Gemma Osuna ARTIFICIAL STONE APPLICATOR ENTERED: 03/24/25 SP TYPE: Pap Smr [facility] DR: ORDERED: Pap Smear Interpretation Satisfactory for evaluation. Negative for intraepithelial lesion or malignancy. No endocervical cells seen. HPV High Risk: Negative HPV Genotyping 16: Negative HPV Genotyping 18: Negative Clinical Information LMP: Post menopausal Previous PAP test: Unknown date, WNL Other history: Pap smear for cervical cancer screening Material Received ThinPrep-Cervical PAP Disclaimer As of March 18, 2024, the technical services to include automated prescreening performed by the ThinPrep Imaging System, PAP screening and HPV testing will be performed at [facility] (CLIA #[id number] [address]. Testing for HPV was performed using the Glenda AMBER 6800 system. The presence of HPV in the female genital tract is associated with a number of diseases, including cervical carcinoma. The HPV DNA high risk pool tests for HPV 31, 33, 35, 39, 45, 51, 52, 56, 58, 59, 66 and 68. The testing for HPV 16 and 18 genotypes has also been performed. A positive result indicates detection of nucleic acid sequences from one or more subtypes, whereas a negative result indicates such sequences were not detected. All professional services are performed by [facility] ([address] [place], [place] [id number]; ; CLIA #[id number]). The PAP Test is a screening procedure with the inherent possibility of both false negative and false positive results. Results should be interpreted in the context of historic and current clinical findings. Reliability of the PAP Test is enhanced by performing the test on a regular repetitive basis. CONTINUED ON NEXT PAGE ----- ------- Name: Nilton RodasKatie Age/Sex: 54/F : 1970 Unit#: [id number] Attend Dr: Gemma Osuna NP Re03/22/25 Status: DEP [facility] Disch: ----- ------- SPEC : [id number] RECD: 03/24/25-1399 STATUS: TOM HAGEN: [id number] JAIR: 03/22/[address] [facility] [address]: Gemma Osuna ARTIFICIAL STONE APPLICATOR ENTERED: 03/24/25 SP TYPE: Pap Smr GABINO HOLLINS: ORDERED: Pap Smear ----- ------- Signed (signature on file) GHAZAL Freeman (ASCP) 03/31/25 1307 ----- ------- END OF REPORT Gemma Osuna NP LAB CYTOLOGY ORDERABLES Final Re sult [facility] [address] [place], [place] [phone] * (ABNORMAL) POCT Hgb A1c (03/22/2025 4:00 PM EDT) Hemoglobin A1C 7.5(A) 4.0 - 5.7 % QC Media Lot # [id number] Lot# Expiration Date ,790,150 Blood 03/22/2025 4:00 PM EDT Gemma Osuna NP POINT OF CARE TEST ENTER/EDIT OR DERABLES Final Result * POCT Rapid COVID Ag (03/12/2025 1:24 PM EDT) Rapid COVID Ag Negative Swab 03/12/2025 1:24 PM EDT Sariah Thompson MD POINT OF CARE TEST ENTER/EDIT OR DERABLES Final Result * MR Knee w/o Contrast Left (03/04/2025 6:44 PM EDT) Anatomical Region Laterality Modality Magnetic Resonan ce 03/04/2025 6:44 PM EDT Narrative 03/05/2025 8:36 AM EDT [address] [address] Magnetic Resonance Report Signed Patient: Katie Andrews MR#: [id number] : 1970 Acct:[id number] Age/Sex: 54 / F ADM Date: 03/04/25 Loc: HO.MRI Attending Dr: Joe Saleh MD Ordering Physician: Joe Saleh MD Date of Service: 03/04/25 Procedure(s): MR knee LT wo con Accession Number(s): [id number] cc: Gemma Osuna ARTIFICIAL STONE APPLICATOR; Joe Saleh MD Reason for Exam: S83.242A [...] Mcmahan MD in OV> 03/05/25 0833 DD/ 43 TD/TT: 03/04/25 191 Real Estate Transaction Coordinator: EDUARDO Procedure Note Donotuseinterpreter, Image - 03/05/2025 [place] [address] Magnetic Resonance Report Signed Patient: Clotilde Andrews#: [id number] : 1970Acct:[id number] Age/Sex: 54 / FADM Date: 03/04/25 Loc: HO.MRI Attending Dr: Joe Saleh MD Ordering Physician: Joe Saleh MD Date of Service: 03/04/25 Procedure(s): MR knee LT wo con Accession Number(s): [id number] cc: Gemma Osuna ARTIFICIAL STONE APPLICATOR; Joe Saleh MD Reason for Exam: S83.242A [...] by Prince Mcmahan MD in OV> 03/05/25 08 DD/ 43 TD/TT: 03/04/251909 Real Estate Transaction Coordinator: HB [facility] External Provider IMG MRI PROCEDURES Final Result * RPR (Monitor) with Reflex to??Titer (03/03/2025 3:37 PM EDT) RPR (Monitor) w/Refl Titer NON-REACTI VE NON-REACT LEYDA [facility] Comment:THIS TEST WAS PERFOR MED AT:[facility] [place] [phone] MC MD Rapid Plasma Reagin Ab Titer TNP [facility] Blood Venous blood specimen / Unknown 03/03/2025 3:37 PM EDT 03/03/2025 4:09 PM EDT Luke Styles MD LAB BLOOD ORDERABLES Final Resul t [facility] [address] [place] [phone] * US Thyroid (02/16/2025 2:50 PM EDT) Anatomical Region Laterality Modality Head, Neck Ultrasound 02/16/2025 2:50 PM EDT Narrative 02/16/2025 3:32 PM EDT [place] [address] Ultrasound Report Signed Patient: Katie Andrews MR#: [id number] : 1970 Acct:[id number] Age/Sex: 54 / F ADM Date: 02/16/25 Loc: HO.US Attending Dr: Gemma Osuna NP Ordering Physician: Gemma Osuna NP Date of Service: 02/16/25 Procedure(s): US thyroid Accession Number(s): [id number] cc: Gemma Osuna NP Reason for Exam: [...] than or equal to 1 cm: 1. Metal Buffer nodules are described as follows: 1. Location: [...] 02/16/25 1529 DD/ 1450 TD/TT: 02/16/25 1456 Real Estate Transaction Coordinator: Procedure Note Donotuseinterpreter, Image - 02/16/2025 [place] [address] Ultrasound Report Signed Patient: Clotilde Andrews#: [id number] : 1970Acct:[id number] Age/Sex: 54 / FADM Date: 02/16/25 Loc: HO.US Attending Dr: Gemma Osuna NP Ordering Physician: Gemma Osuna NP Date of Service: 02/16/25 Procedure(s): US thyroid Accession Number(s): [id number] cc: Gemma Osuna NP Reason for Exam: [...] than or equal to 1 cm: 1. Metal Buffer nodules are described as follows: 1. Location: [...] MD 02/16/2025 03:29 PM EDT Dictated By: sIacc López MD Signed By: <Electronically signed by Isacc Gallardo MDin OV> 02/16/25 1529 DD/ 1450 TD/TT: 02/16/25 1456 Real Estate Transaction Coordinator: us Gemma Osuna NP IMG US PROCEDURES Final Result * (ABNORMAL) Lipid Panel, Standard (10/21/2024 8:42 AM EDT) Triglycerides 101 <150 mg/dL [facility] Comment:Desirable Triglyceri de: less than 150 mg/dLBorderline High Triglyceride 150-199 mg/dLHigh Triglyceride: 200-499 mg/dLVery High Triglyceride: greater than or equal to 5OO mg/dL Cholesterol 202(H) <200 mg/dL [facility] Comment:Desirable Cholestero l: less than 200 mg/dLBorderline High Cholesterol: 200-239 mg/dLHigh Cholesterol: greater than 239 mg/dL LDL Cholesterol Calculated 119(H) <100 mg/dL [facility] Comment:Desirable LDL: less than 100 mg/dLNear Optimal/Above Optimal LDL: 110- 129 mg/dLBorderline High LDL: 130-159 mg/dLHigh LDL: 160-189 mg/dLVery High LDL: greater than or equal to 190 mg/dL HDL Cholesterol 63 >40 mg/dL [facility] Comment:Desirable HDL: great er than 40 mg/dL Note: This HDL assay may give artificially low results in patients with liver disease. Blood Venous blood specimen / Unknown 10/21/2024 8:42 AM EDT 10/21/2024 11:10 AM EDT us Gemma Osuna NP LAB BLOOD ORDERABLES Final Resul t [facility] [address] [place] [phone] from Last 3 Months or Most Recently Relevant to Health Maintenance Additional Health Concerns Active Problems Noted Date [...] 04/14/2025 Patient has chronic kidney disease 04/14/2025 Insurance [facility] C3 Care Teams Top Coater Relationship Specialty Start Date End Date Gemma Osuna NP [address] [place] [address] PCP - General Family Medicine 10/09/24 Bryan Davis, RN [address] [place] [address] [place] [address] Registered Nurse Family Medicine 04/12/25 Marleen Whitlock 04/12/25
--- OUTSIDE RECORDS SUMMARY | 2025-04-16 11:41 | XMS_ITS | Encounter Summary ---
Author Organization [employer] Address [address] [facility] 7t [place] [address] Care Team Providers Care Technical Operator Name Role Phone Gemma Osuna NP Primary Care Provider [phone] Bryan Davis RN Unavailable [phone] Marleen Whitlock Unavailable Reason for Visit * Reason Comments Care Management C3CM- chart review Encounter Details Date Type Department Care Team ([facility] Contact Info) Description 04/12/2025 Patient Outreach [facility] [address] [place] [address] Gemma Osuna NP [address] [place] [address] Care Management (C3CM- chart review) Social History Tobacco Use Types Packs/Day Years [...] with others, in a hotel, in a halfway, living outside on the street, on a [...] as of this encounter Progress Notes * Bryan Davis RN - 04/12/2025 8:00 AM EST HASMUKH Davis RN, performed chart review, in anticipation of initial assessment with patient, as patient has stratified for C3 Adult Complex Care through the ADT feed. History significant for Patient Active Problem List Diagnosis Date Noted Tear of medial meniscus of knee, current 03/23/2025 Diarrhea of infectious origin 03/22/2025 Psoriasis (a type of skin inflammation) 03/22/2025 Muscle spasm of left shoulder 01/15/2025 Exercise [...] 10/09/2024 Diabetes mellitus, type II, insulin dependent (HCC) 10/09/2024 Specialists include [facility] Derm, Rheumatology, Behavioral Health, [facility] GI, [facility] Ortho, PT, Sleep Medicine, Optometry, and Podiatry. ED visits within the last 12 months include [facility] ED 04/09/25. Last appointment in PCP office on 03/22/25. Next appointment scheduled for 04/14/25 at 10:45am for follow up with PCP. documented in this encounter Plan of Treatment Upcoming Encounters Date Type Department Care Team (Late st Contact Info) Description 06/09/2025 10:30 AM EST Office Visit [facility] [address] [place] [address] Gemma Osuna NP [address] [place] [address] documented as of this encounter Goals Goal [...] as of this encounter Care Teams Technical Operator Relationship Specialty Start Date End Date Gemma Osuna NP [address] [place] [address] PCP - General Family Medicine 5/16/25 Bryan Davis, DANIEL [address] [place] [address] Registered Nurse Family Medicine 04/12/25 Marleen Whitlock 04/12/25 documented as of this encounter
--- OUTSIDE RECORDS SUMMARY | 2025-04-16 11:41 | XMS_ITS | Encounter Summary ---
Author Organization [employer] Address [address] [facility] 7t [place] [address] Care Team Providers Care Security Manager Name Role Phone Gemma Osuna NP Primary Care Provider [phone] Bryan Davis RN Unavailable [phone] Marleen Whitlock Unavailable Encounter Details Date Type Department Care Team (Latest Contact Info) Description 04/14/2025 Travel Social History Tobacco Use Types Packs/Day [...] the past 12 months, has t he [employer], oil or water [employer] threatened to shut off services in your [...] Description 06/09/2025 10:30 AM EST Office Visit [facility] [address] [place] [address] Gemma Osuna NP [address] [place] [address] documented as of this encounter Goals Goal [...] documented as of this encounter Care Teams Security Manager Relationship Specialty Start Date End Date Gemma Osuna NP [address] [place] [address] PCP - General Family Medicine 10/09/24 Bryan Davis RN [address] [place] [address] Registered Nurse Family Medicine 04/12/25 Marleen Whitlock 04/12/25 documented as of this encounter
--- OUTSIDE RECORDS SUMMARY | 2025-04-16 11:41 | XMS_ITS | Encounter Summary ---
Author Organization [employer] Address [address] [facility] 7t [place] [address] Care Team Providers Care Artist Mannequin Coloring Name Role Phone Gemma Osuna NP Primary Care Provider [phone] Bryan Davis RN Unavailable [phone] Marleen Whitlock Unavailable Reason for Visit * Reason Onset Date Comments CHARTPREP 04/13/2025 Encounter Details Date Type Department Care Team (Late st Contact Info) Description 04/13/2025 Telephone [facility] [address] [place] [address] Gemma Osuna NP [address] [place] [address] CHARTPREP Social History Tobacco Use Types Packs/Day Years [...] encounter Miscellaneous Notes * Telephone Encounter - Cammy Gonzalez MA - 04/13/2025 12:40 PM EST Chart Prep Labs: done Images: not done Referrals: appointment pending Vaccines due: Covid, Flu, PCV20, Tdap, Hep B, RSV, and Zoster Screenings: colonoscopy and mammogram,diabetes urine protein screening,Hep C screening,HIV screening Overdue care gaps: Glucose documented in this encounter Plan of Treatment Upcoming Encounters Date Type Department Care Team ([facility] st Contact Info) Description 06/09/2025 10:30 AM EST Office Visit [facility] [address] [place] [address] Gemma Osuna NP [address] [place] [address] documented as of this encounter Goals Goal [...] chronic kidney disease No Cammy Gonzalez [place] documented as of this encounter Visit Diagnoses [...] 04/13/2025 Patient has chronic kidney disease 04/13/2025 Assessment Noted Time PHQ-9 Depression Total Score: 14 11/13/ 025 12:03 PM EDT documented as of this encounter Care Teams Artist Mannequin Coloring Relationship Specialty Start Date End Date Gemma Osuna NP [address] [place] [address] PCP - General Family Medicine 10/09/24 Bryan Davis RN [address] [place] [address] Registered Nurse Family Medicine 04/12/25 Marleen Whitlock 04/12/25 documented as of this encounter
--- OUTSIDE RECORDS SUMMARY | 2025-04-16 11:41 | XMS_ITS | Encounter Summary ---
Author Organization [employer] Address [address] [facility] 7t [place] [address] Care Team Providers Care Coordinator Of Placement Name Role Phone Gemma Osuna NP Primary Care Provider [phone] Bryan Davis RN Unavailable [phone] Marleen Whitlock Unavailable Reason for Visit * Reason Comments Care Coordination CHW chart review Encounter Details Date Type Department Care Team (Latest Contact Info) Description 04/12/2025 Patient Outreach [facility] [address] [place] [address] Gemma Osuna NP [address] [place] [address] Care Coordination (CHW chart review) Social History Tobacco Use Types [...] with others, in a hotel, in a skilled nursing, living outside on the street, on a [...] the past 12 months, has t he [employer], gas, oil or water company threatened to [...] as of this encounter Progress Notes * Marleen Whitlock - 04/12/2025 9:08 AM EST CM/C3 BENNY Whitlock Chart Review BENNY Whitlock reviewed chart review completed by HASMUKH Davis RN BENNY Whitlock reviewed chart review completed by HASMUKH Davis RN, performed chart review, in [...] II, insulin dependent (HCC) 10/09/2024 Specialists include [facility] Derm, Rheumatology, Behavioral Health, [facility] GI, [facility] Ortho, PT, Sleep Medicine, Optometry, and Podiatry. ED visits within the last [address] [facility] ED 04/09/25. Last appointment in PCP office on 03/22/25. Next appointment scheduled for 04/14/25 at 10:45am for follow up with PCP. documented in this encounter Plan of Treatment Upcoming Encounters Date Type Department Care Team (Late st Contact Info) Description 06/09/2025 10:30 AM EST Office Visit [facility] [address] [place] [address] Gemma Osuna NP [address] [place] [address] documented as of this encounter Goals Goal [...] documented as of this encounter Care Teams Coordinator Of Placement Relationship Specialty Start Date End Date Gemma Osuna NP [address] [place] [address] PCP - General Family Medicine 10/09/24 Bryan Davis RN [address] [place] [address] Registered Nurse Family Medicine 04/12/25 Marleen Whitlock 04/12/25 documented as of this encounter
--- OUTSIDE RECORDS SUMMARY | 2025-04-16 11:41 | XMS_ITS | Encounter Summary ---
Author Organization [employer] Address [address] [facility] 7t [place] [address] Care Team Providers Care Pm Technician Name Role Phone Gemma Osuna NP Primary Care Provider [phone] Bryan Davis RN Unavailable [phone] Marleen Whitlock Unavailable Reason for Visit * Reason Comments Care Coordination CM/CHW outreach Encounter Details Date Type Department Care Team (Latest Contact Info) Description 04/13/2025 Patient Outreach [facility] MEDICINE [address] [place] [address] Gemma Osuna NP [address] [place] [address] Care Coordination (CM/CHW outreach) Social History Tobacco Use Types Packs/Day Years [...] encounter Progress Notes * Marleen Whitlock - 04/13/2025 9:44 AM EST CHW Marleen Whitlock, placed outbound call to patient in regards to help with SDOH services and to introduce Adult Complex Care Program CHW LVM introducing herself from [facility] CM Department with CHW's name, department and direct contact number requesting call back. Will re-attempt to contact within 5 days. and address not confirmed. documented in this encounter Plan of Treatment Upcoming Encounters Date Type Department Care Team (Late st Contact Info) Description 06/09/2025 10:30 AM EST Office Visit [facility] MEDICINE [address] [place] [address] Gemma Osuna NP [address] [place] [address] documented as of this encounter Goals Goal [...] documented as of this encounter Care Teams Pm Technician Relationship Specialty Start Date End Date Gemma Osuna NP [address] [place] [address] PCP - General Family Medicine 10/09/24 Bryan Davis, DANIEL [address] [place] [address] Registered Nurse Family Medicine 04/12/25 Marleen Whitlock 04/12/25 documented as of this encounter
== END 2025-04-16 12:11 | disposition home or self-care (01) ==
LOC: HO.HGI 10:51
PROVIDERS: PCP Nurse Practitioner Family; Visit Provider Nurse Practitioner
DX: K58.2 Mixed irritable bowel syndrome (principal); R10.32 Left lower quadrant pain; R19.7 Diarrhea, unspecified
CPT/HCPCS: 99214

== ENCOUNTER 2025-04-16 10:50 | Outpatient (REF) | payer MEDICAID, SELFPAY ==
[2025-04-20 20:23] LABS: Transglutaminase Ab IgG <1.0 U/mL
[2025-04-23 17:38] LABS: Class Almond 0; Class Brazil Nut 0; Class Cashew 0; Class Codfish 0; Class Cow's Milk 0/1; Class Egg white 1; Class Hazelnut 0; Class Macadamia Nut 0; Class Peanut 0; Class Salmon 0; Class Scallop 0; Class Sesame Seed 0; Class Shrimp 0; Class Soybean 0; Class Tuna 0; Class Walnut 0; Class Wheat 0; F345-IgE Macadmia Nut <0.10 kU/L
== END 2025-04-16 10:51 | disposition home or self-care (01) ==
LOC: HO.LAB 10:50
PROVIDERS: PCP Nurse Practitioner Family; Visit Provider Nurse Practitioner
DX: Z01.818 Encounter for other preprocedural examination (principal); R10.32 Left lower quadrant pain; K58.2 Mixed irritable bowel syndrome; J45.909 Unspecified asthma, uncomplicated; E66.9 Obesity, unspecified; Z83.719 Family history of colon polyps, unspecified; Z68.35 Body mass index [BMI] 35.0-35.9, adult
CPT/HCPCS: 36415; 83036; 86003; 86140; 86364; 99212

== ENCOUNTER 2025-04-20 12:34 | Outpatient (REF) | payer MEDICAID, SELFPAY ==
[2025-04-20 14:29] LABS: E. coli EAEC Not Detected (Not Detect.); E. coli EPEC Not Detected (Not Detect.); E. coli ETEC Not Detected (Not Detect.); E. coli STEC Not Detected (Not Detect.); Shigella sp./EIEC Not Detected (Not Detect.)
[2025-04-29 02:34] LABS: Calprotectin, Fecal 258 mcg/g
== END 2025-04-20 12:35 | disposition home or self-care (01) ==
LOC: HO.LNP 12:34
PROVIDERS: Nurse Practitioner; PCP Nurse Practitioner Family; Visit Provider Orthopaedic Surgery
DX: M17.12 Unilateral primary osteoarthritis, left knee (principal); R10.32 Left lower quadrant pain; R19.7 Diarrhea, unspecified
CPT/HCPCS: 20610; 82656; 83993; 87507; 99212; J1010; J2003

== ENCOUNTER 2025-04-20 12:34 | Outpatient (AMB) | payer MEDICAID, SELFPAY ==
--- NOTE | 2025-04-20 12:54 | A.OFFVIS_ITS ---
Vital Signs 04/20/25 12:57 Height 5 ft 2 in Weight 194 lb BMI 35.5 Intake Visit Reasons: OV-MRI Knee LT-review 03/04/25 Intake Note: Katie is a 54 year old female who presents with complaints of left knee pain. She describes her pain as sharp in nature. She has tried Tylenol and anti- inflammatory medicines which gave her minimal relief. She wishes to hold off on surgery if at all possible. Blueprinting And Photocopy Supervisor Required: Yes Blueprinting And Photocopy Supervisor Language: Health Care Facility Administrator Services: Blueprinting And Photocopy Supervisor Present Blueprinting And Photocopy Supervisor Name: [id number] Shaye Allergies seafood Allergy (Severe, Verified 04/20/25 12:58) Hives Penicillins Allergy (Mild, Verified 04/20/25 12:58) Unknown Medication List - Last Reconciled 04/21/25 by Joe Saleh MD albuterol sulfate 90 mcg/actuation 2 inhalations inhalation Q4-6H PRN alcohol swabs (Alcohol Prep Pads) pad topical TID alendronate 70 mg PO QWEEK amitriptyline 50 mg PO BEDTIME aspirin 1 tab PO DAILY bisacodyl (Dulcolax (bisacodyl)) 10 mg (2 x 5 mg) PO BEDTIME 2 days blood sugar diagnostic (FreeStyle Lite Strips) As directed blood-glucose meter (FreeStyle [place] Lite kit) As directed doxycycline hyclate 100 mg PO BID duloxetine 30 mg PO TID empagliflozin-metformin 10-1,000 mg ER (Synjardy XR) 1 tab PO QAM famotidine 20 mg PO DAILY gabapentin 600 mg PO BID insulin glargine (Lantus U-100 Insulin) 20 units subcut BEDTIME lancets (TRUEplus Lancets) As directed meloxicam 15 mg PO DAILY PRN mometasone 100 mcg/actuation (Asmanex HFA) 1 puff inhalation BID montelukast 10 mg PO DAILY ofloxacin 0.3% 10 drps otic (ears) DAILY 7 days olmesartan 5 mg PO DAILY peg 3350-electrolytes 236-22.74-6.74 -5.86 gram (Golytely) 240 mL PO Q10M 1 day pioglitazone 15 mg PO DAILY prednisone 20 mg PO DAILY 5 days [facility] Surgical History Sterilization History of tonsillectomy and adenoidectomy H/O section Family History Father Prostate cancer Leukemia Mother Diabetes Cirrhosis Social History (Updated 04/20/25 @ 12:59 by PARADISE Boyle) Alcohol intake: never Patient Tobacco Use Status: Never used Tobacco Current occupational status: unemployed Physical Exam Vital Signs: BMI result Body Mass Index 35.5 Const Other: Well-nourished well-developed very friendly female awake alert and oriented x3 in no acute distress Extrem Other: Left knee examination shows a minimal effusion, palpable crepitus with range of motion, tenderness along her medial joint line, positive Keshawn's test, no instability Office Procedures AMB Joint Injection/Aspiration Joint Injection/Aspiration Primary Site: Left Knee Prep: site was prepped using aseptic technique Injected: 40 mg of, DepoMedrol, with 3 mL of and 1% plain Lidocaine Procedure: The patient tolerated the procedure well Coding 61294 - Large joint Procedure code (CPT) selection complete Results Reviewed Results Reviewed: MRI of the patient's left knee shows moderate to severe degenerative changes with edema in the medial tibial plateau, tearing of the medial meniscus Assessment & Plan Assessment & Plan (1) Osteoarthritis of left knee: Code(s): M17.12 - Unilateral primary osteoarthritis, left knee Category: Medical Plan Katie presents with left knee pain due to osteoarthritis as well as a tear of the medial meniscus. I had a lengthy discussion with the patient regarding the treatment options. She wishes to hold off on surgery if at all possible. I agree with this plan. The risks and benefits of a left knee cortisone injection were discussed at length with the patient. The patient wished to proceed. She tolerated the injection well. She will continue with her activity modifications. She will contact me prior to her follow-up appointment in 3 months should any questions or concerns arise. Feel free to call me at any time should questions regarding her orthopedic management arise. I spent 20 minutes in reviewing the patient's records and imaging studies, seeing the patient and documenting in the medical record. Orders: Orders AMB Joint Injection/Aspiration 04/20/25 M17.12 - Unilateral primary osteoarthritis, left knee Coding Level of Care Code Est Pt Level 3 (37862) Complex visit Add On G2211 Diagnoses Osteoarthritis of left knee M17.12 CPT Codes Coding - 48769 Large joint: 19590 - Large joint ([id number])
[2025-04-20 12:57] VITALS: BMI 35.5
--- OUTSIDE RECORDS SUMMARY | 2025-04-20 16:08 | XMS_ITS | Encounter Summary ---
Author Organization [employer] Address [address] [facility] 7t [place] [address] Care Team Providers Care Cleaning Validation Consultant Name Role Phone Gemma Osuna NP Primary Care Provider [phone] Bryan Davis RN Unavailable [phone] Marleen Whitlock Unavailable Reason for Visit [...] (Late st Contact Info) Description 12/22/2024 Refill [facility] MEDICINE [address] [place], [place] [phone] Gemma Osuna NP [address] [place], [place] [phone] Social History Tobacco Use Types Packs/Day Years [...] Description 06/09/2025 10:30 AM EST Office Visit [facility] MEDICINE [address] [place] [address] Gemma Osuna NP [address] [place] [address] documented as of this encounter Visit Diagnoses Not on filedocumented in this encounter Additional Health Concerns Assessment Noted Time PHQ-9 Depression Total Score: 14 025 12:03 PM EDT documented as of this encounter Care Teams Cleaning Validation Consultant Relationship Specialty Start Date End Date Gemma Osuna NP [address] [place] [address] PCP - General Family Medicine 10/09/24 Bryan Davis, DANIEL [address] [place] [address] Registered Nurse Family Medicine 04/12/25 Marleen Whitlock 04/12/25 documented as of this encounter
--- OUTSIDE RECORDS SUMMARY | 2025-04-20 16:08 | XMS_ITS | Encounter Summary ---
Author Organization [employer] Address [address] [facility] 7t [place] [address] Care Team Providers Care E Commerce Architect Name Role Phone Gemma Osuna NP Primary Care Provider [phone] Bryan Davis RN Unavailable [phone] Marleen Whitlock Unavailable Reason for Visit * Reason Onset Date Comments Med Refill 12/11/2024 Encounter Details Date Type Department Care Team (Late st Contact Info) Description 12/11/2024 Refill [facility] MED[facility] [address] [place] [address] Gemma Osuna NP [address] [place], [place] [phone] Social History Tobacco Use Types Packs/Day Years [...] 10:30 AM EST Office Visit [facility] MED[facility]INE [address] [place] [address] Gemma Osuna NP [address] [place] [address] documented as of this encounter Visit Diagnoses Not on filedocumented in this encounter Additional Health Concerns Assessment Noted Time PHQ-9 Depression Total Score: 14 11/13/ 025 12:03 PM EDT documented as of this encounter Care Teams E Commerce Architect Relationship Specialty Start Date End Date Gemma Osuna NP [address] [place] [address] PCP - General Family Medicine 10/09/24 Bryan Davis RN [address] [place] [address] Registered Nurse Family Medicine 04/12/25 Marleen Whitlock 04/12/25 documented as of this encounter
--- OUTSIDE RECORDS SUMMARY | 2025-04-20 16:08 | XMS_ITS ---
Author Organization [employer] Address [address] [place] [address] 7t [place] [address] Care Team Providers Care Material Stockkeeper Yard Name Role Phone Gemma Osuna NP Primary Care Provider [phone] Bryan Davis RN Unavailable [phone] Marleen Whitlock Unavailable CHW Complex Status:Outreach In Progress (Enrolling) Start date:04/12/2025 Enrollment reason:ADT Feed Overview ED- Pt went [facility] on 04[place]. Please outreach for enrollment. Case Team Name Relationship Phone Marleen Whitlock(Responsible Staff) [phone] Continued Care and Services Coordination
--- OUTSIDE RECORDS SUMMARY | 2025-04-20 16:08 | XMS_ITS ---
Author Organization [employer] Address [address] [facility] 7t [place] [address] Care Team Providers Care Log Data Technician Name Role Phone Gemma Osuna NP Primary Care Provider [phone] Bryan Davis RN Unavailable [phone] Marleen Whitlock Unavailable CM Complex Status:Outreach In Progress (Enrolling) Start date:04/12/2025 Enrollment reason:ADT Feed Overview ED- Pt went [facility] on 04[place]10[facility]25. Case Team Name Relationship Phone Bryan Davis RN(Responsible Staff) Registered Nurse [phone] Continued Care and Services Coordination
--- OUTSIDE RECORDS SUMMARY | 2025-04-20 16:08 | XMS_ITS | Encounter Summary ---
Author Organization [employer] Address [address] [facility] 7t [place] [address] Care Team Providers Care Faith Doctor Name Role Phone Gemma Osuna NP Primary Care Provider [phone] Bryan Davis RN Unavailable [phone] Marleen Whitlock Unavailable Encounter Details Date Type Department Care Team ([facility] st Contact Info) Description 03/08/2025 Telephone [facility] MEDICINE [address] [place] [address] Gemma Osuna NP [address] [place] [address] Social History Tobacco Use Types Packs/Day Years [...] referral. Has she heard from radiology at [facility]? Thank you documented in this encounter Plan of Treatment Upcoming Encounters Date Type Department Care Team (Late st Contact Info) Description 06/09/2025 10:30 AM EST Office Visit [facility] MEDICINE [address] [place] [address] Gemma Osuna NP [address] [place] [address] documented as of this encounter Visit Diagnoses Diagnosis Thyroid nodule- Primary Nontoxic uninodular goiter documented in this encounter Additional Health Concerns Assessment Noted Time PHQ-9 Depression Total Score: 14 11/13/ 025 12:03 PM EDT documented as of this encounter Care Teams Faith Doctor Relationship Specialty Start Date End Date Gemma Osuna NP [address] [place] [address] PCP - General Family Medicine 10/09/24 Bryan Davis RN [address] [place] [address] Registered Nurse Family Medicine 04/12/25 Marleen Whitlock 04/12/25 documented as of this encounter
--- OUTSIDE RECORDS SUMMARY | 2025-04-20 16:08 | XMS_ITS | Encounter Summary ---
Author Organization [employer] [facility] Address [address] [facility] 7t [place] [address] Care Team Providers Care Developing Machine Operator Name Role Phone Gemma Osuna NP Primary Care Provider [phone] Bryan Davis RN Unavailable [phone] Marleen Whitlock Unavailable Reason for Visit * Reason Onset Date Comments Med Refill 11/03/2024 Encounter Details Date Type Department Care Team (Late st Contact Info) Description 11/03/2024 Refill [facility] [address] [place] [phone] Gemma Osuna NP [address] [place], [place] [phone] Social History Tobacco Use Types Packs/Day Years [...] Description 06/09/2025 10:30 AM EST Office Visit [facility] MEDICINE [address] [place], [place] [phone] Gemma Osuna NP [address] [place], [place] [phone] documented as of this encounter Visit Diagnoses Not on filedocumented in this encounter Care Teams Developing Machine Operator Relationship Specialty Start Date End Date Gemma Osuna NP [address] [place] [address] PCP - General Family Medicine 10/09/24 Bryan Davis, DANIEL [address] [place] [address] Registered Nurse Family Medicine 04/12/25 Marleen Whitlock 04/12/25 documented as of this encounter
--- OUTSIDE RECORDS SUMMARY | 2025-04-20 16:08 | XMS_ITS | Encounter Summary ---
Author Organization [employer] Address [address] [facility] 7t [place] [address] Care Team Providers Care Med Surg Nurse Name Role Phone Gemma Osuna NP Primary Care Provider Bryan Davis RN Unavailable [phone] Marleen Whitlock Unavailable Encounter Details Date Type Department Care Team ([facility] st Contact Info) Description 04/16/2025 Orders Only GENERIC EXTERNAL DATA DEPARTMENT Provider, Generic External Data Social History Tobacco Use Types Packs/Day Years [...] the past 12 months, has t he [employer], gas, oil or water [employer] threatened to shut off services in your [...] 10:30 AM EST Office Visit [facility] MEDICINE [address] [place] [address] Gemma Osuna NP [address] [place] [address] documented as of this encounter Goals Goal [...] Plan Patient has chronic kidney disease No Graef, Gemma, DIFFUSER OPERATOR documented as of this encounter Procedures Procedure Name Priority Date/Time Associated Diagnosis Comments C-REACTIVE PROTEIN Routine 04/16/2025 12 :21 PM EST HEMOGLOBIN A1C Routine 04/16/2025 12:21 PM EST documented in this encounter Results * C-reactive Protein (04/16/2025 12:21 PM EST) C Reactive Protein 0.18 < or = 0.50 mg/dL [facility] 04/16/2025 12:2 1 PM EST 04/16/2025 12:21 PM EST us Generic External Data Provider LAB BLOOD ORDERAB LES Final Result Performing Organization Address [facility]/ZIP Co de Phone Number [facility] [address] [place] [phone] * (ABNORMAL) Hemoglobin A1c (04/16/2025 12:21 PM EST) Hemoglobin A1c 7.5(H) <6.0 % [facility] Comment:Hemoglobin A1C Refer ence Range Adults: 4.8 - 6.0 % Non diabetic: < 6.0 % Goal: < 7.0 %Additional Action Suggested: > 8.0 %Note: Hemoglobin A1c results are invalid for patients with abnormal amounts of HbF. Blood transfusions may impact the HbA1c concentration in the patient sample. Estimated Average Glucose 169 mg/dL [facility] Comment:eAG = Estimated ave rage glucose which is %A1C expressed asaverage glucose, using the formula of the A2U-OnipnglJtyzfys Glucose study (ADAG), Diabetes Care, Vol.31,#8,Dec. 2007 04/16/2025 12:2 1 PM EST 04/16/2025 12:21 PM EST us Generic External Data Provider LAB BLOOD ORDERAB LES Final Result Performing Organization Address [facility]/ZIP Co de Phone Number [facility] [address] [place] [phone] documented in this encounter Visit Diagnoses Not on filedocumented [...] documented as of this encounter Care Teams Med Surg Nurse Relationship Specialty Start Date End Date Gemma Osuna NP [address] [place] [address] PCP - General Family Medicine 10/09/24 Bryan Davis RN [address] [place] [address] Registered Nurse Family Medicine 04/12/25 Marleen Whitlock 04/12/25 documented as of this encounter
--- OUTSIDE RECORDS SUMMARY | 2025-04-20 16:08 | XMS_ITS | Encounter Summary ---
Author Organization [employer] Address [address] [facility] 7t [place] [address] Care Team Providers Care International Relations Professor Name Role Phone Gemma Osuna NP Primary Care Provider [phone] Bryan Davis RN Unavailable [phone] Marleen Whitlock Unavailable Reason for Visit * Reason Onset Date Comments Med Refill 12/07/2024 Encounter Details Date Type Department Care Team (Late st Contact Info) Description 12/07/2024 Refill [facility] MEDICINE [address] [place] [address] Gemma Osuna NP [address] [place], [place] [phone] Social History Tobacco Use Types Packs/Day Years [...] 10:30 AM EST Office Visit [facility] MEDICINE [address] [place] [address] Gemma Osuna NP [address] [place] [address] documented as of this encounter Visit Diagnoses Not on filedocumented in this encounter Additional Health Concerns Assessment Noted Time PHQ-9 Depression Total Score: 14 11/13/ 025 12:03 PM EDT documented as of this encounter Care Teams International Relations Professor Relationship Specialty Start Date End Date Gemma Osuna NP [address] [place] [address] PCP - General Family Medicine 10/09/24 Bryan Davis RN [address] [place] [address] Registered Nurse Family Medicine 04/12/25 Marleen Whitlock 04/12/25 documented as of this encounter
--- OUTSIDE RECORDS SUMMARY | 2025-04-20 16:08 | XMS_ITS | Encounter Summary ---
Author Organization [employer] Address [address] [facility] 7t [place] [address] Care Team Providers Care Control Valve Mechanic Name Role Phone Gemma Osuna NP Primary Care Provider [phone] Bryan Davis RN Unavailable [phone] Marleen Whitlock Unavailable Reason for Visit * Reason Onset Date Comments Med Refill 12/07/2024 Encounter Details Date Type Department Care Team (Late st Contact Info) Description 12/07/2024 Refill [facility] [address] [place] [phone] Gemma Osuna NP [address] [place], [place] [phone] Social History Tobacco Use Types Packs/Day Years [...] Description 06/09/2025 10:30 AM EST Office Visit [facility] MEDICINE [address] [place] [address] Gemma Osuna NP [address] [place] [address] documented as of this encounter Visit Diagnoses Not on filedocumented in this encounter Additional Health Concerns Assessment Noted Time PHQ-9 Depression Total Score: 14 11/13/ 025 12:03 PM EDT documented as of this encounter Care Teams Control Valve Mechanic Relationship Specialty Start Date End Date Gemma Osuna NP [address] [place] [address] PCP - General Family Medicine 10/09/24 Bryan Davis RN [address] [place] [address] Registered Nurse Family Medicine 04/12/25 Marleen Whitlock 04/12/25 documented as of this encounter
--- OUTSIDE RECORDS SUMMARY | 2025-04-20 16:08 | XMS_ITS | Clinical Summary ---
Author Organization [employer] Address [address] [place] [address] [address] [place] [address] Care Team Providers Care Wire Dropper Name Role Phone Gemma Osuna NP Primary Care Provider [phone] Bryan Davis RN Unavailable [phone] Marleen Whitlock Unavailable Allergies Active Allergy Reactions [...] tablet 11 5 3:05 PM EST 10/10/19 026 Active albuterol 108 (90 Base) MCG/ACT inhaler Inhale 2 puffs every 6 (six) hours if needed for wheezing. 18 g 11 10/10/19 25 026 Active FREESTYLE LITE test strip Use to test blood sugar 3 times daily 100 each 12 10/10/19 25 026 Active Lancets [facility] Use to test blood sugar 3 times daily 100 each 10/10/19 Active Alcohol Swabs 70 % pads Use to test blood sugar 3 times daily 100 each 10/10/19 25 Active Blood Glucose Monitoring Suppl (FreeStyle Finley Lite) w/Device kit Use to test blood sugar 3 times daily 1 kit 2 10/10/19 Active Continuous Glucose Media Technician (FreeStyle Sweetie 3 Bush) device 1 each Once per day. Use [...] Glucose Sensor (FreeStyle Sweetie 3 Plus Sensor) [facility] 1 each every 15 days. Apply 1 [...] 90 tablet 02/17/20 25 Active sodium chloride ([place] Nasal [place]) 0.65 % nasal sprayIndicatio ns:COVID-19 INSTILL 1 [...] 14 tablet 5 3:05 PM EST 04/14/20 025 Active benzonatate (Tessalon) 200 MG capsule Take 1 capsule (200 mg) by mouth if needed in the morning, at noon, and at bedtime for cough for up to 7 days. Do not crush or chew. 20 capsule 3:05 PM EST 04/14/20 025 Active ipratropium-al buterol (Duo-Neb) 0.5-2.5 mg/3 mL nebulizer solution Take 3 mL by nebulization every 6 (six) hours. 180 mL 11 5 3:05 PM EST 04/14/20 026 Active montelukast (Singulair) 10 MG tablet Take 1 tablet (10 mg) by mouth Once per day. 30 tablet 2 01/16/20 025 Discontinued DULoxetine (Cymbalta) [address] capsule TAKE 1 CAPSULE BY MOUTH THREE TIMES DAILY DO NOT BREAK, CRUSH, DISSOLVE OR CHEW 90 capsule 1 02/04/20 025 Discontinued Active Problems Problem Noted Date [...] (03/22/2025 4:44 PM EDT): Orders: Referral to [facility] Derm Skin Adult; Future Referral to Rheumatology; [...] cancer screening 11/13/2024 Overview (01/15/2025): Had in NH (during pandemic) Assessment & Plan (01/15/2025 3:51 [...] organization. Date Type Department Care Team Description 04/20/2025 Orders Only GENERIC EXTERNAL DATA DEPARTMENT Provider, Generic External Data 04/20/2025 Patient Outreach [address] [address] Gemma Osuna NP Care Coordination (CM/CHW outreach) 04/16/2025 Orders Only GENERIC EXTERNAL DATA DEPARTMENT Provider, Generic External Data 04/14/2025 10:45 AM EST Office Visit [address] [address] Gemma Osuna NP Acute exacerbation of mild persistent extrinsic asthma (Primary Dx); Type 2 diabetes mellitus with other diabetic arthropathy, with long-term current use of insulin (HCC); Sleep apnea, unspecified type 04/14/2025 Refill [facility] [address] [place] [phone] Luke Styles MD 04/14/2025 Travel 04/13/[address] [address] Gemma Osuna NP CHARTPREP 04/13/2025 Patient Outreach [address] [address] Gemma Osuna NP Care Coordination (CM/CHW outreach) 04/12/2025 Patient Outreach [address] [address] Gemma Osuna NP Care Coordination (CHW chart review) 04/12/2025 Patient Outreach [address] [address] Gemma Osuna NP Care Management (CM- chart review) 04/12/2025 Patient Outreach [address] [address] Gemma Osuna NP 04/10/2025 Orders Only GENERIC EXTERNAL DATA DEPARTMENT Provider, Generic External Data 04/09/2025 Orders Only [facility] [address] [place] [phone] Gemma Osuna NP Rash, skin (Primary Dx) 04/08/2025 Refill [facility] MEDICINE [address] [place] [phone] Gemma Osuna NP 04/07/2025 Travel 04/01/2025 Refill [facility] [address] [place] [phone] Luke Styles MD 03/24/2025 Telephone [facility] [address] [place] [address] Gemma Osuna NP 03/22/2025 3:45 PM EDT Office Visit [address] [address] Gemma Osuna NP Type 2 diabetes mellitus with other diabetic arthropathy, with long-term current use of insulin (HCC) (Primary Dx); Diarrhea of infectious origin; Psoriasis (a type of skin inflammation); Left lower quadrant abdominal pain; Thyroid nodule; Pap smear for cervical cancer screening; PTSD (post-traumatic stress disorder) 03/22/2025 Travel 03/19/[address] [address] Carolee Lopez PR chart prep 03/15/2025 Travel 03/12/2025 1:40 PM EDT Office Visit [facility] [address] [place] [phone] Sariah Thompson MD Acute bronchitis, unspecified organism (Primary Dx) 03/12/2025 Travel 03/10/2025 Refill [facility] [address] [place] [phone] Gemma Osuna NP 03/08/[address] [address] Gemma Osuna NP 03/05/2025 Results Follow-Up [address] [address] Luke Styles MD RPR (Monitor) with Reflex to Titer 03/04/2025 Orders Only [facility] External Provider, [facility] 03/03/2025 3:00 PM EDT Office Visit [facility] [address] [place] [address] Luke Styles MD Rash (Primary Dx); Elevated blood pressure reading in office without diagnosis of hypertension 03/03/2025 2:00 PM EDT Office Visit [facility] OPTOMETRY [address] [place] [address] Fabby Hoffman, JAKE Type 2 diabetes mellitus without ophthalmic manifestations (HCC) (Primary Dx); Presbyopia 03/03/2025 Travel 02/24/2025 Travel 02/18/2025 Refill [facility] MED[facility]INE [address] [place] [phone] Gemma Osuna NP 02/17/2025 Refill [facility] [address] [place] [phone] Gemma Osuna NP 02/16/2025 Results Follow-Up [facility] [address] [place] [phone] Gemma Osuna NP US Thyroid 02/15/2025 Refill [facility] [address] [place] [phone] Karina Kumar NP COVID-19 02/15/2025 Refill [facility] [address] [place] [phone] Gemma Osuna NP COVID-19 02/09/2025 Refill [facility] [address] [place] [address] Gemma Osuna NP 02/03/2025 Refill [facility] [address] [place] [address] Gemma Osuna NP 01/22/2025 Refill [facility] [address] [place] [address] Gemma Osuna NP 01/18/2025 Refill [facility] [address] [place] [phone] Gemma Osuna NP from Last 3 Months [...] Description 06/09/2025 10:30 AM EST Office Visit [facility] MEDICINE [address] [place], [place] [phone] Gemma Osuna NP [address] [place] [address] Health Maintenance Due Date Last Done Comments [...] Monitoring 05/15/2025 11/13/2024, 025 Diabetes: Hemoglobin A1C 07/17/2025 025, 03/22/2025, 10/21/2024, Additional history exists Diabetes: Foot Exam 10/16/2025 10/16/2024 Lipid Panel 10/21/2025 10/21/2024 Alcohol/Substance Use Screening 11/13/2025 11/13/2024 Disability Screening 11/13/2025 11/13/2024 SDOH Screening 01/15/2026 01/15/2025 Tobacco Screening 04/14/2026 04/14/2025 Eye Exam 03/03/2027 03/03/2025, 10/0 12/2024, 03/03/2025, Additional history exists Pap Smear 03/22/2028 [...] Help patients manage their type 2 diabetes Gemma Blandon NP Weekly blood pressure task Care Plan Weekly blood pressure task Gemma Blandon NP Help patients manage their type 2 diabetes Care Plan Help patients manage their type 2 diabetes Gemma Blandon NP Patient has chronic kidney disease Care Plan Patient has chronic kidney disease Gemma Blandon NP Weekly blood pressure task Care Plan [...] Plan Weekly blood pressure task No Marleen Whitlcok Weekly blood pressure task Care Plan Weekly blood pressure task No Marleen Whitlock Patient has chronic kidney disease Care Plan Patient has chronic kidney disease No Marleen Whitlock Patient has chronic kidney disease Care Plan Patient has chronic kidney disease No Marleen Whitlock Procedures Procedure Name Priority Date/Time Associated Diagnosis Comments GASTROINTESTINAL PANEL Routine 11:00 AM EST C-REACTIVE PROTEIN Routine 04/16/2025 12 :21 PM EST HEMOGLOBIN A1C Routine 04/16/2025 12:21 PM EST POCT GLUCOSE Routine 04/14/2025 10:53 AM EST Type 2 diabetes mellitus with other diabetic arthropathy, with long-term current use of insulin ([facility]) XR CHEST 2 VIEWS Routine 04/10/2025 12:3 0 PM EST COVID-19 ID NOW (HERRERA) Routine 025 10:37 AM EST BASIC METABOLIC PANEL Routine [...] arthropathy, with long-term current use of insulin ([facility]) POCT GLUCOSE Routine 03/22/2025 3:59 PM EDT Type 2 diabetes mellitus with other diabetic arthropathy, with long-term current use of insulin ([facility]) POCT RAPID COVID ANTIGEN Routine 1:24 PM EDT Acute bronchitis, unspecified organism MR KNEE WO CONTRAST LEFT Routine 025 6:44 PM EDT RPR (MONITOR) W/REFL TITER Routine 03/03/2025 3:37 PM EDT Rash COMPREHENSIVE METABOLIC PANEL Routine 03/03/2025 3:37 PM EDT Type 2 diabetes mellitus with other diabetic arthropathy, with long-term current use of insulin ([facility]) US THYROID Routine 02/16/2025 2:50 PM EDT Thyroid nodule LIPID PANEL, STANDARD Routine 10/21/2024 8:42 AM EDT Type 2 diabetes mellitus with other diabetic arthropathy, with long-term current use of insulin ([facility]/HCC) from Last 3 Months or Most Recently Relevant to Health Maintenance Results * Gastrointestinal panel (04/20/2025 11:00 AM EST) Campylobacter Not Detected Not Detect. [facility] Plesiomonas shigelloides Not Detected Not Detect. [facility] Salmonella Not Detected Not Detect. [facility] Vibrio Not Detected Not Detect. [facility] Vibrio cholerae Not Detected Not Detect. [facility] YERSINIA ENTEROCOLITICA Not Detected Not Detect. [facility] Enteroaggregative E. coli (EAEC) Not Detected Not Detect. [facility] Enteropathogenic E. coli (EPEC) Not Detected Not Detect. [facility] Enterotoxigenic E. coli (ETEC) lt/st Not Detected Not Detect. [facility] Shiga-like toxin-producing E. coli (STEC) stx1/stx2 Not Detected Not Detect. [facility] E coli O157 Not applicable Not Detect. [facility] Comment:E. coli containing t he O157 antigen are a subset ofShiga-like toxin- producing E. coli (STEC). Shigella/Enteroinvasive E. coli (EIEC) Not Detected Not Detect. [facility] Cryptosporidium Not Detected Not Detect. [facility] Cyclospora cayetanensis Not Detected Not Detect. [facility] Entamoeba histolytica Not Detected Not Detect. [facility] Giardia lamblia Not Detected Not Detect. [facility] Adenovirus F 40/41 Not Detected Not Detect. [facility] Astrovirus Not Detected Not Detect. [facility] Norovirus GI/GII Not Detected Not Detect. [facility] Rotavirus A Not Detected Not Detect. [facility] Sapovirus Not Detected Not Detect. [facility] Comment: All results must be correlated with clinical findings.Negative results do not exclude the possibility ofgastrointestinal infection and should not be used as thesole basis for diagnosis, treatment, or other managementdecisions. Virus, bacteria, and parasite nucleic acid maypersist in vivo independently of organism viability.Additionally, some organisms may be carriedasymptomatically.Detection of organism targets does not imply that thecorresponding organisms are infectious or are the causativeagents for clinical symptoms. There is a risk of falsenegative values due to the presence of sequence variants inthe gene targets of the assay, amplification inhibitors inspecimens, or inadequate numbers of organisms foramplification.The identification of several diarrheagenic E. colipathotypes has historically relied upon phenotypiccharacteristics. This panel targets genetic determinantscharacteristic of most pathogenic strains, but may notdetect all strains having phenotypic characteristics of apathotype.The performance of this test has not been established formonitoring treatment of infection with any of the panelorganisms.This assay is performed by Multiplexed PCR, utilizing 3D Product Imaging Array. 04/20/2025 11:0 0 AM EST 04/20/2025 12:52 PM EST Generic External Data Provider LAB MICROBIOLOGY - GENERAL ORDERABLES Final Result Performing Organization Address [facility] Co de Phone Number [facility] [address] [place] [phone] * C-reactive Protein (04/16/2025 12:21 PM EST) Only the most recent of2 resultswithin the time period is included. Pathologist [facility] C Reactive Protein 0.18 < or = 0.50 mg/dL [facility] 04/16/2025 12:2 1 PM EST 04/16/2025 12:21 PM EST Generic External Data Provider LAB BLOOD ORDERAB LES Final Result Performing Organization Address [facility] Co de Phone Number [facility] [address] [place] [phone] * (ABNORMAL) Hemoglobin A1c (04/16/2025 12:21 PM EST) Hemoglobin A1c 7.5(H) <6.0 % [facility] Comment:Hemoglobin A1C Refer ence Range Adults: 4.8 - 6.0 % Non diabetic: < 6.0 % Goal: < 7.0 %Additional Action Suggested: > 8.0 %Note: Hemoglobin A1c results are invalid for patients with abnormal amounts of HbF. Blood transfusions may impact the HbA1c concentration in the patient sample. Estimated Average Glucose 169 mg/dL [facility] Comment:eAG = Estimated ave rage glucose which is %A1C expressed asaverage glucose, using the formula of the Y1T-BffekozAdtkaox Glucose study (ADAG), Diabetes Care, Vol.31,#8,Dec. 2007 04/16/2025 12:2 1 PM EST 04/16/2025 12:21 PM EST us Generic External Data Provider LAB BLOOD ORDERAB LES Final Result [facility] [address] [place] [phone] * POCT Glucose (04/14/2025 10:53 AM EST) Only the most recent of2 resultswithin the time period is included. [facility] Glucose Blood, POC 148 60 - 200 mg/dL QC Media Lot # [id number] Lot# Expiration Date Blood Capillary blood specimen / Unknown 04/14/2025 10:53 AM EST us Gemma Osnua NP POINT OF CARE TEST ENTER/EDIT OR DERABLES Final Result * XR Chest 2 Views (04/10/2025 12:30 PM EST) Anatomical Region Laterality Modality Chest Radiographic Mallika ging 04/10/2025 12:3 0 PM EST Narrative 04/10/2025 12:32 PM EST [address] [address] XRay Report Signed Patient: Katie Andrews MR#: [id number] : 1970 Acct:[id number] Age/Sex: 54 / F ADM Date: 04/10/25 Loc: HO.ED Attending Dr: Ordering Physician: Ramon Vidal MD Date of Service: 04/10/25 Procedure(s): XR chest 2V Accession Number(s): [id number] cc: Ramon Vidal MD; Gemma Osuna ELIGIBILITY MANAGER Reason for Exam: SOB/productive cough CLINICAL HISTORY: [...] 04/10/25 1231 DD/ 1230 TD/TT: 04/10/25 1230 Clinical Care Leader: Procedure Note Donotuseinterpreter, Image - 04/10/2025 [place] [address] XRay Report Signed Patient: Clotilde Andrews#: [id number] : 1970Acct:[id number] Age/Sex: 54 / FADM Date: 04/10/25 Loc: HO.ED Attending Dr: Ordering Physician: Ramon Vidal MD Date of Service: 04/10/25 Procedure(s): XR chest 2V Accession Number(s): [id number] cc: Ramon Vidal MD; Gemma Osuna ELIGIBILITY MANAGER Reason for Exam: SOB/productive cough CLINICAL HISTORY: [...] 04/10/25 1231 DD/ 1230 TD/TT: 04/10/25 1230 Clinical Care Leader: [facility] External Provider IMG XR PROCEDURES Edited Result - Final * Influenza A B2 ID NOW (Herrera) (04/10/2025 10:37 AM EST) IDNOW SERIAL# [id number] [facility] Influenza A Negative Negative [facility] Influenza B2 Negative Negative [facility] Influenza A B2 Note See Note [facility] Comment:The Herrera ID NOW In fluenza [...] LAB MICROBIOLOGY - GENERAL ORDERABLES Final Result [facility] [address] [place] [phone] * COVID-19 ID NOW (HERRERA) (04/10/2025 10:37 AM EST) IDNOW SERIAL# [id number] [facility] COVID-19 TEST Negative Negative [facility] COVID-19 NOTE See Note [facility] Comment: Results are for the identification of SARS-CoV2 RNA. TheSARS-CoV2 RNA is generally detectable in respiratory samplesduring the acute phase of infection. Positive results areindicative of the presence of SARS-CoV-2 RNA; clinicalcorrelation with patient history and other diagnosticinformation is necessary to determine patient infectionstatus. Positive results do not rule out bacterial infectionor co- infection with other viruses.Testing facilities within the [facility] and itsterritories are required to report all [...] use by authorized laboratories.Testing performed on the [employer] (Obl[employer] / [employer]) NOW utilizing NAAT. 04/10/2025 10:3 7 AM EST 04/10/2025 10:40 AM EST us Generic External Data Provider LAB MOLECULAR SHEA GNOSTICS ORDERABLES Final Result [facility] [address] [place] [phone] * (ABNORMAL) Basic Metabolic Panel (04/10/2025 10:37 AM EST) Sodium 147(H) 135 - 145 mmol/L [facility] Potassium 4.4 3.3 - 5.1 mmol/L [facility] Chloride 110(H) 96 - 108 mmol/L [facility] Carbon Dioxide 25 22 - 29 mmol/L [facility] Anion Gap 16 12 - 20 [facility] Urea Nitrogen (BUN) 14 9 - 16 mg/dL [facility] Creatinine, Serum 0.68 0.5 - 1.4 mg/dL [facility] Creatinine Clr Calc Pharmacy 97.0 [facility] Comment:Provided height and weight: 157.48 cm,89.2 kg.eGFR (calculated from the MDRD study equation) and eCrCl(calculated from the Cockcroft-Gault equation) are based ondifferent parameters and may not yield comparable results.If eCrCl result is absurd, please check patient'sheight/weight. Estimated Glomerular Filt Rate >60 [facility] Comment:Chronic Kidney Disea se: Estimated GFR < 60 mL/min/1.29m1Rtiair Kidney Disease: Estimated GFR < 15 mL/min/1.73m2 Glucose 136(H) 60 - 115 mg/dL [facility] Calcium 9.8 8.4 - 10.2 mg/dL [facility] 04/10/2025 10:3 7 AM EST 04/10/2025 10:40 AM EST Generic External Data Provider LAB BLOOD ORDERAB LES Final Result Performing Organization Address [facility] Co de Phone Number [facility] [address] [place] [phone] * High Sensitivity Troponin I (04/10/2025 10:36 AM EST) [facility] TROPONIN I HIGH SENSITIVITY <2.7 <3.5 - 17.0 ng/L [facility] Comment:The Herrera high sens itivity Troponin-I results should beused in conjunction with other diagnostic information suchas ECG, clinical observations and information, and patientsymptoms to aid in the diagnosis of MO. 04/10/2025 10:3 6 AM EST 04/10/2025 10:40 AM EST us Generic External Data Provider LAB BLOOD ORDERAB LES Final Result Performing Organization Address [facility] Co de Phone Number [facility] [address] [place] [phone] * NT-proBNP (04/10/2025 10:36 AM EST) [facility] NT-proBNP <15.8 <300 pg/mL [facility] Comment:Reference Range:Age Group (years) NT-proBNP (pg/ml) InterpretationAll <300 Negative: HF unlikelyFor patients presenting to the ED with clinical suspicion ofnew onset or worsening HF, see below:18 to <50 >299.9 to <450.0 Grayzone: [id number] to 75 >299.9 to <900.0 other causes of>75 >299.9 to <1800.0 NT-proBNP [id number] to <50 >449.9 Positive: HF [id number] >899.9>75 >1799.9Note: Elevated NT-proBNP levels should be interpreted inthe context of other clinical information. 04/10/2025 10:3 6 AM EST 04/10/2025 10:40 AM EST us Generic External Data Provider LAB BLOOD ORDERAB LES Final Result [facility] [address] [place] [phone] * (ABNORMAL) CBC auto differential (04/10/2025 10:36 AM EST) Only the most recent of2 resultswithin the time period is included. [facility] White Blood Count 6.5 4.8 - 10.8 X10*3/uL [facility] Red Blood Count 5.08 4.20 - 5.50 X10*6/uL [facility] Hemoglobin 15.5 12.0 - 16.0 g/dl [facility] Hematocrit 47.5(H) 37.0 - 47.0 % [facility] Mean Corpuscular Volume 93.5 80.0 - 98.0 fL [facility] Mean Corpuscular Hemoglobin 30.5 27.0 - 33.0 pg [facility] Mean Corpuscular HGB Conc 32.6 31.0 - 35.0 g/dl [facility] Red Cell Distribution Width 12.3 11.0 - 16.0 % [facility] Platelet Count 324 160 - 400 X10*3/uL [facility] Mean Platelet Volume 8.6(L) 9.4 - 12.3 fL [facility] Neutrophils Percent Auto 48.9 45 - 73 % [facility] Imm Gran Pct Auto 0.2 0.0 - 0.4 % [facility] Lymphocytes Percent Auto 31.0 20 - 40 % [facility] Monocytes Percent Auto 7.2 2 - 11 % [facility] Eosinophils Percent Auto 11.5(H) 0 - 4 % [facility] Basophils Percent Auto 1.2 0 - 2 % [facility] NRBC Pct Auto 0.0 0.0 - 0.2 /100WBC [facility] Neutrophils Absolute Auto 3.2 2.0 - 8.3 x10*3/uL [facility] Imm Gran Abs Auto 0.01 0.00 - 0.03 X10*3/uL [facility] Lymphocytes Absolute Auto 2.0 1.2 - 4.9 X10*3/uL [facility] Monocytes Absolute Auto 0.5 0.1 - 1.2 X10*3/uL [facility] Eosinophils Absolute Auto 0.8(H) 0.0 - 0.4 X10*3/uL [facility] Basophils Absolute Auto 0.1 0.0 - 0.2 X10*3/uL [facility] NRBC Abs Auto 0.000 0.0 - 0.012 X10*3/uL [facility] 04/10/2025 10:3 6 AM EST 04/10/2025 10:40 AM EST us Generic External Data Provider LAB BLOOD ORDERAB LES Final Result [facility] [address], [place] [phone] * Sed Rate by Modified Kojo (03/24/2025 11:28 AM EDT) Erythrocyte Sedimentation Rate 8 0 - 20 MM/HR [facility] Comment:Patients with polycy themia and many hemoglobin abnormalitiesmay have depressed sed rates whereas patients with anemiamay have elevated sed rates. Blood Venous blood specimen / Unknown 03/24/2025 11:28 AM EDT 03/24/2025 1:13 PM EDT us Gemma Osuna NP LAB BLOOD ORDERABLES Final Resul t [facility] [address], [place] [phone] * (ABNORMAL) Comprehensive Metabolic Panel (03/24/2025 11:28 AM EDT) Only the most recent of2 resultswithin the time period is included. Sodium 141 135 - 145 mmol/L [facility] Potassium 3.9 3.3 - 5.1 mmol/L [facility] Chloride 107 96 - 108 mmol/L [facility] Carbon Dioxide 27 22 - 29 mmol/L [facility] Anion Gap 11(L) 12 - 20 [facility] Urea Nitrogen (BUN) 10 9 - 16 mg/dL [facility] Creatinine, Serum 0.56 0.5 - 1.4 mg/dL [facility] Estimated Glomerular Filt Rate >60 [facility] Comment:Chronic Kidney Disea se: Estimated GFR < 60 mL/min/[id number] Kidney Disease: Estimated GFR < 15 mL/min/1.73m2 Glucose 169(H) 60 - 115 mg/dL [facility] Calcium 8.8 8.4 - 10.2 mg/dL [facility] Bilirubin, Total 0.7 0.0 - 1.0 mg/dL [facility] Aspartate Amino Transferase 22 5 - 31 U/L [facility] Alanine Aminotransferase 19 0 - 31 U/L [facility] Total Protein 6.4(L) 6.5 - 8.0 g/dL [facility] Albumin Level 4.0 3.5 - 5.0 g/dL [facility] Alkaline Phosphatase 77 39 - 117 U/L [facility] Blood Venous blood specimen / Unknown 03/24/2025 11:28 AM EDT 03/24/2025 1:13 PM EDT Gemma Osuna NP LAB BLOOD ORDERABLES Final Resul t Performing Organization Address [facility]/ZIP Co de Phone Number [facility] [address] [place] [address] [phone] * HPV High Risk with Reflex to Subtypes (03/22/2025 4:52 PM EDT) HPV High Risk Negative Negative [facility] HPV Genotype 16 Negative Negative [facility] HPV Genotype 18 Negative Negative [facility] Comment:HPV testing performe d at [facility] (CLIA#[id number]), [address] [place] [address].Testing for HPV was performed using the Glenda [...] 4:52 PM EDT 03/24/2025 2:00 PM EDT Gemma Osuna NP LAB BLOOD ORDERABLES Final Resul t Performing Organization Address City/[facility]/ZIP Co de Phone Number [facility] [address] [place] [address] [phone] * Pap Smear (03/22/2025 4:52 PM EDT) Swab Cervical swab / Unknown 03/22/2025 4:52 PM EDT 03/24/2025 2:00 PM EDT Narrative [facility] - 03/31/2025 1:07 PM EST ----- ------- Name: Katie Andrews Age/Sex: 54/F : 1970 Unit#: [id number] Attend Dr: Gemma Osuna ELIGIBILITY MANAGER Re03/22/25 [place] [facility] [place] [facility] ----- ------- SPEC : [id number] RECD: 03/24/25 STATUS: TOM CAROLE NUM: [id number] JAIR: 03/22/25 [facility] DR: Gemma Osuna ELIGIBILITY MANAGER ENTERED: 03/24/25-1420 SP TYPE: Pap Smr OT DR: ORDERED: Pap Smear Interpretation Satisfactory for [...] and HPV testing will be performed at [facility] (CLIA #[id number]), [address] [place] [address]. Testing for HPV was performed using the [...] detected. All professional services are performed by [facility] ([address] [place] [address]; ; CLIA #[id number]). The PAP Test is a screening procedure with the inherent possibility of both false negative and false positive results. Results should be interpreted in the context of historic and current clinical findings. Reliability of the PAP Test is enhanced by performing the test on a regular repetitive basis. CONTINUED ON NEXT PAGE ----- ------- Name: Nilton RodasKatie Age/Sex: 54/F : 1970 Unit#: [id number] Attend Dr: Gemma Osuna NP Re03/22/25 Status: DEP REF Location: [facility] Disch: ----- ------- SPEC : [id number] RECD: 03/24/25 STATUS: TOM LAM NUM: [id number] JAIR: 03/22/[address]: Gemma Osuna NP ENTERED: 03/24/25492 SP TYPE: Pap Smr OTHR DR: ORDERED: Pap Smear ----- ------- Signed (signature on file) GHAZAL Freeman (ASCP) 03/31/25 1307 ----- ------- END OF REPORT Gemma Osuna NP LAB CYTOLOGY ORDERABLES Final Re sult [facility] [address] [place] [address] [phone] * (ABNORMAL) POCT Hgb A1c (03/22/2025 4:00 PM EDT) Pathologist [facility] Hemoglobin A1C 7.5(A) 4.0 - 5.7 % QC Media Lot # [id number] Lot# Expiration Date ,072,[id number] Blood 03/22/2025 4:00 PM EDT Gemma Osuna NP POINT OF CARE TEST ENTER/EDIT OR DERABLES Final Result * POCT Rapid COVID Ag (03/12/2025 1:24 PM EDT) Pathologist [facility] Rapid COVID Ag Negative Swab 03/12/2025 1:24 PM EDT Sariah Thompson MD POINT OF CARE TEST ENTER/EDIT OR DERABLES Final Result * MR Knee w/o Contrast Left (03/04/2025 6:44 PM EDT) Anatomical Region Laterality Modality Magnetic Resonan ce 03/04/2025 6:44 PM EDT Narrative 03/05/2025 8:36 AM EDT [place] [address] Magnetic Resonance Report Signed Patient: Katie Andrews MR#: [id number] : 1970 Acct:[id number] Age/Sex: 54 / F ADM Date: 03/04/25 Loc: HO.MRI Attending Dr: Joe Saleh MD Ordering Physician: Joe Saleh MD Date of Service: 03/04/25 Procedure(s): MR knee LT wo con Accession Number(s): [id number] cc: Gemma Osuna ELIGIBILITY MANAGER; Joe Saleh MD Reason for Exam: [id number] [...] 03/05/25 0833 DD/ 1844 TD/TT: 03/04/25 1910 Clinical Care Leader: EDUARDO Procedure Note Donotuseinterpreter, Image - 03/05/2025 [place] [address] Magnetic Resonance Report Signed Patient: Clotilde Andrews#: [id number] : 1970Acct:[id number] Age/Sex: 54 / FADM Date: 03/04/25 Loc: HO.MRI Attending Dr: Joe Saleh MD Ordering Physician: Joe Saleh MD Date of Service: 03/04/25 Procedure(s): MR knee LT wo con Accession Number(s): [id number] cc: Gemma Osuna ELIGIBILITY MANAGER; Joe Saleh MD Reason for Exam: [id number] [...] in OV> 03/05/25 0833 DD/ 43 TD/TT: 03/04/251909 Clinical Care Leader: EDUARDO [facility] External Provider IMG MRI PROCEDURES Final Result * RPR (Monitor) with Reflex to??Titer (03/03/2025 3:37 PM EDT) RPR (Monitor) w/Refl Titer NON-REACTI VE NON-REACT LEYDA [facility] Comment:THIS TEST WAS PERFOR MED AT:[facility] [place] [phone] [facility] MD Rapid Plasma Reagin Ab Titer TNP [facility] Blood Venous blood specimen / Unknown 03/03/2025 3:37 PM EDT 03/03/2025 4:09 PM EDT Luke Styles MD LAB BLOOD ORDERABLES Final Resul t [facility] [address] [place] [phone] * US Thyroid (02/16/2025 2:50 PM EDT) Anatomical Region Laterality Modality Head, Neck Ultrasound 02/16/2025 2:50 PM EDT Narrative 02/16/2025 3:32 PM EDT [address] [address] Ultrasound Report Signed Patient: Katie Andrews MR#: [id number] : 1970 Acct:[id number] Age/Sex: 54 / F ADM Date: 02/16/25 Loc: HO.US Attending Dr: Gemma Osuna NP Ordering Physician: Gemma Osuna NP Date of Service: 02/16/25 Procedure(s): US thyroid Accession Number(s): [id number] cc: Gemma Osuna NP Reason for Exam: [...] than or equal to 1 cm: 1. [place] nodules are described as follows: 1. Location: [...] 02/16/25 1529 DD/ 1450 TD/TT: 02/16/25 1456 Clinical Care Leader: Procedure Note Donotuseinterpreter, Image - 02/16/[address] [address] Ultrasound Report Signed Patient: Clotilde Andrews#: [id number] : 1970Acct:[id number] Age/Sex: 54 / FADM Date: 02/16/25 Loc: HO.US Attending Dr: Gemma Osuna NP Ordering Physician: Gemma Osuna NP Date of Service: 02/16/25 Procedure(s): US thyroid Accession Number(s): [id number] cc: Gemma Osuna NP Reason for Exam: [...] than or equal to 1 cm: 1. [place] nodules are described as follows: 1. Location: [...] 02/16/25 1529 DD/ 1450 TD/TT: 02/16/25 1456 Clinical Care Leader: us Gemma Osuna NP IMG US PROCEDURES Final Result * (ABNORMAL) Lipid Panel, Standard (10/21/2024 8:42 AM EDT) Triglycerides 101 <150 mg/dL [facility] Comment:Desirable Triglyceri de: less than 150 mg/dLBorderline High Triglyceride 150-199 mg/dLHigh Triglyceride: 200-499 mg/dLVery High Triglyceride: greater than or equal to 5OO mg/dL Cholesterol 202(H) <200 mg/dL [facility] Comment:Desirable Cholestero l: less than 200 mg/dLBorderline High Cholesterol: 200-239 mg/dLHigh Cholesterol: greater than 239 mg/dL LDL Cholesterol Calculated 119(H) <100 mg/dL [facility] Comment:Desirable LDL: less than 100 mg/dLNear Optimal/Above Optimal LDL: 110- 129 mg/dLBorderline High LDL: 130-159 mg/dLHigh LDL: 160-189 mg/dLVery High LDL: greater than or equal to 190 mg/dL HDL Cholesterol 63 >40 mg/dL [facility] Comment:Desirable HDL: great er than 40 mg/dL Note: This HDL assay may give artificially low results in patients with liver disease. Blood Venous blood specimen / Unknown 10/21/2024 8:42 AM EDT 10/21/2024 11:10 AM EDT us Gemma Osuna NP LAB BLOOD ORDERABLES Final Resul t [facility] [address] [place] [phone] from Last 3 Months or Most [...] 04/14/2025 Patient has chronic kidney disease 04/14/2025 Weekly blood pressure task 04/20/2025 Weekly blood pressure task 04/20/2025 Patient has chronic kidney disease 04/20/2025 Patient has chronic kidney disease 04/20/2025 Insurance [facility] C3 Care Teams Wire Dropper Relationship Specialty Start Date End Date Gemma Osuna NP [address] [place] [phone] PCP - General Family Medicine 5/16/25 Bryan Davis RN [address] [place] [address] Registered Nurse Family Medicine 04/12/25 Marleen Whitlock 04/12/25
--- OUTSIDE RECORDS SUMMARY | 2025-04-20 16:08 | XMS_ITS | Encounter Summary ---
Author Organization [employer] [facility] Address [address] [facility] 7t [place] [address] Care Team Providers Care Printing Table Hand Name Role Phone Gemma Osuna NP Primary Care Provider [phone] Bryan Davis RN Unavailable [phone] Marleen Whitlock Unavailable Reason for Visit * Reason Onset Date Comments Med Refill 11/03/2024 Encounter Details Date Type Department Care Team (Late st Contact Info) Description 11/03/2024 Refill [facility] [address] [place] [address] Gemma Osuna NP [address] [place], [place] [phone] Social History Tobacco Use Types Packs/Day Years [...] Description 06/09/2025 10:30 AM EST Office Visit [facility] [address] [place], [place] [phone] Gemma Osuna NP [address] [place], [place] [phone] documented as of this encounter Visit Diagnoses Not on filedocumented in this encounter Care Teams Printing Table Hand Relationship Specialty Start Date End Date Gemma Osuna NP [address] [place] [address] PCP - General Family Medicine 10/09/24 Bryan Davis, DANIEL [address] [place] [address] Registered Nurse Family Medicine 04/12/25 Marleen Whitlock 04/12/25 documented as of this encounter
--- OUTSIDE RECORDS SUMMARY | 2025-04-20 16:08 | XMS_ITS | Encounter Summary ---
Author Organization [employer] Address [address] [facility] 7t [place] [address] Care Team Providers Care Sample Maker Original Name Role Phone Gemma Osuna NP Primary Care Provider [phone] Bryan Davis RN Unavailable [phone] Marleen Whitlock Unavailable Reason for Visit * Reason Comments Care Coordination CM/CHW outreach Encounter Details Date Type Department Care Team (Latest Contact Info) Description 04/20/2025 Patient Outreach [facility] [address] [place] [address] Gemma Osuna NP [address] [place] [address] Care Coordination (CM/CHW outreach) Social History Tobacco [...] encounter Progress Notes * Marleen Whitlock - 04/20/2025 1:32 PM EST CHW Marleen Whitlock, placed outbound call to patient introducing herself from [facility] CM Department, in regards to offering services. Patient's name and was confirmed. Patient agreesto participate in program. Appt. for initial assessment scheduled for 04/27/25 @ 1PM tele with HASMUKH Davis RN. CHW reinforced direct contact information or CM for any additional questions or concerns and extended clinic hours on Mondays and Wednesdays, and Walk-[facility] Urgent Care [facility]ated [facility]. Patient provided with after-hours line for [facility], ,which offer night time triage service and option to transfer to special education case manager provider if needed. Patient verbalizes understanding, and able to repeat back to communications writer. documented in this encounter Plan of Treatment Upcoming Encounters Date Type Department Care Team (Late st Contact Info) Description 06/09/2025 10:30 AM EST Office Visit [facility] [address] [place] [address] Gemma Osuna NP [address] [place] [address] documented as of this encounter Goals Goal [...] has chronic kidney disease No Marleen Whitlock documented as of this encounter Visit Diagnoses [...] 04/20/2025 Patient has chronic kidney disease 04/20/2025 Assessment Noted Time PHQ-9 Depression Total Score: 14 025 12:03 PM EDT documented as of this encounter Care Teams Sample Maker Original Relationship Specialty Start Date End Date Gemma Osuna NP [address] [place] [phone] PCP - General Family Medicine 10/09/24 Bryan Davis RN [address] [place] [address] Registered Nurse Family Medicine 04/12/25 Marleen Whitlock 04/12/25 documented as of this encounter
--- OUTSIDE RECORDS SUMMARY | 2025-04-20 16:08 | XMS_ITS | Encounter Summary ---
Author Organization [employer] Address [address] [facility] 7t [place] [address] Care Team Providers Care Disease Case Manager Rn Name Role Phone Gemma Osuna NP Primary Care Provider [phone] Bryan Davis RN Unavailable [phone] Marleen Whitlock Unavailable Encounter Details Date Type Department Care Team ([facility] st Contact Info) Description 04/20/2025 Orders Only GENERIC EXTERNAL DATA [...] the past 12 months, has t he [employer], gas, oil or water [employer] threatened to shut off services in your [...] Description 06/09/2025 10:30 AM EST Office Visit [facility] [address] [place] [phone] Gemma Osuna NP [address] [place] [address] documented as of this encounter Goals Goal [...] has chronic kidney disease No Graef, Gemma, STRA[employer] INSPECTOR [employer] PACKER Weekly blood pressure task Care Plan Weekly blood pressure task No Marleen Whitlock Weekly blood pressure task Care Plan Weekly blood pressure task No Marleen Whitlock Patient has chronic kidney disease Care Plan Patient has chronic kidney disease No Marleen Whitlock Patient has chronic kidney disease Care Plan Patient has chronic kidney disease No Marleen Whitlock documented as of this encounter Procedures Procedure Name Priority Date/Time Associated Diagnosis Comments GASTROINTESTINAL PANEL Routine 11:00 AM EST documented in this encounter Results * Gastrointestinal panel (04/20/2025 11:00 AM EST) Campylobacter Not Detected Not Detect. [facility] Plesiomonas shigelloides Not Detected Not Detect. [facility] Salmonella Not Detected Not Detect. [facility] Vibrio Not Detected Not Detect. [facility] Vibrio cholerae Not Detected Not Detect. [facility] YERSINIA ENTEROCOLITICA Not Detected Not Detect. [facility] Enteroaggregative E. coli (EAEC) Not Detected Not Detect. [facility] Enteropathogenic E. coli (EPEC) Not Detected Not Detect. [facility] Enterotoxigenic E. coli (ETEC) lt/st Not Detected Not Detect. [facility] Shiga-like toxin-producing E. coli (STEC) stx1/stx2 Not Detected Not Detect. [facility] E coli O157 Not applicable Not Detect. [facility] Comment:E. coli containing t he O157 antigen are a subset ofShiga-like toxin- producing E. coli (STEC). Shigella/Enteroinvasive E. coli (EIEC) Not Detected Not Detect. [facility] Cryptosporidium Not Detected Not Detect. [facility] Cyclospora cayetanensis Not Detected Not Detect. [facility] Entamoeba histolytica Not Detected Not Detect. [facility] Giardia lamblia Not Detected Not Detect. [facility] Adenovirus F 40/41 Not Detected Not Detect. [facility] Astrovirus Not Detected Not Detect. [facility] Norovirus GI/GII Not Detected Not Detect. [facility] Rotavirus A Not Detected Not Detect. [facility] Sapovirus Not Detected Not Detect. [facility] Comment: All results must be correlated [...] assay is performed by Multiplexed PCR, utilizing [employer] Array. 04/20/2025 11:0 0 AM EST 04/20/2025 12:52 PM EST us Generic External Data Provider LAB MICROBIOLOGY - GENERAL ORDERABLES Final Result [facility] [address] [place] [phone] documented in this encounter Visit Diagnoses [...] documented as of this encounter Care Teams Disease Case Manager Rn Relationship Specialty Start Date End Date Gemma Osuna NP [address] [place] [phone] PCP - General Family Medicine 10/09/24 Bryan Davis RN [address] [place] [phone] Registered Nurse Family Medicine 04/12/25 Marleen Whitlock 04/12/25 documented as of this encounter
--- OUTSIDE RECORDS SUMMARY | 2025-04-20 16:09 | XMS_ITS | Encounter Summary ---
Author Organization [employer] Address [address] [facility] 7t [place] [address] Care Team Providers Care Minister Name Role Phone Gemma Osuna NP Primary Care Provider [phone] Bryan Davis RN Unavailable [phone] Marleen Whitlock Unavailable Reason for Visit * Reason Onset Date Comments Med Refill 02/09/2025 Encounter Details Date Type Department Care Team (Late st Contact Info) Description 02/09/2025 Refill [facility] [address] [place] [address] Gemma Osuna NP [address] [place] [address] Social History Tobacco Use Types Packs/Day Years [...] the past 12 months, has t he [employer], gas, oil or water [email or web address] threatened to shut off services in your [...] Description 06/09/2025 10:30 AM EST Office Visit [facility] [address] [place] [address] Gemma Osuna NP [address] [place] [address] documented as of this encounter Visit Diagnoses Not on filedocumented in this encounter Additional Health Concerns Assessment Noted Time PHQ-9 Depression Total Score: 14 025 12:03 PM EDT documented as of this encounter Care Teams Minister Relationship Specialty Start Date End Date Gemma Osuna NP [address] [place] [address] PCP - General Family Medicine 10/09/24 Bryan Davis RN [address] [place] [address] Registered Nurse Family Medicine 04/12/25 Marleen Whitlock 04/12/25 documented as of this encounter
--- OUTSIDE RECORDS SUMMARY | 2025-04-20 16:09 | XMS_ITS | Encounter Summary ---
Author Organization [employer] Address [address] [facility] 7t [place] [address] Care Team Providers Care Wash Barrel Leader Name Role Phone Gemma Osuna NP Primary Care Provider [phone] Bryan Davis RN Unavailable [phone] Marleen Whitlock Unavailable Reason for Visit * Reason Comments Med Refill Encounter Details Date Type Department Care Team ([facility] st Contact Info) Description 04/14/2025 Refill [facility] [address] [place] [address] Luke Styles MD [address] [place] [address] Social History Tobacco Use Types Packs/Day Years [...] with others, in a hotel, in a usp, living outside on the street, on a [...] Description 06/09/2025 10:30 AM EST Office Visit [facility] [address] [place] [address] Gemma Osuna NP [address] [place] [address] documented as of this encounter Goals Goal [...] documented as of this encounter Care Teams Wash Barrel Leader Relationship Specialty Start Date End Date Gemma Osuna NP [address] [place] [address] PCP - General Family Medicine 10/09/24 Bryan Davis RN [address] [place] [phone] Registered Nurse Family Medicine 04/12/25 Marleen Whitlock 04/12/25 documented as of this encounter
== END 2025-04-20 13:22 | disposition home or self-care (01) ==
LOC: HO.HOS 12:35
PROVIDERS: PCP Nurse Practitioner Family; Visit Provider Orthopaedic Surgery
DX: M17.12 Unilateral primary osteoarthritis, left knee (principal)
CPT/HCPCS: 20610; 99213

== ENCOUNTER 2025-04-27 10:21 | Outpatient (REF) | payer MEDICAID, SELFPAY ==
--- NOTE | ~2025-04-27 | US_ITS ---
ULTRASOUND-GUIDED THYROID NODULE FINE NEEDLE ASPIRATION INDICATION: Right dominant lobe thyroid nodule PROCEDURE: Informed consent was obtained from the patient prior to the procedure with the aid of an per diem interpreter. During this process, the procedure and potential alternatives were explained, along with the intended outcome and benefits. The risks of the procedure, as well as the risks of not doing the procedure, were discussed. The patient was given the opportunity to ask questions regarding the procedure and appeared competent to make medical decisions. A signed consent form which documents this discussion was placed in the medical record. A timeout was performed in the room. The patient was placed in a supine position with the neck extended. The right side of the neck and chest was prepped and draped in routine sterile fashion. 1% lidocaine was used as anesthetic. Under real-time ultrasound guidance, a 25-gauge needle was placed into the nodule and aspiration was performed. A total of 4 aspirations were performed. The specimens were placed in CytoLyt and and the Affirma bottle. Postprocedure images showed no hematoma. A Band-Aid was applied to the access site. The patient tolerated the procedure well with no immediate complications. Permanent ultrasound images were archived to the procedure. US/US biopsy thyroid IMPRESSION: 1. Dominant right mid thyroid nodule fine-needle aspiration without complication. Electronically signed by: Dago Maddox MD 04/27/2025 03:42 PM SHRUTHI MATIAS
--- OUTSIDE RECORDS SUMMARY | 2025-04-27 11:48 | XMS_ITS | Clinical Summary ---
Author Organization [employer] Address [address] [place] [address] 7[address] [place] [address] Care Team Providers Care Building Performance Consultant Name Role Phone Gemma Osuna NP Primary Care Provider [phone] Bryan Davis RN Unavailable [phone] Marleen Whitlock Unavailable Allergies Active Allergy Reactions [...] each 12 10/10/19 25 026 Active Lancets [facility] Use to test blood sugar 3 times daily 100 each 10/10/19 Active Alcohol Swabs 70 % pads Use to test blood sugar 3 times daily 100 each 10/10/19 25 Active Blood Glucose Monitoring Suppl (FreeStyle [place] Lite) w/Device kit Use to test blood sugar 3 times daily 1 kit 2 10/10/19 Active Continuous Glucose [employer] (FreeStyle Sweetie 3 [place]) device 1 each Once per day. Use [...] Glucose Sensor (FreeStyle Sweetie 3 Plus Sensor) [facility] 1 each every 15 days. Apply 1 [...] 90 tablet 02/17/20 25 Active sodium chloride ([place] Nasal [place]) 0.65 % nasal sprayIndicatio ns:COVID-19 INSTILL 1 [...] 5 1:24 PM EST 04/08/20 25 Active ipratropium-al buterol (Duo-Neb) 0.5-2.5 mg/3 mL nebulizer solution Take 3 mL by nebulization every 6 (six) hours. 180 mL 11 3:05 PM EST 04/14/20 026 Active montelukast (Singulair) 10 MG tablet Take 1 tablet (10 mg) by mouth Once per day. 30 tablet 2 01/16/20 25 025 Discontinued DULoxetine (Cymbalta) [address] capsule TAKE 1 CAPSULE BY MOUTH THREE TIMES DAILY DO NOT BREAK, CRUSH, DISSOLVE OR CHEW 90 capsule 1 02/04/20 25 025 Discontinued doxycycline (Vibra-Tabs) 100 MG tablet Take 1 tablet (100 mg) by mouth 2 times daily for 7 days. Take with a full glass of water and do not lie down for at least 30 minutes after. 14 tablet 3:05 PM EST 04/14/20 025 benzonatate (Tessalon) 200 MG capsule Take 1 capsule (200 mg) by mouth if needed in the morning, at noon, and at bedtime for cough for up to 7 days. Do not crush or chew. 20 capsule 3:05 PM EST 04/14/20 025 Active Problems Problem Noted Date Diagnosed [...] (03/22/2025 4:44 PM EDT): Orders: Referral to [facility] Derm Skin Adult; Future Referral to Rheumatology; [...] cancer screening 11/13/2024 Overview (01/15/2025): Had in [place] (during pandemic) Assessment & Plan (01/15/2025 3:51 [...] Date Type Department Care Team Description 04/20/2025 Outside Procedure [facility] OPTOMETRY [address] [place] [phone] Gonzales Izaguirren, OD Presbyopia (Primary Dx) 04/20/2025 Orders Only GENERIC EXTERNAL DATA DEPARTMENT Provider, Generic External Data 04/20/2025 Patient Outreach [facility] MEDICINE [address] [place] [phone] Gemma Osuna NP Care Coordination (CM/CHW outreach) 04/16/2025 10:30 AM EST Office Visit [facility] OPTOMETRY [address] [place] [phone] Mariely Izaguirre, OD Regular astigmatism of both eyes (Primary Dx) 04/16/2025 Orders Only GENERIC EXTERNAL DATA DEPARTMENT Provider, Generic External Data 04/14/2025 10:45 AM EST Office Visit [facility] MEDICINE [address] [place] [phone] Gemma Osuna NP Acute exacerbation of mild persistent extrinsic asthma (Primary Dx); Type 2 diabetes mellitus with other diabetic arthropathy, with long-term current use of insulin (HCC); Sleep apnea, unspecified type 04/14/2025 Refill [facility] WALK-IN CENTER [address] [place] [address] [phone] Luke Styles MD 04/14/2025 Travel 04/13/2025 Telephone [facility] MEDICINE [address] [place] [address] [phone] Gemma Osuna NP CHARTPREP 04/13/2025 Patient Outreach [facility] MEDICINE [address] [place] [address] [phone] Gemma Osuna NP Care Coordination (CM/CHW outreach) 04/12/2025 Patient Outreach [facility] MEDICINE [address] [place] [phone] Gemma Osuna NP Care Coordination (CHW chart review) 04/12/2025 Patient Outreach [facility] MEDICINE [address] [place] [phone] Gemma Osuna NP Care Management ([facility]- chart review) 04/12/2025 Patient Outreach [address] [address] Gemma Osuna NP 04/10/2025 Orders Only GENERIC EXTERNAL DATA DEPARTMENT Provider, Generic External Data 04/09/2025 Orders Only [facility] WALK-IN CENTER [address] [place] [phone] Gemma Osuna NP Rash, skin (Primary Dx) 04/08/2025 Refill [facility] MEDICINE [address] [place] [phone] Gemma Osuna NP 04/07/2025 Travel 04/01/2025 Refill [facility] WALKIN [address] [address] Luke Styles MD 03/24/2025 Telephone [facility] [address] [place] [phone] Gemma Osuna NP 03/22/2025 3:45 PM EDT Office Visit [address] [address] Gemma Osuna NP Type 2 diabetes mellitus with other diabetic arthropathy, with long-term current use of insulin (HCC) (Primary Dx); Diarrhea of infectious origin; Psoriasis (a type of skin inflammation); Left lower quadrant abdominal pain; Thyroid nodule; Pap smear for cervical cancer screening; PTSD (post-traumatic stress disorder) 03/22/2025 Travel 03/19/[address] [address] Carolee Lopez MA chart prep 03/15/2025 Travel 03/12/2025 1:40 PM EDT Office Visit [facility] WALK-IN CENTER [address] [place] [phone] Sariah Thompson MD Acute bronchitis, unspecified organism (Primary Dx) 03/12/2025 Travel 03/10/2025 Refill [facility] MEDICINE [address] [place] [address] Gemma Osuna NP 03/08/2025 Telephone [facility] MEDICINE [address] [place] [address] Gemma Osuna NP 03/05/2025 Results Follow-Up [facility] MEDICINE [address] [place] [address] Luke Styles MD RPR (Monitor) with Reflex to Titer 03/04/2025 Orders Only [facility] External Provider, [facility] 03/03/2025 3:00 PM EDT Office Visit [facility] WALK-IN CENTER [address] [place] [phone] Luke Styles MD Rash (Primary Dx); Elevated blood pressure reading in office without diagnosis of hypertension 03/03/2025 2:00 PM EDT Office Visit [facility] OPTOMETRY [address] [place] [phone] Fabby Hoffman OD Type 2 diabetes mellitus without ophthalmic manifestations (HCC) (Primary Dx); Presbyopia 03/03/2025 Travel 02/24/2025 Travel 02/18/2025 Refill [facility] MEDICINE [address] [place] [address] Gemma Osuna NP 02/17/2025 Refill [facility] MEDICINE [address] [place] [phone] Gemma Osuna NP 02/16/2025 Results Follow-Up [facility] MEDICINE [address] [place] [phone] Gemma Osuna NP US Thyroid 02/15/2025 Refill [facility] WALK-IN CENTER [address] [place] [address] Karina Kumar NP COVID-19 02/15/2025 Refill [facility] WALK-IN CENTER [address] [place] [address] Gemma Osuna NP COVID-19 02/09/2025 Refill [facility] MEDICINE [address] [place] [address] Gemma Osuna NP 02/03/2025 Refill [facility] WALK-IN CENTER [address] [place] [address] Gemma Osuna NP from Last 3 Months [...] Description 06/09/2025 10:30 AM EST Office Visit [facility] MEDICINE [address] [place] [address] Gemma Osuna NP [address] [place] [address] Health Maintenance Due Date Last Done Comments [...] Plan Patient has chronic kidney disease No Kamlesh Marleen Weekly blood pressure task Care Plan Weekly blood pressure task No Dmitriy, Mariely, OD Weekly blood pressure task Care Plan Weekly blood pressure task No Dmitriy, Mariely, OD Patient has chronic kidney disease Care Plan Patient has chronic kidney disease No Dmitriy, Mariely, OD Patient has chronic kidney disease Care Plan Patient has chronic kidney disease No Dmitriy, Mariely, OD Weekly blood pressure task Care Plan Weekly blood pressure task No Dmitriy, Mariely, OD Weekly blood pressure task Care Plan Weekly blood pressure task No Dmitriy, Mariely, OD Patient has chronic kidney disease Care Plan Patient has chronic kidney disease No Dmitriy, Mariely, OD Patient has chronic kidney disease Care Plan Patient has chronic kidney disease No Dmitriy, Mariely, OD Procedures Procedure Name Priority Date/Time Associated Diagnosis Comments GASTROINTESTINAL PANEL Routine 11:00 AM EST FOOD AND TREE NUT ALLERGY PANEL WITH REFLEX TO COMPONENT Routine 04/16/2025 12:21 PM EST TISSUE TRANSGLUTAMINASE AB, IGA Routine 04/16/2025 12:21 PM EST TISSUE TRANSGLUTAMINASE AB, IGG Routine 04/16/2025 12:21 PM EST C-REACTIVE PROTEIN Routine 04/16/2025 12 :21 PM EST HEMOGLOBIN A1C Routine 04/16/2025 12:21 PM EST POCT GLUCOSE Routine 04/14/2025 10:53 AM EST Type 2 diabetes mellitus with other diabetic arthropathy, with long-term current use of insulin (HCC) XR CHEST 2 VIEWS Routine 04/10/2025 12:3 [...] long-term current use of insulin ([facility]) POCT RAPID COVID ANTIGEN Routine 1:24 PM EDT Acute bronchitis, unspecified organism MR KNEE WO CONTRAST LEFT Routine 025 6:44 PM EDT RPR (MONITOR) W/REFL TITER Routine 03/03/2025 3:37 PM EDT Rash COMPREHENSIVE METABOLIC PANEL Routine 03/03/2025 3:37 PM EDT Type 2 diabetes mellitus with other diabetic arthropathy, with long-term current use of insulin ([facility]) US THYROID Routine 02/16/2025 2:50 PM EDT Thyroid nodule LIPID PANEL, STANDARD Routine 10/21/2024 8:42 AM EDT Type 2 diabetes mellitus with other diabetic arthropathy, with long-term current use of insulin ([facility]) from Last 3 Months or Most Recently Relevant to Health Maintenance Results * Gastrointestinal panel (04/20/2025 11:00 AM EST) Campylobacter Not Detected Not Detect. [facility] Plesiomonas shigelloides Not Detected Not Detect. [facility] Salmonella Not Detected Not Detect. [facility] Vibrio Not Detected Not Detect. [facility] Vibrio cholerae Not Detected Not Detect. [facility] YERSINIA ENTEROCOLITICA Not Detected Not Detect. [facility] Enteroaggregative E. coli (EAEC) Not Detected Not Detect. [facility] Enteropathogenic E. coli (EPEC) Not Detected Not Detect. [facility] Enterotoxigenic E. coli (ETEC) lt/st Not Detected Not Detect. [facility] Shiga-like toxin-producing E. coli (STEC) stx1/stx2 Not Detected Not Detect. [facility] E coli O157 Not applicable Not Detect. [facility] Comment:E. coli containing t he O157 antigen are a subset ofShiga-like toxin- producing E. coli (STEC). Shigella/Enteroinvasive E. coli (EIEC) Not Detected Not Detect. [facility] Cryptosporidium Not Detected Not Detect. [facility] Cyclospora cayetanensis Not Detected Not Detect. [facility] Entamoeba histolytica Not Detected Not Detect. [facility] Giardia lamblia Not Detected Not Detect. [facility] Adenovirus F 40/41 Not Detected Not Detect. [facility] Astrovirus Not Detected Not Detect. [facility] Norovirus GI/GII Not Detected Not Detect. [facility] Rotavirus A Not Detected Not Detect. [facility] Sapovirus Not Detected Not Detect. [facility] Comment: All results must be correlated [...] assay is performed by Multiplexed PCR, utilizing Zecco Array. 04/20/2025 11:0 0 AM EST 04/20/2025 12:52 PM EST us Generic External Data Provider LAB MICROBIOLOGY - GENERAL ORDERABLES Final Result [facility] [address] [place] [address] [phone] * (ABNORMAL) Food and Tree Nut Allergy Panel with Reflex to Components (04/16/2025 12:21 PM EST) Egg White (F1) IgE 0.39(A) kU/L [facility] Cow's Milk (F2) IgE 0.18(A) kU/L [facility] Codfish (F3) IgE <0.10 kU/L [facility] Wheat (F4) IgE <0.10 kU/L [facility] Sesame Seed (F10) IgE <0.10 kU/L [facility] Peanut (F13) IgE <0.10 kU/L [facility] Soybean (F14) IgE <0.10 kU/L [facility] Hazelnut (F17) IgE <0.10 kU/L [facility] [place] (F20) IgE <0.10 kU/L [facility] Shrimp (F24) IgE <0.10 kU/L [facility] Tuna (F40) IgE <0.10 kU/L [facility] [id number] Morrow <0.10 kU/L [facility] Q065-[id number] Scallop <0.10 kU/L [facility] Class 0 [facility] Comment:THIS TEST WAS PERFOR MED AT:[facility] [address] [phone] MC MD [facility] 0 [facility] Comment:THIS TEST WAS PERFOR MED AT:[facility] [employer] [place] [phone] MC MD [place] Class 0 [facility] Comment:THIS TEST WAS PERFOR MED AT:[employer] [place] [phone] MC MD [facility] 0 [facility] Comment:THIS TEST WAS PERFOR MED AT:[employer] [place] [phone] MC MD [facility] 0 [facility] Comment:THIS TEST WAS PERFOR MED AT:[facility] [address] [place] MC MD Class 0 [facility] Comment:THIS TEST WAS PERFOR MED AT:[facility] [address] [place] MC MD Class 0 [facility] Comment:THIS TEST WAS PERFOR MED AT:[facility] [address] [place] MC MD Class 1 [facility] Comment:THIS TEST WAS PERFOR MED AT:[facility] [address] [place] MC MD Class 0/1 [facility] Comment:THIS TEST WAS PERFOR MED AT:[facility] [address] [place] MC MD Class 0 [facility] Comment:THIS TEST WAS PERFOR MED AT:[facility] [address] [place] MC MD Class 0 [facility] Comment:THIS TEST WAS PERFOR MED AT:[facility] [address] [place] MC MD Class 0 [facility] Comment:THIS TEST WAS PERFOR MED AT:[facility] [address] [place] MC MD Class 0 [facility] Comment:THIS TEST WAS PERFOR MED AT:[facility] [phone] MC MD Cashew Nut (F202) IgE <0.10 kU/L [facility] Macadamia Nut (RF345) IgE <0.10 kU/L [facility] Class 0 [facility] Comment:THIS TEST WAS PERFOR MED AT:[facility] [address] [place] MC MD [place] (F41) IgE <0.10 kU/L [facility] Omaha Nut (F18) IgE <0.10 kU/L [facility] Class 0 [facility] Comment:THIS TEST WAS PERFOR MED AT:[facility] [phone] MC MD Class 0 [facility] Comment:THIS TEST WAS PERFOR MED AT:[facility] [address] [phone] MC MD Class 0 [facility] Comment:THIS TEST WAS PERFOR MED AT:[facility] [address] [phone] MC MD 04/16/2025 12:2 1 PM EST 04/16/2025 12:21 PM EST Generic External Data Provider LAB BLOOD ORDERAB LES Final Result Performing Organization Address [facility] Number [facility] [address] [place] [address] [phone] * Tissue Transglutaminase (tTG) Antibody (IgG) (04/16/2025 12:21 PM EST) Tissue Transglutaminase Antibody IgG <1.0 U/mL [facility] Comment:Value Interpretation ----- <15.0 Antibody not detected> or = 15.0 Antibody detectedTHIS TEST WAS PERFORMED AT:[facility] [address] [phone] MC MD 04/16/2025 12:2 1 PM EST 04/16/2025 12:21 PM EST Generic External Data Provider LAB BLOOD ORDERAB LES Final Result Performing Organization Address [facility] de Phone Number [facility] [address] [place] [address] [phone] * Tissue Transglutaminase Antibody, IgA (04/16/2025 12:21 PM EST) Transglutaminase IgA <1.0 U/mL [facility] Comment:Value Interpretation ----- <15.0 Antibody not detected> or = 15.0 Antibody detectedTHIS TEST WAS PERFORMED AT:[employer] [place] [phone] MC MD 04/16/2025 12:2 1 PM EST 04/16/2025 12:21 PM EST Generic External Data Provider LAB BLOOD ORDERAB LES Final Result Performing Organization Address City/[facility]/ZIP Co de Phone Number [facility] [address] [place] [phone] * C-reactive Protein (04/16/2025 12:21 PM EST) Only the most recent of2 resultswithin the time period is included. C Reactive Protein 0.18 < or = 0.50 mg/dL [facility] 04/16/2025 12:2 1 PM EST 04/16/2025 12:21 PM EST Generic External Data Provider LAB BLOOD ORDERAB LES Final Result Performing Organization Address [facility] Co de Phone Number [facility] [address] [place] [phone] * (ABNORMAL) Hemoglobin A1c (04/16/2025 12:21 PM EST) Hemoglobin A1c 7.5(H) <6.0 % [facility] Comment:Hemoglobin A1C Refer ence Range Adults: 4.8 - 6.0 % Non diabetic: < 6.0 % Goal: < 7.0 %Additional Action Suggested: > 8.0 %Note: Hemoglobin A1c results are invalid for patients with abnormal amounts of HbF. Blood transfusions may impact the HbA1c concentration in the patient sample. Estimated Average Glucose 169 mg/dL [facility] Comment:eAG = Estimated ave rage glucose which is %A1C expressed asaverage glucose, using the formula of the V5A-PqzrythLcvmyzv Glucose study (ADAG), Diabetes Care, Vol.31,#8,Dec. 2007 04/16/2025 12:2 1 PM EST 04/16/2025 12:21 PM EST us Generic External Data Provider LAB BLOOD ORDERAB LES Final Result [facility] [address] [place] [phone] * POCT Glucose (04/14/2025 10:53 AM EST) Only the most recent of2 resultswithin the time period is included. [facility] Glucose Blood, POC [phone] [...] PM EST Narrative 04/10/2025 12:32 PM EST [address] [address] XRay Report Signed Patient: Katie Andrews MR#: [id number] : 1970 Acct:[id number] Age/Sex: 54 / F ADM Date: 04/10/25 Loc: HO.ED Attending Dr: Ordering Physician: Ramon Vidal MD Date of Service: 04/10/25 Procedure(s): XR chest 2V Accession Number(s): [id number] cc: Ramon Vidal MD; Gemma Osuna NP [...] 04/10/25 1231 DD/ 1230 TD/TT: 04/10/25 1230 Soft Hat Binder: Procedure Note Donotuseinterpreter, Image - 04/10/2025 [place] [address] XRay Report Signed Patient: Clotilde Andrews#: [id number] : 1970Acct:[id number] Age/Sex: 54 / FADM Date: 04/10/25 Loc: HO.ED Attending Dr: Ordering Physician: Ramon Vidal MD Date of Service: 04/10/25 Procedure(s): XR chest 2V Accession Number(s): [id number] cc: Ramon Vidal MD; Gemma Osuna NP [...] 04/10/25 1231 DD/ 1230 TD/TT: 04/10/25 1230 Soft Hat Binder: [facility] External Provider IMG XR PROCEDURES Edited Result - Final * Influenza A B2 ID NOW (Herrera) (04/10/2025 10:37 AM EST) IDNOW SERIAL# [id number] [facility] Influenza A Negative Negative [facility] Influenza B2 Negative Negative [facility] Influenza A B2 Note See Note [facility] Comment:The Herrera ID NOW In fluenza [...] LAB MICROBIOLOGY - GENERAL ORDERABLES Final Result [facility] [address] [place] [phone] * COVID-19 ID NOW (HERRERA) (04/10/2025 10:37 AM EST) IDNOW SERIAL# [id number] [facility] COVID-19 TEST Negative Negative [facility] COVID-19 NOTE See Note [facility] Comment: Results are for the identification of SARS-CoV2 RNA. TheSARS-CoV2 RNA is generally detectable in respiratory samplesduring the acute phase of infection. Positive results areindicative of the presence of SARS-CoV-2 RNA; clinicalcorrelation with patient history and other diagnosticinformation is necessary to determine patient infectionstatus. Positive results do not rule out bacterial infectionor co- infection with other viruses.Testing facilities within the [place] and itsterritories are required to report all [...] use by authorized laboratories.Testing performed on the i[employer] NOW utilizing NAAT. 04/10/2025 10:3 7 AM EST 04/10/2025 10:40 AM EST us Generic External Data Provider LAB MOLECULAR SHEA GNOSTICS ORDERABLES Final Result [facility] [address] [place] [address] [phone] * (ABNORMAL) Basic Metabolic Panel (04/10/2025 10:37 AM EST) Sodium 147(H) 135 - 145 mmol/L [facility] Potassium 4.4 3.3 - 5.1 mmol/L [facility] Chloride 110(H) 96 - 108 mmol/L [facility] Carbon Dioxide 25 22 - 29 mmol/L [facility] Anion Gap 16 12 - 20 [facility] Urea Nitrogen (BUN) 14 9 - 16 mg/dL [facility] Creatinine, Serum 0.68 0.5 - 1.4 mg/dL [facility] Creatinine Clr Calc Pharmacy 97.0 [facility] Comment:Provided height and weight: 157.48 cm,89.2 kg.eGFR (calculated from the MDRD study equation) and eCrCl(calculated from the Cockcroft-Gault equation) are based ondifferent parameters and may not yield comparable results.If eCrCl result is absurd, please check patient'sheight/weight. Estimated Glomerular Filt Rate >60 [facility] Comment:Chronic Kidney Disea se: Estimated GFR < 60 mL/min/1.00e0Ccueqn Kidney Disease: Estimated GFR < 15 mL/min/1.73m2 Glucose 136(H) 60 - 115 mg/dL [facility] Calcium 9.8 8.4 - 10.2 mg/dL [facility] 04/10/2025 10:3 7 AM EST 04/10/2025 10:40 AM EST Generic External Data Provider LAB BLOOD ORDERAB LES Final Result Performing Organization Address [facility] de Phone Number [facility] [address] [place] [phone] * High Sensitivity Troponin I (04/10/2025 10:36 AM EST) Pathologist [facility] TROPONIN I HIGH SENSITIVITY <2.7 <3.5 - 17.0 ng/L [facility] Comment:The Herrera high sens itivity Troponin-I results should beused in conjunction with other diagnostic information suchas ECG, clinical observations and information, and patientsymptoms to aid in the diagnosis of [place]. 04/10/2025 10:3 6 AM EST 04/10/2025 10:40 AM EST [employer] External Data Provider LAB BLOOD ORDERAB LES Final Result Performing Organization Address [facility] de Phone Number [facility] [address] [place] [phone] * NT-proBNP (04/10/2025 10:36 AM EST) Pathologist [facility] NT-proBNP <15.8 <300 pg/mL [facility] Comment:Reference Range:Age Group (years) NT-proBNP (pg/ml) InterpretationAll <300 Negative: HF unlikelyFor patients presenting to the ED with clinical suspicion ofnew onset or worsening HF, see below:18 to <50 >299.9 to <450.0 Grayzone: [place]17 to 75 >299.9 to <900.0 other causes of>75 >299.9 to <1800.0 NT-proBNP fwarntxge40 to <50 >449.9 Positive: HF [id number] >899.9>75 >1799.9Note: Elevated NT-proBNP levels should be interpreted inthe context of other clinical information. 04/10/2025 10:3 6 AM EST 04/10/2025 10:40 AM EST us Generic External Data Provider LAB BLOOD ORDERAB LES Final Result [facility] [address] [place] [phone] * (ABNORMAL) CBC auto differential (04/10/2025 10:36 AM EST) Only the most recent of2 resultswithin the time period is included. White Blood Count 6.5 4.8 - 10.8 X10*3/uL [facility] Red Blood Count 5.08 4.20 - 5.50 X10*6/uL [facility] Hemoglobin 15.5 12.0 - 16.0 g/dl [facility] Hematocrit 47.5(H) 37.0 - 47.0 % [facility] Mean Corpuscular Volume 93.5 80.0 - 98.0 fL [facility] Mean Corpuscular Hemoglobin 30.5 27.0 - 33.0 pg [facility] Mean Corpuscular HGB Conc 32.6 31.0 - 35.0 g/dl [facility] Red Cell Distribution Width 12.3 11.0 - 16.0 % [facility] Platelet Count 324 160 - 400 X10*3/uL [facility] Mean Platelet Volume 8.6(L) 9.4 - 12.3 fL [facility] Neutrophils Percent Auto 48.9 45 - 73 % [facility] Imm Gran Pct Auto 0.2 0.0 - 0.4 % [facility] Lymphocytes Percent Auto 31.0 20 - 40 % [facility] Monocytes Percent Auto 7.2 2 - 11 % [facility] Eosinophils Percent Auto 11.5(H) 0 - 4 % [facility] Basophils Percent Auto 1.2 0 - 2 % [facility] NRBC Pct Auto 0.0 0.0 - 0.2 /100WBC [facility] Neutrophils Absolute Auto 3.2 2.0 - 8.3 x10*3/uL [facility] Imm Gran Abs Auto 0.01 0.00 - 0.03 X10*3/uL [facility] Lymphocytes Absolute Auto 2.0 1.2 - 4.9 X10*3/uL [facility] Monocytes Absolute Auto 0.5 0.1 - 1.2 X10*3/uL [facility] Eosinophils Absolute Auto 0.8(H) 0.0 - 0.4 X10*3/uL [facility] Basophils Absolute Auto 0.1 0.0 - 0.2 X10*3/uL [facility] NRBC Abs Auto 0.000 0.0 - 0.012 X10*3/uL [facility] 04/10/2025 10:3 6 AM EST 04/10/2025 10:40 AM EST us Generic External Data Provider LAB BLOOD ORDERAB LES Final Result [facility] [address] [place] [address] [phone] * Sed Rate by Modified Grabielren (03/24/2025 11:28 AM EDT) Erythrocyte Sedimentation Rate 8 0 - 20 MM/HR [facility] Comment:Patients with polycy themia and many hemoglobin abnormalitiesmay have depressed sed rates whereas patients with anemiamay have elevated sed rates. Blood Venous blood specimen / Unknown 03/24/2025 11:28 AM EDT 03/24/2025 1:13 PM EDT us Gemma Graef COLD REDUCTION ROLLER LAB BLOOD ORDERABLES Final Resul t [facility] [address] [place] [address] [phone] * (ABNORMAL) Comprehensive Metabolic Panel (03/24/2025 11:28 AM EDT) Only the most recent of2 resultswithin the time period is included. Sodium 141 135 - 145 mmol/L [facility] Potassium 3.9 3.3 - 5.1 mmol/L [facility] Chloride 107 96 - 108 mmol/L [facility] Carbon Dioxide 27 22 - 29 mmol/L [facility] Anion Gap 11(L) 12 - 20 [facility] Urea Nitrogen (BUN) 10 9 - 16 mg/dL [facility] Creatinine, Serum 0.56 0.5 - 1.4 mg/dL [facility] Estimated Glomerular Filt Rate >60 [facility] Comment:Chronic Kidney Disea se: Estimated GFR < 60 mL/min/1.11y1Hjasql Kidney Disease: Estimated GFR < 15 mL/min/1.73m2 Glucose 169(H) 60 - 115 mg/dL [facility] Calcium 8.8 8.4 - 10.2 mg/dL [facility] Bilirubin, Total 0.7 0.0 - 1.0 mg/dL [facility] Aspartate Amino Transferase 22 5 - 31 U/L [facility] Alanine Aminotransferase 19 0 - 31 U/L [facility] Total Protein 6.4(L) 6.5 - 8.0 g/dL [facility] Albumin Level 4.0 3.5 - 5.0 g/dL [facility] Alkaline Phosphatase 77 39 - 117 U/L [facility] Blood Venous blood specimen / Unknown 03/24/2025 11:28 AM EDT 03/24/2025 1:13 PM EDT us Gemma Osuna COLD REDUCTION ROLLER LAB BLOOD ORDERABLES Final Resul t [facility] [address] [place] [phone] * HPV High Risk with Reflex to Subtypes (03/22/2025 4:52 PM EDT) HPV High Risk Negative Negative [facility] HPV Genotype 16 Negative Negative [facility] HPV Genotype 18 Negative Negative [facility] Comment:HPV testing performe d at [facility] (CLIA#[id number]), [address] [place] [phone].Testing for HPV was performed using the Glenda [...] NP LAB BLOOD ORDERABLES Final Resul t [facility] [address] [place] [phone] * Pap Smear (03/22/2025 4:52 PM EDT) Swab Cervical swab / Unknown 03/22/2025 4:52 PM EDT 03/24/2025 2:00 PM EDT Narrative [facility] - 03/31/2025 1:07 PM EST ----- ------- Name: Katie Andrews Age/Sex: 54/F : 1970 Unit#: [id number] Attend Dr: Gemma Osuna COLD REDUCTION ROLLER Re03/22/25 Status: [facility] REF Location: [facility] Disch: ----- ------- SPEC : [id number] RECD: 03/24/25 STATUS: TOM CAROLE NUM: [id number] JAIR: 03/22/25 [facility] DR: Gemma Osuna COLD REDUCTION ROLLER ENTERED: 03/24/25 SP TYPE: Pap Smr [facility] DR: ORDERED: Pap Smear Interpretation Satisfactory for [...] and HPV testing will be performed at [facility] (CLIA #[id number]), [address] [place] [address]. Testing for HPV was performed using the [...] detected. All professional services are performed by [facility] ([address] [place] [address], [place] [address]; ; CLIA #[id number]). The PAP Test is a screening procedure with the inherent possibility of both false negative and false positive results. Results should be interpreted in the context of historic and current clinical findings. Reliability of the PAP Test is enhanced by performing the test on a regular repetitive basis. CONTINUED ON NEXT PAGE ----- ------- Name: Nilton GarciaKatie rondon Age/Sex: 54/F : 1970 Unit#: [id number] Attend Dr: Gemma Osuna COLD REDUCTION ROLLER Re03/22/25 Status: [facility] Disch: ----- ------- SPEC : [id number] RECD: 03/24/25 STATUS: TOM LAM NUM: [id number] JAIR: 03/22/25 [facility] DR: Gemma Osuna COLD REDUCTION ROLLER ENTERED: 03/24/25 SP TYPE: Jae LLOYD DR: ORDERED: Pap Smear ----- ------- Signed (signature on file) GHAZAL Freeman ([facility]) 03/31/25 1307 ----- ------- END OF REPORT Gemma Osuna NP LAB CYTOLOGY ORDERABLES Final Re sult [facility] [address] [place] [address] [phone] * (ABNORMAL) POCT Hgb A1c (03/22/2025 4:00 PM EDT) Pathologist [facility] Hemoglobin A1C 7.5(A) 4.0 - 5.7 % QC Media Lot # [id number] Lot# Expiration Date [id number] Blood 03/22/2025 4:00 PM EDT Gemma Osuna [...] PM EDT Narrative 03/05/2025 8:36 AM EDT [address] [address] Magnetic Resonance Report Signed Patient: Katie Andrews MR#: [id number] : 1970 Acct:[id number] Age/Sex: 54 / F ADM Date: 03/04/25 Loc: HO.MRI Attending Dr: Joe Saleh MD Ordering Physician: Joe Saleh MD Date of Service: 03/04/25 Procedure(s): MR knee LT wo con Accession Number(s): [id number] cc: Gemma Osuna NP; Joe Saleh MD Reason for Exam: S83.242A [...] 03/05/25 0833 DD/ 43 TD/TT: 03/04/25 191 Soft Hat Binder: EDUARDO Procedure Note Donalexanderinterpreter, Image - 03/05/2025 [place] [address] Magnetic Resonance Report Signed Patient: Clotilde Andrews#: [id number] : 1970Acct:[id number] Age/Sex: 54 / FADM Date: 03/04/25 Loc: HO.MRI Attending Dr: Joe Saleh MD Ordering Physician: Joe Saleh MD Date of Service: 03/04/25 Procedure(s): MR knee LT wo con Accession Number(s): [id number] cc: Gemma Osuna COLD REDUCTION ROLLER; Joe Saleh MD Reason for Exam: S83.242A [...] OV> 03/05/25 0833 DD/ 1844 TD/TT: 03/04/25 191 Soft Hat Binder: EDUARDO us [facility] External Provider IMG MRI PROCEDURES Final Result * RPR (Monitor) with Reflex to??Titer (03/03/2025 3:37 PM EDT) RPR (Monitor) w/Refl Titer NON-REACTI VE NON-REACT LEYDA [facility] Comment:THIS TEST WAS PERFOR MED AT:[employer] [place] [phone] MC MD Rapid Plasma Reagin Ab Titer TNP [facility] Blood Venous blood specimen / Unknown 03/03/2025 3:37 PM EDT 03/03/2025 4:09 PM EDT Luke Styles MD LAB BLOOD ORDERABLES Final Resul t [facility] [address] [place] [phone] * US Thyroid (02/16/2025 2:50 PM EDT) Anatomical Region Laterality Modality Head, Neck Ultrasound 02/16/2025 2:50 PM EDT Narrative 02/16/2025 3:32 PM EDT [address] [address] Ultrasound Report Signed Patient: Katie Andrews MR#: [id number] : 1970 Acct:[id number] Age/Sex: 54 / F ADM Date: 02/16/25 Loc: HO.US Attending Dr: Gemma Osuna NP Ordering Physician: Gemma Osuna NP Date of Service: 02/16/25 Procedure(s): US thyroid Accession Number(s): [id number] cc: Gemma Osuna NP Reason for Exam: [...] than or equal to 1 cm: 1. Roll Up Machine Operator nodules are described as follows: 1. [...] 02/16/25 1529 DD/ 1450 TD/TT: 02/16/25 1456 Soft Hat Binder: Procedure Note Donotuseinterpreter, Image - 02/16/[address] [address] Ultrasound Report Signed Patient: Clotilde Andrews#: [id number] : 1970Acct:[id number] Age/Sex: 54 / FADM Date: 02/16/25 Loc: HO.US Attending Dr: Gemma Osuna NP Ordering Physician: Gemma Osuna NP Date of Service: 02/16/25 Procedure(s): US thyroid Accession Number(s): [id number] cc: Gemma Osuna NP Reason for Exam: [...] than or equal to 1 cm: 1. Roll Up Machine Operator nodules are described as follows: 1. [...] 02/16/25 1529 DD/ 1450 TD/TT: 02/16/25 1456 Soft Hat Binder: us Gemma Osuna NP IMG US PROCEDURES Final Result * (ABNORMAL) Lipid Panel, Standard (10/21/2024 8:42 AM EDT) Triglycerides 101 <150 mg/dL [facility] Comment:Desirable Triglyceri de: less than 150 mg/dLBorderline High Triglyceride 150-199 mg/dLHigh Triglyceride: 200-499 mg/dLVery High Triglyceride: greater than or equal to 5OO mg/dL Cholesterol 202(H) <200 mg/dL [facility] Comment:Desirable Cholestero l: less than 200 mg/dLBorderline High Cholesterol: 200-239 mg/dLHigh Cholesterol: greater than 239 mg/dL LDL Cholesterol Calculated 119(H) <100 mg/dL [facility] Comment:Desirable LDL: less than 100 mg/dLNear Optimal/Above Optimal LDL: 110- 129 mg/dLBorderline High LDL: 130-159 mg/dLHigh LDL: 160-189 mg/dLVery High LDL: greater than or equal to 190 mg/dL HDL Cholesterol 63 >40 mg/dL [facility] Comment:Desirable HDL: great er than 40 mg/dL Note: This HDL assay may give artificially low results in patients with liver disease. Blood Venous blood specimen / Unknown 10/21/2024 8:42 AM EDT 10/21/2024 11:10 AM EDT us Gemma Osuna NP LAB BLOOD ORDERABLES Final Resul t [facility] [address] [place] [phone] from Last 3 Months or Most Recently [...] 04/20/2025 Patient has chronic kidney disease 04/20/2025 Weekly blood pressure task 04/20/2025 Weekly blood pressure task 04/20/2025 Patient has chronic kidney disease 04/20/2025 Patient has chronic kidney disease 04/20/2025 Weekly blood pressure task 04/20/2025 Weekly blood pressure task 04/20/2025 Patient has chronic kidney disease 04/20/2025 Patient has chronic kidney disease 04/20/[address] [place] [address] [place] [address] C3 Care Teams Building Performance Consultant Relationship Specialty Start Date End Date Gemma Osuna NP [address] [place] [address] PCP - General Family Medicine 10/09/24 Bryan Davis RN [address] [place] [phone] Registered Nurse Family Medicine 04/12/25 Marleen Whitlock 04/12/25
--- OUTSIDE RECORDS SUMMARY | 2025-04-27 11:49 | XMS_ITS ---
Author Organization [employer] Address [address] [place] [address] 7t [place] [address] Care Team Providers Care Cookee Name Role Phone Gemma Osuna NP Primary Care Provider [phone] Bryan Davis RN Unavailable [phone] Marleen Whitlock Unavailable [facility] Status:Outreach In Progress (Enrolling) Start date:04/12/2025 Enrollment reason:ADT Feed Overview ED- Pt went [facility] on 04/10/25. Please outreach for enrollment. Case Team Name Relationship Phone Marleen Whitlock(Responsible Staff) [phone] Continued Care and Services Coordination
--- OUTSIDE RECORDS SUMMARY | 2025-04-27 11:49 | XMS_ITS | Encounter Summary ---
Author Organization [employer] Address [address] [facility] 7t [place] [address] Care Team Providers Care Professor Of Physical Education Name Role Phone Gemma Osuna NP Primary Care Provider [phone] Bryan Davis RN Unavailable [phone] aMrleen Whitlock Unavailable Reason for Visit * Reason Onset Date Comments Med Refill 12/07/2024 Encounter Details Date Type Department Care Team (Late st Contact Info) Description 12/07/2024 Refill [facility] [address] [place] [phone] Gemma Osuna NP [address] [place], [place] [phone] Social History Tobacco Use Types Packs/Day Years [...] Description 06/09/2025 10:30 AM EST Office Visit [facility] [address] [place] [phone] Gemma Osuna NP [address] [place] [address] documented as of this encounter Visit Diagnoses Not on filedocumented in this encounter Additional Health Concerns Assessment Noted Time PHQ-9 Depression Total Score: 14 11/13/ 025 12:03 PM EDT documented as of this encounter Care Teams Professor Of Physical Education Relationship Specialty Start Date End Date Gemma Osuna NP [address] [place] [address] PCP - General Family Medicine 10/09/24 Bryan Davis RN [address] [place] [phone] Registered Nurse Family Medicine 04/12/25 Marleen Whitlock 04/12/25 documented as of this encounter
--- OUTSIDE RECORDS SUMMARY | 2025-04-27 11:49 | XMS_ITS | Encounter Summary ---
Author Organization [employer] Address [address] [facility] 7t [place] [address] Care Team Providers Care Certified Dental Assistant Name Role Phone Gemma Osuna NP Primary Care Provider [phone] Bryan Davis RN Unavailable [phone] Marleen Whitlock Unavailable Reason for Visit * Reason Onset Date Comments Med Refill 02/09/2025 Encounter Details Date Type Department Care Team (Late st Contact Info) Description 02/09/2025 Refill [facility] [address] [place] [address] Gemma Osuna NP [address] [place] [address] Social History Tobacco Use Types Packs/Day Years [...] the past 12 months, has t he [employer], gas, oil or water [employer] threatened to shut off services in your [...] Description 06/09/2025 10:30 AM EST Office Visit [facility] [address] [place] [address] Gemma Osuna NP [address] [place] [address] documented as of this encounter Visit Diagnoses Not on filedocumented in this encounter Additional Health Concerns Assessment Noted Time PHQ-9 Depression Total Score: 14 025 12:03 PM EDT documented as of this encounter Care Teams Certified Dental Assistant Relationship Specialty Start Date End Date Gemma Osuna NP [address] [place] [address] PCP - General Family Medicine 10/09/24 Bryan Davis RN [address] [place] [address] Registered Nurse Family Medicine 04/12/25 Marleen Whitlock 04/12/25 documented as of this encounter
--- OUTSIDE RECORDS SUMMARY | 2025-04-27 11:49 | XMS_ITS | Encounter Summary ---
Author Organization [employer] Address [address] [facility] 7t [place] [address] Care Team Providers Care Mess Attendant Crew Name Role Phone Gemma Osuna NP Primary Care Provider [phone] Bryan Davis RN Unavailable Marleen Whitlock Unavailable Encounter Details Date Type Department Care Team ([facility] st Contact Info) Description 03/08/2025 Telephone [facility] [address] [place] [address] Gemma Osuna NP [address] [place] [address] Social History Tobacco Use Types Packs/Day Years [...] referral. Has she heard from radiology at [facility]? Thank you documented in this encounter Plan of Treatment Upcoming Encounters Date Type Department Care Team (Late st Contact Info) Description 06/09/2025 10:30 AM EST Office Visit [facility] [address] [place] [address] Gemma Osuna NP [address] [place] [address] documented as of this encounter Visit Diagnoses Diagnosis Thyroid nodule- Primary Nontoxic uninodular goiter documented in this encounter Additional Health Concerns Assessment Noted Time PHQ-9 Depression Total Score: 14 11/13/ 025 12:03 PM EDT documented as of this encounter Care Teams Mess Attendant Crew Relationship Specialty Start Date End Date Gemma Osuna NP [address] [place] [address] PCP - General Family Medicine 10/09/24 Bryan Davis RN [address] [place] [address] Registered Nurse Family Medicine 04/12/25 Marleen Whitlock 04/12/25 documented as of this encounter
--- OUTSIDE RECORDS SUMMARY | 2025-04-27 11:49 | XMS_ITS | Encounter Summary ---
Author Organization [employer] Address 75 [facility] 7t [place] [address] Care Team Providers Care Physician Asst Name Role Phone Gemma Osuna NP Primary Care Provider [phone] Bryan Davis RN Unavailable [phone] Marleen Whitlock Unavailable Reason for Visit * Reason Onset Date Comments Med Refill 12/11/2024 Encounter Details Date Type Department Care Team (Late st Contact Info) Description 12/11/2024 Refill [facility] [address] [place] [address] Gemma Osuna NP [address] [place], [place] [phone] Social History Tobacco Use Types Packs/Day Years [...] [facility] [address] [place] [address] Gemma Osuna NP [address] [place] [address] documented as of this encounter Visit Diagnoses Not on filedocumented in this encounter Additional Health Concerns Assessment Noted Time PHQ-9 Depression Total Score: 14 11/13/ 025 12:03 PM EDT documented as of this encounter Care Teams Physician Asst Relationship Specialty Start Date End Date Gemma Osuna NP [address] [place] [address] PCP - General Family Medicine 10/09/24 Bryan Davis RN [address] [place] [address] Registered Nurse Family Medicine 04/12/25 Marleen Whitlock 04/12/25 documented as of this encounter
--- OUTSIDE RECORDS SUMMARY | 2025-04-27 11:49 | XMS_ITS | Encounter Summary ---
Author Organization [employer] Address [address] [facility] 7t [place] [address] Care Team Providers Care Wax Coating Machine Tender Name Role Phone Gmema Osuna NP Primary Care Provider [phone] Bryan Davis RN Unavailable [phone] Marleen Whitlock Unavailable Reason for Visit * Reason Comments Med Refill Encounter Details Date Type Department Care Team ([facility] st Contact Info) Description 04/14/2025 Refill [facility] [address] [place] [address] Luke Styles MD [address] [place] [address] Social History Tobacco Use Types Packs/Day Years [...] Visit [facility] [address] [place] [address] Gemma Osuna NP [address] [place] [address] documented as of this encounter Goals Goal [...] documented as of this encounter Care Teams Wax Coating Machine Tender Relationship Specialty Start Date End Date Gemma Osuna NP [address] [place] [address] PCP - General Family Medicine 10/09/24 Bryan Davis RN [address] [place] [phone] Registered Nurse Family Medicine 04/12/25 Marleen Whitlock 04/12/25 documented as of this encounter
--- OUTSIDE RECORDS SUMMARY | 2025-04-27 11:49 | XMS_ITS | Encounter Summary ---
Author Organization [employer] Address [address] [facility] 7t [place] [address] Care Team Providers Care Manpower Development Specialist Name Role Phone Gemma Osuna NP Primary Care Provider [phone] Bryan Davis RN Unavailable [phone] Marleen Whitlock Unavailable Reason for Visit * Reason Onset Date Comments Med Refill 12/07/2024 Encounter Details Date Type Department Care Team (Late st Contact Info) Description 12/07/2024 Refill [facility] [address] [place] [address] Gemma Osuna NP [address] [place], [place] [phone] Social History Tobacco Use Types Packs/Day Years [...] 06/09/2025 10:30 AM EST Office Visit [facility] [address] [place] [address] Gemma Osuna NP [address] [place] [address] documented as of this encounter Visit Diagnoses Not on filedocumented in this encounter Additional Health Concerns Assessment Noted Time PHQ-9 Depression Total Score: 14 11/13/ 025 12:03 PM EDT documented as of this encounter Care Teams Manpower Development Specialist Relationship Specialty Start Date End Date Gemma Osuna NP [address] [place] [address] PCP - General Family Medicine 10/09/24 Bryan Davis RN [address] [place] [address] Registered Nurse Family Medicine 04/12/25 Marleen Whitlock 04/12/25 documented as of this encounter
--- OUTSIDE RECORDS SUMMARY | 2025-04-27 11:49 | XMS_ITS | Encounter Summary ---
Author Organization [employer] [facility] Address [address] [facility] 7t [place] [address] Care Team Providers Care Certified Nurse Operating Room Name Role Phone Gemma Osuna NP Primary Care Provider [phone] Bryan Davis RN Unavailable [phone] Marleen Whitlock Unavailable Reason for Visit * Reason Onset Date Comments Med Refill 11/03/2024 Encounter Details Date Type Department Care Team (Late st Contact Info) Description 11/03/2024 Refill [facility] [address] [place] [address] [phone] Gemma Osuna NP [address] [place], [place] [phone] Social History Tobacco Use Types Packs/Day Years [...] Description 06/09/2025 10:30 AM EST Office Visit [facility] [address] [place], [place] [phone] Gemma Osuna NP [address] [place], [place] [phone] documented as of this encounter Visit Diagnoses Not on filedocumented in this encounter Care Teams Certified Nurse Operating Room Relationship Specialty Start Date End Date Gemma Osuna NP [address] [place] [address] PCP - General Family Medicine 10/09/24 Bryan Davis, DANIEL [address] [place] [address] Registered Nurse Family Medicine 04/12/25 Marleen Whitlock 04/12/25 documented as of this encounter
--- OUTSIDE RECORDS SUMMARY | 2025-04-27 11:49 | XMS_ITS | Encounter Summary ---
Author Organization [employer] [facility] Address [address] [facility] 7t [place] [address] Care Team Providers Care Duct Installer Name Role Phone Gemma Osuna NP Primary Care Provider [phone] Bryan Davis RN Unavailable [phone] Marleen Whitlock Unavailable Reason for Visit * Reason Onset Date Comments Med Refill 11/03/2024 Encounter Details Date Type Department Care Team (Late st Contact Info) Description 11/03/2024 Refill [facility] [address] [place] [address] Gemma Osuna NP [address] [place], [place] [phone] Social History Tobacco Use Types Packs/Day Years [...] Description 06/09/2025 10:30 AM EST Office Visit [facility] [address] [place], [place] [phone] Gemma Osuna NP [address] [place], [place] [phone] documented as of this encounter Visit Diagnoses Not on filedocumented in this encounter Care Teams Duct Installer Relationship Specialty Start Date End Date Gemma Osuna NP [address] [place] [address] PCP - General Family Medicine 10/09/24 Bryan Davis, DANIEL [address] [place] [address] Registered Nurse Family Medicine 04/12/25 Marleen Whitlock 04/12/25 documented as of this encounter
--- OUTSIDE RECORDS SUMMARY | 2025-04-27 11:49 | XMS_ITS ---
Author Organization [employer] Address [address] [facility] [address] [place] [address] Care Team Providers Care Director Of Clinical Services Name Role Phone Gemma Osuna NP Primary Care Provider [phone] Bryan Davis RN Unavailable [phone] Marleen Whitlock Unavailable CM Complex Status:Outreach In Progress (Enrolling) Start date:04/12/2025 Enrollment reason:ADT Feed Overview ED- Pt went [facility] on 04/10/25. Case Team Name Relationship Phone Bryan Davis RN(Responsible Staff) Registered Nurse [phone] Continued Care and Services Coordination
--- OUTSIDE RECORDS SUMMARY | 2025-04-27 11:49 | XMS_ITS | Encounter Summary ---
Author Organization [employer] Address [address] [facility] [address] [place] [address] Care Team Providers Care Laser Set Up Operator Name Role Phone Gemma Osuna NP Primary Care Provider [phone] Bryan Davis RN Unavailable [phone] Marleen Whitlock Unavailable Reason for Visit [...] (Late st Contact Info) Description 12/22/2024 Refill [facility] [address] [place], [place] [phone] Gemma Osuna NP [address] [place], [place] [phone] Social History Tobacco Use Types Packs/Day Years [...] Description 06/09/2025 10:30 AM EST Office Visit [facility] [address] [place] [address] Gemma Osuna NP [address] [place] [address] documented as of this encounter Visit Diagnoses Not on filedocumented in this encounter Additional Health Concerns Assessment Noted Time PHQ-9 Depression Total Score: 14 025 12:03 PM EDT documented as of this encounter Care Teams Laser Set Up Operator Relationship Specialty Start Date End Date Gemma Osuna NP [address] [place] [address] PCP - General Family Medicine 10/09/24 Bryan Davis, DANIEL [address] [place] [id number] Registered Nurse Family Medicine 04/12/25 Marleen Whitlock 04/12/25 documented as of this encounter
[2025-04-27] MEDS: Lidocaine HCl 1 % MPF 5 ML VIAL SUBCUT (11:53)
== END 2025-04-27 10:22 | disposition home or self-care (01) ==
LOC: HO.US 10:21
PROVIDERS: PCP Nurse Practitioner Family; Visit Provider Nurse Practitioner Family
DX: E04.1 Nontoxic single thyroid nodule (principal)
CPT/HCPCS: 10005; 88112; 88173; J2003

== ENCOUNTER → 2025-04-27 10:25 | Outpatient (BNV) | payer MEDICAID, SELFPAY | PROVIDERS: PCP Nurse Practitioner Family; Visit Provider Radiology Diagnostic Radiology | DX: E04.1 Nontoxic single thyroid nodule (principal) | CPT/HCPCS: 10005 ==

== ENCOUNTER 2025-05-05 09:11 | Outpatient (REF) | payer MEDICAID, SELFPAY ==
--- NOTE | ~2025-05-05 | CT_ITS ---
CLINICAL HISTORY: new onset diarrhea, llq pain, ? diverticulitis CT abdomen and pelvis with contrast Comparison: None provided Findings: No consolidation or effusion. Questionable hepatic steatosis. Spleen, pancreas, adrenals, and urinary bladder are unremarkable. A few small gallstones. 6 mm left renal lipoma/angiomyolipoma. Too small to characterize right renal hypodensity. No hydronephrosis. 1 mm nonobstructive left renal stone. Incidental note of a retroaortic left renal vein. Incidental note of common origin of the celiac axis and SMA. Oadl-zi-ihyovtye colonic stool. No bowel obstruction. Mild colonic diverticulosis without diverticulitis. Normal appendix. 27 mm subserosal fundal lesion may be due to a fibroid. No acute fracture. Transitional lumbosacral vertebra. IMPRESSION: 1. A few small gallstones. 2. 6 mm left renal lipoma/angiomyolipoma. 1 mm nonobstructive left renal stone. 3. 27 mm subserosal fundal lesion may be due to a fibroid. This document has been electronically signed by: Mikki Mcfadden MD on 05/06/2025 13:00:03
[2025-05-05] MEDS: iohexoL 350 MG/ML 100 ML INFUS..BTL 85 ML IV (11:21)
[2025-05-05] MEDS: Barium Sulfate Oral (Mocha) 450 ML ORAL.SUSP 900 ML PO (11:22)
== END 2025-05-05 09:12 | disposition home or self-care (01) ==
LOC: HO.CT 09:11
PROVIDERS: PCP Nurse Practitioner Family; Visit Provider Nurse Practitioner
DX: R10.32 Left lower quadrant pain (principal); A09 Infectious gastroenteritis and colitis, unspecified
CPT/HCPCS: 74177; Q9967

== ENCOUNTER → 2025-05-05 09:13 | Outpatient (BNV) | payer MEDICAID, SELFPAY | PROVIDERS: PCP Nurse Practitioner Family; Visit Provider Radiology Diagnostic Radiology | DX: D17.71 Benign lipomatous neoplasm of kidney (principal); K80.20 Calculus of gallbladder without cholecystitis without obstruction; N20.0 Calculus of kidney | CPT/HCPCS: 74177 ==